=== PATIENT | female | born 1945 | race Caucasian/White ===

== ENCOUNTER 2019-01-26 11:11 | Inpatient (IN) | payer OTHER ==
[2019-01-26] MEDS ORDERED: SODIUM CHLORIDE 1,000 ML IV SCH ×3 (11:30→12:45)
[2019-01-26] MEDS ORDERED: dilTIAZem HCL 50 MG/10 ML - 10 ML VIAL IVPUSH ONE ×2 (11:39)
[2019-01-26] MEDS ORDERED: dilTIAZem HCL 125 MG/25 ML - 25 ML VIAL ONE (11:40)
--- NOTE | 2019-01-26 11:48 | PDOC ---
Attending Attestation - Medical Decision Making Case d/w [facility] ER: At [facility] 01/02 - admitted for CAD/CHF/HTN came in for generalized weakness, vomiting, nausea, L arm discomfort (the latter since PPM) ; Low/normal EF 50% Tachy 177, AFib on EKG, responsive to Cardizem, patient admitted for AFib; special education curriculum specialist Dr. Boyd Marcano 01/26/19 12:[address] Boyd Marcano: ; <Rea Harkins - Last Filed: 01/26/19 12:16> - ED Attending Attestation I have performed the following: I have examined & evaluated the patient, The case was reviewed & discussed with the resident, I agree w/resident's findings & plan, Exceptions are as noted - HPI HPI: 01/26/19 11:37 History limited as pt give a limited history and NO records at this facility 73 yo F h/o COPD, CHF, HTN, Afib (on metoprolol, Cardizem, digoxin and apixiban) , h/o Colon cancer?, s/p recent admission for pneumonia and colitis Pt presents to the ER with son via EMS Pt reports that she had had palpitations and weakness for the past 2 days No fevers or chills Pt has been short of breath 01/26/19 11:40 - Physicial Exam PE: 01/26/19 11:40 GENERAL: The patient is in no acute distress. ENT: Ears normal, nares patent, oropharynx clear without exudates. Dry mucous membranes. NECK: Normal range of motion, supple, no nuchal rigidity (+) LAD LUNGS: Breath sounds equal, clear to auscultation bilaterally. No wheezes, and no crackles. HEART:Regular rate and rhythm, normal S1 and S2 without murmur, rub or gallop. ABDOMEN: Soft, nontender, normoactive bowel sounds. EXTREMITIES: Normal range of motion, no edema. NEUROLOGICAL: Cranial nerves II through XII grossly intact. Normal speech. No focal neurological deficits. SKIN: Warm, Dry, normal turgor, no rashes or lesions noted. - Critical Care Time Total Critical Care Time: 60 Critical Care Statement: The care of this patient involved high complexity decision making to prevent further life threatening deterioration of the patient 's condition and/or to evaluate & treat vital organ system(s) failure or risk of failure. - Medical Decision Making 01/26/19 11:48 Call placed to [facility] Meds are as follows: Nitro 0.4 sublingual Trulance 3mg daily Albuterol MDI Diltiazem CD 120- daily MVI Toprol xl 25mg daily Ferrous sulfact 325mg daily Midodrine 2.5mg TID Meclizine 25mg daily PRN Spironolactone 25mg daily Lasix 40mg daily Zantac 300mg daily Elliquis daily - (December) [id number] daily Lisinopril 2.5 mg daily Singulair Digoxin .125mg in December Vitamin D 50k units weekly (in October) 01/26/19 11:53 Cardizem 10mg IV given HR improved to 90s-100s repeat EKG - ST rate of 102 bpm, right axis, no st elevation or depression RBBB , lateral st segment depression, t wves inversions Pt states she feels ok, no dizziness HR: 102, BP: 106/68 01/26/19 11:59 01/26/19 12:04 CXR - cardiomegaly, left basilar opacity - effusion vs. consolidation, chf 01/26/19 12:14 Laboratory Tests 01/26/19 01/26/19 11:36 11:36 WBC 8.9 Hgb 9.9 L Hct 31.8 L Plt Count 101 L INR 1.22 H 01/26/19 12:40 Laboratory Tests 01/26/19 01/26/19 11:36 11:36 Sodium 142 Potassium 4.2 Chloride 108 H Carbon Dioxide 30 BUN 9.1 Creatinine 0.5 L Creatine Kinase 68 Troponin I 0.04 B-Natriuretic Peptide 588.7 H Digoxin 0.69 L BEDSIDE ECHO Large left pleural effusion Right ventricle enlargement trace pericardial effusion 01/26/19 12:48 HR 90s BP 87/57 Will order pt midodrine 2.5 mg po now HR improved BP improved Cardiology consult appreciated Admit to hospitalist Clinical Impression: Afib with RVR, initial presentation Dehydration, initial presentation Fluid overloading, initial presentation CHF, initial presentation <Amna Geiger - Last Filed: 01/27/19 10:29>
--- NOTE | 2019-01-26 11:54 | PDOC ---
History of Present Illness - General Chief Complaint: Chest Pain Stated Complaint: CHEST PAIN Time Seen by Provider: 01/26/19 11:26 - History of Present Illness Initial Comments: 01/26/19 11:51 [place] Aden is a 73yF with PMHx of CAD, CHF with pacemaker, COPD presenting for 2d generalized weakness. Associated vomiting, nausea, and left arm discomfort. Denied fevers, chest/AB pain, SOB. She was treated 3 weeks ago for pneumonia and abdominal infection. Radiologist Diagnostic Dr. Boyd Marcano Past History - Past Medical History Allergies/Adverse Reactions: Allergies Allergy/AdvReac Type Severity Reaction Status Date / Time No Known Allergies Allergy Verified 01/26/19 11:51 Home Medications: Ambulatory Orders Albuterol Sulfate Inhaler - [Ventolin Hfa Inhaler -] 1 puff IH DAILY 01/26/19 Apixaban [Eliquis] 5 mg PO DAILY 01/26/19 Atorvastatin Ca [Lipitor] 20 mg PO HS 01/26/19 Cholecalciferol (Vitamin D3) [Vitamin D3 -] 400 unit PO DAILY 01/26/19 Digoxin [Lanoxin -] 0.125 mg PO DAILY 01/26/19 Diltiazem HCl [Diltiazem 24Hr ER] 120 mg PO DAILY 01/26/19 Ferrous Sulfate 325 mg PO DAILY 01/26/19 Furosemide [Lasix] 40 mg PO DAILY 01/26/19 Lisinopril [Zestril] 2.5 mg PO DAILY 01/26/19 Meclizine HCl 25 mg PO DAILY 01/26/19 Metoprolol Succinate [Toprol Xl] 25 mg PO DAILY 01/26/19 Midodrine HCl 2.5 mg PO TID 01/26/19 Montelukast Sodium [Singulair] 10 mg PO DAILY 01/26/19 Multivitamin [Multiple Vitamins] 1 each PO DAILY 01/26/19 Nitroglycerin [Nitrostat] 0.4 mg SL DAILY PRN 01/26/19 Plecanatide [Trulance] 3 mg PO DAILY 01/26/19 Ranitidine HCl [Zantac] 300 mg PO DAILY 01/26/19 Spironolactone 25 mg PO DAILY 01/26/19 Cardiac Disorders: Yes (a fib, pacemaker) COPD: No HTN: Yes Hypercholesterolemia: Yes - Suicide/Smoking/Psychosocial Hx Smoking History: Former smoker Have you smoked in the past 12 months: No Information on smoking cessation initiated: No Hx Alcohol Use: No Drug/Substance Use Hx: No Review of Systems - Review of Systems Is the patient limited Pashto proficient: Yes Constitutional: Yes: Weakness (generalized). No: Chills, Fever HEENTM: No: Eye Pain, Ear Pain, Nose Pain Respiratory: No: Cough, Shortness of Breath Cardiac (ROS): No: Chest Pain, Palpitations, Syncope, Chest Tightness ABD/GI: No: Constipated, Diarrhea, Nausea, Vomiting : No: Burning, Dysuria, Discharge Musculoskeletal: No: Joint Swelling, Muscle Pain Integumentary: No: Lesions, Pruritus, Rash Neurological: Yes: Paresthesia (L arm). No: Numbness Endocrine: No: Excessive Sweating, Flushing *Physical Exam - Vital Signs Last Vital Signs Temp Pulse Resp BP Pulse Ox 98.2 F 169 H 16 113/94 100 01/26/19 11:15 01/26/19 11:15 01/26/19 11:15 01/26/19 11:15 01/26/19 11:15 - Physical Exam General Appearance: Yes: Moderate Distress, Thin HEENT: positive: [place], Normal Voice Respiratory/Chest: positive: Lungs Clear, Normal Breath Sounds. negative: Chest Tender, Respiratory Distress, Crackles, Rales, Rhonchi, Stridor, Wheezing Cardiovascular: positive: Regular Rhythm, S1, S2, Tachycardia. negative: Edema , Murmur Neurologic: positive: Fully Oriented, Alert, Responsive ED Treatment Course - LABORATORY CBC & Chemistry Diagram: 01/26/19 11:36 01/26/19 11:36 Medical Decision Making - Medical Decision Making 01/26/19 11:53 CXR, EKG, cardiac monitoring, CBC, chem, trop, TSH EKG showed 170 a flutter vs SVT broken with diltiazem 10mg which brought HR down to 104 Echo showed large left pleural effusion, mild dysfunction, Right ventricle enlargement, trace pericardial effusion CXR showed large heart, pacemaker, and dense retrocardiac area possibly representing fluid. Hgb 9.9, BNP 580, digoxin 0.69 [place] Aden is a 73yF with PMHx of CAD, CHF with pacemaker, COPD presenting for 2d generalized weakness. Attributed to congestive heart failure found on echo and afib with rvr. Afib w rvr broken with diltiazem 10mg which brought HR down to 104. Placed on 2L O2 NC for SOB Admitted to tele Dr. Mooney for congestive heart failure, afib w rvr *DC/Admit/Observation/Transfer Diagnosis at time of Disposition: Congestive heart failure of unknown etiology A-fib Qualifiers: Atrial fibrillation type: unspecified Qualified Code(s): I48.91 - Unspecified atrial fibrillation - Discharge Dispostion Condition at time of disposition: Stable Decision to Admit order: Yes - Referrals Referrals: Denzel Richey MD [Primary Care Provider] - - Patient Instructions - Post Discharge Activity
[2019-01-26 11:57] LABS: HEMATOCRIT 31.8 % (32.4-45.2); HEMOGLOBIN 9.9 GM/dL (10.7-15.3); MCH 25.9 pg (25.7-33.7); MCHC 31.2 g/dl (32.0-36.0); MEAN PLT VOLUME 8.8 fl (7.5-11.1); PLATELET COUNT 101 K/MM3 (134-434); RBC 3.83 M/mm3 (3.60-5.2); RDW 23.4 % (11.6-15.6); WHITE BLOOD COUNT 8.9 K/mm3 (4.0-10.0)
[2019-01-26 12:12] LABS: INR 1.22 (0.83-1.09); PROTHROMBIN TIME (PATIENT) 14.4 SEC (9.7-13.0)
[2019-01-26 12:34] LABS: ALBUMIN 2.2 g/dl (3.4-5.0); BILIRUBIN,TOTAL 0.8 mg/dL (0.2-1); BLOOD UREA NITROGEN 9.1 mg/dL (7-18); CALCIUM 7.7 mg/dL (8.5-10.1); CREATININE 0.5 mg/dL (0.55-1.3); MAGNESIUM 1.9 mg/dL (1.8-2.4); N-TERMINAL BNP 588.7 pg/ml (5-125); POTASSIUM 4.2 mmol/L (3.5-5.1); TOT PROT 5.7 g/dl (6.4-8.2)
[2019-01-26] MEDS ORDERED: MIDODRINE HCL 2.5 MG TABLET PO ONE (12:48)
[2019-01-26 13:53] LABS: ANISOCYTOSIS 2+; MACROCYTOSIS 1+; OVALOCYTE 1+; PLATELET ESTIMATE DECREASED
[2019-01-26 15:37] LABS: EPI CELLS 4.8 /HPF (0-5/HPF); HYALINE CASTS 5 /lpf (0-8); URINE APPEARANCE CLEAR; URINE BACTERIA 135.5 /hpf (NEGATIVE); URINE BILIRUBIN NEGATIVE (NEGATIVE); URINE COLOR DK YELLOW; URINE GLUCOSE (UA) NEGATIVE (NEGATIVE); URINE KETONE NEGATIVE (NEGATIVE); URINE LEUK ESTERASE 1+ (NEGATIVE); URINE NITRITE NEGATIVE (NEGATIVE); URINE PROTEIN TRACE (NEGATIVE); URINE RBC 3 /hpf (0-4); URINE WBC 6 /hpf (0-5)
--- NOTE | 2019-01-26 16:01 | CON.CARD ---
Cardiology Consult (text) - Consultation Consultation Note: cc: palps, weakness hpi: 73 f hx dchf, pafib, hld, htn, ppm, here with palps, weakness. Past few days pt with n/v, palps, weakness. No sob cp dizzy loc pnd orthopnea. +le edema worse lately. In ER found afib/svt with rvr. In sr after dilt. Denies any cad hx. Sees dr Marcano for cardio at [facility]. pmh: per hpi psh: pacemaker social: no tob ros: per hpi; all others nl fam: no premature cad meds: Home Medications Medication Instructions Recorded Albuterol Sulfate Inhaler - 1 puff IH DAILY 01/26/19 [Ventolin Hfa Inhaler -] Apixaban [Eliquis] 5 mg PO DAILY 01/26/19 Atorvastatin Ca [Lipitor] 20 mg PO HS 01/26/19 Cholecalciferol (Vitamin D3) 400 unit PO DAILY 01/26/19 [Vitamin D3 -] Digoxin [Lanoxin -] 0.125 mg PO DAILY 01/26/19 Diltiazem HCl [Diltiazem 24Hr ER] 120 mg PO DAILY 01/26/19 Ferrous Sulfate 325 mg PO DAILY 01/26/19 Furosemide [Lasix] 40 mg PO DAILY 01/26/19 Lisinopril [Zestril] 2.5 mg PO DAILY 01/26/19 Meclizine HCl 25 mg PO DAILY 01/26/19 Metoprolol Succinate [Toprol Xl] 25 mg PO DAILY 01/26/19 Midodrine HCl 2.5 mg PO TID 01/26/19 Montelukast Sodium [Singulair] 10 mg PO DAILY 01/26/19 Multivitamin [Multiple Vitamins] 1 each PO DAILY 01/26/19 Nitroglycerin [Nitrostat] 0.4 mg SL DAILY PRN 01/26/19 Plecanatide [Trulance] 3 mg PO DAILY 01/26/19 Ranitidine HCl [Zantac] 300 mg PO DAILY 01/26/19 Spironolactone 25 mg PO DAILY 01/26/19 Vital Signs Period Temp Pulse Resp BP Sys/Nava Pulse Ox Last 24 Hr 98.2 F-98.6 F 86-171 16-28 87-113/57-95 95-100 nad no jvd rrr s1s2 no mrg scattered rhonchi, nl eff abd nt nd pos bs no jaundice diaphoresis aao3 2+ le edema bl, no c/c no carotid bruits, pos dp pt Laboratory Last Values WBC 8.9 K/mm3 (4.0-10.0) 01/26/19 11:36 RBC 3.83 M/mm3 (3.60-5.2) 01/26/19 11:36 Hgb 9.9 GM/dL (10.7-15.3) L 01/26/19 11:36 Hct 31.8 % (32.4-45.2) L 01/26/19 11:36 MCV 83.0 fl (80-96) 01/26/19 11:36 MCH 25.9 pg (25.7-33.7) 01/26/19 11:36 MCHC 31.2 g/dl (32.0-36.0) L 01/26/19 11:36 RDW 23.4 % (11.6-15.6) H 01/26/19 11:36 Plt Count 101 K/MM3 (134-434) L 01/26/19 11:36 MPV 8.8 fl (7.5-11.1) 01/26/19 11:36 Neutrophils % No Result Required. 01/26/19 11:36 Neutrophils % (Manual) 72.5 % (42.8-82.8) 01/26/19 11:36 Band Neutrophils % 15.3 % 01/26/19 11:36 Lymphocytes % No Result Required. 01/26/19 11:36 Lymphocytes % (Manual) 2.0 % (8-40) L 01/26/19 11:36 Monocytes % (Manual) 7 % (3.8-10.2) 01/26/19 11:36 Eosinophils % (Manual) 0.0 % (0-4.5) 01/26/19 11:36 Basophils % (Manual) 0.0 % (0-2.0) 01/26/19 11:36 Myelocytes % (Man) 0 % (0-2) 01/26/19 11:36 Promyelocytes % (Man) 0 % (0-2) 01/26/19 11:36 Blast Cells % (Manual) 0 % (0-0) 01/26/19 11:36 Nucleated RBC % 0 % (0-0) 01/26/19 11:36 Metamyelocytes 2 % (0-2) 01/26/19 11:36 Hypochromia 0 01/26/19 11:36 Platelet Estimate Decreased 01/26/19 11:36 Platelet Comment Present 01/26/19 11:36 Polychromasia 1+ 01/26/19 11:36 Poikilocytosis 1+ 01/26/19 11:36 Anisocytosis 2+ 01/26/19 11:36 Microcytosis 1+ 01/26/19 11:36 Macrocytosis 1+ 01/26/19 11:36 Ovalocytes 1+ 01/26/19 11:36 Stomatocytes 1+ 01/26/19 11:36 Loving Cells 1+ 01/26/19 11:36 Acanthocytes (Spur) 1+ 01/26/19 11:36 PT with INR 14.40 SEC (9.7-13.0) H 01/26/19 11:36 INR 1.22 (0.83-1.09) H 01/26/19 11:36 Sodium 142 mmol/L (136-145) 01/26/19 11:36 Potassium 4.2 mmol/L (3.5-5.1) 01/26/19 11:36 Chloride 108 mmol/L (98-107) H 01/26/19 11:36 Carbon Dioxide 30 mmol/L (21-32) 01/26/19 11:36 Anion Gap 4 MMOL/L (8-16) L 01/26/19 11:36 BUN 9.1 mg/dL (7-18) 01/26/19 11:36 Creatinine 0.5 mg/dL (0.55-1.3) L 01/26/19 11:36 Est GFR (CKD-EPI)AfAm 112.07 01/26/19 11:36 Est GFR (CKD-EPI)NonAf 96.69 01/26/19 11:36 Random Glucose 112 mg/dL (74-106) H 01/26/19 11:36 Calcium 7.7 mg/dL (8.5-10.1) L 01/26/19 11:36 Magnesium 1.9 mg/dL (1.8-2.4) 01/26/19 11:36 Total Bilirubin 0.8 mg/dL (0.2-1) 01/26/19 11:36 AST 76 U/L (15-37) H 01/26/19 11:36 ALT 35 U/L (13-61) 01/26/19 11:36 Alkaline Phosphatase 89 U/L (45-117) 01/26/19 11:36 Creatine Kinase 68 U/L (26-192) 01/26/19 11:36 Troponin I 0.04 ng/ml (0.00-0.05) 01/26/19 11:36 B-Natriuretic Peptide 588.7 pg/ml (5-125) H 01/26/19 11:36 Total Protein 5.7 g/dl (6.4-8.2) L 01/26/19 11:36 Albumin 2.2 g/dl (3.4-5.0) L 01/26/19 11:36 TSH 3.30 uIU/ml (0.358-3.74) 01/26/19 11:36 Urine Color Dk yellow 01/26/19 15:22 Urine Appearance Clear 01/26/19 15:22 Urine pH 5.0 (5.0-8.0) 01/26/19 15:22 Ur Specific [place] 1.021 (1.010-1.035) 01/26/19 15:22 Urine Protein Trace (NEGATIVE) 01/26/19 15:22 Urine Glucose (UA) Negative (NEGATIVE) 01/26/19 15:22 Urine Ketones Negative (NEGATIVE) 01/26/19 15:22 Urine Blood Negative (NEGATIVE) 01/26/19 15:22 Urine Nitrite Negative (NEGATIVE) 01/26/19 15:22 Urine Bilirubin Negative (NEGATIVE) 01/26/19 15:22 Urine Urobilinogen 1.0 mg/dL (0.2-1.0) 01/26/19 15:22 Ur Leukocyte Esterase 1+ (NEGATIVE) H 01/26/19 15:22 Urine WBC (Auto) 6 /hpf (0-5) 01/26/19 15:22 Urine RBC (Auto) 3 /hpf (0-4) 01/26/19 15:22 Urine Casts (Auto) 5 /lpf (0-8) 01/26/19 15:22 U Epithel Cells (Auto) 4.8 /HPF (0-5/HPF) 01/26/19 15:22 Urine Bacteria (Auto) 135.5 /hpf (NEGATIVE) 01/26/19 15:22 Digoxin 0.69 ng/ml (0.8-2.0) L 01/26/19 11:36 Blood Type O POSITIVE 01/26/19 11:36 Antibody Screen Negative 01/26/19 11:36 ecg: svt 170, rbbb, lat st depressions cxr: chf tele: sr 80s a/p: 73 f hx dchf, pafib, hld, htn, ppm, here with palps, weakness. pafib: -here with rvr, now in sr after iv dilt -increase home toprol to 25 bid. cont home dig (level ok here) -cont home eliquis -monitor on tele diastolic chf: -here with vol overload, possibly due to rvr -rate control -lasix 40 iv qd, daily wt and chem7 -check echo hld: -cont home statin htn: -bp on low side here -cont bb -hold home steffany and aldactone for now ppm: -routine outpt f/u
--- NOTE | 2019-01-26 16:13 | PN ---
Teaching Attending Note Name of Resident: Susan Grove ATTENDING PHYSICIAN STATEMENT I saw and evaluated the patient. I reviewed the resident's note and discussed the case with the resident. I agree with the resident's findings and plan as documented. SUBJECTIVE: Patient is a 73 year old female with past medical history of CHF, paroxysmal A. fib, s/p pacemaker, COPD, HTN, and HLD, presented to the ED due to worsening bilateral lower extremity edema in the last few days and palpitations that started in the morning. Patient denies any chest pain , no palpitations, positive for shortness of breath on home oxygen. OBJECTIVE: Vital Signs Temperature 98.5 F 01/26/19 16:05 Pulse Rate 99 H 01/26/19 16:05 Respiratory Rate 19 01/26/19 16:05 Blood Pressure 104/62 01/26/19 16:05 O2 Sat by Pulse Oximetry (%) 97 01/26/19 16:05 GENERAL: The patient is awake, alert, and fully oriented, in no acute distress. HEAD: Normal with no signs of trauma. EYES: PERRL, extraocular movements intact, sclera anicteric, conjunctiva clear. ENT: Ears normal, oropharynx clear without exudates, moist mucous membranes. NECK: Trachea midline, full range of motion, supple. LUNGS: Breath sounds equal, clear to auscultation bilaterally, no wheezes, no crackles, no accessory muscle use. HEART: Regular rate and rhythm, S1, S2 without murmur, rub or gallop. ABDOMEN: Soft, NT,ND, normoactive bowel sounds, no guarding, no rebound, no hepatosplenomegaly, no masses. EXTREMITIES: 2+ pulses, warm, well-perfused, no edema. NEUROLOGICAL: Cranial nerves II through XII grossly intact. Normal speech, gait not observed. PSYCH: Normal mood, normal affect. SKIN: Warm, dry, normal turgor, no rashes or lesions noted CBCD WBC 8.9 K/mm3 (4.0-10.0) 01/26/19 11:36 RBC 3.83 M/mm3 (3.60-5.2) 01/26/19 11:36 Hgb 9.9 GM/dL (10.7-15.3) L 01/26/19 11:36 Hct 31.8 % (32.4-45.2) L 01/26/19 11:36 MCV 83.0 fl (80-96) 01/26/19 11:36 MCHC 31.2 g/dl (32.0-36.0) L 01/26/19 11:36 RDW 23.4 % (11.6-15.6) H 01/26/19 11:36 Plt Count 101 K/MM3 (134-434) L 01/26/19 11:36 MPV 8.8 fl (7.5-11.1) 01/26/19 11:36 CMP Sodium 142 mmol/L (136-145) 01/26/19 11:36 Potassium 4.2 mmol/L (3.5-5.1) 01/26/19 11:36 Chloride 108 mmol/L (98-107) H 01/26/19 11:36 Carbon Dioxide 30 mmol/L (21-32) 01/26/19 11:36 Anion Gap 4 MMOL/L (8-16) L 01/26/19 11:36 BUN 9.1 mg/dL (7-18) 01/26/19 11:36 Creatinine 0.5 mg/dL (0.55-1.3) L 01/26/19 11:36 Random Glucose 112 mg/dL (74-106) H 01/26/19 11:36 Calcium 7.7 mg/dL (8.5-10.1) L 01/26/19 11:36 Total Bilirubin 0.8 mg/dL (0.2-1) 01/26/19 11:36 AST 76 U/L (15-37) H 01/26/19 11:36 ALT 35 U/L (13-61) 01/26/19 11:36 Alkaline Phosphatase 89 U/L (45-117) 01/26/19 11:36 Total Protein 5.7 g/dl (6.4-8.2) L 01/26/19 11:36 Albumin 2.2 g/dl (3.4-5.0) L 01/26/19 11:36 CARDIAC ENZYMES Creatine Kinase 68 U/L (26-192) 01/26/19 11:36 Troponin I 0.04 ng/ml (0.00-0.05) 01/26/19 11:36 Current Medications Generic Name Dose Route Start Last Admin Trade Name Freq PRN Reason Stop Dose Admin Apixaban 5 mg 01/26/19 22:00 Eliquis - PO BID [facility] Digoxin 0.125 mg 01/27/19 10:00 Lanoxin - PO DAILY [facility] Furosemide 40 mg 01/26/19 18:00 Lasix Injection - IVPUSH 01/26/19 18:01 ONCE ONE Furosemide 40 mg 01/27/19 10:00 Lasix Injection - IVPUSH DAILY [facility] Metoprolol Succinate 25 mg 01/26/19 22:00 Toprol Xl - PO BID [facility] Home Medications Medication Instructions Recorded Albuterol Sulfate Inhaler - 1 puff IH DAILY 01/26/19 [Ventolin Hfa Inhaler -] Apixaban [Eliquis] 5 mg PO DAILY 01/26/19 Atorvastatin Ca [Lipitor] 20 mg PO HS 01/26/19 Cholecalciferol (Vitamin D3) 400 unit PO DAILY 01/26/19 [Vitamin D3 -] Digoxin [Lanoxin -] 0.125 mg PO DAILY 01/26/19 Diltiazem HCl [Diltiazem 24Hr ER] 120 mg PO DAILY 01/26/19 Ferrous Sulfate 325 mg PO DAILY 01/26/19 Furosemide [Lasix] 40 mg PO DAILY 01/26/19 Lisinopril [Zestril] 2.5 mg PO DAILY 01/26/19 Meclizine HCl 25 mg PO DAILY 01/26/19 Metoprolol Succinate [Toprol Xl] 25 mg PO DAILY 01/26/19 Midodrine HCl 2.5 mg PO TID 01/26/19 Montelukast Sodium [Singulair] 10 mg PO DAILY 01/26/19 Multivitamin [Multiple Vitamins] 1 each PO DAILY 01/26/19 Nitroglycerin [Nitrostat] 0.4 mg SL DAILY PRN 01/26/19 Plecanatide [Trulance] 3 mg PO DAILY 01/26/19 Ranitidine HCl [Zantac] 300 mg PO DAILY 01/26/19 Spironolactone 25 mg PO DAILY 01/26/19 ASSESSMENT AND PLAN: Patient is a 73 year old female with past medical history of CHF, paroxysmal A. fib, s/p pacemaker, COPD, HTN, and HLD, presented to the ED due to worsening bilateral lower extremity edema in the last few days and palpitations that started in the morning. #Paroxysmal Atrial fibrillation On Eliquis, cardizem , toprol xl added 25mg daily added by cardio. on digoxin from home. Cardio consult appreciated. #Acute diastolic CHF exacerbation: Iv Lasix 40mg daily, continue Metoprolol, daily weights, strict I&O, Echo ordered #HTN: BP on a low side ,home dose Midodrine 2.5mg given once at the ED, will continue .will hold home Spironolactone and Lisinopril, monitor BP closely #HLD: Continue Lipitor 20mg HS #COPD :continue home Albuterol PRN, on home oxygen continue DVT Prophylaxis: Eliquis 5mg BID
--- NOTE | 2019-01-26 17:05 | HP ---
CHIEF COMPLAINT: bilateral leg swelling and palpitations PCP:Dr. Richey HISTORY OF PRESENT ILLNESS: Patient is a 73 year old female with past medical history of CHF, paroxysmal A. fib, s/p pacemaker, COPD, HTN, and HLD, presented to the ED due to worsening bilateral lower extremity edema in the last few days and palpitations that started in the morning. Patient also reported left arm swelling but has been unchanged since she was discharged from [facility] last month. Upon arrival at the ED, patient was noted to have a heart rate at 170s, EKG showed SVT. Home dose of Cardizem 120mg and IV Cardizem 10mg was given which brought down the HR to 80s. Patient denies any fever, chills, headache, dizziness, chest pain, SOB, abdominal pain, urinary symptoms. ER course was notable for: (1)RVR s/p Iv Cardizem 10mg and 120mg PO (2) (3) Recent Travel:denies PAST MEDICAL HISTORY: CHF CAD paroxysmal A. fib COPD HTN HLD PAST SURGICAL HISTORY: pacemaker placement (>10 years ago) Social History: Smoking:denies Alcohol:denies Drugs: denies Family History: noncontributory Allergies No Known Allergies Allergy (Verified 01/26/19 11:51) HOME MEDICATIONS: Home Medications Medication Instructions Recorded Albuterol Sulfate Inhaler - 1 puff IH DAILY 01/26/19 [Ventolin Hfa Inhaler -] Apixaban [Eliquis] 5 mg PO DAILY 01/26/19 Atorvastatin Ca [Lipitor] 20 mg PO HS 01/26/19 Cholecalciferol (Vitamin D3) 400 unit PO DAILY 01/26/19 [Vitamin D3 -] Digoxin [Lanoxin -] 0.125 mg PO DAILY 01/26/19 Diltiazem HCl [Diltiazem 24Hr ER] 120 mg PO DAILY 01/26/19 Ferrous Sulfate 325 mg PO DAILY 01/26/19 Furosemide [Lasix] 40 mg PO DAILY 01/26/19 Lisinopril [Zestril] 2.5 mg PO DAILY 01/26/19 Meclizine HCl 25 mg PO DAILY 01/26/19 Metoprolol Succinate [Toprol Xl] 25 mg PO DAILY 01/26/19 Midodrine HCl 2.5 mg PO TID 01/26/19 Montelukast Sodium [Singulair] 10 mg PO DAILY 01/26/19 Multivitamin [Multiple Vitamins] 1 each PO DAILY 01/26/19 Nitroglycerin [Nitrostat] 0.4 mg SL DAILY PRN 01/26/19 Plecanatide [Trulance] 3 mg PO DAILY 01/26/19 Ranitidine HCl [Zantac] 300 mg PO DAILY 01/26/19 Spironolactone 25 mg PO DAILY 01/26/19 REVIEW OF SYSTEMS CONSTITUTIONAL: Absent: fever, chills, diaphoresis, generalized weakness, malaise, loss of appetite, weight change HEENT: Absent: rhinorrhea, nasal congestion, throat pain, throat swelling, difficulty swallowing, mouth swelling, ear pain, eye pain, visual changes CARDIOVASCULAR: palpitations, BLE edema, L arm swelling Absent: chest pain, syncope,irregular heart rate, lightheadedness RESPIRATORY: Absent: cough, shortness of breath, dyspnea with exertion, orthopnea, wheezing, stridor, hemoptysis GASTROINTESTINAL: Absent: abdominal pain, abdominal distension, nausea, vomiting, diarrhea, constipation, melena, hematochezia GENITOURINARY: Absent: dysuria, frequency, urgency, hesitancy, hematuria, flank pain, genital pain MUSCULOSKELETAL: Absent: myalgia, arthralgia, joint swelling, back pain, neck pain SKIN: Absent: rash, itching, pallor HEMATOLOGIC/IMMUNOLOGIC: Absent: easy bleeding, easy bruising, lymphadenopathy, frequent infections ENDOCRINE: Absent: unexplained weight gain, unexplained weight loss, heat intolerance, cold intolerance NEUROLOGIC: Absent: headache, focal weakness or paresthesias, dizziness, unsteady gait, seizure, mental status changes, bladder or bowel incontinence PSYCHIATRIC: Absent: anxiety, depression, suicidal or homicidal ideation, hallucinations. PHYSICAL EXAMINATION Vital Signs - 24 hr 01/26/19 01/26/19 01/26/19 11:15 11:26 11:45 Temperature 98.2 F Pulse Rate 169 H Pulse Rate [ 171 H Apical] Respiratory 16 28 H Rate Blood Pressure 113/94 Blood Pressure 113/95 [Left Arm] Blood Pressure [Right Arm] O2 Sat by Pulse 100 96 95 Oximetry (%) 01/26/19 01/26/19 01/26/19 11:50 13:14 13:53 Temperature 98.5 F 98.6 F Pulse Rate Pulse Rate [ 104 H 99 H 86 Apical] Respiratory 26 H 23 H 19 Rate Blood Pressure Blood Pressure 106/68 [Left Arm] Blood Pressure 87/57 L 106/67 [Right Arm] O2 Sat by Pulse 95 97 97 Oximetry (%) 01/26/19 16:05 Temperature 98.5 F Pulse Rate Pulse Rate [ 99 H Apical] Respiratory 19 Rate Blood Pressure Blood Pressure [Left Arm] Blood Pressure 104/62 [Right Arm] O2 Sat by Pulse 97 Oximetry (%) GENERAL: Awake, alert, and fully oriented, on 2L NC HEAD: Normal with no signs of trauma. EYES: PERRLA, EOMI, sclera anicteric, conjunctiva clear. EARS, NOSE, THROAT: Moist mucous membranes. NECK: Normal range of motion, supple. LUNGS: +bibasilar crackles HEART: Regular rate and rhythm, normal S1 and S2 without murmur, rub or gallop. ABDOMEN: Soft, nontender, not distended, normoactive bowel sounds. MUSCULOSKELETAL: Normal range of motion at all joints. No bony deformities or tenderness. UPPER EXTREMITIES: 2+ pulses, warm, well-perfused. No peripheral edema. LOWER EXTREMITIES: 2+ pulses, warm, well-perfused. +2 peripheral edema BLE NEUROLOGICAL: Cranial nerves II-XII intact. Normal speech. Normal gait. PSYCHIATRIC: Cooperative. Good eye contact. Appropriate mood and affect. SKIN: Warm, dry, normal turgor. Laboratory Results - last 24 hr 01/26/19 01/26/19 01/26/19 11:36 11:36 11:36 WBC 8.9 RBC 3.83 Hgb 9.9 L Hct 31.8 L MCV 83.0 MCH 25.9 MCHC 31.2 L RDW 23.4 H Plt Count 101 L MPV 8.8 Neutrophils % No Result Required. Neutrophils % (Manual) 72.5 Band Neutrophils % 15.3 Lymphocytes % No Result Required. Lymphocytes % (Manual) 2.0 L Monocytes % (Manual) 7 Eosinophils % (Manual) 0.0 Basophils % (Manual) 0.0 Myelocytes % (Man) 0 Promyelocytes % (Man) 0 Blast Cells % (Manual) 0 Nucleated RBC % 0 Metamyelocytes 2 Hypochromia 0 Platelet Estimate Decreased Platelet Comment Present Polychromasia 1+ Poikilocytosis 1+ Anisocytosis 2+ Microcytosis 1+ Macrocytosis 1+ Ovalocytes 1+ Stomatocytes 1+ Asher Cells 1+ Acanthocytes (Spur) 1+ PT with INR 14.40 H INR 1.22 H Sodium 142 Potassium 4.2 Chloride 108 H Carbon Dioxide 30 Anion Gap 4 L BUN 9.1 Creatinine 0.5 L Est GFR (CKD-EPI)AfAm 112.07 Est GFR (CKD-EPI)NonAf 96.69 Random Glucose 112 H Calcium 7.7 L Magnesium 1.9 Total Bilirubin 0.8 AST 76 H ALT 35 Alkaline Phosphatase 89 Creatine Kinase 68 Troponin I 0.04 B-Natriuretic Peptide 588.7 H Total Protein 5.7 L Albumin 2.2 L TSH 3.30 Urine Color Urine Appearance Urine pH Ur Specific [place] Urine Protein Urine Glucose (UA) Urine Ketones Urine Blood Urine Nitrite Urine Bilirubin Urine Urobilinogen Ur Leukocyte Esterase Urine WBC (Auto) Urine RBC (Auto) Urine Casts (Auto) U Epithel Cells (Auto) Urine Bacteria (Auto) Digoxin Blood Type Antibody Screen 01/26/19 01/26/19 01/26/19 11:36 11:36 15:22 WBC RBC Hgb Hct MCV MCH MCHC RDW Plt Count MPV Neutrophils % Neutrophils % (Manual) Band Neutrophils % Lymphocytes % Lymphocytes % (Manual) Monocytes % (Manual) Eosinophils % (Manual) Basophils % (Manual) Myelocytes % (Man) Promyelocytes % (Man) Blast Cells % (Manual) Nucleated RBC % Metamyelocytes Hypochromia Platelet Estimate Platelet Comment Polychromasia Poikilocytosis Anisocytosis Microcytosis Macrocytosis Ovalocytes Stomatocytes Asher Cells Acanthocytes (Spur) PT with INR INR Sodium Potassium Chloride Carbon Dioxide Anion Gap BUN Creatinine Est GFR (CKD-EPI)AfAm Est GFR (CKD-EPI)NonAf Random Glucose Calcium Magnesium Total Bilirubin AST ALT Alkaline Phosphatase Creatine Kinase Troponin I B-Natriuretic Peptide Total Protein Albumin TSH Urine Color Dk yellow Urine Appearance Clear Urine pH 5.0 Ur Specific [place] 1.021 Urine Protein Trace Urine Glucose (UA) Negative Urine Ketones Negative Urine Blood Negative Urine Nitrite Negative Urine Bilirubin Negative Urine Urobilinogen 1.0 Ur Leukocyte Esterase 1+ H Urine WBC (Auto) 6 Urine RBC (Auto) 3 Urine Casts (Auto) 5 U Epithel Cells (Auto) 4.8 Urine Bacteria (Auto) 135.5 Digoxin 0.69 L Blood Type O POSITIVE Antibody Screen Negative ASSESSMENT/PLAN: Patient is a 73 year old female with past medical history of CHF, paroxysmal A. fib, s/p pacemaker, COPD, HTN, and HLD, presented to the ED due to worsening bilateral lower extremity edema in the last few days and palpitations that started in the morning. #Paroxysmal Atrial fibrillation -s/p Cardizem 120mg PO and Iv cardizem 10mg given at the ED, currently rate controlled -Cardiology (Dr. Pelaez) consulted. Recommendations appreciated. -Metoprolol XL 25mg increased to BID -Continue digoxin 0.125mg daily -Continue Eliquis 5mg BID -Tele monitoring -Repeat EKG in the morning. #Acute CHF exacerbation -likely 2/2 atrial fibrillation -Iv Lasix 40mg daily -continue Metoprolol -daily weights -strict I&O -Echo ordered #HTN -blood pressure noted to be at the low side -home dose Midodrine 2.5mg given once at the ED -will hold home Spironolactone and Lisinopril -monitor BP closely #HLD -Continue Lipitor 20mg HS #COPD -continue home Albuterol PRN #FEN -Not on any standing fluids -Electrolytes wnl, routine bmp monitoring -Low fat, sodium restricted diet #Prophylaxis -On Eliquis 5mg BID #Disposition -full code -admit to tele Visit type - Emergency Visit Emergency Visit: Yes ED Registration Date: 01/26/19 Care time: The patient presented to the Emergency Department on the above date and was hospitalized for further evaluation of their emergent condition. - New Patient This patient is new to me today: Yes Date on this admission: 01/26/19 - Critical Care Critical Care patient: No
[2019-01-26] MEDS ORDERED: FUROSEMIDE 40 MG/4 ML INJECTABLE VIAL IVPUSH ONE (18:00)
[2019-01-26] MEDS: metoPROLOL SUCCINATE 25 MG TAB.SR.24H (FP) PO SCH (22:49)
[2019-01-26] MEDS: APIXABAN 5 MG TABLET PO SCH (22:49)
[2019-01-26] MEDS: ATORVASTATIN CA 20 MG TABLET (FP) PO SCH (22:49)
[2019-01-27 07:34] LABS: BASO % 0.2 % (0-2.0); EOS % 1.4 % (0-4.5); HEMOGLOBIN 8.6 GM/dL (10.7-15.3); MCH 25.9 pg (25.7-33.7); MCHC 30.9 g/dl (32.0-36.0); MEAN CELL VOLUME 84.1 fl (80-96); MEAN PLT VOLUME 8.5 fl (7.5-11.1); MONO % 5.9 % (3.8-10.2); NEUT % 85.5 % (42.8-82.8); RBC 3.33 M/mm3 (3.60-5.2); RDW 23.1 % (11.6-15.6); WHITE BLOOD COUNT 7.1 K/mm3 (4.0-10.0)
[2019-01-27 08:01] LABS: CHOLESTEROL 87 mg/dL (50-200); HDL CHOLESTEROL 28 mg/dL (40-60); TRIGLYCERIDES 59 mg/dL (0-150)
[2019-01-27 08:09] LABS: ALBUMIN 1.8 g/dl (3.4-5.0); BILIRUBIN,TOTAL 0.8 mg/dL (0.2-1); BLOOD UREA NITROGEN 11.4 mg/dL (7-18); CALCIUM 7.8 mg/dL (8.5-10.1); CREATININE 0.5 mg/dL (0.55-1.3); MAGNESIUM 1.9 mg/dL (1.8-2.4); PHOSPHOROUS 3.4 mg/dL (2.5-4.9); POTASSIUM 3.8 mmol/L (3.5-5.1); TOT PROT 4.8 g/dl (6.4-8.2)
[2019-01-27 08:25] LABS: PLATELET COUNT 85 K/MM3 (134-434)
[2019-01-27] MEDS: RANITIDINE HCL 150 MG TABLET (FP) PO SCH (09:31)
[2019-01-27] MEDS: DIGOXIN 0.125 MG TABLET (FP) PO SCH (09:31)
[2019-01-27] MEDS: APIXABAN 5 MG TABLET PO SCH ×2 (09:31→21:06)
[2019-01-27] MEDS: metoPROLOL SUCCINATE 25 MG TAB.SR.24H (FP) PO SCH ×2 (09:33→21:06)
[2019-01-27] MEDS: MECLIZINE HCL 25 MG TABLET (FP) PO SCH (09:33)
[2019-01-27] MEDS: MULTIVITAMINS (DAILY MVI) TABLET (FP) PO SCH (09:34)
[2019-01-27] MEDS: CHOLECALCIFEROL (VIT D3) 400 UNIT (10 MCG) TABLET PO SCH (09:34)
[2019-01-27] MEDS ORDERED: ALBUTEROL SO4 8 GM HFA INHALER IH PRN (10:00)
[2019-01-27] MEDS ORDERED: FERROUS SO4 325 MG TABLET (FP) PO SCH (10:00)
[2019-01-27] MEDS: FUROSEMIDE 40 MG/4 ML INJECTABLE VIAL IVPUSH SCH (10:26)
--- NOTE | 2019-01-27 11:16 | PN ---
Progress Note (short form) - Note Progress Note: s: no chest pain, palps, dizziness, dyspnea. Current Medications Albuterol Sulfate (Ventolin Hfa Inhaler -) 2 puff IH Q4H PRN PRN Reason: SHORTNESS OF BREATH Apixaban (Eliquis -) 5 mg PO BID [facility] Last Admin: 01/27/19 09:31 Dose: 5 mg Atorvastatin Calcium (Lipitor -) 20 mg PO [facility] Last Admin: 01/26/19 22:49 Dose: 20 mg Cholecalciferol (Vitamin D3 -) 400 unit PO DAILY [facility] Last Admin: 01/27/19 09:34 Dose: 400 unit Digoxin (Lanoxin -) 0.125 mg PO DAILY [facility] Last Admin: 01/27/19 09:31 Dose: 0.125 mg Ferrous Sulfate (Feosol -) 325 mg PO DAILY [facility] Last Admin: 01/27/19 09:31 Dose: 325 mg Furosemide (Lasix Injection -) 40 mg IVPUSH DAILY [facility] Last Admin: 01/27/19 10:26 Dose: 40 mg Meclizine HCl (Antivert -) 25 mg PO DAILY [facility] Last Admin: 01/27/19 09:33 Dose: 25 mg Metoprolol Succinate (Toprol Xl -) 25 mg PO BID [facility] Last Admin: 01/27/19 09:33 Dose: 25 mg Montelukast Sodium (Singulair -) 10 mg PO [facility] Multivitamins/Minerals/Vitamin C (Tab-A-Vit -) 1 tab PO DAILY [facility] Last Admin: 01/27/19 09:34 Dose: 1 tab Ranitidine HCl (Zantac -) 300 mg PO DAILY [facility] Last Admin: 01/27/19 09:31 Dose: 300 mg Vital Signs Period Temp Pulse Resp BP Sys/Nava Pulse Ox Last 24 Hr 98.1 F-98.8 F 66-171 16-28 87-119/53-95 95-100 nad no jvd rrr s1s2 no mrg scattered rhonchi, nl eff abd nt nd pos bs no jaundice diaphoresis aao3 1+ le edema bl, no c/c no carotid bruits, pos dp pt ecg: svt 170, rbbb, lat st depressions 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 pafib: -here with rvr, now in sr after iv dilt -increased home toprol to 25 bid, rate stable. cont home dig (level ok here) -cont home eliquis -monitor on tele diastolic chf: -here with vol overload, possibly due to rvr -rate control - edema improving, cr stable, -lasix 40 iv qd, daily wt and chem7 -check echo hld: -cont home statin htn: -bp on low side here -cont bb -hold home steffany and aldactone for now ppm: -routine outpt f/u
--- NOTE | 2019-01-27 14:45 | EKG ---
Test Reason : Blood Pressure : / mmHG Vent. Rate : 170 BPM Atrial Rate : 150 BPM P-R Int : 000 ms QRS Dur : 108 ms QT Int : 278 ms P-R-T Axes : 000 090 -88 degrees QTc Int : 467 ms SUPRAVENTRICULAR TACHYCARDIA INCOMPLETE RIGHT BUNDLE BRANCH BLOCK POSSIBLE RIGHT VENTRICULAR HYPERTROPHY ANTERIOR INFARCT , AGE UNDETERMINED MARKED ST ABNORMALITY, POSSIBLE INFERIOR SUBENDOCARDIAL INJURY ABNORMAL ECG Confirmed by MD ALTAGRACIA, LIZZY ([id number] on 01/27/2019 2:45:14 PM Referred By: Confirmed By:LIZZY FRIAS MD
--- NOTE | 2019-01-27 16:18 | PN ---
Progress Note (short form) - Note Progress Note: Patient is comfortable with no acute distress. Vital Signs Temperature 98.6 F 01/27/19 14:00 Pulse Rate 97 H 01/27/19 14:00 Respiratory Rate 18 01/27/19 14:00 Blood Pressure 108/70 01/27/19 14:00 O2 Sat by Pulse Oximetry (%) 95 01/27/19 09:00 GENERAL: The patient is awake, alert, and fully oriented, in no acute distress. HEAD: Normal with no signs of trauma. EYES: PERRL, extraocular movements intact, sclera anicteric, conjunctiva clear. ENT: Ears normal, oropharynx clear without exudates, moist mucous membranes. NECK: Trachea midline, full range of motion, supple. LUNGS: Breath sounds equal, clear to auscultation bilaterally, no wheezes, no crackles, no accessory muscle use. HEART: NSR rate is controlled ,S1, S2 positive , WILLIE 2/6 ,no rub or gallop. ABDOMEN: Soft, NT, ND, normoactive bowel sounds, no guarding, no rebound, no hepatosplenomegaly, no masses. EXTREMITIES: 2+ pulses, warm, well-perfused, no edema. NEUROLOGICAL: Cranial nerves II through XII grossly intact. Normal speech, gait not observed. PSYCH: Normal mood, normal affect. SKIN: Warm, dry, normal turgor, no rashes or lesions noted CBCD WBC 7.1 K/mm3 (4.0-10.0) 01/27/19 06:13 RBC 3.33 M/mm3 (3.60-5.2) L 01/27/19 06:13 Hgb 8.6 GM/dL (10.7-15.3) L 01/27/19 06:13 Hct 28.0 % (32.4-45.2) L 01/27/19 06:13 MCV 84.1 fl (80-96) 01/27/19 06:13 MCHC 30.9 g/dl (32.0-36.0) L 01/27/19 06:13 RDW 23.1 % (11.6-15.6) H 01/27/19 06:13 Plt Count 85 K/MM3 (134-434) L 01/27/19 06:13 MPV 8.5 fl (7.5-11.1) 01/27/19 06:13 CMP Sodium 145 mmol/L (136-145) 01/27/19 06:13 Potassium 3.8 mmol/L (3.5-5.1) 01/27/19 06:13 Chloride 106 mmol/L (98-107) 01/27/19 06:13 Carbon Dioxide 35 mmol/L (21-32) H 01/27/19 06:13 Anion Gap 3 MMOL/L (8-16) L 01/27/19 06:13 BUN 11.4 mg/dL (7-18) 01/27/19 06:13 Creatinine 0.5 mg/dL (0.55-1.3) L 01/27/19 06:13 Random Glucose 107 mg/dL (74-106) H 01/27/19 06:13 Calcium 7.8 mg/dL (8.5-10.1) L 01/27/19 06:13 Total Bilirubin 0.8 mg/dL (0.2-1) 01/27/19 06:13 AST 36 U/L (15-37) 01/27/19 06:13 ALT 28 U/L (13-61) 01/27/19 06:13 Alkaline Phosphatase 77 U/L (45-117) 01/27/19 06:13 Total Protein 4.8 g/dl (6.4-8.2) L 01/27/19 06:13 Albumin 1.8 g/dl (3.4-5.0) L 01/27/19 06:13 CARDIAC ENZYMES Creatine Kinase 43 U/L (26-192) 01/27/19 06:13 Troponin I 0.03 ng/ml (0.00-0.05) 01/27/19 06:13 Current Medications Generic Name Dose Route Start Last Admin Trade Name Freq PRN Reason Stop Dose Admin Albuterol Sulfate 2 puff 01/27/19 10:00 Ventolin Hfa Inhaler - IH Q4H PRN SHORTNESS OF BREATH Apixaban 5 mg 01/26/19 22:00 01/27/19 09:31 Eliquis - PO 5 mg BID JACIEL Administration Atorvastatin Calcium 20 mg 01/26/19 22:00 01/26/19 22:49 Lipitor - PO 20 mg HS JACIEL Administration Cholecalciferol 400 unit 01/27/19 10:00 01/27/19 09:34 Vitamin D3 - PO 400 unit DAILY [facility] Administration Digoxin 0.125 mg 01/27/19 10:00 01/27/19 09:31 Lanoxin - PO 0.125 mg DAILY JACIEL Administration Ferrous Sulfate 325 mg 01/27/19 10:00 01/27/19 09:31 Feosol - PO 325 mg DAILY [facility] Administration Furosemide 40 mg 01/27/19 10:00 01/27/19 10:26 Lasix Injection - IVPUSH 40 mg DAILY [facility] Administration Meclizine HCl 25 mg 01/27/19 10:00 01/27/19 09:33 Antivert - PO 25 mg DAILY [facility] Administration Metoprolol Succinate 25 mg 01/26/19 22:00 01/27/19 09:33 Toprol Xl - PO 25 mg BID [facility] Administration Montelukast Sodium 10 mg 01/27/19 22:00 Singulair - PO [facility] Multivitamins/Minerals/Vitamin C 1 tab 01/27/19 10:00 01/27/19 09:34 Tab-A-Vit - PO 1 tab DAILY [facility] Administration Ranitidine HCl 300 mg 01/27/19 10:00 01/27/19 09:31 Zantac - PO 300 mg DAILY [facility] Administration Home Medications Medication Instructions Recorded Albuterol Sulfate Inhaler - 1 puff IH DAILY 01/26/19 [Ventolin Hfa Inhaler -] Apixaban [Eliquis] 5 mg PO DAILY 01/26/19 Atorvastatin Ca [Lipitor] 20 mg PO 01/26/19 Cholecalciferol (Vitamin D3) 400 unit PO DAILY 01/26/19 [Vitamin D3 -] Digoxin [Lanoxin -] 0.125 mg PO DAILY 01/26/19 Diltiazem HCl [Diltiazem 24Hr ER] 120 mg PO DAILY 01/26/19 Ferrous Sulfate 325 mg PO DAILY 01/26/19 Furosemide [Lasix] 40 mg PO DAILY 01/26/19 Lisinopril [Zestril] 2.5 mg PO DAILY 01/26/19 Meclizine HCl 25 mg PO DAILY 01/26/19 Metoprolol Succinate [Toprol Xl] 25 mg PO DAILY 01/26/19 Midodrine HCl 2.5 mg PO TID 01/26/19 Montelukast Sodium [Singulair] 10 mg PO DAILY 01/26/19 Multivitamin [Multiple Vitamins] 1 each PO DAILY 01/26/19 Nitroglycerin [Nitrostat] 0.4 mg SL DAILY PRN 01/26/19 Plecanatide [Trulance] 3 mg PO DAILY 01/26/19 Ranitidine HCl [Zantac] 300 mg PO DAILY 01/26/19 Spironolactone 25 mg PO DAILY 01/26/19 Assessment and plan: Patient is a 73 year old female with past medical history of CHF, paroxysmal A. fib, s/p pacemaker, COPD, HTN, and HLD, presented to the ED due to worsening bilateral lower extremity edema in the last few days and palpitations that started in the morning. #Paroxysmal Atrial fibrillation On Eliquis, toprol continue #Acute diastolic CHF exacerbation: Iv Lasix 40mg daily, continue Metoprolol, daily weights, strict I&O, Echo ordered #HTN: continue home dose Midodrine 2.5mg , hold spironolactone, continue lisnopril #HLD: Continue Lipitor 20mg HS #COPD :continue home Albuterol PRN DVT Prophylaxis: Eliquis 5mg BID Visit type - Emergency Visit Emergency Visit: Yes ED Registration Date: 01/26/19 Care time: The patient presented to the Emergency Department on the above date and was hospitalized for further evaluation of their emergent condition. - New Patient This patient is new to me today: No - Critical Care Critical Care patient: No - Discharge Referral Referred to [facility] Med [facility].C.: No
[2019-01-27] MEDS ORDERED: GLYCERIN 1 RECTAL SUPPOSITORY, ADULT RC ONE (19:22)
[2019-01-27] MEDS: ATORVASTATIN CA 20 MG TABLET (FP) PO SCH (21:06)
[2019-01-27] MEDS ORDERED: MONTELUKAST NA 10 MG TABLET PO SCH (22:00)
[2019-01-28] MEDS: FUROSEMIDE 40 MG/4 ML INJECTABLE VIAL IVPUSH SCH (10:00)
[2019-01-28] MEDS: metoPROLOL SUCCINATE 25 MG TAB.SR.24H (FP) PO SCH (10:00)
[2019-01-28] MEDS: APIXABAN 5 MG TABLET PO SCH (11:04)
[2019-01-28] MEDS: DIGOXIN 0.125 MG TABLET (FP) PO SCH (11:04)
[2019-01-28] MEDS: MECLIZINE HCL 25 MG TABLET (FP) PO SCH (11:04)
[2019-01-28] MEDS: CHOLECALCIFEROL (VIT D3) 400 UNIT (10 MCG) TABLET PO SCH (11:05)
[2019-01-28] MEDS: RANITIDINE HCL 150 MG TABLET (FP) PO SCH (11:05)
[2019-01-28] MEDS: MULTIVITAMINS (DAILY MVI) TABLET (FP) PO SCH (11:05)
[2019-01-28 11:08] VITALS: PULSE 102
--- NOTE | 2019-01-28 11:17 | PN ---
Progress Note (short form) - Note Progress Note: s: no chest pain, palps, dizziness, dyspnea. Current Medications Albuterol Sulfate (Ventolin Hfa Inhaler -) 2 puff IH Q4H PRN PRN Reason: SHORTNESS OF BREATH Apixaban (Eliquis -) 5 mg PO BID [facility] Last Admin: 01/28/19 11:04 Dose: 5 mg Atorvastatin Calcium (Lipitor -) 20 mg PO HS [facility] Last Admin: 01/27/19 21:06 Dose: 20 mg Cholecalciferol (Vitamin D3 -) 400 unit PO DAILY [facility] Last Admin: 01/28/19 11:05 Dose: 400 unit Digoxin (Lanoxin -) 0.125 mg PO DAILY [facility] Last Admin: 01/28/19 11:04 Dose: 0.125 mg Furosemide (Lasix Injection -) 40 mg IVPUSH DAILY [facility] Last Admin: 01/27/19 10:26 Dose: 40 mg Meclizine HCl (Antivert -) 25 mg PO DAILY [facility] Last Admin: 01/28/19 11:04 Dose: 25 mg Metoprolol Succinate (Toprol Xl -) 25 mg PO BID [facility] Last Admin: 01/27/19 21:06 Dose: 25 mg Montelukast Sodium (Singulair -) 10 mg PO HS [facility] Last Admin: 01/27/19 21:06 Dose: 10 mg Multivitamins/Minerals/Vitamin C (Tab-A-Vit -) 1 tab PO DAILY [facility] Last Admin: 01/28/19 11:05 Dose: 1 tab Ranitidine HCl (Zantac -) 300 mg PO DAILY [facility] Last Admin: 01/28/19 11:05 Dose: 300 mg Vital Signs Period Temp Pulse Resp BP Sys/Nava Pulse Ox Last 24 Hr 97.9 F-99.0 F 97-108 18-20 96-119/56-70 95 nad no jvd rrr s1s2 no mrg scattered rhonchi, nl eff abd nt nd pos bs no jaundice diaphoresis aao3 1+ le edema bl, no c/c no carotid bruits, pos dp pt ecg: svt 170, rbbb, lat st depressions 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 pafib: -here with rvr, now in sr after iv dilt -increased home toprol to 25 bid, rate stable. 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
--- NOTE | 2019-01-28 13:40 | EKG ---
Test Reason : Blood Pressure : / mmHG Vent. Rate : 102 BPM Atrial Rate : 102 BPM P-R Int : 200 ms QRS Dur : 114 ms QT Int : 328 ms P-R-T Axes : -27 078 -73 degrees QTc Int : 427 ms SINUS TACHYCARDIA RIGHT BUNDLE BRANCH BLOCK SEPTAL INFARCT T WAVE ABNORMALITY, CONSIDER INFEROLATERAL ISCHEMIA ABNORMAL ECG Confirmed by MD ALTAGRACIA, LIZZY ([id number]) on 01/28/2019 1:40:15 PM Referred By: Confirmed By:LIZZY FRIAS MD
[2019-01-28 14:19] VITALS: BP 92/61; TEMP 97.8
--- NOTE | 2019-01-28 16:45 | PN ---
Teaching Attending Note Name of Resident: Samuel Oconnell ATTENDING PHYSICIAN STATEMENT I saw and evaluated the patient. I reviewed the resident's note and discussed the case with the resident. I agree with the resident's findings and plan as documented. SUBJECTIVE: Patient is comfortable with no acute distress. feels better. No fever or chills , no shortness of breath. OBJECTIVE: Vital Signs Temperature 97.8 F 01/28/19 10:00 Pulse Rate 102 H 01/28/19 11:04 Respiratory Rate 22 H 01/28/19 10:00 Blood Pressure 106/61 repeat 01/28/19 10:00 O2 Sat by Pulse Oximetry (%) 97 01/28/19 09:00 GENERAL: The patient is awake, alert, and fully oriented, in no acute distress. HEAD: Normal with no signs of trauma. EYES: PERRL, extraocular movements intact, sclera anicteric, conjunctiva clear. ENT: Ears normal, oropharynx clear without exudates, moist mucous membranes. NECK: Trachea midline, full range of motion, supple. LUNGS: Breath sounds equal, clear to auscultation bilaterally, no wheezes, no crackles, no accessory muscle use. HEART: NSR rate is controlled ,S1, S2 positive , WILLIE 2/6 ,no rub or gallop. ABDOMEN: Soft, NT, ND, normoactive bowel sounds, no guarding, no rebound, no hepatosplenomegaly, no masses. EXTREMITIES: 2+ pulses, warm, well-perfused, no edema. NEUROLOGICAL: Cranial nerves II through XII grossly intact. Normal speech, gait not observed. PSYCH: Normal mood, normal affect. SKIN: Warm, dry, normal turgor, no rashes or lesions noted CBCD WBC 7.1 K/mm3 (4.0-10.0) 01/27/19 06:13 RBC 3.33 M/mm3 (3.60-5.2) L 01/27/19 06:13 Hgb 8.6 GM/dL (10.7-15.3) L 01/27/19 06:13 Hct 28.0 % (32.4-45.2) L 01/27/19 06:13 MCV 84.1 fl (80-96) 01/27/19 06:13 MCHC 30.9 g/dl (32.0-36.0) L 01/27/19 06:13 RDW 23.1 % (11.6-15.6) H 01/27/19 06:13 Plt Count 85 K/MM3 (134-434) L 01/27/19 06:13 MPV 8.5 fl (7.5-11.1) 01/27/19 06:13 CMP Sodium 145 mmol/L (136-145) 01/27/19 06:13 Potassium 3.8 mmol/L (3.5-5.1) 01/27/19 06:13 Chloride 106 mmol/L (98-107) 01/27/19 06:13 Carbon Dioxide 35 mmol/L (21-32) H 01/27/19 06:13 Anion Gap 3 MMOL/L (8-16) L 01/27/19 06:13 BUN 11.4 mg/dL (7-18) 01/27/19 06:13 Creatinine 0.5 mg/dL (0.55-1.3) L 01/27/19 06:13 Random Glucose 107 mg/dL (74-106) H 01/27/19 06:13 Calcium 7.8 mg/dL (8.5-10.1) L 01/27/19 06:13 Total Bilirubin 0.8 mg/dL (0.2-1) 01/27/19 06:13 AST 36 U/L (15-37) 01/27/19 06:13 ALT 28 U/L (13-61) 01/27/19 06:13 Alkaline Phosphatase 77 U/L (45-117) 01/27/19 06:13 Total Protein 4.8 g/dl (6.4-8.2) L 01/27/19 06:13 Albumin 1.8 g/dl (3.4-5.0) L 01/27/19 06:13 CARDIAC ENZYMES Creatine Kinase 43 U/L (26-192) 01/27/19 06:13 Troponin I 0.03 ng/ml (0.00-0.05) 01/27/19 06:13 Home Medications Medication Instructions Recorded Albuterol Sulfate Inhaler - 1 puff IH DAILY 01/26/19 [Ventolin HFA Inhaler -] Apixaban [Eliquis] 5 mg PO DAILY 01/26/19 Atorvastatin Ca [Lipitor] 20 mg PO HS 01/26/19 Cholecalciferol (Vitamin D3) 400 unit PO DAILY 01/26/19 [Vitamin D -] Digoxin [Lanoxin -] 0.125 mg PO DAILY 01/26/19 Furosemide [Lasix] 40 mg PO DAILY 01/26/19 Lisinopril [Zestril] 2.5 mg PO DAILY 01/26/19 Metoprolol Succinate [Toprol Xl] 25 mg PO DAILY 01/26/19 Midodrine HCl 2.5 mg PO TID 01/26/19 Montelukast Sodium [Singulair] 10 mg PO DAILY 01/26/19 Multivitamin [Multiple Vitamins] 1 each PO DAILY 01/26/19 Nitroglycerin [Nitrostat] 0.4 mg SL DAILY PRN 01/26/19 Plecanatide [Trulance] 3 mg PO DAILY 01/26/19 Ranitidine HCl [Zantac] 300 mg PO DAILY 01/26/19 Meclizine HCl [Antivert -] 25 mg PO DAILY tablet 01/28/19 ASSESSMENT AND PLAN: Patient is a 73 year old female with past medical history of CHF, paroxysmal A. fib, s/p pacemaker, COPD, HTN, and HLD, presented to the ED due to worsening bilateral lower extremity edema in the last few days and palpitations that started in the morning. # Overnight patient was constipated: given IL and enema, had 2 BMs and feeling better. #Paroxysmal Atrial fibrillation On Eliquis, toprol continue, dc cardizem as per cardio. as per cardio patient can go home. discussed with. #Acute diastolic CHF exacerbation: swtched to po Lasix 40mg daily, continue Metoprolol. #HTN: continue home dose Midodrine 2.5mg , hold spironolactone, continue lisnopril #HLD: Continue Lipitor 20mg HS #COPD :continue home Albuterol PRN DVT Prophylaxis: Eliquis 5mg BID discharge patient home with follow up with cardio.
--- NOTE | 2019-01-28 17:05 | DS ---
Physical Exam: SUBJECTIVE: Patient seen and examined at the bedside shown to have no current complaints. No overnight events. OBJECTIVE: Vital Signs Period Temp Pulse Resp BP Sys/Nava Pulse Ox Last 24 Hr 97.8 F-98.7 F 102-108 20-22 92-119/56-64 95-97 PHYSICAL EXAM GENERAL: The patient is awake, alert, and fully oriented, in no acute distress. HEAD: Normal with no signs of trauma. EYES: grossly extraocular movements intact, sclera anicteric, conjunctiva clear. NECK: Trachea midline, full range of motion, supple. LUNGS: Breath sounds equal, CTA b/l, no congestion, wheezes, crackles, or accessory muscle use. HEART: Regular rate and rhythm, S1, S2 without murmur, rub or gallop. ABDOMEN: Soft, nontender, nondistended, normoactive bowel sounds, no guarding, no rebound, no hepatosplenomegaly, no masses. EXTREMITIES: 2+ pulses, warm, well-perfused, no edema. NEUROLOGICAL: Cranial nerves II through XII grossly intact. Normal speech, gait not observed. PSYCH: Normal mood, normal affect. SKIN: Warm, dry, no rashes or lesions noted. LABS CBC, BMP 01/27/19 06:13 01/27/19 06:13 HOSPITAL COURSE: Date of Admission:01/26/19 Patient is a 73 year old female with past medical history of CHF, paroxysmal A. fib, s/p pacemaker, COPD, HTN, and HLD and was admitted for b/l lower extremity edema and palpitations and found to be in SVT on EKG. Pt was given home dose of cardiazem 10mg PO and IV 10mg cardiazem which brought the heart rate down to the 80's. Patient has been monitored by telemetry since admission and notable to be in sinus rythym. While she was here, Dr. Trivedi (roundsman) recommended we increase the metoprolol to 25mg BID, IV lasix 40mg was given for the acute CHF exacerbation, and for the patient to have a f/u echo as outpatient with her roundsman. She also recommended to continue lisinopril, digoxin as prescribed, but to hold the spironolactone until she sees her roundsman within the week. Patient should continue all her home meds as prescribed. CXR: large heart, sclerotic, doubly pacemaker troponins: .04>.04>.03 Date of Discharge: 01/28/19 Minutes to complete discharge: 45 Discharge Summary Reason For Visit: CHF AFIB Condition: Improved - Instructions Diet, Activity, Other Instructions: - You were admitted for irregular heart beat and swollen legs. - While you were here, we gave you medications to help slow your heart down and make your heart beat more regular. - STOP taking spironolactone. Continue using your oxygen at home. - You should see your roundsman within 1 week. -Continue rest of the medications at home as prescribed. Referrals: Va Trivedi MD [Staff Physician] - Disposition: HOME - Home Medications Comprehensive Discharge Medication List: Ambulatory Orders Albuterol Sulfate Inhaler - [Ventolin HFA Inhaler -] 1 puff IH DAILY 01/26/19 Apixaban [Eliquis] 5 mg PO DAILY 01/26/19 Atorvastatin Ca [Lipitor] 20 mg PO HS 01/26/19 Cholecalciferol (Vitamin D3) [Vitamin D -] 400 unit PO DAILY 01/26/19 Digoxin [Lanoxin -] 0.125 mg PO DAILY 01/26/19 Furosemide [Lasix] 40 mg PO DAILY 01/26/19 Lisinopril [Zestril] 2.5 mg PO DAILY 01/26/19 Metoprolol Succinate [Toprol Xl] 25 mg PO DAILY 01/26/19 Midodrine HCl 2.5 mg PO TID 01/26/19 Montelukast Sodium [Singulair] 10 mg PO DAILY 01/26/19 Multivitamin [Multiple Vitamins] 1 each PO DAILY 01/26/19 Nitroglycerin [Nitrostat] 0.4 mg SL DAILY PRN 01/26/19 Plecanatide [Trulance] 3 mg PO DAILY 01/26/19 Ranitidine HCl [Zantac] 300 mg PO DAILY 01/26/19 Meclizine HCl [Antivert -] 25 mg PO DAILY tablet 01/28/19 This patient is new to me today: Yes Date on this admission: 01/28/19 Emergency Visit: No Critical Care patient: No - Discharge Referral Referred to [facility] Med P.C.: No
== END 2019-01-28 14:13 | disposition home or self-care (01) | DRG 194 ==
LOC: JER 11:11 → JERBED 15:58 → J4W 17:27
PROVIDERS: ADMIT Internal Medicine; ATTEND Internal Medicine
DX: I11.0 Hypertensive heart disease with heart failure (principal); I50.31 Acute diastolic (congestive) heart failure; I48.0 Paroxysmal atrial fibrillation; J44.9 Chronic obstructive pulmonary disease, unspecified; E78.5 Hyperlipidemia, unspecified; E78.00 Pure hypercholesterolemia, unspecified; I45.10 Unspecified right bundle-branch block; R00.2 Palpitations; E86.0 Dehydration; I47.1 Supraventricular tachycardia; K59.00 Constipation, unspecified; I25.10 Atherosclerotic heart disease of native coronary artery without angina pectoris; Z87.891 Personal history of nicotine dependence; Z95.0 Presence of cardiac pacemaker
CPT/HCPCS: 36415; 71045-TC-FY; 80048; 80053; 80061; 80162; 81003; 82550; 83721; 83735; 83880; 84100; 84443; 84484; 85025; 85610; 86850; 86900; 86901; 87086; 93005; 93010; 97116-GP; 97161-GP; 99285-25; J7030

== ENCOUNTER 2019-02-22 13:53 | Inpatient (IN) | payer OTHER ==
--- NOTE | 2019-02-22 14:08 | PDOC ---
History of Present Illness - General Chief Complaint: Pain Stated Complaint: DVT Time Seen by Provider: 02/22/19 14:07 Past History - Past Medical History Allergies/Adverse Reactions: Allergies Allergy/AdvReac Type Severity Reaction Status Date / Time No Known Allergies Allergy Verified 02/22/19 14:03 Home Medications: Ambulatory Orders Albuterol Sulfate Inhaler - [Ventolin HFA Inhaler -] 1 puff IH DAILY 01/26/19 Apixaban [Eliquis] 5 mg PO DAILY 01/26/19 Atorvastatin Ca [Lipitor] 20 mg PO HS 01/26/19 Cholecalciferol (Vitamin D3) [Vitamin D -] 400 unit PO DAILY 01/26/19 Digoxin [Lanoxin -] 0.125 mg PO DAILY 01/26/19 Furosemide [Lasix] 40 mg PO DAILY 01/26/19 Metoprolol Succinate [Toprol Xl] 25 mg PO DAILY 01/26/19 Midodrine HCl 2.5 mg PO TID PRN 01/26/19 Montelukast Sodium [Singulair] 10 mg PO DAILY 01/26/19 Multivitamin [Multiple Vitamins] 1 each PO DAILY 01/26/19 Nitroglycerin [Nitrostat] 0.4 mg SL DAILY PRN 01/26/19 Ranitidine HCl [Zantac] 300 mg PO DAILY 01/26/19 Meclizine HCl [Antivert -] 25 mg PO DAILY tablet 01/28/19 Cardiac Disorders: Yes (a fib, pacemaker) COPD: Yes CHF: Yes HTN: Yes Hypercholesterolemia: Yes - Suicide/Smoking/Psychosocial Hx Smoking History: Never smoked Have you smoked in the past 12 months: No Information on smoking cessation initiated: No Hx Alcohol Use: No Drug/Substance Use Hx: No Substance Use Type: None *Physical Exam - Vital Signs Last Vital Signs Temp Pulse Resp BP Pulse Ox 98.5 F 139 H 20 115/77 96 02/22/19 14:00 02/22/19 14:00 02/22/19 14:00 02/22/19 14:00 02/22/19 14:00 ED Treatment Course - LABORATORY CBC & Chemistry Diagram: 02/22/19 14:17 02/22/19 14:17 Medical Decision Making - Medical Decision Making 02/22/19 14:28 HPI 73 year old woman with a history CHF, paroxysmal A. fib, s/p pacemaker, COPD, HTN, and HLD, sent to the ED from PCP who was concerned for L > R lower extremity edema. The patient was in her PCP's office for a pre-colonoscopy visit and her PCP was concerned about her L leg swelling. The patient denies any symptoms of chest pain or shortness of breath. She reports that she did not take any of her morning home meds as she was at her doctors office. The patient was recently admitted for afib w/ rvr and CHF on 01/26/19 ROS GENERAL/CONSTITUTIONAL: No fever or chills. No weakness. HEAD, EYES, EARS, NOSE AND THROAT: No change in vision. No ear pain or discharge. No sore throat. CARDIOVASCULAR: No chest pain or shortness of breath RESPIRATORY: No cough, wheezing, or hemoptysis. GASTROINTESTINAL: No nausea, vomiting, diarrhea or constipation. GENITOURINARY: No dysuria, frequency, or change in urination. MUSCULOSKELETAL: See HPI.No neck or back pain. PE GENERAL: Awake, alert, and fully oriented, in no acute distress HEAD: No signs of trauma, normocephalic, atraumatic EYES: EOMI, sclera anicteric, conjunctiva clear ENT: oropharynx clear without exudates. Moist mucosa NECK: Normal ROM, supple LUNGS: No distress, speaks full sentences, clear to auscultation bilaterally HEART: Regular rate and rhythm, normal S1 and S2, no murmurs, rubs or gallops, peripheral pulses normal and equal bilaterally. ABDOMEN: Soft, nontender, normoactive bowel sounds. No guarding, no rebound. No masses EXTREMITIES : Normal inspection, Normal range of motion, + 2+ pitting edema from L knee to dorsum of the ankle. No clubbing or cyanosis. NEUROLOGICAL: Cranial nerves II through XII grossly intact. Normal speech, no focal sensorimotor deficits SKIN: Warm, Dry, normal turgor, no rashes or lesions noted MDM 73 year old woman with a history CHF, paroxysmal A. fib, s/p pacemaker, COPD, HTN, and HLD, sent to the ED from PCP who was concerned for L > R lower extremity edema. DDX including but not limited to: DVT vs cellulitis r/o PE vs acs vs CHF exacerbation W/U: - cbc, cmp, trop, coags, bnp, ekg, cxr, duplex TX: - dose home meds ED Course: EKG: possible svt rhythm rate of 138bpm , no interval abnormalities, narrow QRS , ST depression in v3-v5 unchanged from prior CXR: with central congestive changes, cardiomegaly, pacemaker L base atelectasis vs infiltrate Patient persistently tachycardic to 140s, patient with history of afib US: no evidence of DVT After home meds patient hr in the 110s rpt EKG considering patient with congestion on CXR and worsening leg edema likely will need admission for chf and afib w/ rvr case discussed with resident Dr. Chavez. Patient admitted Alondra Lo, PGY2 Emergency Medicine *DC/Admit/Observation/Transfer Diagnosis at time of Disposition: Congestive heart failure of unknown etiology, A-fib - Discharge Dispostion Condition at time of disposition: Fair Decision to Admit order: Yes - Referrals - Patient Instructions - Post Discharge Activity
[2019-02-22] MEDS ORDERED: FUROSEMIDE 40 MG TABLET (FP) PO ONE (14:42)
[2019-02-22] MEDS ORDERED: RANITIDINE HCL 150 MG TABLET (FP) PO ONE (14:42)
[2019-02-22] MEDS ORDERED: DIGOXIN 0.125 MG TABLET (FP) PO ONE (14:42)
[2019-02-22] MEDS ORDERED: metoPROLOL SUCCINATE 25 MG TAB.SR.24H (FP) PO ONE (14:42)
[2019-02-22] MEDS ORDERED: ATORVASTATIN CA 20 MG TABLET (FP) PO ONE (14:42)
[2019-02-22] MEDS ORDERED: LISINOPRIL 5 MG TABLET (FP) PO ONE (14:42)
[2019-02-22 14:44] LABS: BASO % 0.7 % (0-2.0); HEMATOCRIT 32.8 % (32.4-45.2); HEMOGLOBIN 10.6 GM/dL (10.7-15.3); LYMPH % 15.2 % (8-40); MCH 27.8 pg (25.7-33.7); MCHC 32.3 g/dl (32.0-36.0); MEAN CELL VOLUME 86.1 fl (80-96); MEAN PLT VOLUME 8.4 fl (7.5-11.1); MONO % 6.3 % (3.8-10.2); NEUT % 76.8 % (42.8-82.8); PLATELET COUNT 109 K/MM3 (134-434); RBC 3.82 M/mm3 (3.60-5.2); RDW 22.7 % (11.6-15.6)
[2019-02-22] MEDS ORDERED: RANITIDINE HCL 150 MG TABLET (FP) ONE (14:52)
[2019-02-22] MEDS ORDERED: FUROSEMIDE 40 MG TABLET (FP) ONE (14:52)
[2019-02-22] MEDS ORDERED: ATORVASTATIN CA 20 MG TABLET (FP) ONE (14:52)
[2019-02-22] MEDS ORDERED: DIGOXIN 0.125 MG TABLET (FP) ONE (14:53)
[2019-02-22] MEDS ORDERED: LISINOPRIL 5 MG TABLET (FP) ONE (14:53)
[2019-02-22 15:00] LABS: INR 1.17 (0.83-1.09); PROTHROMBIN TIME (PATIENT) 13.8 SEC (9.7-13.0)
[2019-02-22 15:45] LABS: ALBUMIN 2.7 g/dl (3.4-5.0); BILIRUBIN,TOTAL 0.4 mg/dL (0.2-1); BLOOD UREA NITROGEN 15.1 mg/dL (7-18); CALCIUM 8.2 mg/dL (8.5-10.1); CREATININE 0.7 mg/dL (0.55-1.3); POTASSIUM 3.6 mmol/L (3.5-5.1); TOT PROT 6.9 g/dl (6.4-8.2)
--- NOTE | 2019-02-22 16:56 | PDOC ---
Documentation entered by Mei Douglas SCRIBE, acting as scribe for Erasmo Ba MD. Erasmo Ba MD: This documentation has been prepared by the milindibbud, Mei Douglas SCRIBE, under my direction and personally reviewed by me in its entirety. I confirm that the documentation accurately reflects all work, treatment, procedures, and medical decision making performed by me. Attending Attestation - Resident Resident Name: Alondra Lo - ED Attending Attestation I have performed the following: I have examined & evaluated the patient, The case was reviewed & discussed with the resident, I agree w/resident's findings & plan, Exceptions are as noted - HPI HPI: 02/22/19 15:22 The patient is a 73-year-old female, with a past medical history of afib s/p pacemaker, HTN, HLD, and COPD, who was sent to the ED from her PCPs office for concern of LLE swelling. The patient initially visited her PCPs office for medical clearance for a colonoscopy next week. However, her PCP was concerned for DVT and sent pt to ED for eval. In ED, pt noted to be tachycardic to 130s. Pt denies CP/SOB/palpitations. The patient denies any fevers, chills, nausea, vomiting, diarrhea, or abdominal pain. Denies any chest pain, palpitations or shortness of breath. Denies any weakness, dizziness, or changes in strength or sensation. Allergies: NKA PCP: Dr. Denzel Richey - Physicial Exam PE: 02/22/19 15:38 GENERAL: Awake, alert, and fully oriented, in no acute distress. HEAD: No signs of trauma EYES: PERRLA, EOMI, sclera anicteric, conjunctiva clear ENT: Auricles normal inspection, hearing grossly normal, nares patent, oropharynx clear without exudates. Moist mucosa NECK: Nontender, no stepoffs, Normal ROM, supple, no lymphadenopathy, JVD, or masses LUNGS: Breath sounds equal, clear to auscultation bilaterally. No wheezes, and no crackles HEART: Regular rate and rhythm, normal S1 and S2, no murmurs, rubs or gallops ABDOMEN: Soft, nontender, normoactive bowel sounds. No guarding, no rebound. No masses EXTREMITIES: + BLE PE, L>R, No clubbing or cyanosis. No cords, erythema, or tenderness NEUROLOGICAL: Cranial nerves II through XII intact. 5/5 strength and sensation in all extremities, Normal speech, normal gait, normal cerebellar function SKIN: Warm, Dry, normal turgor, no rashes or lesions noted. - Medical Decision Making 02/22/19 16:57 73 F with LLE swelling, sent in to r/o DVT. Pt with bilateral pedal edema, but worse on L. Possible CHF. Pt also found to be tachycardic in ED, HR 130s. EKG shows narrow complex tachycardia without P waves. Most likely flutter with buried P-waves given h/o afib. - Labs - Rate control - dopplers - Diuresis
--- NOTE | 2019-02-22 17:17 | EKG ---
Test Reason : Blood Pressure : / mmHG Vent. Rate : 138 BPM Atrial Rate : 136 BPM P-R Int : 000 ms QRS Dur : 114 ms QT Int : 324 ms P-R-T Axes : 000 064 -77 degrees QTc Int : 490 ms SUPRAVENTRICULAR TACHYCARDIA INCOMPLETE RIGHT BUNDLE BRANCH BLOCK MARKED ST ABNORMALITY, POSSIBLE INFERIOR SUBENDOCARDIAL INJURY ABNORMAL ECG WHEN COMPARED WITH ECG OF 26-JAN-2019 11:41, NO SIGNIFICANT CHANGE WAS FOUND Confirmed by JUANA DYER, ANDI ([id number]) on 02/22/2019 5:16:40 PM Referred By: Confirmed By:ANDI ARIAS MD
[2019-02-22] MEDS ORDERED: METHOCARBAMOL 500 MG TABLET ONE (17:32)
[2019-02-22 17:38] LABS: ANISOCYTOSIS 2+; MACROCYTOSIS 1+
[2019-02-22] MEDS: MIDODRINE HCL 2.5 MG TABLET PO SCH (18:30)
--- NOTE | 2019-02-22 18:55 | PN ---
Teaching Attending Note Name of Resident: Susan Grove ATTENDING PHYSICIAN STATEMENT I saw and evaluated the patient. I reviewed the resident's note and discussed the case with the resident. I agree with the resident's findings and plan as documented. SUBJECTIVE: LE swelling. No CP/palpitations/lightheadedness. No fever/chills. OBJECTIVE: Afebrile, HR 138 Last Vital Signs Temp Pulse Resp BP Pulse Ox 98.5 F 114 H 18 112/90 97 02/22/19 14:00 02/22/19 17:06 02/22/19 17:06 02/22/19 17:06 02/22/19 17:08 HEENT - Atramatic, Normocephalic. Heart - S1, s2, Tachy, irregular Lungs - clear to auscultation Abdomen - soft, non-tender. Bowel Sounds normal. Extremities - LE edema, L>R. non-tender. Laboratory Results - last 24 hr 02/22/19 02/22/19 02/22/19 14:17 14:17 14:17 WBC 4.0 RBC 3.82 Hgb 10.6 L Hct 32.8 D MCV 86.1 MCH 27.8 MCHC 32.3 RDW 22.7 H Plt Count 109 L D MPV 8.4 Absolute Neuts (auto) 3.1 Neutrophils % 76.8 Lymphocytes % 15.2 D Monocytes % 6.3 Eosinophils % 1.0 Basophils % 0.7 D Nucleated RBC % 0 Anisocytosis 2+ Microcytosis 2+ Macrocytosis 1+ PT with INR INR PTT (Actin FS) 29.7 Sodium 145 Potassium 3.6 Chloride 104 Carbon Dioxide 34 H Anion Gap 7 L BUN 15.1 Creatinine 0.7 Est GFR (CKD-EPI)AfAm 100.32 Est GFR (CKD-EPI)NonAf 86.56 Random Glucose 110 H Calcium 8.2 L Total Bilirubin 0.4 AST 26 ALT 21 Alkaline Phosphatase 105 Troponin I 0.03 B-Natriuretic Peptide 561.0 H Total Protein 6.9 Albumin 2.7 L 02/22/19 14:17 WBC RBC Hgb Hct MCV MCH MCHC RDW Plt Count MPV Absolute Neuts (auto) Neutrophils % Lymphocytes % Monocytes % Eosinophils % Basophils % Nucleated RBC % Anisocytosis Microcytosis Macrocytosis PT with INR 13.80 H INR 1.17 H PTT (Actin FS) Sodium Potassium Chloride Carbon Dioxide Anion Gap BUN Creatinine Est GFR (CKD-EPI)AfAm Est GFR (CKD-EPI)NonAf Random Glucose Calcium Total Bilirubin AST ALT Alkaline Phosphatase Troponin I B-Natriuretic Peptide Total Protein Albumin Current Medications Generic Name Dose Route Start Last Admin Trade Name Freq PRN Reason Stop Dose Admin Albuterol Sulfate 1 puff 02/23/19 10:00 Ventolin Hfa Inhaler - IH Q4H PRN SHORTNESS OF BREATH Apixaban 5 mg 02/22/19 22:00 Eliquis - PO BID [facility] Atorvastatin Calcium 20 mg 02/22/19 22:00 Lipitor - PO HS [facility] Cholecalciferol 400 unit 02/23/19 10:00 Vitamin D3 - PO DAILY [facility] Digoxin 0.125 mg 02/23/19 10:00 Lanoxin - PO DAILY [facility] Furosemide 40 mg 02/23/19 10:00 Lasix Injection - IVPUSH DAILY [facility] Insulin Aspart 1 vial 02/22/19 22:00 Novolog Vial Sliding Scale - SQ ACHS [facility] Protocol Meclizine HCl 25 mg 02/23/19 10:00 Antivert - PO DAILY [facility] Metoprolol Succinate 25 mg 02/22/19 22:00 Toprol Xl - PO BID [facility] Midodrine 2.5 mg 02/22/19 18:00 02/22/19 18:30 Proamatine - PO 2.5 mg BID-MID [facility] Administration Montelukast Sodium 10 mg 02/22/19 22:00 Singulair - PO HS [facility] Multivitamins/Minerals/Vitamin C 1 tab 02/23/19 10:00 Tab-A-Vit - PO DAILY [facility] Ranitidine HCl 300 mg 02/23/19 10:00 Zantac - PO DAILY [facility] Home Medications Medication Instructions Recorded Albuterol Sulfate Inhaler - 1 puff IH DAILY 01/26/19 [Ventolin HFA Inhaler -] Atorvastatin Ca [Lipitor] 20 mg PO HS 01/26/19 Cholecalciferol (Vitamin D3) 400 unit PO DAILY 01/26/19 [Vitamin D -] Digoxin [Lanoxin -] 0.125 mg PO DAILY 01/26/19 Furosemide [Lasix] 40 mg PO DAILY 01/26/19 Midodrine HCl 2.5 mg PO TID PRN 01/26/19 Montelukast Sodium [Singulair] 10 mg PO DAILY 01/26/19 Multivitamin [Multiple Vitamins] 1 each PO DAILY 01/26/19 Nitroglycerin [Nitrostat] 0.4 mg SL DAILY PRN 01/26/19 Ranitidine HCl [Zantac] 300 mg PO DAILY 01/26/19 Meclizine HCl [Antivert -] 25 mg PO DAILY tablet 01/28/19 Apixaban [Eliquis -] 5 mg PO BID 02/22/19 Metoprolol Succinate [Toprol Xl] 25 mg PO BID 02/22/19 ASSESSMENT AND PLAN: 73 year old female with history of Arrhythmias, sVT, s/p pacemaker, Atrial fibrillation on Eliquis, HLD, Gastric Ca s/p resection 2006, Chronic Respiratory Failure secondary to COPD on 2L O2, Chronic Systolic CHF (EF 40%), referred to ED with LE edema, found to have tachycardia, RVR versus sVT. 1. Acute on Chronic Systolic CHF decompensation with Tachyarrhythmia, RVR versus sVT LE duplex neg for DVTs Telemonitoring Echo TropI neg, will trend. Rate much improved on resuming home BB IV Lasix diuresis History of Hypotension - on Midodrine. 2. Atrial fibrillation with RVR Rate improved on resuming BB, Digoxin Continue Eliquis. 3. HLD - continue Statin 4. CRF sec to COPD - on 2L O2. Stable. No evidence of acute exacerbation. DVT Px - on Eliquis.
--- NOTE | 2019-02-22 19:30 | HP ---
CHIEF COMPLAINT: LLE edema PCP: Dr. Denzel Richey HISTORY OF PRESENT ILLNESS: 73 y.o. F PMH A-fib s/p pacemaker on Eliquis, HTN, HLD, COPD on 2L home O2 PRN, CHF EF 40% presenting from her PCP for LLE edema. Pt was being seen at PCP for pre-colonoscopy visit; Dr. Richey noticed LLE edema and sent pt to ED. Pt did not notice the edema before her dr made her aware; denies LLE pain. Able to ambulate. LE duplex negative for DVTs. Upon arrival to the ED, pt tachycardic to 139. EKG shows a-fib with RVR. Home meds were given including metoprolol 25mg , HR came down to 114. Patient denies chest pain, SOB, fever, chills, headache, dizziness, abdominal pain, dysuria/ polyuria, appetite changes, myalgias, parasthesias. ER course was notable for: (1)B/l LE US negative (2)Trop x 1 neg (3) Recent Travel: denies PAST MEDICAL HISTORY: As above. Pt had prior admission 01/26/19 for b/l LE edema and palpitation, found to have SVT on EKG and acute CHF exac at that time; d/c' d on 01/28/19. PAST SURGICAL HISTORY: Pacemaker placement >10 yrs ago. Gastric CA s/p "tumor excision" in 2006 Social History: Smoking: denies Alcohol:denies Drugs: denies Family History: denies Allergies: NKDA/ NKFA No Known Allergies Allergy (Verified 02/22/19 14:03) HOME MEDICATIONS: Home Medications Medication Instructions Recorded Albuterol Sulfate Inhaler - 1 puff IH DAILY 01/26/19 [Ventolin HFA Inhaler -] Atorvastatin Ca [Lipitor] 20 mg PO HS 01/26/19 Cholecalciferol (Vitamin D3) 400 unit PO DAILY 01/26/19 [Vitamin D -] Digoxin [Lanoxin -] 0.125 mg PO DAILY 01/26/19 Furosemide [Lasix] 40 mg PO DAILY 01/26/19 Midodrine HCl 2.5 mg PO TID PRN 01/26/19 Montelukast Sodium [Singulair] 10 mg PO DAILY 01/26/19 Multivitamin [Multiple Vitamins] 1 each PO DAILY 01/26/19 Nitroglycerin [Nitrostat] 0.4 mg SL DAILY PRN 01/26/19 Ranitidine HCl [Zantac] 300 mg PO DAILY 01/26/19 Meclizine HCl [Antivert -] 25 mg PO DAILY tablet 01/28/19 Apixaban [Eliquis -] 5 mg PO BID 02/22/19 Metoprolol Succinate [Toprol Xl] 25 mg PO BID 02/22/19 REVIEW OF SYSTEMS CONSTITUTIONAL: Absent: fever, chills, diaphoresis, generalized weakness, malaise, loss of appetite, weight change HEENT: Absent: rhinorrhea, nasal congestion, throat pain, throat swelling, difficulty swallowing, mouth swelling, ear pain, eye pain, visual changes CARDIOVASCULAR: Absent: chest pain, syncope, palpitations, irregular heart rate, lightheadedness , peripheral edema RESPIRATORY: Absent: cough, shortness of breath, dyspnea with exertion, orthopnea, wheezing, stridor, hemoptysis GASTROINTESTINAL: Absent: abdominal pain, abdominal distension, nausea, vomiting, diarrhea, constipation, melena, hematochezia GENITOURINARY: Absent: dysuria, frequency, urgency, hesitancy, hematuria, flank pain, genital pain MUSCULOSKELETAL: Absent: myalgia, arthralgia, joint swelling, back pain, neck pain SKIN: Absent: rash, itching, pallor HEMATOLOGIC/IMMUNOLOGIC: Absent: easy bleeding, easy bruising, lymphadenopathy, frequent infections ENDOCRINE: Absent: unexplained weight gain, unexplained weight loss, heat intolerance, cold intolerance NEUROLOGIC: Absent: headache, focal weakness or paresthesias, dizziness, unsteady gait, seizure, mental status changes, bladder or bowel incontinence PSYCHIATRIC: Absent: anxiety, depression, suicidal or homicidal ideation, hallucinations. PHYSICAL EXAMINATION Vital Signs - 24 hr 02/22/19 02/22/19 02/22/19 14:00 17:06 17:08 Temperature 98.5 F Pulse Rate 139 H Pulse Rate [ 114 H Apical] Respiratory 20 18 Rate Blood Pressure 115/77 Blood Pressure 112/90 [Right Arm] O2 Sat by Pulse 96 97 97 Oximetry (%) GENERAL: Awake, alert, and fully oriented, in no acute distress. HEENT: NCAT. EOMI. PERRLA LUNGS: Breath sounds equal, clear to auscultation bilaterally. No wheezes, and no crackles. No accessory muscle use. HEART: Systolic murmur present, S1 and S2 ABDOMEN: Firm to palpation midepigastric region. Nontender, not distended, normoactive bowel sounds, no guarding, no rebound, no masses. No hepatomegaly or splenomegaly. UPPER EXTREMITIES: 2+ pulses, warm, well-perfused. No cyanosis. No clubbing. No peripheral edema. LOWER EXTREMITIES: 2+ pulses, warm, well-perfused. No calf tenderness. 1+ edema LLE; no edema RLE. SKIN: Warm, dry, normal turgor, no rashes or lesions noted, normal capillary refill. Laboratory Results - last 24 hr 02/22/19 02/22/19 02/22/19 14:17 14:17 14:17 WBC 4.0 RBC 3.82 Hgb 10.6 L Hct 32.8 D MCV 86.1 MCH 27.8 MCHC 32.3 RDW 22.7 H Plt Count 109 L D MPV 8.4 Absolute Neuts (auto) 3.1 Neutrophils % 76.8 Lymphocytes % 15.2 D Monocytes % 6.3 Eosinophils % 1.0 Basophils % 0.7 D Nucleated RBC % 0 Anisocytosis 2+ Microcytosis 2+ Macrocytosis 1+ PT with INR INR PTT (Actin FS) 29.7 Sodium 145 Potassium 3.6 Chloride 104 Carbon Dioxide 34 H Anion Gap 7 L BUN 15.1 Creatinine 0.7 Est GFR (CKD-EPI)AfAm 100.32 Est GFR (CKD-EPI)NonAf 86.56 Random Glucose 110 H Calcium 8.2 L Total Bilirubin 0.4 AST 26 ALT 21 Alkaline Phosphatase 105 Troponin I 0.03 B-Natriuretic Peptide 561.0 H Total Protein 6.9 Albumin 2.7 L 02/22/19 14:17 WBC RBC Hgb Hct MCV MCH MCHC RDW Plt Count MPV Absolute Neuts (auto) Neutrophils % Lymphocytes % Monocytes % Eosinophils % Basophils % Nucleated RBC % Anisocytosis Microcytosis Macrocytosis PT with INR 13.80 H INR 1.17 H PTT (Actin FS) Sodium Potassium Chloride Carbon Dioxide Anion Gap BUN Creatinine Est GFR (CKD-EPI)AfAm Est GFR (CKD-EPI)NonAf Random Glucose Calcium Total Bilirubin AST ALT Alkaline Phosphatase Troponin I B-Natriuretic Peptide Total Protein Albumin ASSESSMENT/PLAN: 73 y.o. F w/ PMH A-fib s/p pacemaker on Eliquis, HTN, HLD, COPD on 2L home O2 PRN, CHF EF 40% presented for LLE edema. #LLE Edema -Lasix 40mg IV daily -LE duplex neg for DVTs #Acute on chronic systolic CHF in setting of RVR -IV Lasix 40 -Tele monitoring -Trend troponins -F/u echo -Resume home medications -Further management as per cardiology #FEN -No standing fluids -F/u CMP -Diabetic sodium controlled diet #DVT PPX -Eliquis 5 PO BID #Dispo Admit to tele #Code status FULL CODE ATTENDING PHYSICIAN STATEMENT I saw and evaluated the patient. I reviewed the resident's note and discussed the case with the resident. I agree with the resident's findings and plan as documented. SUBJECTIVE: OBJECTIVE: ASSESSMENT AND PLAN:
[2019-02-22 20:34] VITALS: BMI 21.4
[2019-02-22] MEDS ORDERED: INSULIN (NOVOLOG) ASPART 100 UNITS/ML 10ML VIAL ONE (21:32)
[2019-02-22] MEDS ORDERED: APIXABAN 5 MG TABLET PO SCH (22:00)
[2019-02-22] MEDS ORDERED: ATORVASTATIN CA 20 MG TABLET (FP) PO SCH (22:00)
[2019-02-22] MEDS ORDERED: MONTELUKAST NA 10 MG TABLET PO SCH (22:00)
[2019-02-22] MEDS: APIXABAN 5 MG TABLET PO SCH (22:24)
[2019-02-22] MEDS: metoPROLOL SUCCINATE 25 MG TAB.SR.24H (FP) PO SCH (22:24)
[2019-02-22] MEDS: INSULIN SLIDING SCALE (NOVOLOG) 1 VIAL SQ SCH (22:27)
[2019-02-23] MEDS: INSULIN SLIDING SCALE (NOVOLOG) 1 VIAL SQ SCH ×2 (06:55→12:26)
[2019-02-23] MEDS ORDERED: ACETAMINOPHEN 325 MG TABLET (FP) PO PRN (07:29)
--- NOTE | 2019-02-23 08:57 | CON.CARD ---
Consult Consult Specialty:: Cardiology Referred by:: Mario Reason for Consultation:: SVT - History of Present Illness Chief Complaint: Sent by PCP for Edema History of Present Illness: 73 year old woman with a history diastolic CHF, paroxysmal A. fib, s/p pacemaker , COPD, HTN, and HLD, sent to the ED from PCP who was concerned for L > R lower extremity edema. The patient was in her PCP's office for a pre-colonoscopy visit and her PCP was concerned about her L leg swelling. The patient denies any symptoms of chest pain or shortness of breath. She reports that she did not take any of her morning home meds as she was at her doctors office. The patient was recently admitted for afib w/ rvr and CHF on 01/26/19 LE venous duplex was negative. Initial ECG: SVT 140bpm, RBBB (incomplete), NSST changes. ECG #2: AF 111bpm, RBBB, NSST changes. She was found to have a mildly elevated BNP.CXR shows cardiomegaly. - History Source History Provided By: Patient, Medical Record - Past Medical History Cardio/Vascular: Yes: AFIB, CHF (chronic diastolic CHF, PMM), HTN Pulmonary: No: Asthma, Bronchitis, Cancer, COPD, O2 Dependent, Pneumonia, Previously Intubated, Pulmonary Embolus, Pulmonary Fibrosis, Sleep Apnea, Other Hepatobiliary: No: Cirrhosis, Cholelithiasis, Cholecystitis, Choledocholithiasis , Hepatitis A, Hepatitis B, Hepatitis C, Other Renal/: No: Renal Failure, Renal Inusuff, BPH, Cancer, Hematuria, Hemodialysis , Neurogenic Bladder, Renal Calculi, UTI, Other Reproductive: No: Ectopic , Endometriosis, Fibroids, PID, Polycystic Ovary Syndrome, Postmenopausal, Other Infectious Disease: No: AIDS, C-Diff, Herpes Zoster, HIV, MRSA, STD's, Tuberculosis, VREF, Other Psych: No: Addictions, Anxiety, Bipolar, Depression, Panic, Psychosis, Schizophrenia, Other Musculoskeletal: No: Bursitis, Chronic low back pain, Hemiparesis, Hemiplegia, Osteoarthritis, Paraplegia, Other Rheumatology: No: Fibromyalgia, Gout, Lupus, Rheumatoid Arthritis, Sarcoidosis, Vasculitis, Other ENT: No: Allergic Rhinitis, Sinusitis, Other Endocrine: No: George's Disease, Vivian's Disease, Diabetes Insipidus, Diabetes Mellitus, Hyperparathyroidism, Hyperthyroidism, Hypothyroidism, Osteopenia, SIADH, Other Dermatology: No: Basal Cell, Cellulitis, Eczema, Melanoma, Psoriasis, Squamous Cell, Other - Alcohol/Substance Use Hx Alcohol Use: No - Smoking History Smoking history: Never smoked Have you smoked in the past 12 months: No - Social History History of Recent Travel: No Home Medications - Allergies Allergies/Adverse Reactions: Allergies Allergy/AdvReac Type Severity Reaction Status Date / Time No Known Allergies Allergy Verified 02/22/19 14:03 - Home Medications Home Medications: Ambulatory Orders Albuterol Sulfate Inhaler - [Ventolin HFA Inhaler -] 1 puff IH DAILY 01/26/19 Atorvastatin Ca [Lipitor] 20 mg PO HS 01/26/19 Cholecalciferol (Vitamin D3) [Vitamin D -] 400 unit PO DAILY 01/26/19 Digoxin [Lanoxin -] 0.125 mg PO DAILY 01/26/19 Furosemide [Lasix] 40 mg PO DAILY 01/26/19 Midodrine HCl 2.5 mg PO TID PRN 01/26/19 Montelukast Sodium [Singulair] 10 mg PO DAILY 01/26/19 Multivitamin [Multiple Vitamins] 1 each PO DAILY 01/26/19 Nitroglycerin [Nitrostat] 0.4 mg SL DAILY PRN 01/26/19 Ranitidine HCl [Zantac] 300 mg PO DAILY 01/26/19 Meclizine HCl [Antivert -] 25 mg PO DAILY tablet 01/28/19 Apixaban [Eliquis -] 5 mg PO BID 02/22/19 Metoprolol Succinate [Toprol Xl] 25 mg PO BID 02/22/19 Family Disease History - Family Disease History Family History: Unremarkable Review of Systems - Review of Systems Constitutional: reports: No Symptoms Eyes: reports: No Symptoms HENT: reports: No Symptoms Neck: reports: No Symptoms Cardiovascular: reports: Palpitations Respiratory: reports: No Symptoms Gastrointestinal: reports: No Symptoms Genitourinary: reports: No Symptoms Breasts: reports: No Symptoms Reported Musculoskeletal: reports: No Symptoms Integumentary: reports: No Symptoms Neurological: reports: No Symptoms Endocrine: reports: No Symptoms Hematology/Lymphatic: reports: No Symptoms Psychiatric: reports: No Symptoms - Risk Factors Known Risk Factors: Yes: Hypertension Vital Signs: Vital Signs Temperature 97.5 F L 02/23/19 05:19 Pulse Rate 75 08/02/19 05:19 Respiratory Rate 18 02/23/19 05:19 Blood Pressure 93/62 02/23/19 05:19 O2 Sat by Pulse Oximetry (%) 93 L 02/22/19 20:46 Constitutional: Yes: No Distress Eyes: Yes: Conjunctiva Clear Respiratory: Yes: Other (no rales or wheezing) Gastrointestinal: Yes: Soft Cardiovascular: Yes: Regular Rate and Rhythm JVD: No Carotid Bruit: No PMI: Non-Displaced Heart Sounds: Yes: S1, S2 Edema: No Neurological: Yes: Alert, Oriented ...Motor Strength: WNL - Other Data Labs, Other Data: INR, PTT INR 1.17 (0.83-1.09) H 02/22/19 14:17 Troponin, BNP 02/22/19 02/22/19 14:17 21:30 Troponin I 0.03 0.03 B-Natriuretic Peptide 561.0 H Troponin, BNP 02/22/19 02/22/19 14:17 21:30 Troponin I 0.03 0.03 B-Natriuretic Peptide 561.0 H Laboratory Tests 02/22/19 02/22/19 02/22/19 14:17 14:17 21:30 WBC 4.0 Hgb 10.6 L Plt Count 109 L D Sodium 145 Potassium 3.6 Creatinine 0.7 Troponin I 0.03 0.03 B-Natriuretic Peptide 561.0 H 02/23/19 07:05 WBC Hgb Plt Count Sodium Pending Potassium Pending Creatinine Pending Troponin I B-Natriuretic Peptide see HPI Echo: Pending Imaging - Results Chest X-ray: Image Reviewed (Cardiomegaly) EKG: Image Reviewed Assessment/Plan IMP: 1. PSVT 2. PAF s/p PPM 3. Chronic CHF- diastolic per prior notes 4. Cardiomegaly REC: 1. Continue Toprol and titrate as needed; telemetry. 2. Echo- cardiomegaly on CXR. Assess EF, r/o pericardial effusion. 3. Continue Eliquis 4. BP is lowish this AM. Clinically, does not appear sig volume overloaded. Will d/c IV Lasix 5. Consider ischemic evaluation w/ nuclear stress test prior to discharge if not recently done (CHG, NSST changes on ECG) Will follow.
[2019-02-23 08:58] LABS: HEMATOCRIT 30.2 % (32.4-45.2); HEMOGLOBIN 9.9 GM/dL (10.7-15.3); MCH 28.3 pg (25.7-33.7); MCHC 32.8 g/dl (32.0-36.0); MEAN CELL VOLUME 86.5 fl (80-96); MEAN PLT VOLUME 8.8 fl (7.5-11.1); RBC 3.49 M/mm3 (3.60-5.2); RDW 21.6 % (11.6-15.6); WHITE BLOOD COUNT 3.1 K/mm3 (4.0-10.0)
[2019-02-23 09:00] LABS: BLOOD UREA NITROGEN 14.5 mg/dL (7-18); CREATININE 0.7 mg/dL (0.55-1.3); PHOSPHOROUS 3.9 mg/dL (2.5-4.9); POTASSIUM 3.5 mmol/L (3.5-5.1)
[2019-02-23] MEDS ORDERED: PT OWN MED DRAWER 7, Y5N ONE (09:06)
[2019-02-23] MEDS: metoPROLOL SUCCINATE 25 MG TAB.SR.24H (FP) PO SCH (09:13)
[2019-02-23] MEDS: APIXABAN 5 MG TABLET PO SCH (09:13)
[2019-02-23] MEDS: MIDODRINE HCL 2.5 MG TABLET PO SCH (09:14)
[2019-02-23 09:17] VITALS: PULSE 76
[2019-02-23 09:33] LABS: PLATELET COUNT 99 K/MM3 (134-434)
[2019-02-23 09:49] VITALS: BP 100/64; TEMP 98
[2019-02-23] MEDS ORDERED: MECLIZINE HCL 25 MG TABLET (FP) PO SCH (10:00)
[2019-02-23] MEDS ORDERED: FUROSEMIDE 40 MG TABLET (FP) PO SCH (10:00)
[2019-02-23] MEDS ORDERED: CHOLECALCIFEROL (VIT D3) 400 UNIT (10 MCG) TABLET PO SCH (10:00)
[2019-02-23] MEDS ORDERED: DIGOXIN 0.125 MG TABLET (FP) PO SCH (10:00)
[2019-02-23] MEDS ORDERED: FUROSEMIDE 40 MG/4 ML INJECTABLE VIAL IVPUSH SCH (10:00)
[2019-02-23] MEDS ORDERED: RANITIDINE HCL 150 MG TABLET (FP) PO SCH (10:00)
[2019-02-23] MEDS ORDERED: ALBUTEROL SO4 8 GM HFA INHALER IH PRN (10:00)
[2019-02-23] MEDS ORDERED: MULTIVITAMINS (DAILY MVI) TABLET (FP) PO SCH (10:00)
--- NOTE | 2019-02-23 10:30 | ECHO ---
Name: SYEDA LOONEY Exam:Adult Echocardiogram Study Date: 02/23/2019 08:42 AM Age: 73 yrs Reason For Study: baseline, chf Height: 62 in Weight: 118 lb BSA: 1.5 m2 MMode/2D Measurements & Calculations IVSd: 0.95 cm Ao root diam: 2.6 cm LVIDd: 4.0 cm LA dimension: 3.5 cm LVIDs: 3.0 cm LVPWd: 0.90 cm LVPWs: 1.7 cm EDV(Teich): 70.6 ml ESV(Teich): 33.6 ml LVOT diam: 1.6 cm LAV (MOD-bp): 50.0 ml Doppler Measurements & Calculations Ao V2 max: 144.2 cm/sec LV V1 max P.4 mmHg Ao max P.3 mmHg LV V1 mean P.7 mmHg Ao V2 mean: 94.5 cm/sec LV V1 max: 92.3 cm/sec Ao mean P.2 mmHg LV V1 mean: 60.6 cm/sec Ao V2 VTI: 26.9 cm LV V1 VTI: 14.9 cm ROME(I,D): 1.1 cm2 ROME(V,D): 1.2 cm2 SV(LVOT): 28.4 ml TR max mateo: 285.6 cm/sec TR max P.7 mmHg PA V2 max: 154.7 cm/sec Med Peak E' Mateo: 6.4 cm/sec PA max P.6 mmHg Lat Peak E' Mateo: 9.7 cm/sec Left Ventricle Left ventricular systolic function is normal. Ejection Fraction = 50-55%. Septal motion is consistent with conduction abnormality. Right Ventricle There is a pacemaker lead in the right ventricle. The right ventricle is moderately dilated. The righ t ventricular systolic function is moderate to severely reduced. Atria The left atrial size is normal. The right atrium is moderate to severely dilated. Mitral Valve The mitral valve is normal in structure and function. There is no mitral valve stenosis. There is mil d mitral regurgitation. Tricuspid Valve The tricuspid valve is not well visualized, but is grossly normal. There is no tricuspid stenosis. Th ere is moderate to severe tricuspid regurgitation. Right ventricular systolic pressure is elevated at 40-50m mHg. There is moderate pulmonary hypertension. Aortic Valve The aortic valve is trileaflet. No hemodynamically significant valvular aortic stenosis. No aortic regurgitation is present. Pulmonic Valve The pulmonic valve is not well seen, but is grossly normal. There is no pulmonic valvular stenosis. T race to mild pulmonic valvular regurgitation. Great Vessels The aortic root is normal size. Pericardium/Pleura Trivial pericardial effusion not hemodynamically significant. Interpretation Summary Trivial pericardial effusion not hemodynamically significant Septal motion is consistent with conduction abnormality. Left ventricular systolic function is normal. Ejection Fraction = 50-55%. There is a pacemaker lead in the right ventricle. The right ventricle is moderately dilated. The right ventricular systolic function is moderate to severely reduced. The right atrium is moderate to severely dilated. There is mild mitral regurgitation. There is moderate to severe tricuspid regurgitation. Right ventricular systolic pressure is elevated at 40-50mmHg. There is moderate pulmonary hypertension. MD Ortega *Marco Antonio 02/23/2019 10:29 AM
--- NOTE | 2019-02-23 14:18 | EKG ---
Test Reason : Blood Pressure : / mmHG Vent. Rate : 111 BPM Atrial Rate : 129 BPM P-R Int : 000 ms QRS Dur : 122 ms QT Int : 354 ms P-R-T Axes : 000 059 -74 degrees QTc Int : 481 ms ATRIAL FIBRILLATION RIGHT BUNDLE BRANCH BLOCK NONSPECIFIC ST ABNORMALITY Confirmed by YURIDIA KOWALSKI MD ([id number]) on 02/23/2019 2:17:54 PM Referred By: Confirmed By:YURIDIA KOWALSKI MD
--- NOTE | 2019-02-23 14:58 | PN ---
Teaching Attending Note Name of Resident: Alondra Mehta ATTENDING PHYSICIAN STATEMENT I saw and evaluated the patient. I reviewed the resident's note and discussed the case with the resident. I agree with the resident's findings and plan as documented. SUBJECTIVE: LE swelling R>L. No CP/palpitations/lightheadedness. No fever/ chills. OBJECTIVE: Afebrile, HR 76, BP 100/64 Last Vital Signs Temp Pulse Resp BP Pulse Ox 98 F 76 18 100/64 93 L 02/23/19 09:00 02/23/19 09:13 02/23/19 09:00 02/23/19 09:00 02/23/19 09:00 Heart - S1, S2, irregular Lungs - clear to auscultation Abdomen - soft, non-tender. Bowel Sounds normal. Extremities - LE edema, L>R. non-tender. Laboratory Results - last 24 hr 02/22/19 02/22/19 02/22/19 14:17 14:17 14:17 WBC 4.0 RBC 3.82 Hgb 10.6 L Hct 32.8 D MCV 86.1 MCH 27.8 MCHC 32.3 RDW 22.7 H Plt Count 109 L D MPV 8.4 Absolute Neuts (auto) 3.1 Neutrophils % 76.8 Lymphocytes % 15.2 D Monocytes % 6.3 Eosinophils % 1.0 Basophils % 0.7 D Nucleated RBC % 0 Anisocytosis 2+ Microcytosis 2+ Macrocytosis 1+ PT with INR INR PTT (Actin FS) 29.7 Sodium 145 Potassium 3.6 Chloride 104 Carbon Dioxide 34 H Anion Gap 7 L BUN 15.1 Creatinine 0.7 Est GFR (CKD-EPI)AfAm 100.32 Est GFR (CKD-EPI)NonAf 86.56 POC Glucometer Random Glucose 110 H Calcium 8.2 L Phosphorus Magnesium Total Bilirubin 0.4 AST 26 ALT 21 Alkaline Phosphatase 105 Troponin I 0.03 B-Natriuretic Peptide 561.0 H Total Protein 6.9 Albumin 2.7 L 02/22/19 02/22/19 02/22/19 14:17 21:30 22:26 WBC RBC Hgb Hct MCV MCH MCHC RDW Plt Count MPV Absolute Neuts (auto) Neutrophils % Lymphocytes % Monocytes % Eosinophils % Basophils % Nucleated RBC % Anisocytosis Microcytosis Macrocytosis PT with INR 13.80 H INR 1.17 H PTT (Actin FS) Sodium Potassium Chloride Carbon Dioxide Anion Gap BUN Creatinine Est GFR (CKD-EPI)AfAm Est GFR (CKD-EPI)NonAf POC Glucometer 117 Random Glucose Calcium Phosphorus Magnesium Total Bilirubin AST ALT Alkaline Phosphatase Troponin I 0.03 B-Natriuretic Peptide Total Protein Albumin 02/23/19 02/23/19 02/23/19 06:54 07:05 07:05 WBC 3.1 L RBC 3.49 L Hgb 9.9 L Hct 30.2 L MCV 86.5 MCH 28.3 MCHC 32.8 RDW 21.6 H Plt Count 99 L MPV 8.8 Absolute Neuts (auto) Neutrophils % Lymphocytes % Monocytes % Eosinophils % Basophils % Nucleated RBC % Anisocytosis Microcytosis Macrocytosis PT with INR INR PTT (Actin FS) Sodium 143 Potassium 3.5 Chloride 103 Carbon Dioxide 38 H Anion Gap 3 L BUN 14.5 Creatinine 0.7 Est GFR (CKD-EPI)AfAm 100.32 Est GFR (CKD-EPI)NonAf 86.56 POC Glucometer 110 Random Glucose 112 H Calcium 8.0 L Phosphorus 3.9 Magnesium 2.0 Total Bilirubin AST ALT Alkaline Phosphatase Troponin I B-Natriuretic Peptide Total Protein Albumin 02/23/19 12:24 WBC RBC Hgb Hct MCV MCH MCHC RDW Plt Count MPV Absolute Neuts (auto) Neutrophils % Lymphocytes % Monocytes % Eosinophils % Basophils % Nucleated RBC % Anisocytosis Microcytosis Macrocytosis PT with INR INR PTT (Actin FS) Sodium Potassium Chloride Carbon Dioxide Anion Gap BUN Creatinine Est GFR (CKD-EPI)AfAm Est GFR (CKD-EPI)NonAf POC Glucometer 116 Random Glucose Calcium Phosphorus Magnesium Total Bilirubin AST ALT Alkaline Phosphatase Troponin I B-Natriuretic Peptide Total Protein Albumin Current Medications Generic Name Dose Route Start Last Admin Trade Name Freq PRN Reason Stop Dose Admin Acetaminophen 650 mg 02/23/19 07:29 02/23/19 08:01 Tylenol - PO 650 mg Q6H PRN Administration Fever Or Pain Albuterol Sulfate 1 puff 02/23/19 10:00 Ventolin Hfa Inhaler - IH Q4H PRN SHORTNESS OF BREATH Apixaban 5 mg 02/22/19 22:00 02/23/19 09:13 Eliquis - PO 5 mg BID JACIEL Administration Atorvastatin Calcium 20 mg 02/22/19 22:00 02/22/19 22:24 Lipitor - PO 20 mg HS [facility] Administration Cholecalciferol 400 unit 02/23/19 10:00 02/23/19 09:14 Vitamin D3 - PO 400 unit DAILY [facility] Administration Digoxin 0.125 mg 02/23/19 10:00 02/23/19 09:13 Lanoxin - PO 0.125 mg DAILY JACIEL Administration Insulin Aspart 1 vial 02/22/19 22:00 02/23/19 12:26 Novolog Vial Sliding Scale - SQ Not Given [facility] Protocol Meclizine HCl 25 mg 02/23/19 10:00 02/23/19 09:13 Antivert - PO 25 mg DAILY JACIEL Administration Metoprolol Succinate 25 mg 02/22/19 22:00 02/23/19 09:13 Toprol Xl - PO 25 mg BID [facility] Administration Midodrine 2.5 mg 02/22/19 18:00 02/23/19 09:14 Proamatine - PO 2.5 mg BID-MID [facility] Administration Montelukast Sodium 10 mg 02/22/19 22:00 02/22/19 22:24 Singulair - PO 10 mg HS [facility] Administration Multivitamins/Minerals/Vitamin C 1 tab 02/23/19 10:00 02/23/19 09:13 Tab-A-Vit - PO 1 tab DAILY [facility] Administration Ranitidine HCl 300 mg 02/23/19 10:00 02/23/19 09:13 Zantac - PO 300 mg DAILY [facility] Administration Home Medications Medication Instructions Recorded Albuterol Sulfate Inhaler - 1 puff IH DAILY 01/26/19 [Ventolin HFA Inhaler -] Atorvastatin Ca [Lipitor] 20 mg PO HS 01/26/19 Cholecalciferol (Vitamin D3) 400 unit PO DAILY 01/26/19 [Vitamin D -] Digoxin [Lanoxin -] 0.125 mg PO DAILY 01/26/19 Furosemide [Lasix] 40 mg PO DAILY 01/26/19 Midodrine HCl 2.5 mg PO TID PRN 01/26/19 Montelukast Sodium [Singulair] 10 mg PO DAILY 01/26/19 Multivitamin [Multiple Vitamins] 1 each PO DAILY 01/26/19 Nitroglycerin [Nitrostat] 0.4 mg SL DAILY PRN 01/26/19 Ranitidine HCl [Zantac] 300 mg PO DAILY 01/26/19 Meclizine HCl [Antivert -] 25 mg PO DAILY tablet 01/28/19 Apixaban [Eliquis -] 5 mg PO BID 02/22/19 Metoprolol Succinate [Toprol Xl] 25 mg PO BID 02/22/19 ASSESSMENT AND PLAN: 73 year old female with history of Arrhythmias, sVT, s/p pacemaker, Atrial fibrillation on Eliquis, HLD, Gastric Ca s/p resection 2006, Chronic Respiratory Failure secondary to COPD on 2L O2, Chronic Systolic CHF (EF 40%), referred to ED with LE edema, found to have tachycardia, RVR versus sVT. 1. Acute on Chronic Systolic CHF decompensation with Tachyarrhythmia, RVR +/- sVT LE duplex neg for DVTs Echo - RV systolic function severely reduced, PA moderately to severely dilated , mod to severe TR, RV systolic pressure 40-50mmHg. ECG - some lateral ST depression during tachycardic episode, no CP, serial TropI neg For [place] Stress test as out-patient. Patient declines to stay over the weekend for Stress test next week. Rate much improved on resuming home BB Resume home dose lasix. History of Hypotension - on Midodrine. 2. Parox Atrial fibrillation with RVR/Parox sVT Rate improved on resuming BB, Digoxin Continue Eliquis. 3. HLD - continue Statin 4. CRF sec to COPD - on 2L O2. Stable. No evidence of acute exacerbation. 5. Moderate Pulmonary HTN - for out-patient referral to Pulmonary. DVT Px - on Eliquis.
--- NOTE | 2019-02-23 15:51 | DS ---
Physical Exam: SUBJECTIVE: Patient seen and examined. No acute events overnight. Denies chest pain/ SOB/ extr pain/ parasthesias/ myalgias/ N/V/ D/ headaches/ fevers. OBJECTIVE: Vital Signs Period Temp Pulse Resp BP Sys/Nava Pulse Ox Last 24 Hr 97.5 F-98 F 67-114 18-20 91-121/59-90 91-97 PHYSICAL EXAM GENERAL: Awake, alert, and fully oriented, in no acute distress. HEENT: NCAT. EOMI. PERRLA LUNGS: Breath sounds equal, clear to auscultation bilaterally. No wheezes, and no crackles. No accessory muscle use. HEART: Systolic murmur present, S1 and S2 heard. RRR. ABDOMEN: Firm ant abd wall (s/p abd surgery in 2006). Nontender, not distended, normoactive bowel sounds, no guarding, no rebound, no masses. No hepatomegaly or splenomegaly. UPPER EXTREMITIES: 2+ pulses, warm, well-perfused. No cyanosis. No clubbing. No peripheral edema. LOWER EXTREMITIES: 2+ pulses, warm, well-perfused. No calf tenderness. 1+ edema LLE; no edema RLE. SKIN: Warm, dry, normal turgor, no rashes or lesions noted. Laboratory Results - last 24 hr Laboratory Last Values WBC 3.1 K/mm3 (4.0-10.0) L 02/23/19 07:05 RBC 3.49 M/mm3 (3.60-5.2) L 02/23/19 07:05 Hgb 9.9 GM/dL (10.7-15.3) L 02/23/19 07:05 Hct 30.2 % (32.4-45.2) L 02/23/19 07:05 MCV 86.5 fl (80-96) 02/23/19 07:05 MCH 28.3 pg (25.7-33.7) 02/23/19 07:05 MCHC 32.8 g/dl (32.0-36.0) 02/23/19 07:05 RDW 21.6 % (11.6-15.6) H 02/23/19 07:05 Plt Count 99 K/MM3 (134-434) L 02/23/19 07:05 MPV 8.8 fl (7.5-11.1) 02/23/19 07:05 Absolute Neuts (auto) 3.1 K/mm3 (1.5-8.0) 02/22/19 14:17 Neutrophils % 76.8 % (42.8-82.8) 02/22/19 14:17 Lymphocytes % 15.2 % (8-40) D 02/22/19 14:17 Monocytes % 6.3 % (3.8-10.2) 02/22/19 14:17 Eosinophils % 1.0 % (0-4.5) 02/22/19 14:17 Basophils % 0.7 % (0-2.0) D 02/22/19 14:17 Nucleated RBC % 0 % (0-0) 02/22/19 14:17 Anisocytosis 2+ 02/22/19 14:17 Microcytosis 2+ 02/22/19 14:17 Macrocytosis 1+ 02/22/19 14:17 PT with INR 13.80 SEC (9.7-13.0) H 02/22/19 14:17 INR 1.17 (0.83-1.09) H 02/22/19 14:17 PTT (Actin FS) 29.7 SECONDS (25.2-36.5) 02/22/19 14:17 Sodium 143 mmol/L (136-145) 02/23/19 07:05 Potassium 3.5 mmol/L (3.5-5.1) 02/23/19 07:05 Chloride 103 mmol/L (98-107) 02/23/19 07:05 Carbon Dioxide 38 mmol/L (21-32) H 02/23/19 07:05 Anion Gap 3 MMOL/L (8-16) L 02/23/19 07:05 BUN 14.5 mg/dL (7-18) 02/23/19 07:05 Creatinine 0.7 mg/dL (0.55-1.3) 02/23/19 07:05 Est GFR (CKD-EPI)AfAm 100.32 02/23/19 07:05 Est GFR (CKD-EPI)NonAf 86.56 02/23/19 07:05 POC Glucometer 116 UNITS (80-120) 02/23/19 12:24 Random Glucose 112 mg/dL (74-106) H 02/23/19 07:05 Calcium 8.0 mg/dL (8.5-10.1) L 02/23/19 07:05 Phosphorus 3.9 mg/dL (2.5-4.9) 02/23/19 07:05 Magnesium 2.0 mg/dL (1.8-2.4) 02/23/19 07:05 Total Bilirubin 0.4 mg/dL (0.2-1) 02/22/19 14:17 AST 26 U/L (15-37) 02/22/19 14:17 ALT 21 U/L (13-61) 02/22/19 14:17 Alkaline Phosphatase 105 U/L (45-117) 02/22/19 14:17 Troponin I 0.03 ng/ml (0.00-0.05) 02/22/19 21:30 B-Natriuretic Peptide 561.0 pg/ml (5-125) H 02/22/19 14:17 Total Protein 6.9 g/dl (6.4-8.2) 02/22/19 14:17 Albumin 2.7 g/dl (3.4-5.0) L 02/22/19 14:17 HOSPITAL COURSE: 73 y.o. F w/ PMH A-fib on Eliquis, pacemaker placement, HTN, HLD, COPD on 2L home O2 PRN, CHF EF 50-55%% presented for LLE edema. LE U/S negative for DVTs. Started on Lasix IV w/ improvement of edema. Pt ambulating well, denies pain/ parasthesias to LLE. Echo done showing RV elevated systolic pressure and moderate pulm HTN. EKG significant for Afib, RBBB, nonspec. ST changes. Denies chest pain, trops negative x2. Cardiology recs stress test; pt to have test outpatient on Tuesday at 8AM in cardio suite. Pt is clinically stable. Will f/u w / cardiology, pulm, and PCP. Date of Admission:02/22/19 CXR 02/22/19: Cardiomegaly, central congestive changes, some atelectasis or infiltrate @ left base Echo: EF 50-55%. Pacemaker lead in R ventricle. RV moderately dilated. RV systolic fxn mod-severly reduced. RA mod to sever dilation. Mild MR, mod to sever TR, RV sys P elevated at 40-50mmHg. Moderate pulm HTN. Date of Discharge: 02/23/19 Minutes to complete discharge: 36 Discharge Summary Reason For Visit: CHF AFIB Current Active Problems A-fib (Chronic) Congestive heart failure of unknown etiology (Chronic) Condition: Stable - Instructions Diet, Activity, Other Instructions: Your visit You were admitted to the hospital because your left leg was noted to be swollen. Ultrasound of the leg was negative of any blood clot. an ultrasound of your heart was also done which showed you have a high blood pressure in the arteries that go from your heart to your lungs. Please follow up with the lung doctor upon discharge for further workup and management. You are scheduled for a colonoscopy on feb 28. It is important that you follow up with cardiology for further work-up prior to the procedure. Medications Continue all your home medications as prescribed. Follow up 1. Please follow up with your primary care doctor within 1 week. 2. Please follow up with your it infrastructure specialist (Dr. Trivedi) within 1 week. 3. Please follow up with the mathematics department chair (Dr. Joseph) within 1 week. You will be having a stress test on Tuesday02/26/19 at 8:00AM in the cardiology suite at [facility] on floor S1. Please do not eat anything starting 12AM the night before the procedure. Please wear comfortable clothing. Do not consume caffeine within 24 hours before your procedure. Do not use lotions, creams or powders the day of your procedure. Please do not take any medications the morning of your procedure; you may bring your medications with you to take once the procedure is completed. Additional info Please call 911 or go to the ED with any worsening fever, chills, headache, dizziness, chest pain, shortness of breath, abdominal pain, diarrhea, or any new concerns noted. Referrals: Anshul Joseph MD [Staff Physician] - Va Trivedi MD [Staff Physician] - Disposition: VNS/HOME HEALTH CARE - Home Medications Comprehensive Discharge Medication List: Ambulatory Orders Albuterol Sulfate Inhaler - [Ventolin HFA Inhaler -] 1 puff IH DAILY 01/26/19 Atorvastatin Ca [Lipitor] 20 mg PO HS 01/26/19 Cholecalciferol (Vitamin D3) [Vitamin D -] 400 unit PO DAILY 01/26/19 Digoxin [Lanoxin -] 0.125 mg PO DAILY 01/26/19 Furosemide [Lasix] 40 mg PO DAILY 01/26/19 Midodrine HCl 2.5 mg PO TID PRN 01/26/19 Montelukast Sodium [Singulair] 10 mg PO DAILY 01/26/19 Multivitamin [Multiple Vitamins] 1 each PO DAILY 01/26/19 Nitroglycerin [Nitrostat] 0.4 mg SL DAILY PRN 01/26/19 Ranitidine HCl [Zantac] 300 mg PO DAILY 01/26/19 Meclizine HCl [Antivert -] 25 mg PO DAILY tablet 01/28/19 Apixaban [Eliquis -] 5 mg PO BID 02/22/19 Metoprolol Succinate [Toprol Xl] 25 mg PO BID 02/22/19 This patient is new to me today: No Emergency Visit: No Critical Care patient: No - Discharge Referral Referred to [facility] No ATTENDING PHYSICIAN STATEMENT I saw and evaluated the patient. I reviewed the resident's note and discussed the case with the resident. I agree with the resident's findings and plan as documented. SUBJECTIVE: OBJECTIVE: ASSESSMENT AND PLAN:
== END 2019-02-23 15:31 | disposition home health service (06) | DRG 194 ==
LOC: JER 13:53 → JERBED 17:33 → INTOOBSV 17:33 → OBSVTOIN 18:46 → J4W 20:03
DX: I13.0 Hypertensive heart and chronic kidney disease with heart failure and stage 1 through stage 4 chronic kidney disease, or unspecified chronic kidney disease (principal); I50.23 Acute on chronic systolic (congestive) heart failure; N18.9 Chronic kidney disease, unspecified; E78.5 Hyperlipidemia, unspecified; J44.9 Chronic obstructive pulmonary disease, unspecified; J96.10 Chronic respiratory failure, unspecified whether with hypoxia or hypercapnia; I48.0 Paroxysmal atrial fibrillation; I27.20 Pulmonary hypertension, unspecified; I45.19 Other right bundle-branch block; Z99.81 Dependence on supplemental oxygen; Z85.09 Personal history of malignant neoplasm of other digestive organs; Z95.0 Presence of cardiac pacemaker
CPT/HCPCS: 36415; 71045-TC-FY; 80048; 80053; 82962; 83735; 83880; 84100; 84484; 85025; 85027; 85610; 85730; 93005; 93010; 93306-TC; 93970-TC; 99285-25; G0378

== ENCOUNTER 2019-06-28 01:27 | Inpatient (IN) | payer OTHER ==
--- NOTE | 2019-06-28 01:29 | PDOC ---
Attending Attestation - Resident Resident Name: Lazaro Barillas - ED Attending Attestation I have performed the following: I have examined & evaluated the patient, The case was reviewed & discussed with the resident, I agree w/resident's findings & plan - HPI HPI: 06/28/19 01:49 see resident hpi - Physicial Exam PE: 06/28/19 01:50 agree with resident exam - Critical Care Time Total Critical Care Time: 40 Critical Care Statement: The care of this patient involved high complexity decision making to prevent further life threatening deterioration of the patient 's condition and/or to evaluate & treat vital organ system(s) failure or risk of failure. - Medical Decision Making 06/28/19 01:50 74-year-old female with history of COPD and CHF with acute respiratory distress , oxygen saturation in the 70s prior to arrival corrected to 94% on CPAP Patient will receive diuretics, Nitropaste, Solu-Medrol and nebulizer treatments as needed for COPD versus CHF exacerbation Chest x-ray EKG shows a ventricular paced rhythm We will admit to medical service pending results
--- NOTE | 2019-06-28 01:39 | PDOC ---
History of Present Illness - General Chief Complaint: Shortness of Breath Stated Complaint: CHEST PAIN Time Seen by Provider: 06/28/19 01:29 - History of Present Illness Initial Comments: 06/28/19 01:50 The patient is a 74 year old female with a history of HTN, HLD, CHF, COPD, Afib s/p pacemaker who presents for evaluation of respiratory distress. The patient is accompanied by family who assist in providing the history. They report a several day history of poorly described chest pain. Today, the patient began developing worsening difficulty breathing and shortness of breath prompting the family to call EMS. On EMS arrival the patient was saturating 70s and palced on CPAP with improvement in her saturation to 94%. She received 2 SL nitro and aspirin en route to the ED. They otherwise deny fevers, chills, cough, nausea, vomiting, abdominal pain, or changes with urination or bowel movements. Past History - Past Medical History Allergies/Adverse Reactions: Allergies Allergy/AdvReac Type Severity Reaction Status Date / Time No Known Allergies Allergy Verified 06/28/19 01:31 Home Medications: Ambulatory Orders Albuterol Sulfate Inhaler - [Ventolin HFA Inhaler -] 1 puff IH DAILY 01/26/19 Atorvastatin Ca [Lipitor] 20 mg PO HS 01/26/19 Cholecalciferol (Vitamin D3) [Vitamin D -] 400 unit PO DAILY 01/26/19 Digoxin [Lanoxin -] 0.125 mg PO DAILY 01/26/19 Furosemide [Lasix] 40 mg PO DAILY 01/26/19 Midodrine HCl 2.5 mg PO TID PRN 01/26/19 Montelukast Sodium [Singulair] 10 mg PO DAILY 01/26/19 Multivitamin [Multiple Vitamins] 1 each PO DAILY 01/26/19 Nitroglycerin [Nitrostat] 0.4 mg SL DAILY PRN 01/26/19 Ranitidine HCl [Zantac] 300 mg PO DAILY 01/26/19 Meclizine HCl [Antivert -] 25 mg PO DAILY tablet 01/28/19 Apixaban [Eliquis -] 5 mg PO BID 02/22/19 Metoprolol Succinate [Toprol Xl] 25 mg PO BID 02/22/19 Cardiac Disorders: Yes (a fib, pacemaker) COPD: Yes CHF: Yes HTN: Yes Hypercholesterolemia: Yes - Psycho Social/Smoking Cessation Hx Smoking History: Never smoked Have you smoked in the past 12 months: No Hx Alcohol Use: No Drug/Substance Use Hx: No Substance Use Type: None Hx Substance Use Treatment: No Review of Systems - Review of Systems Comments:: 06/28/19 01:54 Constitutional: No fevers, chills, fatigue, malaise HEENT: No Rhinorrhea, nasal congestion, visual changes Cardiovascular: Chest pain. No syncope, palpitations, lightheadedness Respiratory: SOB. No Cough, Hemoptysis, Gastrointestinal: No Abdominal pain, Nausea, Vomiting, Constipation, Diarrhea, Melena Genitourinary: No Dysuria, Frequency, Urgency, Hesitancy, Hematuria, Flank pain Musculoskeletal: No Myalgia, arthralgia Skin: No rashes, itching, bruising, pallor Neurologic: No Headache, Dizziness, Numbness, Weakness, or Tingling Psychiatric: No Hallucinations. No SI or HI *Physical Exam - Vital Signs Last Vital Signs Temp Pulse Resp BP Pulse Ox 60 34 H 140/79 89 L 06/28/19 01:31 06/28/19 01:31 06/28/19 01:31 06/28/19 01:31 - Physical Exam 06/28/19 01:54 General Appearance: Nourished. In Apparent Distress HEENT: EOMI, [place]. No Pharyngeal Erythema, Tonsillar Exudate, Tonsillar Erythema Neck: No Cervical Lymphadenopathy Respiratory/Chest: Bilateral rhonchi with basilar rales on exam. No Wheezing Cardiovascular: Regular Rhythm, Regular Rate. No Murmur, Gallops, Rubs Gastrointestinal/Abdominal: Normal Bowel Sounds, Soft. No Guarding, Rebound, Tenderness Musculoskeletal: No CVA Tenderness Extremity: 1+ pitting edema to the lower extremities bilaterally. Normal Capillary Refill Integumentary: Normal Color, Dry, Warm Neurologic: Fully Oriented, Alert, Normal Mood/Affect, Normal Response, Heart Score/ECG Review #1 ECG reviewed & interpreted by me at: 01:55 06/28/19 01:55 HR 60 QRS 152 QTc 472 Ventricular paced rhythm ED Treatment Course - LABORATORY CBC & Chemistry Diagram: 06/28/19 01:45 06/28/19 01:45 - RADIOLOGY Radiology Studies Ordered: Category Date Time Status CHEST X-RAY PORTABLE* [RAD] Stat Radiology 06/28/19 01:37 Ordered Medical Decision Making - Medical Decision Making 06/28/19 01:56 The patient is a 74 year old female with a history of HTN, HLD, CHF, COPD, Afib s/p pacemaker who presents for evaluation of respiratory distress. Given the patient's history and physical exam, we will obtain a cbc, cmp, troponin, bnp, coags, chest plain film, ekg, abg to evaluate further. We will treat with lasix , solu-medrol, nitropaste. The patient was placed on bipap here in the ED with improvement in her symptoms. We will continue to monitor and reassess while here in the ED. 06/28/19 05:18 CBC, cmp, troponin are unremarkable. BNP is elevated to 1200s. Chest plain film demonstrates a large heart with congestive lung findings as preliminarily read by ED physician. The patient will require admission for further monitoring and management. Discharge - Discharge Information Problems reviewed: Yes Clinical Impression/Diagnosis: CHF (congestive heart failure) Qualifiers: Heart failure type: unspecified Heart failure chronicity: acute on chronic Qualified Code(s): I50.9 - Heart failure, unspecified COPD (chronic obstructive pulmonary disease) Qualifiers: COPD type: unspecified COPD Qualified Code(s): J44.9 - Chronic obstructive pulmonary disease, unspecified Condition: Stable - Admission Yes - Follow up/Referral - Patient Discharge Instructions - Post Discharge Activity
[2019-06-28] MEDS ORDERED: methylPREDNISolone NA SUCC 125 MG/2 ML VIAL IVPUSH ONE (01:53)
[2019-06-28] MEDS ORDERED: NITROGLYCERIN 2% OINTMENT - 1GM PACKET TD ONE ×2 (01:53→02:04)
[2019-06-28] MEDS ORDERED: FUROSEMIDE 40 MG/4 ML INJECTABLE VIAL IVPUSH ONE ×3 (01:53→17:00)
[2019-06-28 02:04] LABS: ARTERIAL BLD GAS O2 SATURATION 98.6 % (95-98); ARTERIAL BLOOD GAS BASE EXCESS -1.1 meq/l (-2-2); ARTERIAL BLOOD GAS PCO2 40.7 mmHg (35-45); ARTERIAL BLOOD GAS PO2 116 mmHg (80-100); ARTERIAL BLOOD GAS pH 7.38 (7.35-7.45); CARBOXYHEMOGLOBIN 1.6 % (0-2)
[2019-06-28 02:05] LABS: ALLENS TEST POSITIVE
[2019-06-28] MEDS ORDERED: methylPREDNISolone NA SUCC 125 MG/2 ML VIAL ONE (02:05)
[2019-06-28] MEDS ORDERED: FUROSEMIDE 40 MG/4 ML INJECTABLE VIAL ONE ×2 (02:05→04:58)
[2019-06-28 02:16] LABS: BASO % 0.5 % (0-2.0); HEMOGLOBIN 8.5 GM/dL (10.7-15.3); LYMPH % 14.8 % (8-40); MCH 27.7 pg (25.7-33.7); MCHC 31.6 g/dl (32.0-36.0); MEAN CELL VOLUME 87.7 fl (80-96); MEAN PLT VOLUME 9.2 fl (7.5-11.1); MONO % 10.7 % (3.8-10.2); PLATELET COUNT 83 K/MM3 (134-434); RBC 3.08 M/mm3 (3.60-5.2); RDW 15.2 % (11.6-15.6); WHITE BLOOD COUNT 3.5 K/mm3 (4.0-10.0)
[2019-06-28 02:38] LABS: INR 1.4 (0.83-1.09); PROTHROMBIN TIME (PATIENT) 16.6 SEC (9.7-13.0)
[2019-06-28] MEDS ORDERED: LEVALBUTEROL HCL 0.63 MG/3 ML VIAL.NEB. IH ONE ×2 (02:40→02:41)
[2019-06-28 02:50] LABS: ALBUMIN 3.3 g/dl (3.4-5.0); BILIRUBIN,TOTAL 0.4 mg/dL (0.2-1); BLOOD UREA NITROGEN 19.3 mg/dL (7-18); CALCIUM 8.5 mg/dL (8.5-10.1); CREATININE 0.8 mg/dL (0.55-1.3); POTASSIUM 4.7 mmol/L (3.5-5.1); TOT PROT 7.4 g/dl (6.4-8.2)
--- NOTE | 2019-06-28 03:35 | HP ---
CHIEF COMPLAINT: CP and SOB PCP: Dr. Richey HISTORY OF PRESENT ILLNESS: 74 y/o female PMH HTN, HLD, COPD on 2L home o2, Afib with pacemaker, GERD, gastric CA, and CHF c/o CP and SOB. The pt states that she had a non-productive cough over the last 2 days. She experienced gradually worsening SOB and chills but no NVFD and consitpation. She had a new spaghetti sauce and parmesean cheese for dinner last night (27 May 2019); each store bough/high in sodium. She did not take her lasix this AM (27 Jun 2019) because it makes her urinate too often. By the afternoon she was experiencing CP: midsternal, sharp, radiating diffusely across chest, on-off time course, made better by home dose nitroglycerin, and 8/10. Pt was scheduled for stress test but did not f/u. She has consistently used 2 pillows at night, no PND, and no orthopnea. She denies HALL, vision changes, numbness/tingling and joint pain. Pt BIBEMS, desat to 70s, was put on CPAP, and given 40 mg lasix. She produced 195 cc urine output. Recent Travel: Denies PAST MEDICAL HISTORY: HTN, HLD, COPD on 2L home o2, Afib with pacemaker, GERD, gastric CA, and CHF PAST SURGICAL HISTORY: Pacemaker placed in early , stomach CA (2006), hernia repair (2007) Social History: Smoking: Denies Alcohol: Denies Drugs: Denies Allergies: No Known Allergies Allergy (Verified 06/28/19 01:31) HOME MEDICATIONS: Medication Instructions Recorded Albuterol Sulfate Inhaler - 1 puff IH DAILY 01/26/19 [Ventolin HFA Inhaler -] Atorvastatin Ca [Lipitor] 20 mg PO HS 01/26/19 Cholecalciferol (Vitamin D3) 400 unit PO DAILY 01/26/19 [Vitamin D -] Digoxin [Lanoxin -] 0.125 mg PO DAILY 01/26/19 Furosemide [Lasix] 40 mg PO DAILY 01/26/19 Midodrine HCl 2.5 mg PO TID PRN 01/26/19 Montelukast Sodium [Singulair] 10 mg PO DAILY 01/26/19 Multivitamin [Multiple Vitamins] 1 each PO DAILY 01/26/19 Nitroglycerin [Nitrostat] 0.4 mg SL DAILY PRN 01/26/19 Ranitidine HCl [Zantac] 300 mg PO DAILY 01/26/19 Meclizine HCl [Antivert -] 25 mg PO DAILY tablet 01/28/19 Apixaban [Eliquis -] 5 mg PO BID 02/22/19 Metoprolol Succinate [Toprol Xl] 25 mg PO BID 02/22/19 REVIEW OF SYSTEMS CONSTITUTIONAL: Absent: fever, chills, diaphoresis, generalized weakness, malaise, loss of appetite, weight change HEENT: Absent: rhinorrhea, nasal congestion, throat pain, throat swelling, difficulty swallowing, mouth swelling, ear pain, eye pain, visual changes CARDIOVASCULAR: Absent: chest pain, syncope, palpitations, irregular heart rate, lightheadedness , peripheral edema RESPIRATORY: Absent: cough, shortness of breath, dyspnea with exertion, orthopnea, wheezing, stridor, hemoptysis GASTROINTESTINAL: Absent: abdominal pain, abdominal distension, nausea, vomiting, diarrhea, constipation, melena, hematochezia GENITOURINARY: Absent: dysuria, frequency, urgency, hesitancy, hematuria, flank pain, genital pain MUSCULOSKELETAL: Absent: myalgia, arthralgia, joint swelling, back pain, neck pain SKIN: Absent: rash, itching, pallor HEMATOLOGIC/IMMUNOLOGIC: Absent: easy bleeding, easy bruising, lymphadenopathy, frequent infections ENDOCRINE: Absent: unexplained weight gain, unexplained weight loss, heat intolerance, cold intolerance NEUROLOGIC: Absent: headache, focal weakness or paresthesias, dizziness, unsteady gait, seizure, mental status changes, bladder or bowel incontinence PSYCHIATRIC: Absent: anxiety, depression, suicidal or homicidal ideation, hallucinations. PHYSICAL EXAMINATION Vital Signs - 24 hr 06/28/19 06/28/19 01:31 02:00 Pulse Rate 60 Respiratory 34 H Rate Blood Pressure 140/79 O2 Sat by Pulse 89 L 96 Oximetry (%) GENERAL: AOx3, in no acute distress, [place] speaking HEAD: NCAT, wearing cpap mask EYES: RIGHT eye cataract. DELVIN, EOMI, conjunctiva clear. ENT: Ears normal, nares patent, oropharynx clear without exudates. Moist mucous membranes. NECK: Normal range of motion, supple without lymphadenopathy, JVD, or masses. LUNGS: CTAB. No wheezes, and no crackles. No accessory muscle use. HEART: Pacemaker audible on auscultation. RRR s1 s2 ABDOMEN: Mid epigastrium tender to palpation. Soft, BS present in all 4 quadrants, non-distended, no JVD, MUSCULOSKELETAL: No bony deformities or tenderness. No CVA tenderness. UPPER EXTREMITIES: LUE tedner on passive ROM. 2+ pulses, warm, well-perfused. No cyanosis. No clubbing. No peripheral edema. LOWER EXTREMITIES: 2+ pulses, warm, well-perfused. No calf tenderness. No peripheral edema. NEUROLOGICAL: No focal deficits. Cranial nerves II-XII intact. Normal speech. Gait not appreciated. PSYCHIATRIC: Cooperative. Good eye contact. Appropriate mood and affect. SKIN: Warm, dry, normal turgor, no rashes or lesions noted, normal capillary refill. Laboratory Results - last 24 hr 06/28/19 06/28/19 06/28/19 01:45 01:45 01:45 WBC 3.5 L RBC 3.08 L Hgb 8.5 L Hct 27.0 L MCV 87.7 MCH 27.7 MCHC 31.6 L RDW 15.2 D Plt Count 83 L MPV 9.2 Absolute Neuts (auto) 2.5 Neutrophils % 71.0 Lymphocytes % 14.8 Monocytes % 10.7 H Eosinophils % 3.0 D Basophils % 0.5 Nucleated RBC % 0 PT with INR INR PTT (Actin FS) 32.5 Puncture Site ABG pH ABG pCO2 at Pt Temp ABG pO2 at Pt Temp ABG HCO3 ABG O2 Sat (Measured) ABG O2 Content ABG Base Excess Malcolm Test Carboxyhemoglobin Methemoglobin O2 Delivery Device Oxygen Flow Rate Vent Mode Vent Rate Mechanical Rate Pressure Support Vent Sodium Potassium Chloride Carbon Dioxide Anion Gap BUN Creatinine Est GFR (CKD-EPI)AfAm Est GFR (CKD-EPI)NonAf Random Glucose Calcium Total Bilirubin AST ALT Alkaline Phosphatase Creatine Kinase 103 Troponin I 0.02 B-Natriuretic Peptide Total Protein Albumin 06/28/19 06/28/19 06/28/19 01:45 01:45 01:54 WBC RBC Hgb Hct MCV MCH MCHC RDW Plt Count MPV Absolute Neuts (auto) Neutrophils % Lymphocytes % Monocytes % Eosinophils % Basophils % Nucleated RBC % PT with INR 16.60 H INR 1.40 H PTT (Actin FS) Puncture Site Left radial ABG pH 7.38 ABG pCO2 at Pt Temp 40.7 ABG pO2 at Pt Temp 116 H ABG HCO3 23.4 ABG O2 Sat (Measured) 98.6 H ABG O2 Content 11.2 ABG Base Excess -1.1 Malcolm Test Positive Carboxyhemoglobin 1.6 Methemoglobin < 1.0 O2 Delivery Device Bipap Oxygen Flow Rate 50% Vent Mode S/t Vent Rate 14 Mechanical Rate Bipap Pressure Support Vent 10/5 Sodium 143 Potassium 4.7 Chloride 112 H Carbon Dioxide 24 Anion Gap 7 L BUN 19.3 H Creatinine 0.8 Est GFR (CKD-EPI)AfAm 84.77 Est GFR (CKD-EPI)NonAf 73.14 Random Glucose 136 H Calcium 8.5 Total Bilirubin 0.4 AST 25 ALT 18 Alkaline Phosphatase 87 Creatine Kinase Troponin I B-Natriuretic Peptide 1272.0 H Total Protein 7.4 Albumin 3.3 L ASSESSMENT/PLAN: 74 y/o female PMH HTN, HLD, COPD on 2L home o2, Afib with pacemaker, GERD, gastric CA, and CHF c/o CP and SOB. T # Acute CHF exacerbation - Daily weights - Strict I/O - One more dose 40 mg IV lasix and if adequately producing urine, remove Dee - CP relieved by nitroglycerin: repeat EKG, consult cardio, f/u 2nd troponin # Anemia - Anemia workup: Fe, TIBC, retic, stool occult - Suspicious given h/o gastric CA - Consider consulting heme/onc # COPD - Cont. home regimen # HTN - Cont. home regimen # HLD - Cont. home regimen #F/E/N - NS - Cont. to monitor - Regular diet # DVT prophylaxis - Heparin SQ # Disposition - Admit to observation Kiko Palacio MD ATTENDING PHYSICIAN STATEMENT I saw and evaluated the patient. I reviewed the resident's note and discussed the case with the resident. I agree with the resident's findings and plan as documented. SUBJECTIVE: OBJECTIVE: ASSESSMENT AND PLAN:
--- NOTE | 2019-06-28 03:54 | PN ---
Teaching Attending Note Name of Resident: Kiko Palacio ATTENDING PHYSICIAN STATEMENT I saw and evaluated the patient. I reviewed the resident's note and discussed the case with the resident. I agree with the resident's findings and plan as documented. SUBJECTIVE: Patient is a 74 year old woman with a PMH of HTN, HLD, ?Diastolic CHF, COPD (on 2L home O2), Gastric cancer (s/p partial gastrectomy) and Afib (s/p pacemaker) who presents for evaluation of respiratory distress. The patient is accompanied by family who assist in providing the history. They report a several day history of poorly described chest pain. Today, the patient began developing worsening difficulty breathing and shortness of breath prompting the family to call EMS. On EMS arrival the patient was saturating 70s and placed on CPAP with improvement in her saturation to 94%. She received 2 SL nitro and aspirin en route to the ER. Patient denies fevers, chills, cough, nausea, vomiting, abdominal pain, or changes with urination or bowel movements. Denies tobacco, alcohol or illicit drug use. No recent travel or sick contacts. Has FH of DM. OBJECTIVE: Alert Vital Signs Period Temp Pulse Resp BP Sys/Nava Pulse Ox Last 24 Hr 60 34 140/79 89-96 HEENT: No Jaundice, eye redness or discharge, PERRLA, EOMI. Normocephalic, atraumatic. External ears are normal and hearing is grossly intact. No nasal discharge. Neck: Supple, nontender. No palpable adenopathy or thyromegaly. No JVD Chest: Good effort. Bibasilar rales. Clear to percussion. Heart: Regular. No S3, rub or murmur Abdomen: Not distended, soft, nontender and no HSM. No rebound or guarding. Normal bowel sounds. Ext: Peripheral pulses intact. Leg edema. Skin: Warm and dry. No petechiae, rash or ecchymosis. Neuro: Alert. Oriented x3. CN 2-12 grossly intact. Sensation grossly intact in all four extremities and DTR are symmetric. Psych: Appropriate mood and affect. Good insight. Current Medications Generic Name Dose Route Start Last Admin Trade Name Freq PRN Reason Stop Dose Admin Heparin Sodium (Porcine) 5,000 unit 06/28/19 06:00 Heparin - SQ TID [facility] Home Medications Medication Instructions Recorded Albuterol Sulfate Inhaler - 1 puff IH DAILY 01/26/19 [Ventolin HFA Inhaler -] Atorvastatin Ca [Lipitor] 20 mg PO HS 01/26/19 Cholecalciferol (Vitamin D3) 400 unit PO DAILY 01/26/19 [Vitamin D -] Digoxin [Lanoxin -] 0.125 mg PO DAILY 01/26/19 Furosemide [Lasix] 40 mg PO DAILY 01/26/19 Midodrine HCl 2.5 mg PO TID PRN 01/26/19 Montelukast Sodium [Singulair] 10 mg PO DAILY 01/26/19 Multivitamin [Multiple Vitamins] 1 each PO DAILY 01/26/19 Nitroglycerin [Nitrostat] 0.4 mg SL DAILY PRN 01/26/19 Ranitidine HCl [Zantac] 300 mg PO DAILY 01/26/19 Meclizine HCl [Antivert -] 25 mg PO DAILY tablet 01/28/19 Apixaban [Eliquis -] 5 mg PO BID 02/22/19 Metoprolol Succinate [Toprol Xl] 25 mg PO BID 02/22/19 Abnormal Lab Results 06/28/19 06/28/19 06/28/19 01:45 01:45 01:45 WBC 3.5 L RBC 3.08 L Hgb 8.5 L Hct 27.0 L MCHC 31.6 L Plt Count 83 L Monocytes % 10.7 H PT with INR 16.60 H INR 1.40 H ABG pO2 at Pt Temp ABG O2 Sat (Measured) Chloride 112 H Anion Gap 7 L BUN 19.3 H Random Glucose 136 H B-Natriuretic Peptide 1272.0 H Albumin 3.3 L 06/28/19 01:54 WBC RBC Hgb Hct MCHC Plt Count Monocytes % PT with INR INR ABG pO2 at Pt Temp 116 H ABG O2 Sat (Measured) 98.6 H Chloride Anion Gap BUN Random Glucose B-Natriuretic Peptide Albumin ASSESSMENT AND PLAN: 1. Chest pain/CHF exacerbation - [place] better and became painfree in the ER. Patient was treated with Nitropaste, Levalbuterol, Solumedrol and IV lasix. EKG showed ventricular-paced rhythm with no significant ST-T wave changes and initial troponin is negative. Will admit to telemetry to rule out ACS. CXR shows cardiomegaly with congestive changes. Will continue IV lasix, daily standing weight, low salt diet and consult cardiology. ECHO from 02/23/19 showed normal LV systolic function with EF of 50-55%; RV is moderately dilated and RV systolic function is moderately to severely reduced. Urinalysis is pending. Pancytopenia is unexplained - will monitor daily and consult Hematology. Will continue comprehensive care for all of patients comorbid conditions including Eliquis for Afib. 2. Hypoalbuminemia - Possibly due to combined effects of malnutrition and inflammation associated with comorbid chronic conditions. Will ensure adequate dietary protein intake and also consult data collection interviewer. Get urinalysis. 3. Anemia - Cause unclear. Will do basic anemia work up including serial stool guaiacs, reticulocyte count and iron studies. 4. Hypertension - Restart suitable outpatient antihypertensive drugs when clinically appropriate. Revise regimen to ensure [id number] excellent BP control and primary substance abuse counselor patient on the injurious effects of uncontrolled hypertension. Nonpharmacologic measures to control hypertension like weight loss , salt restriction and exercise discussed. Importance of adherence to treatment regimen and attainment of normotension emphasized. 5. DVT prophylaxis - On Eliquis 6. Advance directives - Full code
[2019-06-28] MEDS ORDERED: HEPARIN NA (PORCINE) 5,000 UNITS/ML 1ML VIAL ONE (04:58)
[2019-06-28] MEDS ORDERED: HEPARIN NA (PORCINE) 5,000 UNITS/ML 1ML VIAL SQ SCH (06:00)
[2019-06-28 07:08] LABS: HEMATOCRIT 26.3 % (32.4-45.2); HEMOGLOBIN 8.5 GM/dL (10.7-15.3); MCH 28.1 pg (25.7-33.7); MCHC 32.4 g/dl (32.0-36.0); MEAN CELL VOLUME 86.8 fl (80-96); MEAN PLT VOLUME 9.3 fl (7.5-11.1); PLATELET COUNT 79 K/MM3 (134-434); RBC 3.03 M/mm3 (3.60-5.2); RDW 14.9 % (11.6-15.6); WHITE BLOOD COUNT 3.3 K/mm3 (4.0-10.0)
[2019-06-28 07:32] LABS: ALBUMIN 3.4 g/dl (3.4-5.0); BILIRUBIN,TOTAL 0.4 mg/dL (0.2-1); BLOOD UREA NITROGEN 20.4 mg/dL (7-18); CALCIUM 8.5 mg/dL (8.5-10.1); CREATININE 0.8 mg/dL (0.55-1.3); PHOSPHOROUS 3.3 mg/dL (2.5-4.9); POTASSIUM 4.2 mmol/L (3.5-5.1); TOT PROT 7.5 g/dl (6.4-8.2)
[2019-06-28 08:13] VITALS: BMI 23.3
[2019-06-28 08:37] LABS: RETICULOCYTES 2.47 % (0.5-1.5)
[2019-06-28] MEDS ORDERED: PNEUMOC 13-VAL CONJ-DIP CRM/PF 0.5 ML DISP.SYRIN IM ONE (09:00)
[2019-06-28] MEDS: DIGOXIN 0.125 MG TABLET (FP) PO SCH (09:17)
[2019-06-28] MEDS: APIXABAN 5 MG TABLET PO SCH ×2 (09:17→22:11)
[2019-06-28] MEDS: MECLIZINE HCL 25 MG TABLET (FP) PO SCH (09:17)
[2019-06-28] MEDS: FUROSEMIDE 40 MG/4 ML INJECTABLE VIAL IVPUSH SCH (09:17)
[2019-06-28] MEDS: CHOLECALCIFEROL (VIT D3) 400 UNIT (10 MCG) TABLET PO SCH (09:17)
[2019-06-28] MEDS: metoPROLOL SUCCINATE 25 MG TAB.SR.24H (FP) PO SCH ×2 (09:17→22:11)
[2019-06-28] MEDS ORDERED: ALBUTEROL SO4 8 GM HFA INHALER IH PRN (10:00)
[2019-06-28] MEDS ORDERED: FAMOTIDINE 40 MG TABLET PO SCH (10:00)
[2019-06-28] MEDS ORDERED: MIDODRINE HCL 2.5 MG TABLET PO PRN (10:00)
[2019-06-28] MEDS ORDERED: FUROSEMIDE 40 MG TABLET (FP) PO SCH (10:00)
[2019-06-28] MEDS ORDERED: PATIENT'S OWN MEDICATION (NON-FORMULARY) (Ranitidine Hcl [Zantac] 300 MG) PO SCH (10:00)
[2019-06-28] MEDS ORDERED: MONTELUKAST NA 10 MG TABLET PO SCH ×2 (10:00→22:00)
[2019-06-28] MEDS ORDERED: PT OWN MED DRAWER 7, Y5N ONE (10:31)
--- NOTE | 2019-06-28 10:43 | EKG ---
Test Reason : Blood Pressure : / mmHG Vent. Rate : 060 BPM Atrial Rate : 040 BPM P-R Int : 000 ms QRS Dur : 152 ms QT Int : 472 ms P-R-T Axes : 000 257 076 degrees QTc Int : 472 ms Ventricular-paced rhythm ABNORMAL ECG WHEN COMPARED WITH ECG OF 22-FEB-2019 16:55, ELECTRONIC VENTRICULAR PACEMAKER HAS REPLACED WIDE QRS RHYTHM VENT. RATE HAS DECREASED BY 51 BPM Confirmed by JUANA DYER, ANDI ([id number]) on 06/28/2019 10:43:26 AM Referred By: Confirmed By:ANDI ARIAS MD
[2019-06-28] MEDS ORDERED: FAMOTIDINE 20 MG TABLET PO SCH (10:53)
[2019-06-28] MEDS: FAMOTIDINE 20 MG TABLET PO SCH (11:41)
--- NOTE | 2019-06-28 12:16 | CON.CARD ---
Consult Consult Specialty:: Cardiology Referred by:: Hospitalist Medicine Reason for Consultation:: Acute on chronic diastolic heart failure - History of Present Illness Chief Complaint: Chest pain, dyspnea History of Present Illness: Patient is a 74 year old woman with a PMH of HTN, HLD, Diastolic CHF, COPD (on 2L home O2), Gastric cancer (s/p partial gastrectomy) and paroxysmal Afib (s/p pacemaker) who presents for evaluation of dyspnea, poorly described chest pain. Today, the patient began developing worsening difficulty breathing and shortness of breath prompting the family to call EMS. On EMS arrival the patient was saturating 70s and placed on CPAP with improvement in her saturation to 94%. She received 2 SL nitro and aspirin en route to the ER. Patient denies near or true syncope, palpitations, orthopnea, PND, LE edema, medication or diet noncompliance. Sees dr Marcano for cardio at [facility] most recently 2 months ago 05/08/2019. She was found to have a mildly elevated BNP.CXR shows cardiomegaly and mild congestion. pmh: per hpi psh: pacemaker social: no tob ros: per hpi; all others nl fam: no premature cad meds: reviewed list - History Source History Provided By: Medical Record Limitations to Obtaining History: Poor Historian - Past Medical History Cardio/Vascular: Yes: AFIB, CHF (chronic diastolic CHF, PMM), HTN - Alcohol/Substance Use Hx Alcohol Use: No - Smoking History Smoking history: Never smoked Have you smoked in the past 12 months: No - Social History History of Recent Travel: No Home Medications - Allergies Allergies/Adverse Reactions: Allergies Allergy/AdvReac Type Severity Reaction Status Date / Time No Known Allergies Allergy Verified 06/28/19 01:31 - Home Medications Home Medications: Ambulatory Orders Albuterol Sulfate Inhaler - [Ventolin HFA Inhaler -] 1 puff IH DAILY 01/26/19 Atorvastatin Ca [Lipitor] 20 mg PO HS 01/26/19 Cholecalciferol (Vitamin D3) [Vitamin D -] 400 unit PO DAILY 01/26/19 Digoxin [Lanoxin -] 0.125 mg PO DAILY 01/26/19 Furosemide [Lasix] 40 mg PO DAILY 01/26/19 Midodrine HCl 2.5 mg PO TID PRN 01/26/19 Montelukast Sodium [Singulair] 10 mg PO DAILY 01/26/19 Multivitamin [Multiple Vitamins] 1 each PO DAILY 01/26/19 Nitroglycerin [Nitrostat] 0.4 mg SL DAILY PRN 01/26/19 Ranitidine HCl [Zantac] 300 mg PO DAILY 01/26/19 Meclizine HCl [Antivert -] 25 mg PO DAILY tablet 01/28/19 Apixaban [Eliquis -] 5 mg PO BID 02/22/19 Metoprolol Succinate [Toprol Xl] 25 mg PO BID 02/22/19 Review of Systems - Review of Systems Cardiovascular: reports: Chest Pain Respiratory: reports: Exercise Intolerance, SOB, SOB on Exertion Vital Signs: Vital Signs Temperature 98 F 06/28/19 09:00 Pulse Rate 112 H 06/28/19 09:17 Respiratory Rate 20 06/28/19 09:00 Blood Pressure 117/68 06/28/19 09:00 O2 Sat by Pulse Oximetry (%) 95 06/28/19 08:11 Constitutional: Yes: No Distress, Calm Neck: Yes: Supple Respiratory: Yes: Regular, Diminished, On Nasal O2 Gastrointestinal: Yes: Normal Bowel Sounds, Soft Cardiovascular: Yes: Regular Rate and Rhythm JVD: No Carotid Bruit: No Heart Sounds: Yes: S1, S2 Murmur: Yes: Systolic Murmur, Grade 2 Edema: No - Other Data Labs, Other Data: CBC, BMP 06/28/19 05:55 06/28/19 05:55 INR, PTT INR 1.40 (0.83-1.09) H 06/28/19 01:45 Troponin, BNP 06/28/19 06/28/19 06/28/19 01:45 01:45 05:55 Troponin I 0.02 0.02 B-Natriuretic Peptide 1272.0 H Troponin, BNP 06/28/19 06/28/19 06/28/19 01:45 01:45 05:55 Troponin I 0.02 0.02 B-Natriuretic Peptide 1272.0 H Afib, v-paced @ 60 Ejection Fraction %: LVEF > or = 40 % Imaging - Results Chest X-ray: Report Reviewed (Mild congestion) Problem List - Problems (1) Chronic anticoagulation Code(s): Z79.01 - CARE HOME (CURRENT) USE OF ANTICOAGULANTS (2) Pacemaker Code(s): Z95.0 - PRESENCE OF CARDIAC PACEMAKER (3) CHF (congestive heart failure) Code(s): I50.9 - HEART FAILURE, UNSPECIFIED Qualifiers: Heart failure type: diastolic Heart failure chronicity: acute on chronic Qualified Code(s): I50.33 - Acute on chronic diastolic (congestive) heart failure (4) COPD (chronic obstructive pulmonary disease) Code(s): J44.9 - CHRONIC OBSTRUCTIVE PULMONARY DISEASE, UNSPECIFIED Qualifiers: COPD type: unspecified COPD Qualified Code(s): J44.9 - Chronic obstructive pulmonary disease, unspecified (5) A-fib Code(s): I48.91 - UNSPECIFIED ATRIAL FIBRILLATION Qualifiers: Atrial fibrillation type: unspecified persistent Qualified Code(s): I48.19 - Other persistent atrial fibrillation; I48.1 - Persistent atrial fibrillation (6) Cor pulmonale, chronic Code(s): I27.81 - COR PULMONALE (CHRONIC) Assessment/Plan 02/23/2019 Echo normal LVEF 50-55%, dilated RV, RV dysfx and PHTN. mod-severe TR RVSP 40-50 mmHg, mod pulm HTN, possibly due to PPM may have caused RV enlargement chronically IMP: 1. Acute hypoxic respiratory failure 2. Acute on chronic diastolic heart failure, pulm HTN 3. Persistent afib with RVR s/p PPM on eliquis 4. COPD on home O2 with cor pulmonale 5. Anemia, thrombocytopenia REC: 1. IV diuresis with monitor diuretic response, renal fxn and electrolytes 2. Continue Toprol 25 bid, Lipitor 20 qhs, Dig 0.125 qd with check dig level, monitor telemetry. 3. Continue Eliquis 5 bid 4. BD, O2 to maintain SaO2 5. Patient to continue f/u Dr. Marcano at [facility] 6. Thank you for consultative opportunity
--- NOTE | 2019-06-28 16:37 | PN ---
Physical Exam: SUBJECTIVE: Patient seen and examined. She denies chest pain, shortness of breath, abdominal pain, n/v. OBJECTIVE: Vital Signs Period Temp Pulse Resp BP Sys/Nava Pulse Ox Last 24 Hr 97.7 F-98.1 F 60-112 18-34 117-143/68-97 89-99 GENERAL: The patient is awake, alert, and fully oriented, in no acute distress. HEAD: Normal with no signs of trauma. EYES: PERRL, extraocular movements intact, conjunctiva clear ENT: Ears normal, nares patent, moist mucous membranes. NECK: Trachea midline, full range of motion LUNGS: Clear to auscultation bilaterally, no wheezes HEART: Regular rate and rhythm, no murmur ABDOMEN: Soft, nontender, nondistended, normoactive bowel sounds EXTREMITIES: Warm, well-perfused, no edema. NEUROLOGICAL: Cranial nerves II through XII grossly intact. Normal speech. PSYCH: Normal mood, normal affect. SKIN: Warm, dry, normal turgor Laboratory Results - last 24 hr 06/28/19 06/28/19 06/28/19 01:45 01:45 01:45 WBC 3.5 L RBC 3.08 L Hgb 8.5 L Hct 27.0 L MCV 87.7 MCH 27.7 MCHC 31.6 L RDW 15.2 D Plt Count 83 L MPV 9.2 Absolute Neuts (auto) 2.5 Neutrophils % 71.0 Lymphocytes % 14.8 Monocytes % 10.7 H Eosinophils % 3.0 D Basophils % 0.5 Nucleated RBC % 0 Retic Count PT with INR INR PTT (Actin FS) 32.5 Puncture Site ABG pH ABG pCO2 at Pt Temp ABG pO2 at Pt Temp ABG HCO3 ABG O2 Sat (Measured) ABG O2 Content ABG Base Excess Malcolm Test Carboxyhemoglobin Methemoglobin O2 Delivery Device Oxygen Flow Rate Vent Mode Vent Rate Mechanical Rate Pressure Support Vent Sodium Potassium Chloride Carbon Dioxide Anion Gap BUN Creatinine Est GFR (CKD-EPI)AfAm Est GFR (CKD-EPI)NonAf Random Glucose Calcium Phosphorus Magnesium Iron TIBC Iron Saturation Unsaturated IBC Total Bilirubin AST ALT Alkaline Phosphatase Creatine Kinase 103 Troponin I 0.02 B-Natriuretic Peptide Total Protein Albumin 06/28/19 06/28/19 06/28/19 01:45 01:45 01:54 WBC RBC Hgb Hct MCV MCH MCHC RDW Plt Count MPV Absolute Neuts (auto) Neutrophils % Lymphocytes % Monocytes % Eosinophils % Basophils % Nucleated RBC % Retic Count PT with INR 16.60 H INR 1.40 H PTT (Actin FS) Puncture Site Left radial ABG pH 7.38 ABG pCO2 at Pt Temp 40.7 ABG pO2 at Pt Temp 116 H ABG HCO3 23.4 ABG O2 Sat (Measured) 98.6 H ABG O2 Content 11.2 ABG Base Excess -1.1 Malcolm Test Positive Carboxyhemoglobin 1.6 Methemoglobin < 1.0 O2 Delivery Device Bipap Oxygen Flow Rate 50% Vent Mode S/t Vent Rate 14 Mechanical Rate Bipap Pressure Support Vent 10/5 Sodium 143 Potassium 4.7 Chloride 112 H Carbon Dioxide 24 Anion Gap 7 L BUN 19.3 H Creatinine 0.8 Est GFR (CKD-EPI)AfAm 84.77 Est GFR (CKD-EPI)NonAf 73.14 Random Glucose 136 H Calcium 8.5 Phosphorus Magnesium Iron TIBC Iron Saturation Unsaturated IBC Total Bilirubin 0.4 AST 25 ALT 18 Alkaline Phosphatase 87 Creatine Kinase Troponin I B-Natriuretic Peptide 1272.0 H Total Protein 7.4 Albumin 3.3 L 06/28/19 06/28/19 05:55 05:55 WBC 3.3 L RBC 3.03 L Hgb 8.5 L Hct 26.3 L MCV 86.8 MCH 28.1 MCHC 32.4 RDW 14.9 Plt Count 79 L MPV 9.3 Absolute Neuts (auto) Neutrophils % Lymphocytes % Monocytes % Eosinophils % Basophils % Nucleated RBC % Retic Count 2.47 H PT with INR INR PTT (Actin FS) Puncture Site ABG pH ABG pCO2 at Pt Temp ABG pO2 at Pt Temp ABG HCO3 ABG O2 Sat (Measured) ABG O2 Content ABG Base Excess Malcolm Test Carboxyhemoglobin Methemoglobin O2 Delivery Device Oxygen Flow Rate Vent Mode Vent Rate Mechanical Rate Pressure Support Vent Sodium 141 Potassium 4.2 Chloride 110 H Carbon Dioxide 25 Anion Gap 7 L BUN 20.4 H Creatinine 0.8 Est GFR (CKD-EPI)AfAm 84.77 Est GFR (CKD-EPI)NonAf 73.14 Random Glucose 176 H Calcium 8.5 Phosphorus 3.3 Magnesium 2.0 Iron 37 L TIBC 475 H Iron Saturation 7 L Unsaturated IBC 438 H Total Bilirubin 0.4 AST 13 L ALT 19 Alkaline Phosphatase 85 Creatine Kinase Troponin I 0.02 B-Natriuretic Peptide Total Protein 7.5 Albumin 3.4 Active Medications Generic Name Dose Route Start Last Admin Trade Name Rickie PRN Reason Stop Dose Admin Albuterol Sulfate 2 puff 06/28/19 10:00 Ventolin Hfa Inhaler - IH Q6H PRN SHORTNESS OF BREATH Apixaban 5 mg 06/28/19 10:00 06/28/19 09:17 Eliquis - PO 5 mg BID [facility] Administration Atorvastatin Calcium 20 mg 06/28/19 22:00 Lipitor - PO HS [facility] Cholecalciferol 400 unit 06/28/19 10:00 06/28/19 09:17 Vitamin D3 - PO 400 unit DAILY JACIEL Administration Digoxin 0.125 mg 06/28/19 10:00 06/28/19 09:17 Lanoxin - PO 0.125 mg DAILY [facility] Administration Famotidine 40 mg 06/28/19 11:00 06/28/19 11:41 Pepcid - PO 40 mg DAILY JACIEL Administration Furosemide 40 mg 06/28/19 10:00 06/28/19 09:17 Lasix Injection - IVPUSH 40 mg DAILY JACIEL Administration Furosemide 40 mg 06/28/19 17:00 Lasix Injection - IVPUSH 06/28/19 17:01 ONCE ONE Meclizine HCl 25 mg 06/28/19 10:00 06/28/19 09:17 Antivert - PO 25 mg DAILY [facility] Administration Metoprolol Succinate 25 mg 06/28/19 10:00 06/28/19 09:17 Toprol Xl - PO 25 mg BID [facility] Administration Midodrine 2.5 mg 06/28/19 10:00 Proamatine - PO TID-MID PRN DIZZINESS Montelukast Sodium 10 mg 06/28/19 22:00 Singulair - PO HS [facility] ASSESSMENT/PLAN: 74 y/o female with diastolic CHF, HTN, HLD, COPD on 2L and BiPAP, a-fib s/p PPM , GERD, and gastric cancer presents with chest pain and shortness of breath. She has been non-compliant on Lasix and has been eating salty foods. #acute on chronic diastolic CHF -trops negative x2, no EKG changes -Lasix 40mg IV daily -mehta -monitor I/Os -cards following #COPD -BiPAP -albuterol PRN -Singulair -Prevnar 13 administered #a-fib s/p PPM -Eliquis 5mg BID -digoxin 0.125mg daily -Toprol 25mg BID #iron-deficiency anemia -hx of gastric cancer -stool occult ordered -consider supplementation -monitor labs #pancytopenia -recheck labs tomorrow #GERD -famotidine 40mg HTN -Toprol #HLD -atorvastatin 20mg daily DVT Ppx on home Eliquis FEN PO intake monitor labs sodium, fat, cholesterol restricted diet dispo tele Visit type - Emergency Visit Emergency Visit: Yes ED Registration Date: 06/28/19 Care time: The patient presented to the Emergency Department on the above date and was hospitalized for further evaluation of their emergent condition. - New Patient This patient is new to me today: Yes Date on this admission: 06/28/19 - Critical Care Critical Care patient: No - Discharge Referral Referred to [facility] No ATTENDING PHYSICIAN STATEMENT I saw and evaluated the patient. I reviewed the resident's note and discussed the case with the resident. I agree with the resident's findings and plan as documented. SUBJECTIVE: OBJECTIVE: ASSESSMENT AND PLAN:
--- NOTE | 2019-06-28 18:22 | PN ---
Teaching Attending Note Name of Resident: Fernanda Ramirez ATTENDING PHYSICIAN STATEMENT I saw and evaluated the patient. I reviewed the resident's note and discussed the case with the resident. I agree with the resident's findings and plan as documented. SUBJECTIVE: Vital Signs Temperature 98.9 F 06/28/19 14:00 Pulse Rate 62 06/28/19 14:00 Respiratory Rate 20 06/28/19 14:00 Blood Pressure 93/53 L 06/28/19 14:00 O2 Sat by Pulse Oximetry (%) 95 06/28/19 12:10 GENERAL: The patient is awake, alert, and fully oriented, in no acute distress. HEAD: Normal with no signs of trauma. EYES: PERRL, extraocular movements intact, sclera anicteric, conjunctiva clear. ENT: Ears normal, oropharynx clear without exudates, moist mucous membranes. NECK: Trachea midline, full range of motion, supple. LUNGS: Breath sounds equal, clear to auscultation bilaterally, no wheezes, no crackles, no accessory muscle use. HEART: Regular rate and rhythm, S1, S2 without murmur, rub or gallop. ABDOMEN: Soft, nontender, nondistended, normoactive bowel sounds, no guarding, no rebound, no hepatosplenomegaly, no masses. EXTREMITIES: 2+ pulses, warm, well-perfused, no edema. NEUROLOGICAL: Cranial nerves II through XII grossly intact. Normal speech, gait not observed. PSYCH: Normal mood, normal affect. SKIN: Warm, dry, normal turgor, no rashes or lesions noted CBCD WBC 3.3 K/mm3 (4.0-10.0) L 06/28/19 05:55 RBC 3.03 M/mm3 (3.60-5.2) L 06/28/19 05:55 Hgb 8.5 GM/dL (10.7-15.3) L 06/28/19 05:55 Hct 26.3 % (32.4-45.2) L 06/28/19 05:55 MCV 86.8 fl (80-96) 06/28/19 05:55 MCHC 32.4 g/dl (32.0-36.0) 06/28/19 05:55 RDW 14.9 % (11.6-15.6) 06/28/19 05:55 Plt Count 79 K/MM3 (134-434) L 06/28/19 05:55 MPV 9.3 fl (7.5-11.1) 06/28/19 05:55 CMP Sodium 141 mmol/L (136-145) 06/28/19 05:55 Potassium 4.2 mmol/L (3.5-5.1) 06/28/19 05:55 Chloride 110 mmol/L (98-107) H 06/28/19 05:55 Carbon Dioxide 25 mmol/L (21-32) 06/28/19 05:55 Anion Gap 7 MMOL/L (8-16) L 06/28/19 05:55 BUN 20.4 mg/dL (7-18) H 06/28/19 05:55 Creatinine 0.8 mg/dL (0.55-1.3) 06/28/19 05:55 Random Glucose 176 mg/dL (74-106) H 06/28/19 05:55 Calcium 8.5 mg/dL (8.5-10.1) 06/28/19 05:55 Total Bilirubin 0.4 mg/dL (0.2-1) 06/28/19 05:55 AST 13 U/L (15-37) L 06/28/19 05:55 ALT 19 U/L (13-61) 06/28/19 05:55 Alkaline Phosphatase 85 U/L (45-117) 06/28/19 05:55 Total Protein 7.5 g/dl (6.4-8.2) 06/28/19 05:55 Albumin 3.4 g/dl (3.4-5.0) 06/28/19 05:55 CARDIAC ENZYMES Creatine Kinase 103 U/L (26-192) 06/28/19 01:45 Troponin I 0.02 ng/ml (0.00-0.05) 06/28/19 05:55 Current Medications Generic Name Dose Route Start Last Admin Trade Name Freq PRN Reason Stop Dose Admin Albuterol Sulfate 2 puff 06/28/19 10:00 Ventolin Hfa Inhaler - IH Q6H PRN SHORTNESS OF BREATH Apixaban 5 mg 06/28/19 10:00 06/28/19 09:17 Eliquis - PO 5 mg BID JACIEL Administration Atorvastatin Calcium 20 mg 06/28/19 22:00 Lipitor - PO HS JACIEL Cholecalciferol 400 unit 06/28/19 10:00 06/28/19 09:17 Vitamin D3 - PO 400 unit DAILY [facility] Administration Digoxin 0.125 mg 06/28/19 10:00 06/28/19 09:17 Lanoxin - PO 0.125 mg DAILY [facility] Administration Famotidine 40 mg 06/28/19 11:00 06/28/19 11:41 Pepcid - PO 40 mg DAILY [facility] Administration Furosemide 40 mg 06/28/19 10:00 06/28/19 09:17 Lasix Injection - IVPUSH 40 mg DAILY [facility] Administration Meclizine HCl 25 mg 06/28/19 10:00 06/28/19 09:17 Antivert - PO 25 mg DAILY [facility] Administration Metoprolol Succinate 25 mg 06/28/19 10:00 06/28/19 09:17 Toprol Xl - PO 25 mg BID [facility] Administration Midodrine 2.5 mg 06/28/19 10:00 Proamatine - PO TID-MID PRN DIZZINESS Montelukast Sodium 10 mg 06/28/19 22:00 Singulair - PO [facility] Home Medications Medication Instructions Recorded Albuterol Sulfate Inhaler - 1 puff IH DAILY 01/26/19 [Ventolin HFA Inhaler -] Atorvastatin Ca [Lipitor] 20 mg PO DAILY 01/26/19 Cholecalciferol (Vitamin D3) 400 unit PO DAILY 01/26/19 [Vitamin D -] Digoxin [Lanoxin -] 0.125 mg PO DAILY 01/26/19 Furosemide [Lasix] 40 mg PO DAILY 01/26/19 Midodrine HCl 2.5 mg PO TID PRN 01/26/19 Montelukast Sodium [Singulair] 10 mg PO DAILY 01/26/19 Multivitamin [Multiple Vitamins] 1 each PO DAILY 01/26/19 Nitroglycerin [Nitrostat] 0.4 mg SL DAILY PRN 01/26/19 Ranitidine HCl [Zantac] 300 mg PO DAILY 01/26/19 Meclizine HCl [Antivert -] 25 mg PO DAILY tablet 01/28/19 Apixaban [Eliquis -] 5 mg PO BID 02/22/19 Metoprolol Succinate [Toprol Xl] 25 mg PO BID 02/22/19 02/23/2019 Echo normal LVEF 50-55%, dilated RV, RV dysfx and PHTN. mod-severe TR RVSP 40-50 mmHg, mod pulm HTN, possibly due to PPM may have caused RV enlargement chronically Assessment and plan: # Acute hypoxic respiratory failure: IV diuresis with monitor diuretic response , renal fxn and electrolytes # Acute on chronic diastolic heart failure, pulm HTN, Continue Toprol 25 bid, Lipitor 20 qhs, Dig 0.125 qd with check dig level, monitor telemetry. # Persistent afib with RVR s/p PPM on eliquis # COPD on home O2 with cor pulmonale # Anemia, thrombocytopenia DVT px; Eliquis 5 bid
[2019-06-28] MEDS ORDERED: ATORVASTATIN CA 20 MG TABLET (FP) PO SCH (22:00)
[2019-06-29 06:55] LABS: HEMATOCRIT 26.9 % (32.4-45.2); HEMOGLOBIN 8.7 GM/dL (10.7-15.3); MCH 27.8 pg (25.7-33.7); MCHC 32.3 g/dl (32.0-36.0); MEAN CELL VOLUME 86.1 fl (80-96); PLATELET COUNT 111 K/MM3 (134-434); RBC 3.12 M/mm3 (3.60-5.2); RDW 14.7 % (11.6-15.6); WHITE BLOOD COUNT 6.5 K/mm3 (4.0-10.0)
[2019-06-29 07:18] LABS: BLOOD UREA NITROGEN 35.6 mg/dL (7-18); CALCIUM 8.5 mg/dL (8.5-10.1); CREATININE 1.1 mg/dL (0.55-1.3); MAGNESIUM 2.3 mg/dL (1.8-2.4); POTASSIUM 3.6 mmol/L (3.5-5.1)
[2019-06-29] MEDS ORDERED: FAMOTIDINE 20 MG/50 ML IVPB 20 MG/50 ML MG IVPB ONE (07:22)
[2019-06-29] MEDS ORDERED: FAMOTIDINE 20 MG TABLET PO SCH (10:00)
--- NOTE | 2019-06-29 10:16 | PN ---
Progress Note, Physician History of Present Illness: Dyspnea improved, denies chest pain, still in rapid afib. - Current Medication List Current Medications: Active Medications Albuterol Sulfate (Ventolin Hfa Inhaler -) 2 puff IH Q6H PRN PRN Reason: SHORTNESS OF BREATH Apixaban (Eliquis -) 5 mg PO BID [facility] Last Admin: 06/28/19 22:11 Dose: 5 mg Atorvastatin Calcium (Lipitor -) 20 mg PO [facility] Last Admin: 06/28/19 22:11 Dose: 20 mg Cholecalciferol (Vitamin D3 -) 400 unit PO DAILY [facility] Last Admin: 06/28/19 09:17 Dose: 400 unit Digoxin (Lanoxin -) 0.125 mg PO DAILY [facility] Last Admin: 06/28/19 09:17 Dose: 0.125 mg Famotidine (Pepcid -) 40 mg PO DAILY [facility] Last Admin: 06/28/19 11:41 Dose: 40 mg Furosemide (Lasix Injection -) 40 mg IVPUSH DAILY [facility] Last Admin: 06/28/19 09:17 Dose: 40 mg Meclizine HCl (Antivert -) 25 mg PO DAILY [facility] Last Admin: 06/28/19 09:17 Dose: 25 mg Metoprolol Succinate (Toprol Xl -) 25 mg PO BID [facility] Last Admin: 06/28/19 22:11 Dose: 25 mg Midodrine (Proamatine -) 2.5 mg PO TID-MID PRN PRN Reason: DIZZINESS Montelukast Sodium (Singulair -) 10 mg PO [facility] Last Admin: 06/28/19 22:12 Dose: 10 mg - Objective Vital Signs: Vital Signs Temperature 98.1 F 06/29/19 06:00 Pulse Rate 61 06/29/19 06:00 Respiratory Rate 20 06/29/19 06:00 Blood Pressure 92/45 L 06/29/19 06:00 O2 Sat by Pulse Oximetry (%) 94 L 06/29/19 08:18 Constitutional: Yes: No Distress, Calm, Thin Neck: Yes: Supple Cardiovascular: Yes: Tachycardia, Pulse Irregular Respiratory: Yes: Regular, Diminished, On Nasal O2 Gastrointestinal: Yes: Normal Bowel Sounds, Soft Edema: No Labs: CBC, BMP 06/29/19 06:15 06/29/19 06:15 INR, PTT INR 1.40 (0.83-1.09) H 06/28/19 01:45 - ....Imaging EKG: Report Reviewed (Tele: Rapid afib) Problem List - Problems (1) Chronic anticoagulation Code(s): Z79.01 - THERMITE BOMB LOADER (CURRENT) USE OF ANTICOAGULANTS (2) Pacemaker Code(s): Z95.0 - PRESENCE OF CARDIAC PACEMAKER (3) CHF (congestive heart failure) Code(s): I50.9 - HEART FAILURE, UNSPECIFIED Qualifiers: Heart failure type: diastolic Heart failure chronicity: acute on chronic Qualified Code(s): I50.33 - Acute on chronic diastolic (congestive) heart failure (4) COPD (chronic obstructive pulmonary disease) Code(s): J44.9 - CHRONIC OBSTRUCTIVE PULMONARY DISEASE, UNSPECIFIED Qualifiers: COPD type: unspecified COPD Qualified Code(s): J44.9 - Chronic obstructive pulmonary disease, unspecified (5) A-fib Code(s): I48.91 - UNSPECIFIED ATRIAL FIBRILLATION Qualifiers: Atrial fibrillation type: unspecified persistent Qualified Code(s): I48.19 - Other persistent atrial fibrillation; I48.1 - Persistent atrial fibrillation (6) Cor pulmonale, chronic Code(s): I27.81 - COR PULMONALE (CHRONIC) Assessment/Plan 02/23/2019 Echo normal LVEF 50-55%, dilated RV, RV dysfx and PHTN. mod-severe TR RVSP 40-50 mmHg, mod pulm HTN, possibly due to PPM may have caused RV enlargement chronically IMP: 1. Acute hypoxic respiratory failure 2. Acute on chronic diastolic heart failure, pulm HTN in context of medication and diet noncompliance 3. Persistent afib with RVR s/p PPM on Eliquis 4. COPD on home O2 with cor pulmonale 5. Anemia, thrombocytopenia REC: 1. IV diuresis with monitor diuretic response, renal fxn and electrolytes 2. Increase Toprol 50 bid, Lipitor 20 qhs, Dig 0.125 qd with check dig level, monitor telemetry 3. Continue Eliquis 5 bid with GI protection 4. BD, O2 to maintain SaO2, Bipap as needed 5. Patient to continue f/u Dr. Marcano at [facility]
--- NOTE | 2019-06-29 10:17 | DS ---
Physical Exam: SUBJECTIVE: Patient seen and examined. She reports breathing is better than yesterday. OBJECTIVE: Vital Signs Period Temp Pulse Resp BP Sys/Nava Pulse Ox Last 24 Hr 97.4 F-98.9 F 61-117 20-20 92-129/45-78 94-95 PHYSICAL EXAM GENERAL: The patient is awake, alert, and fully oriented, in no acute distress. HEAD: Normal with no signs of trauma. EYES: PERRL, extraocular movements intact, sclera anicteric, conjunctiva clear. ENT: Ears normal, nares patent, oropharynx clear without exudates, moist mucous membranes. NECK: Trachea midline, full range of motion, supple. LUNGS: Breath sounds equal, clear to auscultation bilaterally, no wheezes, no crackles, no accessory muscle use. HEART: Regular rate and rhythm, S1, S2 without murmur, rub or gallop. ABDOMEN: Soft, nontender, nondistended, normoactive bowel sounds, no guarding, no rebound, no hepatosplenomegaly, no masses. EXTREMITIES: 2+ pulses, warm, well-perfused, no edema. NEUROLOGICAL: Cranial nerves II through XII grossly intact. Normal speech, gait not observed. PSYCH: Normal mood, normal affect. SKIN: Warm, dry, normal turgor, no rashes or lesions noted. LABS Laboratory Results - last 24 hr 06/29/19 06/29/19 06/29/19 06:15 06:15 06:15 WBC 6.5 RBC 3.12 L Hgb 8.7 L Hct 26.9 L MCV 86.1 MCH 27.8 MCHC 32.3 RDW 14.7 Plt Count 111 L D MPV 9.0 Sodium 141 Potassium 3.6 Chloride 103 Carbon Dioxide 33 H Anion Gap 5 L BUN 35.6 H Creatinine 1.1 Est GFR (CKD-EPI)AfAm 57.68 Est GFR (CKD-EPI)NonAf 49.77 Random Glucose 121 H Calcium 8.5 Magnesium 2.3 Digoxin 0.98 HOSPITAL COURSE: 74 y/o female with diastolic CHF, HTN, HLD, COPD on 2L and BiPAP, a-fib s/p PPM , GERD, and gastric cancer presents with chest pain and shortness of breath. She has been non-compliant on Lasix and has been eating salty foods. Trops were negative and there were no new EKG changes. IV Lasix was administered and mehta inserted for monitoring which resulted in improvement in symptoms. Pt was also placed on BiPAP and given albuterol PRN. Pt had episodes of a-fib on tele but was asymptomatic. Pt on digoxin within therapeutic range as well as Toprol BID which was increased prior to discharge for tachycardia. Date of Admission:06/28/19 Date of Discharge: 06/29/19 Minutes to complete discharge: 35 Discharge Summary Problems reviewed: Yes Reason For Visit: CONGESTIVE HEART FAILURE, CHRONIC OBSTRUCTIVE Current Active Problems CHF (congestive heart failure) (Acute) COPD (chronic obstructive pulmonary disease) (Acute) Chronic anticoagulation (Acute) Cor pulmonale, chronic (Acute) Pacemaker (Acute) Condition: Stable - Instructions Diet, Activity, Other Instructions: You came to the hospital with complaints of chest pain and trouble breathing. We measured your cardiac enzymes which were normal and you were seen by a etcher printed circuit boards. We gave you medications to relieve some of the fluid from you legs and chest; your symptoms improved and you were stable to be discharged home please resume all of your home medications in addition: we increased your toprol XL to 37.5mg to be taken twice a day we started you Protonix 40mg to be taken daily for you acid reflux instead of Ranitidine Please follow up with Dr. Richey within one week Please follow up with your etcher printed circuit boards, Dr. Marcano within one week Please restrict your fluid and salt intake *if you begin to experience any chest pains, palpitations, worsening shortness of breath, nausea/vomiting please return to the emergency room immediately Referrals: Boyd Marcano [Non Staff, Medical] - 1 Week Denzel Richey MD [Primary Care Provider] - 1 Week Galdino Marquez MD [Staff Physician] - 1 Week Disposition: VNS/HOME HEALTH CARE - Home Medications Comprehensive Discharge Medication List: Ambulatory Orders Albuterol Sulfate Inhaler - [Ventolin HFA Inhaler -] 1 puff IH DAILY 01/26/19 Atorvastatin Ca [Lipitor] 20 mg PO DAILY 01/26/19 Cholecalciferol (Vitamin D3) [Vitamin D -] 400 unit PO DAILY 01/26/19 Digoxin [Lanoxin -] 0.125 mg PO DAILY 01/26/19 Furosemide [Lasix] 40 mg PO DAILY 01/26/19 Midodrine HCl 2.5 mg PO TID PRN 01/26/19 Montelukast Sodium [Singulair] 10 mg PO DAILY 01/26/19 Multivitamin [Multiple Vitamins] 1 each PO DAILY 01/26/19 Nitroglycerin [Nitrostat] 0.4 mg SL DAILY PRN 01/26/19 Meclizine HCl [Antivert -] 25 mg PO DAILY tablet 01/28/19 Apixaban [Eliquis -] 5 mg PO BID 02/22/19 Metoprolol Succinate [Toprol Xl] 25 mg PO BID 02/22/19 Pantoprazole Sodium [Protonix] 40 mg PO DAILY 06/29/19 This patient is new to me today: No Emergency Visit: Yes ED Registration Date: 06/28/19 Care time: The patient presented to the Emergency Department on the above date and was hospitalized for further evaluation of their emergent condition. Critical Care patient: No - Discharge Referral Referred to [facility] Med P.C.: No ATTENDING PHYSICIAN STATEMENT I saw and evaluated the patient. I reviewed the resident's note and discussed the case with the resident. I agree with the resident's findings and plan as documented. SUBJECTIVE: OBJECTIVE: ASSESSMENT AND PLAN:
[2019-06-29] MEDS: APIXABAN 5 MG TABLET PO SCH (10:21)
[2019-06-29] MEDS: FUROSEMIDE 40 MG/4 ML INJECTABLE VIAL IVPUSH SCH (10:21)
[2019-06-29] MEDS: DIGOXIN 0.125 MG TABLET (FP) PO SCH (10:21)
[2019-06-29] MEDS: MECLIZINE HCL 25 MG TABLET (FP) PO SCH (10:21)
[2019-06-29] MEDS: FAMOTIDINE 20 MG TABLET PO SCH (10:21)
[2019-06-29] MEDS: CHOLECALCIFEROL (VIT D3) 400 UNIT (10 MCG) TABLET PO SCH (10:22)
[2019-06-29 16:33] VITALS: BP 122/72; PULSE 62; TEMP 99.5
--- NOTE | 2019-06-29 19:16 | PN ---
Teaching Attending Note Name of Resident: Fernanda Ramirez ATTENDING PHYSICIAN STATEMENT I saw and evaluated the patient. I reviewed the resident's note and discussed the case with the resident. I agree with the resident's findings and plan as documented. SUBJECTIVE: Vital Signs Temperature 99.5 F 06/29/19 16:33 Pulse Rate 62 06/29/19 16:33 Respiratory Rate 18 06/29/19 16:33 Blood Pressure 122/72 06/29/19 16:33 O2 Sat by Pulse Oximetry (%) 93 L 06/29/19 09:00 GENERAL: The patient is awake, alert, and fully oriented, in no acute distress. HEAD: Normal with no signs of trauma. EYES: PERRL, extraocular movements intact, sclera anicteric, conjunctiva clear. ENT: Ears normal, oropharynx clear without exudates, moist mucous membranes. NECK: Trachea midline, full range of motion, supple. LUNGS: Breath sounds equal, clear to auscultation bilaterally, no wheezes, no crackles, no accessory muscle use. HEART: Regular rate and rhythm, S1, S2 without murmur, rub or gallop. ABDOMEN: Soft, nontender, nondistended, normoactive bowel sounds, no guarding, no rebound, no hepatosplenomegaly, no masses. EXTREMITIES: 2+ pulses, warm, well-perfused, no edema. NEUROLOGICAL: Cranial nerves II through XII grossly intact. Normal speech, gait not observed. PSYCH: Normal mood, normal affect. SKIN: Warm, dry, normal turgor, no rashes or lesions noted CBCD WBC 6.5 K/mm3 (4.0-10.0) 06/29/19 06:15 RBC 3.12 M/mm3 (3.60-5.2) L 06/29/19 06:15 Hgb 8.7 GM/dL (10.7-15.3) L 06/29/19 06:15 Hct 26.9 % (32.4-45.2) L 06/29/19 06:15 MCV 86.1 fl (80-96) 06/29/19 06:15 MCHC 32.3 g/dl (32.0-36.0) 06/29/19 06:15 RDW 14.7 % (11.6-15.6) 06/29/19 06:15 Plt Count 111 K/MM3 (134-434) L D 06/29/19 06:15 MPV 9.0 fl (7.5-11.1) 06/29/19 06:15 CMP Sodium 141 mmol/L (136-145) 06/29/19 06:15 Potassium 3.6 mmol/L (3.5-5.1) 06/29/19 06:15 Chloride 103 mmol/L (98-107) 06/29/19 06:15 Carbon Dioxide 33 mmol/L (21-32) H 06/29/19 06:15 Anion Gap 5 MMOL/L (8-16) L 06/29/19 06:15 BUN 35.6 mg/dL (7-18) H 06/29/19 06:15 Creatinine 1.1 mg/dL (0.55-1.3) 06/29/19 06:15 Random Glucose 121 mg/dL (74-106) H 06/29/19 06:15 Calcium 8.5 mg/dL (8.5-10.1) 06/29/19 06:15 Total Bilirubin 0.4 mg/dL (0.2-1) 06/28/19 05:55 AST 13 U/L (15-37) L 06/28/19 05:55 ALT 19 U/L (13-61) 06/28/19 05:55 Alkaline Phosphatase 85 U/L (45-117) 06/28/19 05:55 Total Protein 7.5 g/dl (6.4-8.2) 06/28/19 05:55 Albumin 3.4 g/dl (3.4-5.0) 06/28/19 05:55 CARDIAC ENZYMES Creatine Kinase 103 U/L (26-192) 06/28/19 01:45 Troponin I 0.02 ng/ml (0.00-0.05) 06/28/19 05:55 Home Medications Medication Instructions Recorded Albuterol Sulfate Inhaler - 1 puff IH DAILY 01/26/19 [Ventolin HFA Inhaler -] Atorvastatin Ca [Lipitor] 20 mg PO DAILY 01/26/19 Cholecalciferol (Vitamin D3) 400 unit PO DAILY 01/26/19 [Vitamin D -] Digoxin [Lanoxin -] 0.125 mg PO DAILY 01/26/19 Furosemide [Lasix] 40 mg PO DAILY 01/26/19 Midodrine HCl 2.5 mg PO TID PRN 01/26/19 Montelukast Sodium [Singulair] 10 mg PO DAILY 01/26/19 Multivitamin [Multiple Vitamins] 1 each PO DAILY 01/26/19 Nitroglycerin [Nitrostat] 0.4 mg SL DAILY PRN 01/26/19 Meclizine HCl [Antivert -] 25 mg PO DAILY tablet 01/28/19 Apixaban [Eliquis -] 5 mg PO BID 02/22/19 Metoprolol Succinate [Toprol Xl] 37.5 mg PO BID #60 tab.er.24h 06/29/19 Pantoprazole Sodium [Protonix] 40 mg PO DAILY #30 tablet. 06/29/19 02/23/2019 Echo normal LVEF 50-55%, dilated RV, RV dysfx and PHTN. mod-severe TR RVSP 40-50 mmHg, mod pulm HTN, possibly due to PPM may have caused RV enlargement chronically Assessment and plan: # Acute hypoxic respiratory failure: IV diuresis with monitor diuretic response , renal fxn and electrolytes # Acute on chronic diastolic heart failure, pulm HTN, Continue Toprol 25 bid, Lipitor 20 qhs, Dig 0.125 qd with check dig level, monitor telemetry. # Persistent afib with RVR s/p PPM on eliquis # COPD on home O2 with cor pulmonale # Anemia, thrombocytopenia DVT px; Eliquis 5 bid
[2019-06-30] MEDS ORDERED: metoPROLOL SUCCINATE 25 MG TAB.SR.24H (FP) PO ONE (11:08)
== END 2019-06-29 16:51 | disposition home health service (06) | DRG 133 ==
LOC: JER 01:27 → JERBED 03:08 → J4W 07:16
PROVIDERS: ADMIT Internal Medicine; ATTEND Internal Medicine
DX: J96.01 Acute respiratory failure with hypoxia (principal); D50.9 Iron deficiency anemia, unspecified; Z95.0 Presence of cardiac pacemaker; J44.9 Chronic obstructive pulmonary disease, unspecified; I50.33 Acute on chronic diastolic (congestive) heart failure; E46 Unspecified protein-calorie malnutrition; I48.19 Other persistent atrial fibrillation; D69.6 Thrombocytopenia, unspecified; I27.81 Cor pulmonale (chronic); E78.5 Hyperlipidemia, unspecified; K21.9 Gastro-esophageal reflux disease without esophagitis; I11.0 Hypertensive heart disease with heart failure; R07.9 Chest pain, unspecified; D61.818 Other pancytopenia
CPT/HCPCS: 36415; 36600; 71045-TC-FY; 80048; 80053; 80162; 82375; 82550; 82803; 83050; 83540; 83550; 83735; 83880; 84100; 84484; 85025; 85027; 85044; 85610; 85730; 90670; 93005; 93010; 94660; 99283-25; J1644

== ENCOUNTER 2020-03-05 13:09 | Inpatient (IN) | payer OTHER ==
[2020-03-05] MEDS ORDERED: SODIUM CHLORIDE 1,864 ML IV ONE (13:22)
[2020-03-05 14:08] LABS: BASO % 0.4 % (0-2.0); EOS % 0.6 % (0-4.5); MCH 22.9 pg (25.7-33.7); MCHC 28.6 g/dl (32.0-36.0); MEAN CELL VOLUME 80.1 fl (80-96); MONO % 5.6 % (3.8-10.2); NEUT % 82.4 % (42.8-82.8); PLATELET COUNT 135 K/MM3 (134-434); RBC 2.25 M/mm3 (3.60-5.2); RDW 21.5 % (11.6-15.6)
--- NOTE | 2020-03-05 14:13 | PDOC ---
Documentation entered by Erika Gutierrez SCRIBE, acting as scribe for Erasmo Ba MD. Erasmo Ba MD: This documentation has been prepared by the Brenda somers [place], SCRIBE, under my direction and personally reviewed by me in its entirety. I confirm that the documentation accurately reflects all work, treatment, procedures, and medical decision making performed by me. Attending Attestation - Resident Resident Name: Ralph Gupta - ED Attending Attestation I have performed the following: I have examined & evaluated the patient, The case was reviewed & discussed with the resident, I agree w/resident's findings & plan, Exceptions are as noted - HPI HPI: 03/05/20 13:34 Patient is a 74 year old female with a significant past medical history of HTN, HLD, CHF, COPD, Afib, GERD, gastric cancer who presents to the ED with low blood pressure. As per patients son, the patient's home school teacher measured her blood pressure to be 60/50 this morning, prompting her to come to the ED. Patients son also endorses she has had progressively worsening SOB as well as swelling in her hands and feet. She is currently on lasix 40mg BID. Denies fever, chills, chest pain, nausea, vomiting, diarrhea, constipation, or urinary changes. Allergies: NKDA PCP: Dr. Richey - Physicial Exam PE: 03/05/20 14:14 See resident exam - Medical Decision Making 03/05/20 14:14 74 F with hypotension as well as anasarca. Possible decompensated heart failure. Will evaluate for sepsis as well. Consider medication side effect, as pt is on several antihypertensives. - Labs - CXR - Gentle fluid bolus 03/05/20 14:25 Hb 5 today Pt is on eliquis, will evaluate for GIB Discharge - Discharge Information Problems reviewed: Yes Clinical Impression/Diagnosis: PATRICK (acute kidney injury) Anemia Qualifiers: Anemia type: unspecified type Qualified Code(s): D64.9 - Anemia, unspecified CHF exacerbation Qualifiers: Heart failure type: unspecified Qualified Code(s): I50.9 - Heart failure, unspecified Condition: Guarded - Follow up/Referral - Patient Discharge Instructions - Post Discharge Activity
[2020-03-05 14:24] LABS: HEMOGLOBIN 5.2 GM/dL (10.7-15.3)
--- NOTE | 2020-03-05 14:33 | PDOC ---
History of Present Illness - General Chief Complaint: Blood Pressure Problem Stated Complaint: LOW BP/PAIN Time Seen by Provider: 03/05/20 13:25 History Source: Patient, Family, Old Records Exam Limitations: Language Barrier (Lao) - History of Present Illness Initial Comments: 03/05/20 14:32 [place] Aden is a 74F with PMH CHF, AFIB s/p pacemaker, HTN, HLD, gastric bypass/intestinal resection, here for hypotension and worsening SOB. Patient Lao-speaking, difficult to obtain PMH from, [facility], PMH discussed with son at bedside. POA is other son Mr. Pillai listed as first contact. Patient has PMH CHF on home O2 @3L, normally alert and ambulatory at home. CONFERENCE MANAGER found patient to be hypotensive with SBP 60s, called EMS and brought to [facility]. Patient denies fever/chills, N/V/D, urinary symptoms. Per son, no reports of any SOB, weakness, or acting unusually. no reports of rectal bleeding. Here for evaluation of hypotension. PSH bowel resection and tumor removal with gastric bypass NKDA Past History - Medical History Allergies/Adverse Reactions: Allergies Allergy/AdvReac Type Severity Reaction Status Date / Time No Known Allergies Allergy Verified 06/28/19 01:31 Home Medications: Ambulatory Orders Digoxin [Lanoxin -] 0.125 mg PO DAILY 01/26/19 Furosemide [Lasix] 40 mg PO DAILY 01/26/19 Nitroglycerin [Nitrostat] 0.4 mg SL DAILY PRN 01/26/19 Apixaban [Eliquis -] 5 mg PO BID 02/22/19 Metoprolol Succinate [Toprol Xl] 25 mg PO BID 03/05/20 Cardiac Disorders: Yes (a fib, pacemaker) COPD: Yes CHF: Yes HTN: Yes Hypercholesterolemia: Yes - Reproductive History Is Patient Now?: No - Psycho-Social/Smoking History Smoking History: Never smoked Have you smoked in the past 12 months: No Information on smoking cessation initiated: No - Substance Abuse Hx (Audit-C & DAST Scrn) How often the patient has a drink containing alcohol: Never Score: In Men: 4 or > Positive; In Women: 3 or > Positive: 0 Screen Result (Pos requires Nsg. Audit-10AR): Negative In the last yr the pt used illegal drug/Rx for NonMed reason: No Score: Yes response is considered Positive: 0 Screen Result (Positive result requires Nsg. DAST-10): Negative Review of Systems - Review of Systems Able to Perform ROS?: Yes Constitutional: No: Symptoms Reported HEENTM: No: Symptoms Reported Respiratory: No: Symptoms reported Cardiac (ROS): No: Symptoms Reported ABD/GI: No: Symptoms Reported : No: Symptoms Reported Musculoskeletal: No: Symptoms Reported Integumentary: No: Symptoms Reported Neurological: No: Symptoms reported Endocrine: No: Symptoms Reported Hematologic/Lymphatic: No: Symptoms Reported All Other Systems: Reviewed and Negative *Physical Exam - Vital Signs Last Vital Signs Temp Pulse Resp BP Pulse Ox 97.8 F 88 20 97/44 L 96 03/05/20 13:20 03/05/20 13:27 03/05/20 13:27 03/05/20 13:27 03/05/20 13:27 - Physical Exam General Appearance: Yes: Nourished, Appropriately Dressed, Obese. No: Apparent Distress HEENT: positive: EOMI, BYRON, Normal Voice, Symmetrical, Pharynx Normal, Hearing Decreased. negative: Scleral Icterus (R), Scleral Icterus (L), Pharyngeal Erythema, Tonsillar Exudate, Tonsillar Erythema, Lesions, [place], Thrush Neck: positive: Trachea midline, Normal Thyroid, Supple. negative: Tender, Rigid, Decreased range of motion, Lymphadenopathy (R), Lymphadenopathy (L), Tender lateral, Tender midline Respiratory/Chest: positive: Crackles (bilateral), Other (toughness to left lower breast). negative: Chest Tender, Lungs Clear, Normal Breath Sounds, Respiratory Distress, Accessory Muscle Use, Rales, Rhonchi, Stridor, Wheezing Cardiovascular: positive: Regular Rhythm, Tachycardia. negative: Murmur Gastrointestinal/Abdominal: positive: Normal Bowel Sounds, Flat, Soft, Protuberent, Other (large scarring to abdomen, well-healed). negative: Tender, Organomegaly, Pulsatile Mass, Guarding, Rebound, Hernia Rectal Exam: positive: normal exam, normal rectal tone, heme positive stool, hemorrhoids (external). negative: decreased tone Musculoskeletal: positive: Normal Inspection. negative: CVA Tenderness, Decr eased Range of Motion, Vertebral Tenderness Extremity: positive: Normal Capillary Refill, Normal Inspection, Pelvis Stable, Pedal Edema (2+). negative: Normal Range of Motion, Tender, Coldness, Cyanosis, Swelling, Calf Tenderness Integumentary: positive: Normal Color, Dry, Warm. negative: Cold, Clammy, Diaphoresis Neurologic: positive: Fully Oriented, Alert, Normal Mood/Affect, Normal Response, Motor Strength 5/5. negative: Numbness ED Treatment Course - LABORATORY CBC & Chemistry Diagram: 03/05/20 13:40 03/05/20 13:40 - ADDITIONAL ORDERS Additional order review: Laboratory Results 03/05/20 13:40 Crossmatch See Detail 03/05/20 13:40 RBC 2.25 L MCV 80.1 MCHC 28.6 L RDW 21.5 H MPV 9.0 Neutrophils % 82.4 Lymphocytes % 11.0 D Monocytes % 5.6 Eosinophils % 0.6 Basophils % 0.4 Medical Decision Making - Medical Decision Making 03/05/20 17:03 Patient has history of AFIB, CHF, gastric bypass/tumor resection, presents with hypotension. Initial BP in ED 80/40, sepsis/CHF labs ordered. Started on ~250mL slow IVF for hypotension. Has crackles and fluid overload on exam, on 4L NC and satting 100%. A/Ox3. Concern for CHF vs. COPD vs. PNA. vs. UTI vs. ACS or pericarditis vs. covid-19. Anticipate admission for hypotension, consider central line. CXR shows worsening pleural effusions and bilateral edema. ECG shows atrial paced rhythm with low voltage, incomplete RBBB, HR 60, QTc 340, no ARRON/D but new TWI to V2-V6 and II/III/aVF. Labs notable for: - Hgb 5.2, ordering 2 units pRBCs - MCV 80.1 - VBG pH 7.309, CO2 60.5 - Cr 2.3, up from 0.8 - BNP 2969.8 - Alb 1.7 - FOBT+ Given anemia, ordered blood. Consent obtained with patient and sons. Bedside US shows R pleural effusion with small pericardial effusion and pulmonary HTN, as well as free fluid in abdomen and plump IVC. CT CAP ordered for eval lungs/free abd fluid, unable to tolerate IV contrast given elevated Cr. BP low but stable, will bring to CT scan once BP improved and re-stabilized with infusion. 03/05/20 19:04 BP improved with slow infusion of pRBCs, patient brought to CT. Pending read. Signing out to night team Dr. Dewitt, plan for CT read and f/u of free fluid. Needs repeat CBC once 2U pRBCs complete, but will likely be admitted by then. Admit to [facility] to [facility] for anemia and transfusion. Discharge - Discharge Information Problems reviewed: Yes Clinical Impression/Diagnosis: PATRICK (acute kidney injury) Anemia Qualifiers: Anemia type: unspecified type Qualified Code(s): D64.9 - Anemia, unspecified CHF exacerbation Qualifiers: Heart failure type: unspecified Qualified Code(s): I50.9 - Heart failure, unspecified Condition: Guarded - Admission Yes - Follow up/Referral - Patient Discharge Instructions - Post Discharge Activity
[2020-03-05 14:41] LABS: ALBUMIN 1.7 g/dl (3.4-5.0); BILIRUBIN,TOTAL 0.3 mg/dL (0.2-1); BLOOD UREA NITROGEN 51.3 mg/dL (7-18); CALCIUM 7.7 mg/dL (8.5-10.1); CREATININE 2.3 mg/dL (0.55-1.3); POTASSIUM 4.1 mmol/L (3.5-5.1); TOT PROT 5.2 g/dl (6.4-8.2)
[2020-03-05 15:00] LABS: VENOUS BASE EXCESS 3.2 mmol/L (-2-2); VENOUS O2 SATURATION 52.1 % (70-80); VENOUS PCO2 60.5 mmHg (38-52); VENOUS PH 7.309 (7.310-7.410)
[2020-03-05 15:12] LABS: ANISOCYTOSIS 1+; PLATELET ESTIMATE DECREASED; TARGET CELLS 1+
[2020-03-05 15:15] LABS: INR 1.63 (0.83-1.09); PROTHROMBIN TIME (PATIENT) 19.3 SEC (9.7-13.0)
[2020-03-05 15:40] LABS: N-TERMINAL BNP 2969.8 pg/ml (5-125)
--- NOTE | 2020-03-05 17:49 | EKG ---
Test Reason : Blood Pressure : / mmHG Vent. Rate : 060 BPM Atrial Rate : 068 BPM P-R Int : 352 ms QRS Dur : 106 ms QT Int : 340 ms P-R-T Axes : 189 067 239 degrees QTc Int : 340 ms Atrial-paced rhythm with prolonged AV conduction LOW VOLTAGE QRS INCOMPLETE RIGHT BUNDLE BRANCH BLOCK SEPTAL INFARCT , AGE UNDETERMINED ABNORMAL ECG Confirmed by MD Attila, Josh ([id number]) on 03/05/2020 5:49:29 PM Referred By: Confirmed By:Josh Aiken MD
--- NOTE | 2020-03-05 19:28 | PDOC ---
*Physical Exam - Vital Signs Last Vital Signs Temp Pulse Resp BP Pulse Ox 97.8 F 60 18 84/46 L 100 03/05/20 13:20 03/05/20 17:30 03/05/20 17:30 03/05/20 17:30 03/05/20 17:30 - Physical Exam 03/05/20 19:27 Accepted patient from ED day team at sign out. Pending CT C/A/P read, CBC 8 hours after transfusion, admission. 03/05/20 22:30 Signed out to admitting resident who accepted the patient. ED Treatment Course - LABORATORY CBC & Chemistry Diagram: 03/05/20 13:40 03/05/20 13:40 - ADDITIONAL ORDERS Additional order review: Laboratory Results 03/05/20 03/05/20 03/05/20 15:05 14:18 14:18 PT with INR INR PTT (Actin FS) VBG pH POC VBG pCO2 POC VBG pO2 VBG HCO3 VBG O2 Sat ([place]inn) VBG Base Excess Sodium Potassium Chloride Carbon Dioxide Anion Gap BUN Creatinine Est GFR (CKD-EPI)AfAm Est GFR (CKD-EPI)NonAf Random Glucose Lactic Acid 2.0 Calcium Total Bilirubin AST ALT Alkaline Phosphatase Creatine Kinase Troponin I B-Natriuretic Peptide Total Protein Albumin Stool Occult Blood Positive Blood Type Cancelled Antibody Screen Cancelled Crossmatch 03/05/20 03/05/20 03/05/20 14:18 14:10 13:40 PT with INR 19.30 H INR 1.63 H PTT (Actin FS) 30.0 VBG pH 7.309 L POC VBG pCO2 60.5 H POC VBG pO2 31.0 VBG HCO3 29.7 H VBG O2 Sat ([place]) 52.1 L VBG Base Excess 3.2 H Sodium Potassium Chloride Carbon Dioxide Anion Gap BUN Creatinine Est GFR (CKD-EPI)AfAm Est GFR (CKD-EPI)NonAf Random Glucose Lactic Acid Calcium Total Bilirubin AST ALT Alkaline Phosphatase Creatine Kinase Troponin I B-Natriuretic Peptide Total Protein Albumin Stool Occult Blood Blood Type O POSITIVE Antibody Screen Negative Crossmatch See Detail 03/05/20 13:40 PT with INR INR PTT (Actin FS) VBG pH POC VBG pCO2 POC VBG pO2 VBG HCO3 VBG O2 Sat ([place]) VBG Base Excess Sodium 145 Potassium 4.1 Chloride 110 H Carbon Dioxide 31 Anion Gap 5 L BUN 51.3 H Creatinine 2.3 H Est GFR (CKD-EPI)AfAm 23.64 Est GFR (CKD-EPI)NonAf 20.40 Random Glucose 113 H Lactic Acid Calcium 7.7 L Total Bilirubin 0.3 AST 16 ALT 17 Alkaline Phosphatase 64 Creatine Kinase 130 Troponin I 0.03 B-Natriuretic Peptide 2969.8 H Total Protein 5.2 L Albumin 1.7 L Stool Occult Blood Blood Type Antibody Screen Crossmatch 03/05/20 13:40 RBC 2.25 L MCV 80.1 MCHC 28.6 L RDW 21.5 H MPV 9.0 Neutrophils % 82.4 Lymphocytes % 11.0 D Monocytes % 5.6 Eosinophils % 0.6 Basophils % 0.4 - Medications Given in the ED: ED Medications Discontinued Medications Generic Name Dose Route Start Last Admin Trade Name Freq PRN Reason Stop Dose Admin Sodium Chloride 1,864 mls @ 932 mls/hr 03/05/20 13:22 03/05/20 14:11 Normal Saline - 30 ml/kg infuse over 2 hr (1864 ml) 03/05/20 15:21 932 mls/hr IV Administration ONCE ONE Discharge - Discharge Information Problems reviewed: Yes Clinical Impression/Diagnosis: PATRICK (acute kidney injury) Anemia Qualifiers: Anemia type: unspecified type Qualified Code(s): D64.9 - Anemia, unspecified CHF exacerbation Qualifiers: Heart failure type: unspecified Qualified Code(s): I50.9 - Heart failure, unspecified Condition: Guarded - Follow up/Referral - Patient Discharge Instructions - Post Discharge Activity
[2020-03-05 20:20] LABS: URINE APPEARANCE CLEAR; URINE BILIRUBIN NEGATIVE (NEGATIVE); URINE COLOR YELLOW; URINE GLUCOSE (UA) NEGATIVE (NEGATIVE); URINE KETONE NEGATIVE (NEGATIVE); URINE LEUK ESTERASE NEGATIVE (NEGATIVE); URINE NITRITE NEGATIVE (NEGATIVE); URINE PROTEIN NEGATIVE (NEGATIVE); URINE UROBILINOGEN 0.2 mg/dL (0.2-1.0)
--- NOTE | 2020-03-05 20:59 | PN ---
Teaching Attending Note Name of Resident: Rosy Maldonado ATTENDING PHYSICIAN STATEMENT I saw and evaluated the patient. I reviewed the resident's note and discussed the case with the resident. I agree with the resident's findings and plan as documented. SUBJECTIVE: Patient is a 74 year old woman with a PMH CHF, Afib, Pacemaker, HTN, HLD, COPD, ?Pancytopenia, Gastric cancer and Gastric bypass/intestinal resection who presents with hypotension and worsening SOB. Information provided by her son. She is on home Oxygen at 3L, normally alert and ambulatory at home. Home health aide found patient to be hypotensive with SBP in the 60s, called EMS and brought to [facility]. Has had hematochezia and diarrhe. Patient denies chest pain, abdominal pain, headache, palpitations, dizziness, fever, chills, nausea, vomiting, diarrhea, constipation, dysuria, frequency, urgency or hematuria. Denies alcohol, tobacco or illicit drug use. Had long exposure to second hand smoke. No sick contacts or recent travels. Family history is unremarkable. OBJECTIVE: Alert and not orthostatic Vital Signs Period Temp Pulse Resp BP Sys/Nava Pulse Ox Last 24 Hr 97.8 F 55-92 17-27 51-97/35-63 95-100 HEENT: No Jaundice, eye redness or discharge, PERRLA, EOMI. Normocephalic, atraumatic. External ears are normal and hearing is grossly intact. No nasal discharge. Neck: Supple, nontender. No palpable adenopathy or thyromegaly. No JVD Chest: Good effort. Bibasilar crackles. Clear to percussion. Heart: Regular. No S3, rub or murmur Abdomen: Not distended, tense, nontender and no HSM. No rebound or guarding. Normal bowel sounds. Ext: Anasarca. Peripheral pulses intact. Leg edema. Skin: Warm and dry. No petechiae, rash or ecchymosis. Neuro: Alert. Oriented x3. CN 2-12 grossly intact. Sensation grossly intact in all four extremities and DTR are symmetric. Psych: Appropriate mood and affect. Good insight. Home Medications Medication Instructions Recorded Digoxin [Lanoxin -] 0.125 mg PO DAILY 01/26/19 Furosemide [Lasix] 40 mg PO DAILY 01/26/19 Nitroglycerin [Nitrostat] 0.4 mg SL DAILY PRN 01/26/19 Apixaban [Eliquis -] 5 mg PO BID 02/22/19 Metoprolol Succinate [Toprol Xl] 25 mg PO BID 03/05/20 Abnormal Lab Results 03/05/20 03/05/20 03/05/20 13:40 13:40 13:40 RBC 2.25 L Hgb 5.2 L* Hct 18.0 L D MCH 22.9 L MCHC 28.6 L RDW 21.5 H PT with INR INR VBG pH POC VBG pCO2 VBG HCO3 VBG O2 Sat ([place]) VBG Base Excess Chloride 110 H Anion Gap 5 L BUN 51.3 H Creatinine 2.3 H Random Glucose 113 H Calcium 7.7 L B-Natriuretic Peptide 2969.8 H Total Protein 5.2 L Albumin 1.7 L Crossmatch See Detail 03/05/20 03/05/20 14:10 14:18 RBC Hgb Hct MCH MCHC RDW PT with INR 19.30 H INR 1.63 H VBG pH 7.309 L POC VBG pCO2 60.5 H VBG HCO3 29.7 H VBG O2 Sat ([place]) 52.1 L VBG Base Excess 3.2 H Chloride Anion Gap BUN Creatinine Random Glucose Calcium B-Natriuretic Peptide Total Protein Albumin Crossmatch Current Medications Generic Name Dose Route Start Last Admin Trade Name Freq PRN Reason Stop Dose Admin Furosemide 40 mg 03/06/20 10:00 Lasix Injection - IVPUSH DAILY [facility] Azithromycin 250 mg/ Dextrose 250 mls @ 250 mls/hr 03/06/20 10:00 IVPB DAILY [facility] Ceftriaxone Sodium 1 gm/ 50 mls @ 100 mls/hr 03/05/20 23:05 Dextrose IVPB DAILY [facility] Pantoprazole Sodium 40 mg 03/05/20 23:15 Protonix Iv IVPUSH BID [facility] ASSESSMENT AND PLAN: 1. Symptomatic anemia/Hypotension/CHF exacerbation - Etiology of hypotension is unclear, though blood loss is a likely contributor. Will do sepsis workup and also rule out recurrence of cancer. Will do basic anemia work up including retic ulocyte count and iron studies. Initial stool guaiac is positive. Being transfused PRBC. Hold Eliquis for Afib, get CA19-9, CEA, Vascular study to rue out DVT, give IV Protonix and consult GI and Heam/Onc. CXR shows cardiomegaly, left side pacemaker, bilateral pleural effusion, pulmonary vascular congestion, and possible retrocardiac infiltrate. CT scan of chest/abdomen/pelvis without contrast shows bibasilar consolidation and pleural effusion (R>L), ascites, diverticulosis coli without diverticulitis and subcutaneous edema. Will treat patient with IV Ceftriaxone and Azithromycin for possible pneumonia and consult ID/Pulmonary. Will admit to telemetry, treat with IV Lasix to achieve adequate diuresis (once BP permits), get ECHO, restrict dietary salt intake, monitor renal function, monitor and replete electrolytes, get daily weight and consult Cardiology. If hypotension reoccurs and persist, will employ vasopressor and transfer to the ICU. Viral testing for COVID-19 ordered and patient placed on airborne, droplet and contact isolation. EKG shows atrial paced rhythm with prolonged AV conduction at 60/minute, IRBBB and QTc [address]-T wave changes that are new. Initial troponin is negative. Will repeat EKG and troponin to rule out ACS. Will continue comprehensive care for all of patients comorbid conditions. 2. ?CKD with superimposed PATRICK Cause unclear. Will get kidney sonogram, urine protein/creatinine ratio, SPEP, UPEP, monitor urine output and consult Nephrology. Avoid nephrotoxic agents such as NSAIDS, aminoglycosides, contrast dyes and certain Alternative medicine products. 3. Severe hypoalbuminemia - Possibly due to combined effects of malnutrition and inflammation associated with comorbid conditions. 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 Urinalysis pending. 4. Hypertension Will hold all outpatient antihypertensive drugs. 5. DVT prophylaxis - SCD. Hold Eliquis. 6. Advance directives - Full code
[2020-03-05] MEDS ORDERED: FUROSEMIDE 40 MG/4 ML INJECTABLE VIAL IVPUSH ONE (21:52)
[2020-03-05] MEDS ORDERED: FUROSEMIDE 40 MG/4 ML INJECTABLE VIAL ONE (21:52)
[2020-03-05] MEDS ORDERED: AZITHROMYCIN IVPB 500 MG/250 ML BAG IVPB ONE (23:06)
--- NOTE | 2020-03-06 03:06 | PN ---
Physical Exam: SUBJECTIVE: Patient seen and examined OBJECTIVE: Vital Signs Period Temp Pulse Resp BP Sys/Nvaa Pulse Ox Last 24 Hr 97.8 F-98.2 F 55-92 17-27 51-106/35-63 93-100 GENERAL: The patient is awake, alert, and fully oriented, in no acute distress. HEAD: Normal with no signs of trauma. EYES: PERRL, extraocular movements intact, sclera anicteric, conjunctiva clear. No ptosis. ENT: Ears normal, nares patent, oropharynx clear without exudates, moist mucous membranes. NECK: Trachea midline, full range of motion, supple. LUNGS: Breath sounds equal, clear to auscultation bilaterally, no wheezes, no crackles, no accessory muscle use. HEART: Regular rate and rhythm, S1, S2 without murmur, rub or gallop. ABDOMEN: Soft, nontender, nondistended, normoactive bowel sounds, no guarding, no rebound, no hepatosplenomegaly, no masses. EXTREMITIES: 2+ pulses, warm, well-perfused, no edema. NEUROLOGICAL: Cranial nerves II through XII grossly intact. Normal speech, gait not observed. PSYCH: Normal mood, normal affect. SKIN: Warm, dry, normal turgor, no rashes or lesions noted Laboratory Results - last 24 hr 03/05/20 03/05/20 03/05/20 13:40 13:40 13:40 WBC 5.0 RBC 2.25 L Hgb 5.2 L* Hct 18.0 L D MCV 80.1 MCH 22.9 L MCHC 28.6 L RDW 21.5 H Plt Count 135 D MPV 9.0 Absolute Neuts (auto) 4.1 Neutrophils % 82.4 Lymphocytes % 11.0 D Monocytes % 5.6 Eosinophils % 0.6 Basophils % 0.4 Nucleated RBC % 0 Hypochromia 2+ Platelet Estimate Decreased Platelet Comment No clumping noted Polychromasia 1+ Poikilocytosis 2+ Anisocytosis 1+ Microcytosis 1+ Target Cells 1+ Stomatocytes 1+ PT with INR INR PTT (Actin FS) VBG pH POC VBG pCO2 POC VBG pO2 VBG HCO3 VBG O2 Sat ([place]) VBG Base Excess Sodium 145 Potassium 4.1 Chloride 110 H Carbon Dioxide 31 Anion Gap 5 L BUN 51.3 H Creatinine 2.3 H Est GFR (CKD-EPI)AfAm 23.64 Est GFR (CKD-EPI)NonAf 20.40 Random Glucose 113 H Lactic Acid Calcium 7.7 L Total Bilirubin 0.3 AST 16 ALT 17 Alkaline Phosphatase 64 Creatine Kinase 130 Troponin I 0.03 B-Natriuretic Peptide 2969.8 H Total Protein 5.2 L Albumin 1.7 L Urine Color Urine Appearance Urine pH Ur Specific [place] Urine Protein Urine Glucose (UA) Urine Ketones Urine Blood Urine Nitrite Urine Bilirubin Urine Urobilinogen Ur Leukocyte Esterase Stool Occult Blood Blood Type O POSITIVE Antibody Screen Negative Crossmatch See Detail 03/05/20 03/05/20 03/05/20 14:10 14:18 14:18 WBC RBC Hgb Hct MCV MCH MCHC RDW Plt Count MPV Absolute Neuts (auto) Neutrophils % Lymphocytes % Monocytes % Eosinophils % Basophils % Nucleated RBC % Hypochromia Platelet Estimate Platelet Comment Polychromasia Poikilocytosis Anisocytosis Microcytosis Target Cells Stomatocytes PT with INR 19.30 H INR 1.63 H PTT (Actin FS) 30.0 VBG pH 7.309 L POC VBG pCO2 60.5 H POC VBG pO2 31.0 VBG HCO3 29.7 H VBG O2 Sat ([place]) 52.1 L VBG Base Excess 3.2 H Sodium Potassium Chloride Carbon Dioxide Anion Gap BUN Creatinine Est GFR (CKD-EPI)AfAm Est GFR (CKD-EPI)NonAf Random Glucose Lactic Acid 2.0 Calcium Total Bilirubin AST ALT Alkaline Phosphatase Creatine Kinase Troponin I B-Natriuretic Peptide Total Protein Albumin Urine Color Urine Appearance Urine pH Ur Specific [place] Urine Protein Urine Glucose (UA) Urine Ketones Urine Blood Urine Nitrite Urine Bilirubin Urine Urobilinogen Ur Leukocyte Esterase Stool Occult Blood Blood Type Antibody Screen Crossmatch 03/05/20 03/05/20 03/05/20 14:18 15:05 19:50 WBC RBC Hgb Hct MCV MCH MCHC RDW Plt Count MPV Absolute Neuts (auto) Neutrophils % Lymphocytes % Monocytes % Eosinophils % Basophils % Nucleated RBC % Hypochromia Platelet Estimate Platelet Comment Polychromasia Poikilocytosis Anisocytosis Microcytosis Target Cells Stomatocytes PT with INR INR PTT (Actin FS) VBG pH POC VBG pCO2 POC VBG pO2 VBG HCO3 VBG O2 Sat ([place]) VBG Base Excess Sodium Potassium Chloride Carbon Dioxide Anion Gap BUN Creatinine Est GFR (CKD-EPI)AfAm Est GFR (CKD-EPI)NonAf Random Glucose Lactic Acid Calcium Total Bilirubin AST ALT Alkaline Phosphatase Creatine Kinase Troponin I B-Natriuretic Peptide Total Protein Albumin Urine Color Yellow Urine Appearance Clear Urine pH 5.0 Ur Specific [place] 1.011 Urine Protein Negative Urine Glucose (UA) Negative Urine Ketones Negative Urine Blood Negative Urine Nitrite Negative Urine Bilirubin Negative Urine Urobilinogen 0.2 Ur Leukocyte Esterase Negative Stool Occult Blood Positive Blood Type Cancelled Antibody Screen Cancelled Crossmatch Active Medications Generic Name Dose Route Start Last Admin Trade Name Rickie PRN Reason Stop Dose Admin Furosemide 40 mg 03/06/20 10:00 Lasix Injection - IVPUSH DAILY [facility] Azithromycin 250 mg/ Dextrose 250 mls @ 250 mls/hr 03/06/20 10:00 IVPB DAILY [facility] Ceftriaxone Sodium 1 gm/ 50 mls @ 100 mls/hr 03/05/20 23:05 Dextrose IVPB DAILY [facility] Pantoprazole Sodium 40 mg 03/05/20 23:15 Protonix Iv IVPUSH BID [facility] ASSESSMENT/PLAN: Pt is a 74 yo M with PMH of HFpEF (EF 50-55% 1 year ago), Afib (s/p pacemaker; on eliquis), COPD (on 3L supplemental O2 at home), pulmnary hypertension, and 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 Pt is being admitted for symptomatic anema/hypotension and CHF exacerbation. #Symptomatic anemia/Hypotension etiology unclear; recent blood loss most likely cause need to r/o sepsis 2/2 to pneumonia as etiology (CXR with pulmonary vascular congestion, possible retrocardial infiltrate, bilateral pleural effusion; CT chest with bibasilar consolidation and pleural effusion) - evidence of possible pneumonia need to r/o return of prior malignancy as possible etiology H/H 5.2/18; MCV 80; RDW 21.5; FOBT + BP responded to fluids in the ED - pt receiving 2u pRBC, will follow CBC after transfusion - iron studies (iron, tibc, ferritin), serial stool guaiacs - IV protonix bid - hold eliquis - GI consulted to evaluate GI bleed - started on IV ceftriaxone 1 g, IV azithromycin 500 mg - ID and Pulm consulted - CEA and CA19-9 ordered - Heme/Onc consulted #CHF exacerbation likely multifactorial (symptomatic anemia, possible pneumonia, poor diet, medication non-adherence in the past BNP 2964.8 last ECHO 1 year ago (EF 50-55%) - careful diuresis with IV lasix 40 (hold lasix if SBP < 110); as BP permits and per day team discretion - get ECHO - can resume home digoxin 0.125 mg; check dig levels - low sodium diet when diet resumed - monitor BUN/Cr, GFR - Cardiology consulted - strict Is/Os, daily weights #r/o ACS (d/t new non specific ST-T wave changes) first trop neg - follow trops - repeat EKG in AM #PATRICK (superimposed on possible CKD?, although Cr in normal range during last visit on 06/2019) etiology unclear BUN/Cr 51.3/2.3; GFR 20 - renal sono - urine protein/Cr ratio - UPEP, SPEP - monitor urine output; monitor BUN/Cr, GFR; monitor lytes - Nephrology consulted - Avoid nephrotoxic agents #Severe hypoalbuminemia (possibly d/t diet; or other unknown etiology) Total ptn 5.2; Albumin 1.7 #Hx of HTN - holding home metoprolol #Hx of COPD - can consider O2 w/NC as needed #DVT PPx - Holding home eliquis; SCDs for now #FEN -F - no IVF as of now -E - monitor; replete lytes prn -N - NPO for now #Dispo Admit to telemetry Pt is full code ATTENDING PHYSICIAN STATEMENT I saw and evaluated the patient. I reviewed the resident's note and discussed the case with the resident. I agree with the resident's findings and plan as documented. SUBJECTIVE: OBJECTIVE: ASSESSMENT AND PLAN:
[2020-03-06] MEDS: CEFTRIAXONE 1 GM in DEXTROSE 5%-WATER - 50 ML IVPB SCH ×2 (03:20→10:52)
[2020-03-06] MEDS ORDERED: PANTOPRAZOLE SODIUM 40 MG VIAL ONE ×2 (03:20→10:47)
[2020-03-06] MEDS: PANTOPRAZOLE SODIUM 40 MG VIAL IVPUSH SCH ×2 (03:20→10:52)
[2020-03-06] MEDS ORDERED: CEFTRIAXONE 1 GM/50 ML BAG ONE ×2 (03:20→10:47)
[2020-03-06] MEDS ORDERED: AZITHROMYCIN IVPB 500 MG/250 ML BAG IVPB ONE (03:21)
--- NOTE | 2020-03-06 04:07 | HP ---
CHIEF COMPLAINT: hypotensive at home PCP: Dr. 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 EMS was called and pt was brought to the [facility] ED. Pt is normally alert and ambulatory at home. Pt has had progressively worsening SOB in the last 2-3 days; also with orthopnea, no PND. Pt also reports increased swelling upper extremities over the last 1-2 months and increased swelling in lower extremities in the last month. Pt and her children also report blood in her stool for the past 2 weeks; the numbers of episodes is unknown but at least 2 episodes have been noted by her children. Pt also reports mild, self-resolving diarrhea for the last 2 days. Her most recent episode of hematochezia was described as loose, watery stool with light red/pink-jc blood. Pt denies chest pain, fever, chills, nausea/vomiting, urinary symptoms, dizziness, syncope, abdominal pain, weakness, and fatigue. ER course was notable for: (1) Started on 2u of pRBC as Hb was 5.2 (2) Give IVF and IV lasix (3) CXR with pulmonary vascular congestion, possible retrocardial infiltrate, bilateral pleural effusion; CT chest with bibasilar consolidation and pleural effusion Recent Travel: none Sick Contacts: none PAST MEDICAL HISTORY: as per HPI PAST SURGICAL HISTORY: as per HPI + several hernia surgeries in last 2-3 years. Family Hx - none Social History: Lives at home with 2 sons and daughter. recently. 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 PHYSICAL EXAMINATION Vital Signs - 24 hr 03/05/20 03/05/20 03/05/20 13:19 13:20 13:27 Temperature 97.8 F Pulse Rate 58 L Pulse Rate [ 88 Apical] Respiratory 26 H 20 Rate Blood Pressure 51/35 L Blood Pressure [Left Arm] Blood Pressure 97/44 L [Right Arm] O2 Sat by Pulse 97 96 96 Oximetry (%) 03/05/20 03/05/20 03/05/20 13:55 14:15 14:30 Temperature Pulse Rate Pulse Rate [ 60 91 H 91 H Apical] Respiratory 22 H 27 H 27 H Rate Blood Pressure Blood Pressure 97/39 L 77/48 L 95/55 L [Left Arm] Blood Pressure 97/39 L [Right Arm] O2 Sat by Pulse 95 100 100 Oximetry (%) 03/05/20 03/05/20 03/05/20 14:45 15:30 15:45 Temperature Pulse Rate Pulse Rate [ 91 H 88 89 Apical] Respiratory 17 23 H 24 H Rate Blood Pressure Blood Pressure 95/55 L 86/63 L 82/44 L [Left Arm] Blood Pressure [Right Arm] O2 Sat by Pulse 100 100 100 Oximetry (%) 03/05/20 03/05/20 03/05/20 16:00 16:15 16:30 Temperature Pulse Rate Pulse Rate [ 79 79 55 L Apical] Respiratory 24 H 26 H 20 Rate Blood Pressure Blood Pressure 87/57 L 85/60 L 89/41 L [Left Arm] Blood Pressure [Right Arm] O2 Sat by Pulse 100 99 100 Oximetry (%) 03/05/20 03/05/20 03/05/20 16:45 17:00 17:01 Temperature Pulse Rate Pulse Rate [ 87 92 H 84 Apical] Respiratory 27 H 27 H 23 H Rate Blood Pressure Blood Pressure 97/47 L 93/58 L 95/50 L [Left Arm] Blood Pressure [Right Arm] O2 Sat by Pulse 100 100 100 Oximetry (%) 03/05/20 03/05/20 03/05/20 17:30 19:15 20:00 Temperature 98.2 F Pulse Rate Pulse Rate [ 60 86 81 Apical] Respiratory 18 20 20 Rate Blood Pressure Blood Pressure 84/46 L 87/61 L 89/41 L [Left Arm] Blood Pressure [Right Arm] O2 Sat by Pulse 100 93 L 100 Oximetry (%) 03/05/20 03/05/20 03/05/20 21:45 22:00 22:45 Temperature 98.2 F 98 F Pulse Rate Pulse Rate [ 86 86 88 Apical] Respiratory 18 18 20 Rate Blood Pressure Blood Pressure 101/57 L 106/54 L 106/56 L [Left Arm] Blood Pressure [Right Arm] O2 Sat by Pulse 100 100 100 Oximetry (%) 03/05/20 03/06/20 03/06/20 22:59 01:00 02:00 Temperature 98.0 F Pulse Rate Pulse Rate [ 84 85 Apical] Respiratory 20 15 16 Rate Blood Pressure Blood Pressure 98/60 108/78 [Left Arm] Blood Pressure [Right Arm] O2 Sat by Pulse 100 98 97 Oximetry (%) GENERAL: Awake, alert, and fully oriented, in no acute distress. In mild discomfort. HEAD: Normal with no signs of trauma. EYES: Pupils equal, round and reactive to light, extraocular movements intact, sclera anicteric, conjunctiva clear. EARS, NOSE, THROAT: Oropharynx clear without exudates. Moist mucous membranes. NECK: Normal range of motion, supple without lymphadenopathy. LUNGS: Crackles appreciated bilaterally. No wheezing. No accessory muscle use. HEART: Regular rate and rhythm, normal S1 and S2 without murmur, rub or gallop. ABDOMEN: tense but not rigid; no tenderness to palpation; BS 4+; protuberant; possible ascites and fluid build up in the abdomen. RECTAL: possible external hemorrhoids; good rectal tone; no masses or bulges appreciated; no anupam blood appreciated; small amount of stool appreciated in rectal vault MUSCULOSKELETAL: moving extremities spontaneously UPPER EXTREMITIES: 2+ pulses, warm, well-perfused. Ansarca noted - pitting subcutaneous edema. LUE with increased erythema and some echymoses noted. LUE is no increased warmth. LOWER EXTREMITIES: 2+ pulses, warm, well-perfused. No calf tenderness. 1+ pitting edema in bilateral LE NEUROLOGICAL: Sensation to light touch grossly intact. Normal speech. Normal gait. PSYCHIATRIC: Cooperative. Good eye contact. Appropriate mood and affect. SKIN: Warm, dry, normal turgor, no rashes or lesions noted. Laboratory Results - last 24 hr 03/05/20 03/05/20 03/05/20 02:39 13:40 13:40 WBC 5.0 RBC 2.25 L Hgb 5.2 L* Hct 18.0 L D MCV 80.1 MCH 22.9 L MCHC 28.6 L RDW 21.5 H Plt Count 135 D MPV 9.0 Absolute Neuts (auto) 4.1 Neutrophils % 82.4 Lymphocytes % 11.0 D Monocytes % 5.6 Eosinophils % 0.6 Basophils % 0.4 Nucleated RBC % 0 Hypochromia 2+ Platelet Estimate Decreased Platelet Comment No clumping noted Polychromasia 1+ Poikilocytosis 2+ Anisocytosis 1+ Microcytosis 1+ Target Cells 1+ Stomatocytes 1+ PT with INR INR PTT (Actin FS) VBG pH POC VBG pCO2 POC VBG pO2 VBG HCO3 VBG O2 Sat ([place]) VBG Base Excess Sodium 145 Potassium 4.1 Chloride 110 H Carbon Dioxide 31 Anion Gap 5 L BUN 51.3 H Creatinine 2.3 H Est GFR (CKD-EPI)AfAm 23.64 Est GFR (CKD-EPI)NonAf 20.40 Random Glucose 113 H Lactic Acid Calcium 7.7 L Total Bilirubin 0.3 AST 16 ALT 17 Alkaline Phosphatase 64 Creatine Kinase 130 Troponin I 0.03 B-Natriuretic Peptide 2969.8 H Total Protein 5.2 L Albumin 1.7 L Urine Color Urine Appearance Urine pH Ur Specific [place] Urine Protein Urine Glucose (UA) Urine Ketones Urine Blood Urine Nitrite Urine Bilirubin Urine Urobilinogen Ur Leukocyte Esterase Ur Random Creatinine 73.0 U Random Total Protein 26.0 H Protein/Creatinin Ratio 0.4 Stool Occult Blood Blood Type Antibody Screen Crossmatch 03/05/20 03/05/20 03/05/20 13:40 14:10 14:18 WBC RBC Hgb Hct MCV MCH MCHC RDW Plt Count MPV Absolute Neuts (auto) Neutrophils % Lymphocytes % Monocytes % Eosinophils % Basophils % Nucleated RBC % Hypochromia Platelet Estimate Platelet Comment Polychromasia Poikilocytosis Anisocytosis Microcytosis Target Cells Stomatocytes PT with INR 19.30 H INR 1.63 H PTT (Actin FS) 30.0 VBG pH 7.309 L POC VBG pCO2 60.5 H POC VBG pO2 31.0 VBG HCO3 29.7 H VBG O2 Sat ([place]) 52.1 L VBG Base Excess 3.2 H Sodium Potassium Chloride Carbon Dioxide Anion Gap BUN Creatinine Est GFR (CKD-EPI)AfAm Est GFR (CKD-EPI)NonAf Random Glucose Lactic Acid Calcium Total Bilirubin AST ALT Alkaline Phosphatase Creatine Kinase Troponin I B-Natriuretic Peptide Total Protein Albumin Urine Color Urine Appearance Urine pH Ur Specific [place] Urine Protein Urine Glucose (UA) Urine Ketones Urine Blood Urine Nitrite Urine Bilirubin Urine Urobilinogen Ur Leukocyte Esterase Ur Random Creatinine U Random Total Protein Protein/Creatinin Ratio Stool Occult Blood Blood Type O POSITIVE Antibody Screen Negative Crossmatch See Detail 03/05/20 03/05/20 03/05/20 14:18 14:18 15:05 WBC RBC Hgb Hct MCV MCH MCHC RDW Plt Count MPV Absolute Neuts (auto) Neutrophils % Lymphocytes % Monocytes % Eosinophils % Basophils % Nucleated RBC % Hypochromia Platelet Estimate Platelet Comment Polychromasia Poikilocytosis Anisocytosis Microcytosis Target Cells Stomatocytes PT with INR INR PTT (Actin FS) VBG pH POC VBG pCO2 POC VBG pO2 VBG HCO3 VBG O2 Sat ([place]) VBG Base Excess Sodium Potassium Chloride Carbon Dioxide Anion Gap BUN Creatinine Est GFR (CKD-EPI)AfAm Est GFR (CKD-EPI)NonAf Random Glucose Lactic Acid 2.0 Calcium Total Bilirubin AST ALT Alkaline Phosphatase Creatine Kinase Troponin I B-Natriuretic Peptide Total Protein Albumin Urine Color Urine Appearance Urine pH Ur Specific [place] Urine Protein Urine Glucose (UA) Urine Ketones Urine Blood Urine Nitrite Urine Bilirubin Urine Urobilinogen Ur Leukocyte Esterase Ur Random Creatinine U Random Total Protein Protein/Creatinin Ratio Stool Occult Blood Positive Blood Type Cancelled Antibody Screen Cancelled Crossmatch 03/05/20 19:50 WBC RBC Hgb Hct MCV MCH MCHC RDW Plt Count MPV Absolute Neuts (auto) Neutrophils % Lymphocytes % Monocytes % Eosinophils % Basophils % Nucleated RBC % Hypochromia Platelet Estimate Platelet Comment Polychromasia Poikilocytosis Anisocytosis Microcytosis Target Cells Stomatocytes PT with INR INR PTT (Actin FS) VBG pH POC VBG pCO2 POC VBG pO2 VBG HCO3 VBG O2 Sat ([place]) VBG Base Excess Sodium Potassium Chloride Carbon Dioxide Anion Gap BUN Creatinine Est GFR (CKD-EPI)AfAm Est GFR (CKD-EPI)NonAf Random Glucose Lactic Acid Calcium Total Bilirubin AST ALT Alkaline Phosphatase Creatine Kinase Troponin I B-Natriuretic Peptide Total Protein Albumin Urine Color Yellow Urine Appearance Clear Urine pH 5.0 Ur Specific [place] 1.011 Urine Protein Negative Urine Glucose (UA) Negative Urine Ketones Negative Urine Blood Negative Urine Nitrite Negative Urine Bilirubin Negative Urine Urobilinogen 0.2 Ur Leukocyte Esterase Negative Ur Random Creatinine U Random Total Protein Protein/Creatinin Ratio Stool Occult Blood Blood Type Antibody Screen Crossmatch ASSESSMENT/PLAN: Pt is a 74 yo M with PMH of HFpEF (EF 50-55% 1 year ago), Afib (s/p pacemaker; on eliquis), COPD (on 3L supplemental O2 at home), pulmonary hypertension, and 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 Pt is being admitted for symptomatic anema/hypotension and CHF exacerbation. #Symptomatic anemia/Hypotension etiology unclear; recent blood loss most likely cause need to r/o sepsis 2/2 to pneumonia as etiology (CXR with pulmonary vascular congestion, possible retrocardial infiltrate, bilateral pleural effusion; CT chest with bibasilar consolidation and pleural effusion) - evidence of possible pneumonia need to r/o return of prior malignancy as possible etiology H/H 5.2/18; MCV 80; RDW 21.5; FOBT + BP responded to fluids in the ED - pt receiving 2u pRBC, will follow CBC after transfusion - iron studies (iron, tibc, ferritin), serial stool guaiacs - IV protonix bid - hold eliquis - GI consulted to evaluate GI bleed - started on IV ceftriaxone 1 g, IV azithromycin 500 mg - ID and Pulm consulted - CEA and [id number] ordered - Heme/Onc consulted #CHF exacerbation likely multifactorial (symptomatic anemia, possible pneumonia, poor diet, medication non-adherence in the past BNP 2964.8 last ECHO 1 year ago (EF 50-55%) - consider careful diuresis with IV lasix 40 (hold lasix if SBP < 110); as BP permits and per day team discretion - get ECHO - can resume home digoxin 0.125 mg; check dig levels - low sodium diet when diet resumed - monitor BUN/Cr, GFR - Cardiology consulted - strict Is/Os, daily weights #r/o ACS (d/t new non specific ST-T wave changes) first trop neg - follow trops - repeat EKG in AM #PATRICK (superimposed on possible CKD?, although Cr in normal range during last visit on 06/2019) etiology unclear BUN/Cr 51.3/2.3; GFR 20 - renal sono - urine protein/Cr ratio - UPEP, SPEP - monitor urine output; monitor BUN/Cr, GFR; monitor lytes - Nephrology consulted - Avoid nephrotoxic agents #Severe hypoalbuminemia (possibly d/t diet; or other unknown etiology) Total ptn 5.2; Albumin 1.7 - dietary consult #Hx of HTN - holding home metoprolol #Hx of COPD - can consider O2 w/NC as needed #DVT PPx - Holding home eliquis; SCDs for now #FEN -F - no IVF as of now -E - monitor; replete lytes prn -N - NPO for now #Dispo Admit to telemetry Pt is full code Visit type - Medication Review Med list reviewed for High Risk Meds patients 65 and older: Yes - Emergency Visit Emergency Visit: Yes ED Registration Date: 03/05/20 Care time: The patient presented to the Emergency Department on the above date and was hospitalized for further evaluation of their emergent condition. - New Patient This patient is new to me today: Yes Date on this admission: 03/06/20 - Critical Care Critical Care patient: No ATTENDING PHYSICIAN STATEMENT I saw and evaluated the patient. I reviewed the resident's note and discussed the case with the resident. I agree with the resident's findings and plan as documented. SUBJECTIVE: OBJECTIVE: ASSESSMENT AND PLAN:
[2020-03-06 05:20] LABS: BASO % 0.5 % (0-2.0); EOS % 1.5 % (0-4.5); HEMATOCRIT 23.4 % (32.4-45.2); HEMOGLOBIN 7.1 GM/dL (10.7-15.3); LYMPH % 12.8 % (8-40); MCH 23.3 pg (25.7-33.7); MCHC 30.3 g/dl (32.0-36.0); MEAN CELL VOLUME 76.9 fl (80-96); MEAN PLT VOLUME 8.4 fl (7.5-11.1); MONO % 7.1 % (3.8-10.2); NEUT % 78.1 % (42.8-82.8); PLATELET COUNT 105 K/MM3 (134-434); RBC 3.04 M/mm3 (3.60-5.2); RDW 19.4 % (11.6-15.6); WHITE BLOOD COUNT 4.8 K/mm3 (4.0-10.0)
[2020-03-06 05:52] LABS: ALBUMIN 1.6 g/dl (3.4-5.0); BILIRUBIN,TOTAL 0.4 mg/dL (0.2-1); BLOOD UREA NITROGEN 47.3 mg/dL (7-18); CALCIUM 7.2 mg/dL (8.5-10.1); CREATININE 1.9 mg/dL (0.55-1.3); MAGNESIUM 2.3 mg/dL (1.8-2.4); PHOSPHOROUS 3.7 mg/dL (2.5-4.9); POTASSIUM 3.8 mmol/L (3.5-5.1); TOT PROT 4.9 g/dl (6.4-8.2)
--- NOTE | 2020-03-06 07:04 | CONSULT ---
Consult Consult Specialty:: Nephrology Reason for Consultation:: subha - History of Present Illness Chief Complaint: sent in for hypotension History of Present Illness: Pt is a 74 year old female with pmhx of chf, a-fib, copd, pulm htn, and gastric ca who present to the ER for hypotension. She was found to be hypotensive by her son at home. She was nieves found to be severely anemic. I was called to evaluate her for elevated raisin washer. SHe complains of worsening shortness of breath. She also complains of worsening edema. She is not a great historian. She denies dysuria or hematuria. SHe denies nsaid use. Reviewed chart. - History Source History Provided By: Patient, Medical Record - Past Medical History Cardio/Vascular: Yes: AFIB, CHF (chronic diastolic CHF, PMM), HTN ...: No - Alcohol/Substance Use Hx Alcohol Use: No - Smoking History Smoking history: Never smoked Have you smoked in the past 12 months: No - Social History History of Recent Travel: No Home Medications - Allergies Allergies/Adverse Reactions: Allergies Allergy/AdvReac Type Severity Reaction Status Date / Time No Known Allergies Allergy Verified 06/28/19 01:31 - Home Medications Home Medications: Ambulatory Orders Digoxin [Lanoxin -] 0.125 mg PO DAILY 01/26/19 Furosemide [Lasix] 40 mg PO BID 01/26/19 Nitroglycerin [Nitrostat] 0.4 mg SL DAILY PRN 01/26/19 Apixaban [Eliquis -] 5 mg PO BID 02/22/19 Metoprolol Succinate [Toprol Xl] 25 mg PO BID 03/05/20 Metoprolol Tartrate [Lopressor -] BID 03/06/20 Family Medical History Family History: Denies Review of Systems - Review of Systems Constitutional: reports: Loss of Appetite, Malaise, Weakness Eyes: reports: No Symptoms HENT: reports: No Symptoms Neck: reports: No Symptoms Cardiovascular: reports: No Symptoms Respiratory: reports: No Symptoms Gastrointestinal: reports: Rectal Bleeding Genitourinary: reports: No Symptoms Musculoskeletal: reports: No Symptoms Integumentary: reports: No Symptoms Neurological: reports: No Symptoms Endocrine: reports: No Symptoms Hematology/Lymphatic: reports: No Symptoms Psychiatric: reports: No Symptoms Physical Exam Vital Signs: Vital Signs Temperature 98.4 F 03/06/20 06:57 Pulse Rate 83 03/06/20 06:57 Respiratory Rate 20 03/06/20 06:57 Blood Pressure 103/58 L 03/06/20 06:57 O2 Sat by Pulse Oximetry (%) 100 03/06/20 06:57 Constitutional: Yes: Calm Eyes: Yes: Conjunctiva Clear HENT: Yes: Atraumatic Cardiovascular: Yes: S1, S2 Respiratory: Yes: On Nasal O2, Rhonchi Renal/: Yes: Incontinence Musculoskeletal: Yes: Muscle Weakness Edema: Yes Edema: LUE: 2+, RUE: 2+, LLE: 2+, RLE: 2+ Integumentary: Yes: WNL Neurological: Yes: Confusion Labs: CBC, BMP 03/06/20 04:55 03/06/20 05:30 Laboratory Tests 06/28/19 06/28/19 06/29/19 01:45 05:55 06:15 Hgb VBG pH POC VBG pCO2 VBG HCO3 Sodium Potassium Creatinine 0.8 0.8 1.1 Urine Protein Urine Blood Stool Occult Blood 07/26/19 03/05/20 03/05/20 11:47 13:40 13:40 Hgb 5.2 L* VBG pH POC VBG pCO2 VBG HCO3 Sodium Potassium Creatinine 0.8 2.3 H Urine Protein Urine Blood Stool Occult Blood 03/05/20 03/05/20 03/05/20 14:10 15:05 19:50 Hgb VBG pH 7.309 L POC VBG pCO2 60.5 H VBG HCO3 29.7 H Sodium Potassium Creatinine Urine Protein Negative Urine Blood Negative Stool Occult Blood Positive 03/06/20 03/06/20 04:55 05:30 Hgb 7.1 L VBG pH POC VBG pCO2 VBG HCO3 Sodium 145 Potassium 3.8 Creatinine 1.9 H Urine Protein Urine Blood Stool Occult Blood Imaging - Results Chest X-ray: Report Reviewed Cat Scan: Report Reviewed Ultrasound: Report Reviewed Problem List - Problems (1) SUBHA (acute kidney injury) Code(s): N17.9 - ACUTE KIDNEY FAILURE, UNSPECIFIED (2) Anemia Code(s): D64.9 - ANEMIA, UNSPECIFIED Qualifiers: Anemia type: unspecified type Qualified Code(s): D64.9 - Anemia, unspecified (3) CHF exacerbation Code(s): I50.9 - HEART FAILURE, UNSPECIFIED Qualifiers: Heart failure type: unspecified Qualified Code(s): I50.9 - Heart failure, unspecified (4) COPD (chronic obstructive pulmonary disease) Code(s): J44.9 - CHRONIC OBSTRUCTIVE PULMONARY DISEASE, UNSPECIFIED Qualifiers: COPD type: unspecified COPD Qualified Code(s): J44.9 - Chronic obstructive pulmonary disease, unspecified (5) A-fib Code(s): I48.91 - UNSPECIFIED ATRIAL FIBRILLATION Qualifiers: Atrial fibrillation type: unspecified persistent Qualified Code(s): I48.19 - Other persistent atrial fibrillation; I48.1 - Persistent atrial fibrillation Assessment/Plan Current Medications Generic Name Dose Route Start Last Admin Trade Name Freq PRN Reason Stop Dose Admin Digoxin 0.125 mg 03/06/20 10:00 Lanoxin - PO DAILY JACIEL Furosemide 40 mg 03/06/20 10:00 Lasix Injection - IVPUSH DAILY JACIEL Azithromycin 250 mg/ Dextrose 250 mls @ 250 mls/hr 03/06/20 10:00 IVPB DAILY JACIEL Ceftriaxone Sodium 1 gm/ 50 mls @ 100 mls/hr 03/05/20 23:05 03/06/20 03:20 Dextrose IVPB 100 mls/hr DAILY JACIEL Administration Pantoprazole Sodium 40 mg 03/05/20 23:15 03/06/20 03:20 Protonix Iv IVPUSH 40 mg BID JACIEL Administration chart reviewed labs reviewed meds reviewed Impression 1. SUBHA 2. anemia 3. chf 4. copd 5. a-fib 6. gastric cancer 7. gi bleed 8. volume overload 9. pleural effusion Plan - cont lasix - monitor hg, transfuse as needed - ua negative for blood or protein - renal ultrasound reviewed - subha likely in part cardiorenal - monitor renal function - monitor volume status - avoid nsaids - avoid nephrotoxins - GI bleed workup in progress - oncology eval Dr Donis
--- NOTE | 2020-03-06 09:26 | CON.ID ---
Consult - Past Medical History Cardio/Vascular: Yes: AFIB, CHF (chronic diastolic CHF, PMM), HTN ...: No - Alcohol/Substance Use Hx Alcohol Use: No - Smoking History Smoking history: Never smoked Have you smoked in the past 12 months: No - Social History History of Recent Travel: No Home Medications - Allergies Allergies/Adverse Reactions: Allergies Allergy/AdvReac Type Severity Reaction Status Date / Time No Known Allergies Allergy Verified 06/28/19 01:31 - Home Medications Home Medications: Ambulatory Orders Digoxin [Lanoxin -] 0.125 mg PO DAILY 01/26/19 Furosemide [Lasix] 40 mg PO BID 01/26/19 Nitroglycerin [Nitrostat] 0.4 mg SL DAILY PRN 01/26/19 Apixaban [Eliquis -] 5 mg PO BID 02/22/19 Metoprolol Succinate [Toprol Xl] 25 mg PO BID 03/05/20 Metoprolol Tartrate [Lopressor -] BID 03/06/20 Physical Exam Vital Signs: Vital Signs Temperature 98.0 F 03/06/20 08:15 Pulse Rate 76 03/06/20 08:15 Respiratory Rate 16 03/06/20 08:15 Blood Pressure 84/60 L 03/06/20 08:15 O2 Sat by Pulse Oximetry (%) 99 03/06/20 08:15 Labs: CBC, BMP 03/06/20 04:55 03/06/20 05:30
[2020-03-06] MEDS ORDERED: FUROSEMIDE 40 MG/4 ML INJECTABLE VIAL IVPUSH SCH ×2 (10:00)
[2020-03-06] MEDS ORDERED: DIGOXIN 0.25 MG TABLET (FP) ONE (10:47)
[2020-03-06] MEDS: DIGOXIN 0.125 MG TABLET (FP) PO SCH (10:51)
--- NOTE | 2020-03-06 12:16 | CON.PULM ---
Consult Consult Specialty:: PULMONARY Referred by:: Dr Serrano Reason for Consultation:: shortness of breath - History of Present Illness Chief Complaint: shortness of breath History of Present Illness: 74yo female with h/o HTN, hyperlipidemia, LV diastolic dysfunction, pulmonary HTN, atrial fibrillation, COPD, chronic hypoxic respiratory failure on home O2 who was admitted with worsening shortness of breath x 2-3 days. Does report some nonspecific chest pain. No fevers, chills or sweats. +nonproductive cough without wheezing. Also reports increased arm and leg swelling. CT chest with bilateral efffusions. Also noted to be severely anemic. - History Source History Provided By: Patient, Medical Record Limitations to Obtaining History: Language Barrier - Past Medical History Cardio/Vascular: Yes: AFIB, CHF (chronic diastolic CHF, PMM), HTN ...: No - Alcohol/Substance Use Hx Alcohol Use: No - Smoking History Smoking history: Never smoked Have you smoked in the past 12 months: No - Social History History of Recent Travel: No Home Medications - Allergies Allergies/Adverse Reactions: Allergies Allergy/AdvReac Type Severity Reaction Status Date / Time No Known Allergies Allergy Verified 06/28/19 01:31 - Home Medications Home Medications: Ambulatory Orders Digoxin [Lanoxin -] 0.125 mg PO DAILY 01/26/19 Furosemide [Lasix] 40 mg PO BID 01/26/19 Nitroglycerin [Nitrostat] 0.4 mg SL DAILY PRN 01/26/19 Apixaban [Eliquis -] 5 mg PO BID 02/22/19 Metoprolol Succinate [Toprol Xl] 25 mg PO BID 03/05/20 Metoprolol Tartrate [Lopressor -] BID 03/06/20 Review of Systems - Review of Systems Constitutional: denies: Chills, Fever Eyes: denies: Recent Change in Vision HENT: denies: Nasal Congestion, Throat Pain Neck: denies: Stiffness, Tenderness Cardiovascular: reports: Chest Pain, Edema, Shortness of Breath. denies: Palpitations Respiratory: reports: Cough. denies: Hemoptysis, Wheezing Gastrointestinal: denies: Abdominal Pain, Nausea, Vomiting Genitourinary: denies: Dysuria, Hematuria Neurological: denies: Dizziness, Headache Endocrine: denies: Unexplained Weight Loss Physical Exam Vital Sings: Vital Signs Temperature 98.1 F 03/06/20 10:53 Pulse Rate 61 03/06/20 10:53 Respiratory Rate 24 H 03/06/20 10:53 Blood Pressure 112/69 03/06/20 10:53 O2 Sat by Pulse Oximetry (%) 97 03/06/20 10:53 Constitutional: Yes: Calm Eyes: Yes: Conjunctiva Clear, EOM Intact HENT: Yes: Atraumatic, Normocephalic Neck: Yes: Supple, Trachea Midline Cardiovascular: Yes: Pulse Irregular, Murmur Respiratory: Yes: Rales ...Clubbing: No Gastrointestinal: Yes: Normal Bowel Sounds, Soft. No: Tenderness Edema: Yes Neurological: Yes: Alert, Oriented Labs: CBC, BMP 03/06/20 04:55 03/06/20 05:30 Imaging - Results Chest X-ray: Report Reviewed, Image Reviewed Cat Scan: Report Reviewed, Image Reviewed (bilateral effusions, pulmonary vascular congestion) Assessment/Plan Acute on Chronic Diastolic Heart Failure Volume Overload Acute Kidney Injury Pulmonary HTN Chronic Hypoxic Respiratory Failure Atrial Fibrillation Severe Anemia COPD - IV lasix - monitor urine output, creatinine - daily weights - less likely pneumonia, can d/c antibiotics if cultures negative - rate control - holding anticoagulation - monitor H/H - GI eval - DVT prophylaxis Thank you for this consult Boyd Salazar MD
--- NOTE | 2020-03-06 12:21 | CON.GI ---
Consult Consult Specialty:: GI: For Dr. Jacome. Dr. Jose covering for him 03/07 Referred by:: Hospitalist Service Reason for Consultation:: Anemia, history of rectal bleeding - History of Present Illness Chief Complaint: Shortness of breath, extremity swelling, diffuse body pain, rectal bleeding. History of Present Illness: Some history obtained from Ms. Aden's son. Patient poor historian. 74F admitted from home for evaluation of worsening SOB, swelling of UE/LE. Also description of diarrhea and rectal bleeding for a few days,. the last being 2 days ago. Had gastric surgery 8 years ago at [facility] (? performed by dr. Eduardo or Dr. Brandon) secondary to a malignant gastric tumor. Her son believes that she may have also received radiation. She is maintained on eliquis and it is uncertain when she last took this. No overt bleeding since admission. Hgb noted 5.2 on admission and transfused 3 units PRBC. Son states that she has seen Dr. Jacome of late and that Ms. Aden was supposed to have a colonoscopy as an outpa tient. No family history of colon cancer. Currently, Ms. Aden complains of diffuse pain. - History Source History Provided By: Patient, Family Member, Medical Record - Past Medical History Cardio/Vascular: Yes: AFIB, CHF (chronic diastolic CHF, PMM), HTN, Pulmonary Hypertension Gastrointestinal: Yes: Cancer ((? gastric malignancy)) ...: No - Past Surgical History Past Surgical History: Yes: Permanent Pacemaker Additional Surgical History: ? Partial gastrectomy, hernia repairs x 3 - Alcohol/Substance Use Hx Alcohol Use: No - Smoking History Smoking history: Never smoked Have you smoked in the past 12 months: No - Social History Usual Living Arrangement: With Child ADL: Family Assistance History of Recent Travel: No Home Medications - Allergies Allergies/Adverse Reactions: Allergies Allergy/AdvReac Type Severity Reaction Status Date / Time No Known Allergies Allergy Verified 06/28/19 01:31 - Home Medications Home Medications: Ambulatory Orders Digoxin [Lanoxin -] 0.125 mg PO DAILY 01/26/19 Furosemide [Lasix] 40 mg PO BID 01/26/19 Nitroglycerin [Nitrostat] 0.4 mg SL DAILY PRN 01/26/19 Apixaban [Eliquis -] 5 mg PO BID 02/22/19 Metoprolol Succinate [Toprol Xl] 25 mg PO BID 03/05/20 Metoprolol Tartrate [Lopressor -] BID 03/06/20 Family Medical History Other Family History: No family history of colon cancer Review of Systems - Review of Systems Constitutional: reports: Chills Cardiovascular: reports: Edema, Palpitations, Shortness of Breath. denies: Chest Pain Respiratory: reports: SOB, SOB on Exertion. denies: Cough Gastrointestinal: reports: Rectal Bleeding. denies: Abdominal Pain, Melena, Vomiting, Vomiting Blood Physical Exam-GI Vital Signs: Vital Signs Temperature 98.1 F 03/06/20 10:53 Pulse Rate 61 03/06/20 10:53 Respiratory Rate 24 H 03/06/20 10:53 Blood Pressure 112/69 03/06/20 10:53 O2 Sat by Pulse Oximetry (%) 97 03/06/20 10:53 Constitutional: Yes: Calm Eyes: No: Sclera Icterus Cardiovascular: Yes: Other (heart sounds obscured by patient's groans due to body pain) Respiratory: Yes: Diminished (at bases bilaterally) Gastrointestinal Inspection: Yes: Scars (two vertical pelvic scars, 1 midline vertical surgical scar) ...Auscultate: Yes: Normoactive Bowel Sounds ...Palpate: Yes: Soft, Tenderness (TTP throughout abdomen, but also extremities, anterior chest wall, head), Other (Abdominal wall anasarca). No: Hepatomegaly, Splenomegaly ...Rectal Exam: Yes: Other (presacral excoriations, no external lesions, no masses, brown stool in rectal vault) Edema: Yes Edema: LUE: 2+, RUE: 2+, LLE: 2+, RLE: 2+ Neurological: Yes: Alert Labs: CBC, BMP 03/06/20 04:55 03/06/20 05:30 INR, PTT INR 1.63 (0.83-1.09) H 03/05/20 14:18 Imaging - Results Cat Scan: Report Reviewed, Image Reviewed Assessment/Plan 1. Rectal bleeding / Anemia Unclear etiology No overt bleeding on my exam When medically optimized, eliquis effect has worn off and patient properly resucitated, upper endoscopy and colonoscopy can be undertaken to evaluate further. She is maintained on eliquis and has renal insufficiency, extending the half life of the medication. Advised director medical affairs to get more information regarding when Ms. Aden last took this and hold for now. Correct coagulopathy Keep Hgb >8 Protonix 40mg IVPB daily If continued active GI bleeding, transfer to ICU, notify GI, start protonix infusion @ 8mg/hr Obtain information from [facility] regarding prior gastric surgery and malignancy. Check Hepatitis A/B panel, HCV Diagnostic Consider hematology evaluation given concomitant thrombocytopenia Clear liquids for now 2. Ascites: Likely related to overall volume overload When eliquis effect wears off, diagnostic paracentesis can be performed with fluid sent for culture, cell count with differential, albumin, total protein, cytology. A hepatic panel should be sent the day of the paracentesis in order to accurately calculate SAAG.
--- NOTE | 2020-03-06 12:24 | CON.CARD ---
Consult Consult Specialty:: Cardiology Referred by:: Kane Reason for Consultation:: CHF - History of Present Illness Chief Complaint: hypotension and hypoxia History of Present Illness: 74 year old with a pmhx of right sided CHF and pulmonary htn, afib s/p ppm on apixaban, copd on home O2, and gastric CA s/p resection brought from home due to hypotension and sob. SBP 60 at home. +blood in stool at home. SOB worsening last few days at home. +orthopnea and edema. No chest pain. Mental status worsening Found to have drop in Hgb to 5.2 PATRICK with Cr 2.3 EKG: atrial paced, inferior and anterolateral ST abnormalities CT chest: bibasilar opacities, pleural effusions, anasarca Trops neg BNP elevated Echocardiogram 02/2019: nl lvef, mod to sev RV dil/hypokinesis, mod to sev TR, mod pulm htn. - History Source History Provided By: Medical Record - Past Medical History Cardio/Vascular: Yes: AFIB, CHF (chronic diastolic CHF, PMM), HTN ...: No - Alcohol/Substance Use Hx Alcohol Use: No - Smoking History Smoking history: Never smoked Have you smoked in the past 12 months: No - Social History History of Recent Travel: No Home Medications - Allergies Allergies/Adverse Reactions: Allergies Allergy/AdvReac Type Severity Reaction Status Date / Time No Known Allergies Allergy Verified 06/28/19 01:31 - Home Medications Home Medications: Ambulatory Orders Digoxin [Lanoxin -] 0.125 mg PO DAILY 01/26/19 Furosemide [Lasix] 40 mg PO BID 01/26/19 Nitroglycerin [Nitrostat] 0.4 mg SL DAILY PRN 01/26/19 Apixaban [Eliquis -] 5 mg PO BID 02/22/19 Metoprolol Succinate [Toprol Xl] 25 mg PO BID 03/05/20 Metoprolol Tartrate [Lopressor -] BID 03/06/20 Vital Signs: Vital Signs Temperature 98.1 F 03/06/20 10:53 Pulse Rate 61 03/06/20 10:53 Respiratory Rate 24 H 03/06/20 10:53 Blood Pressure 112/69 03/06/20 10:53 O2 Sat by Pulse Oximetry (%) 97 03/06/20 10:53 Constitutional: Yes: No Distress, Mild Distress Neck: Yes: Supple Respiratory: Yes: Rales Gastrointestinal: Yes: Ascites Cardiovascular: Yes: Pulse Irregular JVD: Yes PMI: Non-Displaced Heart Sounds: Yes: S1, S2 Murmur: Yes: Systolic Murmur Edema: LLE: 2+, RLE: 2+ - Other Data Labs, Other Data: CBC, BMP 03/06/20 04:55 03/06/20 05:30 INR, PTT INR 1.63 (0.83-1.09) H 03/05/20 14:18 Troponin, BNP 03/05/20 03/06/20 13:40 05:30 Troponin I 0.03 0.04 B-Natriuretic Peptide 2969.8 H Troponin, BNP 03/05/20 03/06/20 13:40 05:30 Troponin I 0.03 0.04 B-Natriuretic Peptide 2969.8 H Imaging - Results Cat Scan: Report Reviewed EKG: Image Reviewed Assessment/Plan 74 year old with a pmhx of right sided CHF and pulmonary htn, afib s/p ppm on apixaban, copd on home O2, and gastric CA s/p resection brought from home due to hypotension and sob. SBP 60 at home. +blood in stool at home. SOB worsening last few days at home. +orthopnea and edema. No chest pain. Mental status worsening Found to have drop in Hgb to 5.2 PATRICK with Cr 2.3 EKG: atrial paced, inferior and anterolateral ST abnormalities CT chest: bibasilar opacities, pleural effusions, anasarca Trops neg BNP elevated Echocardiogram 02/2019: nl lvef, mod to sev RV dil/hypokinesis, mod to sev TR, mod pulm htn. 1) Hypotension Likely due to acute anemia/blood loss Apixaban on hold in setting of possible GI bleed. Transfuse as needed as per primary team GI consult 2) CHF Patient with pulmonary htn and known right sided heart failure with anasarca Treat acute anemia with blood but will need diuretics. Furosemide 40mg IV bid. May need additional doses after diuertics based on physical exam. On digoxin for afib rate control. Metoprolol on hold for now. Will follow patient with you
[2020-03-06] MEDS: AZITHROMYCIN IVPB 250 MG in DEXTROSE 5%-WATER - 250 ML IVPB SCH (13:38)
[2020-03-06] MEDS: FUROSEMIDE 40 MG/4 ML INJECTABLE VIAL IVPUSH SCH (13:38)
--- NOTE | 2020-03-06 14:44 | EKG ---
Test Reason : Blood Pressure : / mmHG Vent. Rate : 086 BPM Atrial Rate : 048 BPM P-R Int : 000 ms QRS Dur : 116 ms QT Int : 330 ms P-R-T Axes : 000 072 262 degrees QTc Int : 394 ms Atrial-paced rhythm LOW VOLTAGE QRS INCOMPLETE RIGHT BUNDLE BRANCH BLOCK CANNOT RULE OUT ANTERIOR INFARCT (CITED ON OR BEFORE 05-MAR-2020) Confirmed by ANDI ARIAS MD ([id number]) on 03/06/2020 2:44:45 PM Referred By: Confirmed By:ANDI ARIAS MD
--- NOTE | 2020-03-06 16:03 | PN ---
Teaching Attending Note Name of Resident: Gerald Ibrahim ATTENDING PHYSICIAN STATEMENT I saw and evaluated the patient. I reviewed the resident's note and discussed the case with the resident. I agree with the resident's findings and plan as documented. SUBJECTIVE: Patient seen and examined at bedside, admitted for rectal bleeding and CHFE. Getting pRBC transfusion, will need colonoscopy/EGD. Monitor BP and for bleeding if recurrent will transfer to ICU for PPI drip and BP support. OBJECTIVE: HEENT: No Jaundice, eye redness or discharge, PERRLA, EOMI. Normocephalic, atraumatic. External ears are normal and hearing is grossly intact. No nasal discharge. Neck: Supple, nontender. No palpable adenopathy or thyromegaly. No JVD Chest: Good effort. Bibasilar crackles. Clear to percussion. Heart: Regular. No S3, rub or murmur Abdomen: Not distended, tense, nontender and no HSM. No rebound or guarding. Normal bowel sounds. Ext: Anasarca. Peripheral pulses intact. Leg edema. Skin: Warm and dry. No petechiae, rash or ecchymosis. Neuro: Alert. Oriented x3. CN 2-12 grossly intact. Sensation grossly intact in all four extremities and DTR are symmetric. Psych: Appropriate mood and affect. Good insight. Vital Signs - 24 hr 03/05/20 03/05/20 03/05/20 16:15 16:30 16:45 Temperature Pulse Rate Pulse Rate [ 79 55 L 87 Apical] Respiratory 26 H 20 27 H Rate Blood Pressure Blood Pressure 85/60 L 89/41 L 97/47 L [Left Arm] O2 Sat by Pulse 99 100 100 Oximetry (%) 03/05/20 03/05/20 03/05/20 17:00 17:01 17:30 Temperature Pulse Rate Pulse Rate [ 92 H 84 60 Apical] Respiratory 27 H 23 H 18 Rate Blood Pressure Blood Pressure 93/58 L 95/50 L 84/46 L [Left Arm] O2 Sat by Pulse 100 100 100 Oximetry (%) 03/05/20 03/05/20 03/05/20 19:15 20:00 21:45 Temperature 98.2 F 98.2 F Pulse Rate Pulse Rate [ 86 81 86 Apical] Respiratory 20 20 18 Rate Blood Pressure Blood Pressure 87/61 L 89/41 L 101/57 L [Left Arm] O2 Sat by Pulse 93 L 100 100 Oximetry (%) 03/05/20 03/05/20 03/05/20 22:00 22:45 22:59 Temperature 98 F Pulse Rate Pulse Rate [ 86 88 Apical] Respiratory 18 20 20 Rate Blood Pressure Blood Pressure 106/54 L 106/56 L [Left Arm] O2 Sat by Pulse 100 100 100 Oximetry (%) 03/06/20 03/06/20 03/06/20 01:00 02:00 06:57 Temperature 98.0 F 98.4 F Pulse Rate Pulse Rate [ 84 85 83 Apical] Respiratory 15 16 20 Rate Blood Pressure Blood Pressure 98/60 108/78 103/58 L [Left Arm] O2 Sat by Pulse 98 97 100 Oximetry (%) 03/06/20 03/06/20 03/06/20 07:00 08:00 08:15 Temperature 97.3 F L 98.0 F Pulse Rate Pulse Rate [ 67 68 76 Apical] Respiratory 20 18 16 Rate Blood Pressure Blood Pressure 92/44 L 85/53 L 84/60 L [Left Arm] O2 Sat by Pulse 93 L 97 99 Oximetry (%) 03/06/20 03/06/20 03/06/20 09:00 10:53 14:05 Temperature 98.1 F 98.3 F Pulse Rate 90 Pulse Rate [ 68 61 Apical] Respiratory 18 24 H 20 Rate Blood Pressure 101/52 L Blood Pressure 83/52 L 112/69 [Left Arm] O2 Sat by Pulse 99 97 Oximetry (%) 03/06/20 03/06/20 14:50 15:53 Temperature 97.8 F Pulse Rate 62 Pulse Rate [ Apical] Respiratory 20 Rate Blood Pressure 97/50 L Blood Pressure [Left Arm] O2 Sat by Pulse 93 L 93 L Oximetry (%) Microbiology 03/05/20 13:40 Blood - Peripheral Venous Blood Culture - Preliminary NO GROWTH OBTAINED AFTER 24 HOURS, INCUBATION TO CONTINUE FOR 4 DAYS. 03/05/20 13:40 Blood - Peripheral Venous Blood Culture - Preliminary NO GROWTH OBTAINED AFTER 24 HOURS, INCUBATION TO CONTINUE FOR 4 DAYS. Laboratory Results - last 24 hr 03/05/20 03/05/20 03/05/20 02:39 13:40 13:40 WBC RBC Hgb Hct MCV MCH MCHC RDW Plt Count MPV Absolute Neuts (auto) Neutrophils % Lymphocytes % Monocytes % Eosinophils % Basophils % Nucleated RBC % Retic Count VBG pH POC VBG pCO2 POC VBG pO2 VBG HCO3 VBG O2 Sat ([place]) VBG Base Excess Sodium 145 Potassium 4.1 Chloride 110 H Carbon Dioxide 31 Anion Gap 5 L BUN 51.3 H Creatinine 2.3 H Est GFR (CKD-EPI)AfAm 23.64 Est GFR (CKD-EPI)NonAf 20.40 Random Glucose 113 H Hemoglobin A1c % Calcium 7.7 L Phosphorus Magnesium Iron TIBC Iron Saturation Unsaturated IBC Ferritin Total Bilirubin 0.3 AST 16 ALT 17 Alkaline Phosphatase 64 LD Total Creatine Kinase 130 Troponin I 0.03 B-Natriuretic Peptide 2969.8 H Total Protein 5.2 L Albumin 1.7 L Triglycerides Cholesterol Total LDL Cholesterol HDL Cholesterol TSH Free T4 Urine Color Urine Appearance Urine pH Ur Specific [place] Urine Protein Urine Glucose (UA) Urine Ketones Urine Blood Urine Nitrite Urine Bilirubin Urine Urobilinogen Ur Leukocyte Esterase Ur Random Creatinine 73.0 U Random Total Protein 26.0 H Protein/Creatinin Ratio 0.4 Digoxin COVID-19 (JABARI) Blood Type O POSITIVE Antibody Screen Negative Crossmatch See Detail 03/05/20 03/05/20 03/05/20 13:44 14:10 19:50 WBC RBC Hgb Hct MCV MCH MCHC RDW Plt Count MPV Absolute Neuts (auto) Neutrophils % Lymphocytes % Monocytes % Eosinophils % Basophils % Nucleated RBC % Retic Count VBG pH 7.309 L POC VBG pCO2 60.5 H POC VBG pO2 31.0 VBG HCO3 29.7 H VBG O2 Sat ([place]) 52.1 L VBG Base Excess 3.2 H Sodium Potassium Chloride Carbon Dioxide Anion Gap BUN Creatinine Est GFR (CKD-EPI)AfAm Est GFR (CKD-EPI)NonAf Random Glucose Hemoglobin A1c % Calcium Phosphorus Magnesium Iron TIBC Iron Saturation Unsaturated IBC Ferritin Total Bilirubin AST ALT Alkaline Phosphatase LD Total Creatine Kinase Troponin I B-Natriuretic Peptide Total Protein Albumin Triglycerides Cholesterol Total LDL Cholesterol HDL Cholesterol TSH Free T4 Urine Color Yellow Urine Appearance Clear Urine pH 5.0 Ur Specific [place] 1.011 Urine Protein Negative Urine Glucose (UA) Negative Urine Ketones Negative Urine Blood Negative Urine Nitrite Negative Urine Bilirubin Negative Urine Urobilinogen 0.2 Ur Leukocyte Esterase Negative Ur Random Creatinine U Random Total Protein Protein/Creatinin Ratio Digoxin COVID-19 (JABARI) Not detected Blood Type Antibody Screen Crossmatch 03/06/20 03/06/20 03/06/20 04:55 04:55 04:55 WBC 4.8 RBC 3.04 L Hgb 7.1 L Hct 23.4 L D MCV 76.9 L MCH 23.3 L MCHC 30.3 L RDW 19.4 H Plt Count 105 L D MPV 8.4 Absolute Neuts (auto) 3.7 Neutrophils % 78.1 Lymphocytes % 12.8 Monocytes % 7.1 Eosinophils % 1.5 D Basophils % 0.5 Nucleated RBC % 0 Retic Count 2.75 H D VBG pH POC VBG pCO2 POC VBG pO2 VBG HCO3 VBG O2 Sat ([place]) VBG Base Excess Sodium Potassium Chloride Carbon Dioxide Anion Gap BUN Creatinine Est GFR (CKD-EPI)AfAm Est GFR (CKD-EPI)NonAf Random Glucose Hemoglobin A1c % Calcium Phosphorus Magnesium Iron TIBC Iron Saturation Unsaturated IBC Ferritin Total Bilirubin AST ALT Alkaline Phosphatase LD Total Creatine Kinase Troponin I B-Natriuretic Peptide Total Protein Albumin Triglycerides Cancelled Cholesterol Cancelled Total LDL Cholesterol Cancelled HDL Cholesterol Cancelled TSH Free T4 Urine Color Urine Appearance Urine pH Ur Specific [place] Urine Protein Urine Glucose (UA) Urine Ketones Urine Blood Urine Nitrite Urine Bilirubin Urine Urobilinogen Ur Leukocyte Esterase Ur Random Creatinine U Random Total Protein Protein/Creatinin Ratio Digoxin COVID-19 (JABARI) Blood Type Antibody Screen Crossmatch 03/06/20 03/06/20 03/06/20 04:55 04:55 05:30 WBC RBC Hgb Hct MCV MCH MCHC RDW Plt Count MPV Absolute Neuts (auto) Neutrophils % Lymphocytes % Monocytes % Eosinophils % Basophils % Nucleated RBC % Retic Count VBG pH POC VBG pCO2 POC VBG pO2 VBG HCO3 VBG O2 Sat ([place]) VBG Base Excess Sodium 145 Potassium 3.8 Chloride 110 H Carbon Dioxide 35 H Anion Gap -1 L BUN 47.3 H Creatinine 1.9 H Est GFR (CKD-EPI)AfAm 29.79 Est GFR (CKD-EPI)NonAf 25.70 Random Glucose 129 H Hemoglobin A1c % < 3.5 L Calcium 7.2 L Phosphorus 3.7 Magnesium 2.3 Iron 103 TIBC 242 L Iron Saturation 42 H Unsaturated IBC 139 L Ferritin 8.6 Total Bilirubin 0.4 AST 18 ALT 16 Alkaline Phosphatase 60 LD Total 293 H Creatine Kinase 112 Troponin I 0.04 B-Natriuretic Peptide Total Protein 4.9 L Albumin 1.6 L Triglycerides 60 Cholesterol 54 Total LDL Cholesterol 24 HDL Cholesterol 27 L TSH 4.93 H Free T4 0.88 Urine Color Urine Appearance Urine pH Ur Specific [place] Urine Protein Urine Glucose (UA) Urine Ketones Urine Blood Urine Nitrite Urine Bilirubin Urine Urobilinogen Ur Leukocyte Esterase Ur Random Creatinine U Random Total Protein Protein/Creatinin Ratio Digoxin 1.29 COVID-19 (JABARI) Blood Type Antibody Screen Crossmatch Home Medications Medication Instructions Recorded Digoxin [Lanoxin -] 0.125 mg PO DAILY 01/26/19 Furosemide [Lasix] 40 mg PO BID 01/26/19 Nitroglycerin [Nitrostat] 0.4 mg SL DAILY PRN 01/26/19 Apixaban [Eliquis -] 5 mg PO BID 02/22/19 Metoprolol Succinate [Toprol Xl] 25 mg PO BID 03/05/20 Metoprolol Tartrate [Lopressor -] BID 03/06/20 Current Medications Generic Name Dose Route Start Last Admin Trade Name Freq PRN Reason Stop Dose Admin Digoxin 0.125 mg 03/06/20 10:00 03/06/20 10:51 Lanoxin - PO 0.125 mg DAILY JACIEL Administration Furosemide 40 mg 03/06/20 14:00 03/06/20 13:38 Lasix Injection - IVPUSH 40 mg BID@0600,1400 JACIEL Administration Azithromycin 250 mg/ Dextrose 250 mls @ 250 mls/hr 03/06/20 10:00 03/06/20 13:38 IVPB Not Given DAILY JACIEL Ceftriaxone Sodium 1 gm/ 50 mls @ 100 mls/hr 03/05/20 23:05 03/06/20 10:52 Dextrose IVPB 100 mls/hr DAILY JACIEL Administration Pantoprazole Sodium 40 mg 03/07/20 10:00 Protonix Iv IVPUSH DAILY JACIEL ASSESSMENT AND PLAN: 74 F Rectal bleed w/ LGIB HTN HLD CHFE CAP PNA Afib on Eliquis (stopped) Plan: Hold all AC IV hydration, if unresponsive insert central line and start Levophed pRBC to keep hgb >8.0 (due to CHF history) Hold BP meds Cont. Ceftriaxone/Azithromycin for CAP Follow cx, send Strep/legionella/sputum cx COVID pending DVT ppx: SCD GI following Pulmonary/ICU following Cardiology evaluation ID following
--- NOTE | 2020-03-06 17:21 | PN ---
Physical Exam: SUBJECTIVE: Patient seen and examined. Pt.'s son was at bedside to assist in translation. Pt. 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 Eduardo and Dr. Jacome? at [facility]. Discussed with Dr. Chavez who called Pt.'s other son who was very belligerent and resistant to givein information. Multiple attempts were made to contact Dr. Jacome however he is on vacation at the moment. Pt. states she was due for a visit with Dr. Jacome last month and is due for colonoscopy. Per son her hematochezia was first noted on Tuesday. Pt. has never had a GI bleed before and denies bleeding from any other areas. Per son Pt. spends a significant amount of time in bed but is able to ambulate with walker. Pt. endorses back pain and some shortness of breath. OBJECTIVE: Vital Signs Period Temp Pulse Resp BP Sys/Nava Pulse Ox Last 24 Hr 97.3 F-98.4 F 60-90 15-24 83-112/41-78 93-100 GENERAL: The patient is awake, alert, and fully oriented, in acute distress 2/2 pain. HEAD: Normal with no signs of trauma. EYES: Sclera anicteric, conjunctiva clear. ENT: Ears normal, nares patent, oropharynx clear without exudates, Dry mucous membranes. NECK: Trachea midline, full range of motion, supple. LUNGS: Decreased breath sounds anteriorly, no crackles HEART: Regular rate and rhythm, S1, S2 without murmur ABDOMEN: Soft in lower abdomen, increased firmness around epigastrium, tenderness to palpation in epigastrium, nondistended, normoactive bowel sounds EXTREMITIES: 2+ dorsal pedal pulses, warm, well-perfused, diffuse lower extremity tenderness, 4+ edema. NEUROLOGICAL: Normal speech, gait not observed. PSYCH: Normal mood, normal affect. SKIN: Warm, dry, increased turgor, anasarca throughout body, Stage II sacral ulcers Laboratory Results - last 24 hr 03/05/20 03/05/20 03/05/20 02:39 13:40 13:40 WBC RBC Hgb Hct MCV MCH MCHC RDW Plt Count MPV Absolute Neuts (auto) Neutrophils % Lymphocytes % Monocytes % Eosinophils % Basophils % Nucleated RBC % Retic Count Sodium 145 Potassium 4.1 Chloride 110 H Carbon Dioxide 31 Anion Gap 5 L BUN 51.3 H Creatinine 2.3 H Est GFR (CKD-EPI)AfAm 23.64 Est GFR (CKD-EPI)NonAf 20.40 Random Glucose 113 H Hemoglobin A1c % Calcium 7.7 L Phosphorus Magnesium Iron TIBC Iron Saturation Unsaturated IBC Ferritin Total Bilirubin 0.3 AST 16 ALT 17 Alkaline Phosphatase 64 LD Total Creatine Kinase 130 Troponin I 0.03 B-Natriuretic Peptide 2969.8 H Total Protein 5.2 L Albumin 1.7 L Triglycerides Cholesterol Total LDL Cholesterol HDL Cholesterol TSH Free T4 Urine Color Urine Appearance Urine pH Ur Specific [place] Urine Protein Urine Glucose (UA) Urine Ketones Urine Blood Urine Nitrite Urine Bilirubin Urine Urobilinogen Ur Leukocyte Esterase Ur Random Creatinine 73.0 U Random Total Protein 26.0 H Protein/Creatinin Ratio 0.4 Digoxin COVID-19 (JABARI) Blood Type O POSITIVE Antibody Screen Negative Crossmatch See Detail 03/05/20 03/05/20 03/06/20 13:44 19:50 04:55 WBC RBC Hgb Hct MCV MCH MCHC RDW Plt Count MPV Absolute Neuts (auto) Neutrophils % Lymphocytes % Monocytes % Eosinophils % Basophils % Nucleated RBC % Retic Count 2.75 H D Sodium Potassium Chloride Carbon Dioxide Anion Gap BUN Creatinine Est GFR (CKD-EPI)AfAm Est GFR (CKD-EPI)NonAf Random Glucose Hemoglobin A1c % Calcium Phosphorus Magnesium Iron TIBC Iron Saturation Unsaturated IBC Ferritin Total Bilirubin AST ALT Alkaline Phosphatase LD Total Creatine Kinase Troponin I B-Natriuretic Peptide Total Protein Albumin Triglycerides Cholesterol Total LDL Cholesterol HDL Cholesterol TSH Free T4 Urine Color Yellow Urine Appearance Clear Urine pH 5.0 Ur Specific [place] 1.011 Urine Protein Negative Urine Glucose (UA) Negative Urine Ketones Negative Urine Blood Negative Urine Nitrite Negative Urine Bilirubin Negative Urine Urobilinogen 0.2 Ur Leukocyte Esterase Negative Ur Random Creatinine U Random Total Protein Protein/Creatinin Ratio Digoxin COVID-19 (JABARI) Not detected Blood Type Antibody Screen Crossmatch 03/06/20 03/06/20 03/06/20 04:55 04:55 04:55 WBC 4.8 RBC 3.04 L Hgb 7.1 L Hct 23.4 L D MCV 76.9 L MCH 23.3 L MCHC 30.3 L RDW 19.4 H Plt Count 105 L D MPV 8.4 Absolute Neuts (auto) 3.7 Neutrophils % 78.1 Lymphocytes % 12.8 Monocytes % 7.1 Eosinophils % 1.5 D Basophils % 0.5 Nucleated RBC % 0 Retic Count Sodium Potassium Chloride Carbon Dioxide Anion Gap BUN Creatinine Est GFR (CKD-EPI)AfAm Est GFR (CKD-EPI)NonAf Random Glucose Hemoglobin A1c % < 3.5 L Calcium Phosphorus Magnesium Iron TIBC Iron Saturation Unsaturated IBC Ferritin Total Bilirubin AST ALT Alkaline Phosphatase LD Total Creatine Kinase Troponin I B-Natriuretic Peptide Total Protein Albumin Triglycerides Cancelled Cholesterol Cancelled Total LDL Cholesterol Cancelled HDL Cholesterol Cancelled TSH Free T4 Urine Color Urine Appearance Urine pH Ur Specific [place] Urine Protein Urine Glucose (UA) Urine Ketones Urine Blood Urine Nitrite Urine Bilirubin Urine Urobilinogen Ur Leukocyte Esterase Ur Random Creatinine U Random Total Protein Protein/Creatinin Ratio Digoxin COVID-19 (JABARI) Blood Type Antibody Screen Crossmatch 03/06/20 03/06/20 04:55 05:30 WBC RBC Hgb Hct MCV MCH MCHC RDW Plt Count MPV Absolute Neuts (auto) Neutrophils % Lymphocytes % Monocytes % Eosinophils % Basophils % Nucleated RBC % Retic Count Sodium 145 Potassium 3.8 Chloride 110 H Carbon Dioxide 35 H Anion Gap -1 L BUN 47.3 H Creatinine 1.9 H Est GFR (CKD-EPI)AfAm 29.79 Est GFR (CKD-EPI)NonAf 25.70 Random Glucose 129 H Hemoglobin A1c % Calcium 7.2 L Phosphorus 3.7 Magnesium 2.3 Iron 103 TIBC 242 L Iron Saturation 42 H Unsaturated IBC 139 L Ferritin 8.6 Total Bilirubin 0.4 AST 18 ALT 16 Alkaline Phosphatase 60 LD Total 293 H Creatine Kinase 112 Troponin I 0.04 B-Natriuretic Peptide Total Protein 4.9 L Albumin 1.6 L Triglycerides 60 Cholesterol 54 Total LDL Cholesterol 24 HDL Cholesterol 27 L TSH 4.93 H Free T4 0.88 Urine Color Urine Appearance Urine pH Ur Specific [place] Urine Protein Urine Glucose (UA) Urine Ketones Urine Blood Urine Nitrite Urine Bilirubin Urine Urobilinogen Ur Leukocyte Esterase Ur Random Creatinine U Random Total Protein Protein/Creatinin Ratio Digoxin 1.29 COVID-19 (JABARI) Blood Type Antibody Screen Crossmatch Active Medications Generic Name Dose Route Start Last Admin Trade Name Freq PRN Reason Stop Dose Admin Digoxin 0.125 mg 03/06/20 10:00 03/06/20 10:51 Lanoxin - PO 0.125 mg DAILY JACIEL Administration Furosemide 40 mg 03/06/20 14:00 08/13/20 13:38 Lasix Injection - IVPUSH 40 mg BID@0600,1400 JACIEL Administration Azithromycin 250 mg/ Dextrose 250 mls @ 250 mls/hr 03/06/20 10:00 03/06/20 13:38 IVPB Not Given DAILY JACIEL Ceftriaxone Sodium 1 gm/ 50 mls @ 100 mls/hr 03/05/20 23:05 03/06/20 10:52 Dextrose IVPB 100 mls/hr DAILY JACIEL Administration Pantoprazole Sodium 40 mg 03/07/20 10:00 Protonix Iv IVPUSH DAILY JACIEL ASSESSMENT/PLAN: Pt is a 74 y.o. M w/ PMHx. 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 Pt is being admitted for symptomatic anema/hypotension and CHF exacerbation. #Symptomatic anemia/Hypotension recent blood loss most likely cause need to r/o sepsis 2/2 to pneumonia as etiology (CXR with pulmonary vascular congestion, possible retrocardial infiltrate, bilateral pleural effusion; CT chest with bibasilar consolidation and pleural effusion) - evidence of possible pneumonia need to r/o return of prior malignancy as possible etiology H/H 5.2/18; MCV 80; RDW 21.5; FOBT + BP responded to fluids in the ED - s/p 3u pRBC, CBC Q12H, transfuse for HgB less than 8. - iron studies show normal iron stores TSAT greater than 30% - IV protonix Daily - hold eliquis - GI consulted to evaluate GI bleed - c/w IV ceftriaxone 1 g, IV azithromycin 500 mg - ID and Pulm consults appreciated - CEA and [id number] ordered - Heme/Onc consulted #Acute CHF exacerbation likely multifactorial (symptomatic anemia, possible pneumonia, poor diet, medication non-adherence in the past BNP 2964.8 last ECHO 1 year ago (EF 50-55%) however with severe right sided failure and severe TR. - consider careful diuresis with IV lasix 40 (hold lasix if SBP < 110); as BP permits and per day team discretion - f/u ECHO - c/w digoxin 0.125 mg; dig level 1.29, will repeat prior to discharge to ensure Pt. does not enter toxicity range (1.3+) - Cardiology consulted - strict Is/Os, daily weights - CT C/A/P showed marked anasarca, b/l pleural effusions and consolidations R>L, cardiomegaly w/ minimal pericardial effusion, moderate Ascites - pending response to IV diuretics will consider consult for therapeutic thoracocentesis. Pt. currently on home oxygen settings #Ascites f/u Abd. US to assess for ascites and if there is liver pathology, pending results will consult IR for paracentesis and SAAG calculation for infection vs. malignancy as Pt. has remote history of Gastric CA s/p resection in 2008 f/u Hepatitis panel though I suspect congestive hepatopathy from severe R. sided heart failure #r/o ACS - trop neg x 2 - repeat EKG unchanged, likjely demand ischemia from anemia #PATRICK (superimposed on possible CKD?, although Cr in normal range during last visit on 06/2019) etiology unclear BUN/Cr 51.3/2.3; GFR 20 - renal US unremarkable however CT AP, showed exophytic R. cyst at 2.2 cm - urine protein/Cr ratio - UPEP, SPEP - monitor urine output; monitor BUN/Cr, GFR; monitor lytes - Nephrology consulted - Avoid nephrotoxic agents #Severe hypoalbuminemia (possibly d/t diet; or other unknown etiology) Total ptn 5.2; Albumin 1.7 - dietary consult #Hx of HTN - holding home metoprolol #Hx of COPD - c/w 3L NC as Pt. uses this at baseline #DVT PPx - Holding home eliquis; SCDs for now #FEN -F - no IVF as of now -E - monitor; replete lytes prn -N - NPO #Dispo Telemetry Visit type - Emergency Visit Emergency Visit: Yes ED Registration Date: 03/05/20 Care time: The patient presented to the Emergency Department on the above date and was hospitalized for further evaluation of their emergent condition. - New Patient This patient is new to me today: Yes Date on this admission: 03/06/20 - Critical Care Critical Care patient: No - Discharge Referral Referred to [facility] Med P.C[facility] No - Medication Review Med list reviewed for High Risk Meds patients 65 and older: Yes ATTENDING PHYSICIAN STATEMENT I saw and evaluated the patient. I reviewed the resident's note and discussed the case with the resident. I agree with the resident's findings and plan as documented. SUBJECTIVE: OBJECTIVE: ASSESSMENT AND PLAN:
--- NOTE | 2020-03-06 17:24 | CONSULT ---
Consultation: REQUESTING PROVIDER: Dr. Serrano CONSULT REQUEST: We have been asked to medically evaluate this patient for gastric tumor, anemia. HISTORY OF PRESENT ILLNESS: Patient is a 74 year old female with past medical history of HFpeF, Afib (PPM, eliquis), COPD (on 3L NC), pulmonary HTN, gastric tumor (2010), ?resection of tumor, presented to the emergency after she was found to be hypotensive and short of breath at home. Patient unable to provide any history, but letting us know that she is okay. Her son at bedside to aid in the HPI. He reported patient had 2 episodes of bloody stools at home 3 days ago. This was accompanied by progressive shortness of breath. He also reported patient has been having increased swelling of arms and legs for about a month. Patient denies chest pain, fever, chills, nausea/vomiting, urinary symptoms, dizziness, syncope, abdominal pain, weakness, and fatigue. At the ED, patient was found to be anemic at 5.2 and received 2 units pRBC. Called the other brother, Mr. Pillai, this morning. He provided that patient had a mass in the stomach, that later on was found to be malignant and had it resected about 8 years ago, done by Dr. Eduardo at [facility]. Called [facility], Dr. Eduardo has retired for about 3-4 years now, and no records were found of patient with Dr. Eduardo. The earliest they have of patient's records was in 2012 when she had a hernia repair under Dr. Brandon. Called Dr. Brandon's office, patient was seen again on 2015 when she had a repair of the incisional hernia, no other surgeries done with Dr. Brandon. A mention of a gastric tumor in 2010 noted on patient's records which she followed up with Dr. Jacome, but no other information provided. Dr. Jacome currently is unavailable, unable to obtain any more history. PMHx: HFpeF, Afib (PPM, eliquis), COPD (on 3L NC), pulmonary HTN, gastric tumor (2010) PSHx:hernia repair x2, ?resection of gastric tumor Allergies:NKDA SHx: denies smoking, drinking, illicit drug use REVIEW OF SYSTEMS: CONSTITUTIONAL: Absent: fever, chills, diaphoresis, generalized weakness, malaise, loss of appetite, weight change HEENT: Absent: rhinorrhea, nasal congestion, throat pain, throat swelling, difficulty swallowing, mouth swelling, ear pain, eye pain, visual changes CARDIOVASCULAR: Absent: chest pain, syncope, palpitations, irregular heart rate, lightheadedness, peripheral edema RESPIRATORY: Absent: cough, shortness of breath, dyspnea with exertion, orthopnea, wheezing, stridor, hemoptysis GASTROINTESTINAL: Absent: abdominal pain, abdominal distension, nausea, vomiting, diarrhea, constipation, melena, hematochezia GENITOURINARY: Absent: dysuria, frequency, urgency, hesitancy, hematuria, flank pain, genital pain MUSCULOSKELETAL: Absent: myalgia, arthralgia, joint swelling, back pain, neck pain SKIN: Absent: rash, itching, pallor HEMATOLOGIC/IMMUNOLOGIC: Absent: easy bleeding, easy bruising, lymphadenopathy, frequent infections ENDOCRINE: Absent: unexplained weight gain, unexplained weight loss, heat intolerance, cold intolerance NEUROLOGIC: Absent: headache, focal weakness or paresthesias, dizziness, unsteady gait, seizure, mental status changes, bladder or bowel incontinence PSYCHIATRIC: Absent: anxiety, depression, suicidal or homicidal ideation, hallucinations. PHYSICAL EXAMINATION Vital Signs - 24 hr 03/05/20 03/05/20 03/05/20 17:00 17:01 17:30 Temperature Pulse Rate Pulse Rate [ 92 H 84 60 Apical] Respiratory 27 H 23 H 18 Rate Blood Pressure Blood Pressure 93/58 L 95/50 L 84/46 L [Left Arm] O2 Sat by Pulse 100 100 100 Oximetry (%) 03/05/20 03/05/20 03/05/20 19:15 20:00 21:45 Temperature 98.2 F 98.2 F Pulse Rate Pulse Rate [ 86 81 86 Apical] Respiratory 20 20 18 Rate Blood Pressure Blood Pressure 87/61 L 89/41 L 101/57 L [Left Arm] O2 Sat by Pulse 93 L 100 100 Oximetry (%) 03/05/20 03/05/20 03/05/20 22:00 22:45 22:59 Temperature 98 F Pulse Rate Pulse Rate [ 86 88 Apical] Respiratory 18 20 20 Rate Blood Pressure Blood Pressure 106/54 L 106/56 L [Left Arm] O2 Sat by Pulse 100 100 100 Oximetry (%) 03/06/20 03/06/20 03/06/20 01:00 02:00 06:57 Temperature 98.0 F 98.4 F Pulse Rate Pulse Rate [ 84 85 83 Apical] Respiratory 15 16 20 Rate Blood Pressure Blood Pressure 98/60 108/78 103/58 L [Left Arm] O2 Sat by Pulse 98 97 100 Oximetry (%) 03/06/20 03/06/20 03/06/20 07:00 08:00 08:15 Temperature 97.3 F L 98.0 F Pulse Rate Pulse Rate [ 67 68 76 Apical] Respiratory 20 18 16 Rate Blood Pressure Blood Pressure 92/44 L 85/53 L 84/60 L [Left Arm] O2 Sat by Pulse 93 L 97 99 Oximetry (%) 03/06/20 03/06/20 03/06/20 09:00 10:53 14:05 Temperature 98.1 F 98.3 F Pulse Rate 90 Pulse Rate [ 68 61 Apical] Respiratory 18 24 H 20 Rate Blood Pressure 101/52 L Blood Pressure 83/52 L 112/69 [Left Arm] O2 Sat by Pulse 99 97 Oximetry (%) 03/06/20 03/06/20 14:50 15:53 Temperature 97.8 F Pulse Rate 62 Pulse Rate [ Apical] Respiratory 20 Rate Blood Pressure 97/50 L Blood Pressure [Left Arm] O2 Sat by Pulse 93 L 93 L Oximetry (%) GENERAL: Awake, alert, in no acute distress. EARS, NOSE, THROAT: Dry mucous membranes. NECK: Normal range of motion, supple LUNGS: Decreased breath sounds on bilateral bases HEART: Regular rate and rhythm, normal S1 and S2 ABDOMEN: protruberant, mild diffuse tenderness, NABS UPPER EXTREMITIES: 2+ pulses, warm, well-perfused. b/l +1 pitting edema LOWER EXTREMITIES: 2+ pulses, warm, well-perfused. b/l +1 pitting edema SKIN: Warm, dry, normal turgor Laboratory Results - last 24 hr 03/05/20 03/05/20 03/05/20 02:39 13:40 13:40 WBC RBC Hgb Hct MCV MCH MCHC RDW Plt Count MPV Absolute Neuts (auto) Neutrophils % Lymphocytes % Monocytes % Eosinophils % Basophils % Nucleated RBC % Retic Count Sodium 145 Potassium 4.1 Chloride 110 H Carbon Dioxide 31 Anion Gap 5 L BUN 51.3 H Creatinine 2.3 H Est GFR (CKD-EPI)AfAm 23.64 Est GFR (CKD-EPI)NonAf 20.40 Random Glucose 113 H Hemoglobin A1c % Calcium 7.7 L Phosphorus Magnesium Iron TIBC Iron Saturation Unsaturated IBC Ferritin Total Bilirubin 0.3 AST 16 ALT 17 Alkaline Phosphatase 64 LD Total Creatine Kinase 130 Troponin I 0.03 B-Natriuretic Peptide 2969.8 H Total Protein 5.2 L Albumin 1.7 L Triglycerides Cholesterol Total LDL Cholesterol HDL Cholesterol TSH Free T4 Urine Color Urine Appearance Urine pH Ur Specific [place] Urine Protein Urine Glucose (UA) Urine Ketones Urine Blood Urine Nitrite Urine Bilirubin Urine Urobilinogen Ur Leukocyte Esterase Ur Random Creatinine 73.0 U Random Total Protein 26.0 H Protein/Creatinin Ratio 0.4 Digoxin COVID-19 (JABARI) Blood Type O POSITIVE Antibody Screen Negative Crossmatch See Detail 03/05/20 03/05/20 03/06/20 13:44 19:50 04:55 WBC RBC Hgb Hct MCV MCH MCHC RDW Plt Count MPV Absolute Neuts (auto) Neutrophils % Lymphocytes % Monocytes % Eosinophils % Basophils % Nucleated RBC % Retic Count 2.75 H D Sodium Potassium Chloride Carbon Dioxide Anion Gap BUN Creatinine Est GFR (CKD-EPI)AfAm Est GFR (CKD-EPI)NonAf Random Glucose Hemoglobin A1c % Calcium Phosphorus Magnesium Iron TIBC Iron Saturation Unsaturated IBC Ferritin Total Bilirubin AST ALT Alkaline Phosphatase LD Total Creatine Kinase Troponin I B-Natriuretic Peptide Total Protein Albumin Triglycerides Cholesterol Total LDL Cholesterol HDL Cholesterol TSH Free T4 Urine Color Yellow Urine Appearance Clear Urine pH 5.0 Ur Specific [place] 1.011 Urine Protein Negative Urine Glucose (UA) Negative Urine Ketones Negative Urine Blood Negative Urine Nitrite Negative Urine Bilirubin Negative Urine Urobilinogen 0.2 Ur Leukocyte Esterase Negative Ur Random Creatinine U Random Total Protein Protein/Creatinin Ratio Digoxin COVID-19 (JABARI) Not detected Blood Type Antibody Screen Crossmatch 03/06/20 03/06/20 03/06/20 04:55 04:55 04:55 WBC 4.8 RBC 3.04 L Hgb 7.1 L Hct 23.4 L D MCV 76.9 L MCH 23.3 L MCHC 30.3 L RDW 19.4 H Plt Count 105 L D MPV 8.4 Absolute Neuts (auto) 3.7 Neutrophils % 78.1 Lymphocytes % 12.8 Monocytes % 7.1 Eosinophils % 1.5 D Basophils % 0.5 Nucleated RBC % 0 Retic Count Sodium Potassium Chloride Carbon Dioxide Anion Gap BUN Creatinine Est GFR (CKD-EPI)AfAm Est GFR (CKD-EPI)NonAf Random Glucose Hemoglobin A1c % < 3.5 L Calcium Phosphorus Magnesium Iron TIBC Iron Saturation Unsaturated IBC Ferritin Total Bilirubin AST ALT Alkaline Phosphatase LD Total Creatine Kinase Troponin I B-Natriuretic Peptide Total Protein Albumin Triglycerides Cancelled Cholesterol Cancelled Total LDL Cholesterol Cancelled HDL Cholesterol Cancelled TSH Free T4 Urine Color Urine Appearance Urine pH Ur Specific [place] Urine Protein Urine Glucose (UA) Urine Ketones Urine Blood Urine Nitrite Urine Bilirubin Urine Urobilinogen Ur Leukocyte Esterase Ur Random Creatinine U Random Total Protein Protein/Creatinin Ratio Digoxin COVID-19 (JABARI) Blood Type Antibody Screen Crossmatch 03/06/20 03/06/20 04:55 05:30 WBC RBC Hgb Hct MCV MCH MCHC RDW Plt Count MPV Absolute Neuts (auto) Neutrophils % Lymphocytes % Monocytes % Eosinophils % Basophils % Nucleated RBC % Retic Count Sodium 145 Potassium 3.8 Chloride 110 H Carbon Dioxide 35 H Anion Gap -1 L BUN 47.3 H Creatinine 1.9 H Est GFR (CKD-EPI)AfAm 29.79 Est GFR (CKD-EPI)NonAf 25.70 Random Glucose 129 H Hemoglobin A1c % Calcium 7.2 L Phosphorus 3.7 Magnesium 2.3 Iron 103 TIBC 242 L Iron Saturation 42 H Unsaturated IBC 139 L Ferritin 8.6 Total Bilirubin 0.4 AST 18 ALT 16 Alkaline Phosphatase 60 LD Total 293 H Creatine Kinase 112 Troponin I 0.04 B-Natriuretic Peptide Total Protein 4.9 L Albumin 1.6 L Triglycerides 60 Cholesterol 54 Total LDL Cholesterol 24 HDL Cholesterol 27 L TSH 4.93 H Free T4 0.88 Urine Color Urine Appearance Urine pH Ur Specific [place] Urine Protein Urine Glucose (UA) Urine Ketones Urine Blood Urine Nitrite Urine Bilirubin Urine Urobilinogen Ur Leukocyte Esterase Ur Random Creatinine U Random Total Protein Protein/Creatinin Ratio Digoxin 1.29 COVID-19 (JABARI) Blood Type Antibody Screen Crossmatch Active Medications Generic Name Dose Route Start Last Admin Trade Name Freq PRN Reason Stop Dose Admin Digoxin 0.125 mg 03/06/20 10:00 03/06/20 10:51 Lanoxin - PO 0.125 mg DAILY JACIEL Administration Furosemide 40 mg 03/06/20 14:00 03/06/20 13:38 Lasix Injection - IVPUSH 40 mg BID@0600,1400 JACIEL Administration Azithromycin 250 mg/ Dextrose 250 mls @ 250 mls/hr 03/06/20 10:00 03/06/20 13:38 IVPB Not Given DAILY JACIEL Ceftriaxone Sodium 1 gm/ 50 mls @ 100 mls/hr 03/05/20 23:05 03/06/20 10:52 Dextrose IVPB 100 mls/hr DAILY JACIEL Administration Pantoprazole Sodium 40 mg 03/07/20 10:00 Protonix Iv IVPUSH DAILY JACIEL ASSESSMENT/PLAN: Patient is a 74 year old female with past medical history of HFpeF, Afib (PPM, eliquis), COPD (on 3L NC), pulmonary HTN, gastric tumor (2010), ?resection of tumor, presented to the emergency after she was found to be hypotensive and short of breath at home. #Microcytic Anemia -likely GLORIA 2/2 GI bleeding -Iron studies noted, ferritin expected to be higher as it is an acute phase reactant -retic studies with appropriate response, PBS revealed normochromic, normocytic RBCs -LDH, Fibrinogen, SPEP -Transfuse prn to keep Hgb >8 -GI consulted. Recs appreciated. #Thrombocytopenia -likely 2/2 sepsis 2/2 CAP -Continue IV abx as per ID and primary team #Gastric tumor -unclear history at this time. -Follows up with Dr. Jacome. Dispo: We will continue to follow the patient. Thank you for this consultative opportunity. Visit type - Medication Review Med list reviewed for High Risk Meds patients 65 and older: Yes - Emergency Visit Emergency Visit: Yes ED Registration Date: 03/05/20 Care time: The patient presented to the Emergency Department on the above date and was hospitalized for further evaluation of their emergent condition. - New Patient This patient is new to me today: Yes Date on this admission: 03/06/20 - Critical Care Critical Care patient: No ATTENDING PHYSICIAN STATEMENT I saw and evaluated the patient. I reviewed the resident's note and discussed the case with the resident. I agree with the resident's findings and plan as documented. SUBJECTIVE: OBJECTIVE: ASSESSMENT AND PLAN:
--- NOTE | 2020-03-06 18:04 | PN ---
Teaching Attending Note Name of Resident: Susan Grove ATTENDING PHYSICIAN STATEMENT I saw and evaluated the patient. I reviewed the resident's note and discussed the case with the resident. I agree with the resident's findings and plan as documented. 74 yo F with h/o HFpeF, Afib (PPM, eliquis), COPD, pulmonary HTN, gastric tumor (2010), ?resection of tumor. Presented to ED with hypotension, SOB, and reported 2 episodes of bloody stools. Hgb was 5.2, responded to 3 units pRBCs. No further reported blood in stool. Appears comfortable. Hypotension improving. Awaiting likely EGD/colonoscopy. On abx for possible pneumonia. CBC WBC 4.8 K/mm3 (4.0-10.0) 03/06/20 04:55 RBC 3.04 M/mm3 (3.60-5.2) L 03/06/20 04:55 Hgb 7.1 GM/dL (10.7-15.3) L 03/06/20 04:55 Hct 23.4 % (32.4-45.2) L D 03/06/20 04:55 MCV 76.9 fl (80-96) L 03/06/20 04:55 MCH 23.3 pg (25.7-33.7) L 03/06/20 04:55 MCHC 30.3 g/dl (32.0-36.0) L 03/06/20 04:55 RDW 19.4 % (11.6-15.6) H 03/06/20 04:55 Plt Count 105 K/MM3 (134-434) L D 03/06/20 04:55 MPV 8.4 fl (7.5-11.1) 03/06/20 04:55 Absolute Neuts (auto) 3.7 K/mm3 (1.5-8.0) 03/06/20 04:55 Neutrophils % 78.1 % (42.8-82.8) 03/06/20 04:55 Lymphocytes % 12.8 % (8-40) 03/06/20 04:55 Monocytes % 7.1 % (3.8-10.2) 03/06/20 04:55 Eosinophils % 1.5 % (0-4.5) D 03/06/20 04:55 Basophils % 0.5 % (0-2.0) 03/06/20 04:55 Nucleated RBC % 0 % (0-0) 03/06/20 04:55 Hypochromia 2+ 03/05/20 13:40 Platelet Estimate Decreased 03/05/20 13:40 Platelet Comment No clumping noted 03/05/20 13:40 Polychromasia 1+ 03/05/20 13:40 Poikilocytosis 2+ 03/05/20 13:40 Anisocytosis 1+ 03/05/20 13:40 Microcytosis 1+ 03/05/20 13:40 Target Cells 1+ 03/05/20 13:40 Stomatocytes 1+ 03/05/20 13:40 Retic Count 2.75 % (0.5-1.5) H D 03/06/20 04:55 Imp: Anemia likley GI source, labs c/w iron deficiency. mild thrombocytopenia likley from abx. -GI follow-up for endoscopies. -transfuse for hgb<7.0 -check LDH, spep. -d/w House Staff
[2020-03-06 20:59] LABS: HEMATOCRIT 27.5 % (32.4-45.2); HEMOGLOBIN 8.5 GM/dL (10.7-15.3); MCH 24.4 pg (25.7-33.7); MCHC 30.8 g/dl (32.0-36.0); MEAN PLT VOLUME 8.5 fl (7.5-11.1); PLATELET COUNT 102 K/MM3 (134-434); RBC 3.48 M/mm3 (3.60-5.2); RDW 19.5 % (11.6-15.6); WHITE BLOOD COUNT 4.6 K/mm3 (4.0-10.0)
[2020-03-06] MEDS ORDERED: AZITHROMYCIN IVPB 500 MG in DEXTROSE 5%-WATER - 250 ML IVPB ONE (23:06)
[2020-03-07] MEDS ORDERED: ACETAMINOPHEN 1000 MG/100 ML VIAL (NON FORMULARY) IVPB ONE (04:03)
[2020-03-07] MEDS: FUROSEMIDE 40 MG/4 ML INJECTABLE VIAL IVPUSH SCH ×2 (06:35→13:53)
[2020-03-07 07:55] LABS: BASO % 0.7 % (0-2.0); EOS % 1.6 % (0-4.5); HEMATOCRIT 27.6 % (32.4-45.2); HEMOGLOBIN 8.5 GM/dL (10.7-15.3); LYMPH % 12.2 % (8-40); MCH 24.5 pg (25.7-33.7); MCHC 30.8 g/dl (32.0-36.0); MEAN CELL VOLUME 79.3 fl (80-96); MEAN PLT VOLUME 8.6 fl (7.5-11.1); MONO % 7.2 % (3.8-10.2); NEUT % 78.3 % (42.8-82.8); PLATELET COUNT 97 K/MM3 (134-434); RBC 3.48 M/mm3 (3.60-5.2); RDW 19.4 % (11.6-15.6); WHITE BLOOD COUNT 3.6 K/mm3 (4.0-10.0)
[2020-03-07 08:07] LABS: CARCINOEMBRYONIC ANTIGEN 3.2 ng/mL (0.0-4.7)
[2020-03-07 08:17] LABS: ALBUMIN 1.7 g/dl (3.4-5.0); BILIRUBIN,TOTAL 0.5 mg/dL (0.2-1); BLOOD UREA NITROGEN 41.1 mg/dL (7-18); CALCIUM 7.6 mg/dL (8.5-10.1); CREATININE 1.5 mg/dL (0.55-1.3); MAGNESIUM 2.6 mg/dL (1.8-2.4); PHOSPHOROUS 3.4 mg/dL (2.5-4.9); TOT PROT 4.9 g/dl (6.4-8.2)
[2020-03-07] MEDS ORDERED: DEXTROSE 5%-WATER - 50 ML IVPB ONE (09:46)
[2020-03-07] MEDS ORDERED: cefTRIAXone SODIUM 1 GM VIAL ONE (09:46)
[2020-03-07] MEDS: DIGOXIN 0.125 MG TABLET (FP) PO SCH (10:11)
[2020-03-07] MEDS: PANTOPRAZOLE SODIUM 40 MG VIAL IVPUSH SCH (10:12)
[2020-03-07] MEDS: CEFTRIAXONE 1 GM in DEXTROSE 5%-WATER - 50 ML IVPB SCH (10:12)
--- NOTE | 2020-03-07 10:13 | PN ---
Physical Exam: SUBJECTIVE: Patient seen and examined. Per RN no acute events over night. HgB remained stable. Pt. denies pain. Pt. states she wants to eat. At time of assessment Pt. feeding herself sandro. OBJECTIVE: Vital Signs Period Temp Pulse Resp BP Sys/Nava Pulse Ox Last 24 Hr 97.5 F-98.3 F 60-90 18-24 88-112/50-69 92-100 GENERAL: The patient is awake, alert, and fully oriented, in no acute distress. HEAD: Normal with no signs of trauma. EYES: Sclera anicteric, conjunctiva clear. ENT: Moist mucous membranes. NECK: Trachea midline, full range of motion, supple. LUNGS: Decreased breath sounds anteriorly, no crackles HEART: Regular rate and rhythm, S1, S2 with systolic murmur ABDOMEN: Soft in lower abdomen, increased firmness around epigastrium, tenderness to palpation in epigastrium, nondistended, normoactive bowel sounds EXTREMITIES: 2+ dorsal pedal pulses, warm, well-perfused, diffuse lower extremity tenderness, 4+ edema. NEUROLOGICAL: Normal speech, gait not observed. PSYCH: Normal mood, normal affect. SKIN: Warm, dry, increased turgor, anasarca throughout body, Stage II sacral ulcers Laboratory Results - last 24 hr 03/06/20 03/06/20 03/06/20 04:55 05:30 20:45 WBC 4.6 RBC 3.48 L Hgb 8.5 L Hct 27.5 L D MCV 79.0 L MCH 24.4 L MCHC 30.8 L RDW 19.5 H Plt Count 102 L MPV 8.5 Absolute Neuts (auto) Neutrophils % Lymphocytes % Monocytes % Eosinophils % Basophils % Nucleated RBC % Sodium 145 Potassium 3.8 Chloride 110 H Carbon Dioxide 35 H Anion Gap -1 L BUN 47.3 H Creatinine 1.9 H Est GFR (CKD-EPI)AfAm 29.79 Est GFR (CKD-EPI)NonAf 25.70 Random Glucose 129 H Calcium 7.2 L Phosphorus 3.7 Magnesium 2.3 Iron 103 TIBC 242 L Iron Saturation 42 H Unsaturated IBC 139 L Ferritin 8.6 Total Bilirubin 0.4 AST 18 ALT 16 Alkaline Phosphatase 60 LD Total 293 H Creatine Kinase 112 Troponin I 0.04 Total Protein 4.9 L Albumin 1.6 L Triglycerides 60 Cholesterol 54 Total LDL Cholesterol 24 HDL Cholesterol 27 L Carcinoembryonic Ag 3.2 TSH 4.93 H Free T4 0.88 03/07/20 03/07/20 06:10 08:26 WBC 3.6 L RBC 3.48 L Hgb 8.5 L Hct 27.6 L MCV 79.3 L MCH 24.5 L MCHC 30.8 L RDW 19.4 H Plt Count 97 L MPV 8.6 Absolute Neuts (auto) 2.9 Neutrophils % 78.3 Lymphocytes % 12.2 Monocytes % 7.2 Eosinophils % 1.6 Basophils % 0.7 Nucleated RBC % 0 Sodium 148 H Potassium 4.0 Chloride 112 H Carbon Dioxide 34 H Anion Gap 2 L BUN 41.1 H Creatinine 1.5 H Est GFR (CKD-EPI)AfAm 39.64 Est GFR (CKD-EPI)NonAf 34.21 Random Glucose 93 Calcium 7.6 L Phosphorus 3.4 Magnesium 2.6 H Iron TIBC Iron Saturation Unsaturated IBC Ferritin Total Bilirubin 0.5 AST 14 L ALT 15 Alkaline Phosphatase 57 LD Total Creatine Kinase Troponin I Total Protein 4.9 L Albumin 1.7 L Triglycerides Cholesterol Total LDL Cholesterol HDL Cholesterol Carcinoembryonic Ag TSH Free T4 Active Medications Generic Name Dose Route Start Last Admin Trade Name Freq PRN Reason Stop Dose Admin Digoxin 0.125 mg 03/06/20 10:00 03/06/20 10:51 Lanoxin - PO 0.125 mg DAILY JACIEL Administration Furosemide 40 mg 03/06/20 14:00 03/07/20 06:35 Lasix Injection - IVPUSH 40 mg BID@0600,1400 JACIEL Administration Azithromycin 250 mg/ Dextrose 250 mls @ 250 mls/hr 03/06/20 10:00 03/06/20 13:38 IVPB Not Given DAILY JACIEL Ceftriaxone Sodium 1 gm/ 50 mls @ 100 mls/hr 03/05/20 23:05 03/06/20 10:52 Dextrose IVPB 100 mls/hr DAILY JACIEL Administration Pantoprazole Sodium 40 mg 03/07/20 10:00 Protonix Iv IVPUSH DAILY JACIEL ASSESSMENT/PLAN: Pt is a 74 y.o. M w/ PMHx. 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 Pt is being admitted for symptomatic anema/hypotension and CHF exacerbation. #Symptomatic anemia/Hypotension recent blood loss most likely cause need to r/o sepsis 2/2 to pneumonia as etiology (CXR with pulmonary vascular congestion, possible retrocardial infiltrate, bilateral pleural effusion; CT chest with bibasilar consolidation and pleural effusion) - evidence of possible pneumonia need to r/o return of prior malignancy as possible etiology H/H 5.2/18; MCV 80; RDW 21.5; FOBT + BP responded to fluids in the ED - s/p 3u pRBC, CBC Q12H, transfuse for HgB less than 8. - iron studies show normal iron stores TSAT greater than 30% - IV protonix Daily - hold eliquis - GI consulted to evaluate GI bleed - c/w ceftriaxone and azithromycin - ID and Pulm consults appreciated - CEA and [id number] ordered - Heme/Onc consulted #Acute CHF exacerbation likely multifactorial (symptomatic anemia, possible pneumonia, poor diet, medication non-adherence in the past BNP 2964.8 last ECHO 1 year ago (EF 50-55%) however with severe right sided failure and severe TR. - consider careful diuresis with IV lasix 40 (hold lasix if SBP < 110); as BP permits and per day team discretion - f/u ECHO - c/w digoxin 0.125 mg; dig level 1.29, will repeat prior to discharge to ensure Pt. does not enter toxicity range (1.3+) - Cardiology consulted - strict Is/Os, daily weights--> Dee placed - CT C/A/P showed marked anasarca, b/l pleural effusions and consolidations R>L, cardiomegaly w/ minimal pericardial effusion, moderate Ascites - will consider IR consult for therapeutic thoracocentesis #Ascites and hypoalbuminemia likely 2/2 cirrhosis Abd. US definitive for cirrhosis, will consult IR for paracentesis and SAAG calculation for infection vs. malignancy as Pt. has remote history of Gastric CA s/p resection in 2008 f/u Hepatic w/u for cirrhosis: ZARIA, AMA, AFP, Smooth muscle Ab, #r/o ACS - trop neg x 2 - repeat EKG unchanged, likjely demand ischemia from anemia #PATRICK (superimposed on possible CKD?, although Cr in normal range during last visit on 06/2019) etiology unclear BUN/Cr 51.3/2.3; GFR 20 - renal US unremarkable however CT AP, showed exophytic R. cyst at 2.2 cm - urine protein/Cr ratio - UPEP, SPEP - monitor urine output; monitor BUN/Cr, GFR; monitor lytes - Nephrology consulted - Avoid nephrotoxic agents #Hx of HTN - holding home metoprolol #Hx of COPD - currently at 4L NC #DVT PPx - Holding home eliquis; SCDs for now #FEN -F - no IVF as of now -E - monitor; replete lytes prn -N - NPO #Dispo Telemetry Visit type - Emergency Visit Emergency Visit: Yes ED Registration Date: 03/05/20 Care time: The patient presented to the Emergency Department on the above date and was hospitalized for further evaluation of their emergent condition. - New Patient This patient is new to me today: No - Critical Care Critical Care patient: No - Discharge Referral Referred to [facility] Med P.C.: No - Medication Review Med list reviewed for High Risk Meds patients 65 and older: Yes ATTENDING PHYSICIAN STATEMENT I saw and evaluated the patient. I reviewed the resident's note and discussed the case with the resident. I agree with the resident's findings and plan as documented. SUBJECTIVE: OBJECTIVE: ASSESSMENT AND PLAN:
--- NOTE | 2020-03-07 10:59 | PN ---
Progress Note, Physician Chief Complaint: Comfortable sitting in bed V paced with episodes of afib History of Present Illness: 74 year old with a pmhx of right sided CHF and pulmonary htn, afib s/p ppm on apixaban, copd on home O2, and gastric CA s/p resection brought from home due to hypotension and sob. SBP 60 at home. +blood in stool at home. SOB worsening last few days at home. +orthopnea and edema. No chest pain. Mental status worsening Found to have drop in Hgb to 5.2 PATRICK with Cr 2.3 EKG: atrial paced, inferior and anterolateral ST abnormalities CT chest: bibasilar opacities, pleural effusions, anasarca Trops neg BNP elevated Echocardiogram 02/2019: nl lvef, mod to sev RV dil/hypokinesis, mod to sev TR, mod pulm htn. - Current Medication List Current Medications: Active Medications Digoxin (Lanoxin -) 0.125 mg PO DAILY [facility] Last Admin: 03/07/20 10:11 Dose: 0.125 mg Documented by: Furosemide (Lasix Injection -) 40 mg IVPUSH BID@0600,1400 [facility] Last Admin: 03/07/20 06:35 Dose: 40 mg Documented by: Azithromycin 250 mg/ Dextrose 250 mls @ 250 mls/hr IVPB DAILY [facility] Last Admin: 03/06/20 13:38 Dose: Not Given Documented by: Ceftriaxone Sodium 1 gm/ (Dextrose) 50 mls @ 100 mls/hr IVPB DAILY [facility] Last Admin: 03/07/20 10:12 Dose: 100 mls/hr Documented by: Pantoprazole Sodium (Protonix Iv) 40 mg IVPUSH DAILY [facility] Last Admin: 03/07/20 10:12 Dose: 40 mg Documented by: - Objective Vital Signs: Vital Signs Temperature 97.8 F 03/07/20 10:07 Pulse Rate 78 03/07/20 10:11 Respiratory Rate 20 03/07/20 10:07 Blood Pressure 88/52 L 03/07/20 10:07 O2 Sat by Pulse Oximetry (%) 100 03/07/20 10:07 Constitutional: Yes: No Distress Neck: Yes: Supple Cardiovascular: Yes: Pulse Irregular, JVD, Murmur (+3/6 HSM LLSB), S1, S2. No: Regular Rate and Rhythm Respiratory: Yes: Diminished Gastrointestinal: Yes: Soft Edema: Yes Edema: LLE: 3+, RLE: 3+ Labs: CBC, BMP 03/07/20 08:26 03/07/20 06:10 INR, PTT INR 1.63 (0.83-1.09) H 03/05/20 14:18 Problem List - Problems (1) PATRICK (acute kidney injury) Code(s): N17.9 - ACUTE KIDNEY FAILURE, UNSPECIFIED (2) CHF exacerbation Code(s): I50.9 - HEART FAILURE, UNSPECIFIED Qualifiers: Heart failure type: unspecified Qualified Code(s): I50.9 - Heart failure, unspecified Assessment/Plan 74 year old with a pmhx of right sided CHF and pulmonary htn, afib s/p ppm on apixaban, copd on home O2, and gastric CA s/p resection brought from home due to hypotension and sob. SBP 60 at home. +blood in stool at home. SOB worsening last few days at home. +orthopnea and edema. No chest pain. Mental status worsening Found to have drop in Hgb to 5.2 PATRICK with Cr 2.3 EKG: atrial paced, inferior and anterolateral ST abnormalities CT chest: bibasilar opacities, pleural effusions, anasarca Trops neg BNP elevated Echocardiogram 02/2019: nl lvef, mod to sev RV dil/hypokinesis, mod to sev TR, mod pulm htn. 1) Hypotension Likely due to acute anemia/blood loss Apixaban on hold in setting of possible GI bleed. Transfuse as needed as per primary team to keep Hgb over 9 GI consult 2) CHF Patient with pulmonary htn and known right sided heart failure with anasarca Edema and anasarca likely due to R sided chf. Continue Furosemide 40mg IV bid. Nurse will place mehta as need to assess urine output. Cr improving. If not diuresing sufficiently than will need increase in furosemide dose and possible lasix drip. If still not diuresing enough than may need ionotropes to assist. Need to see I/O's to help assist in management On digoxin for afib rate control. Metoprolol on hold for now.
--- NOTE | 2020-03-07 11:01 | PN ---
Progress Note, Physician History of Present Illness: PULMONARY ALERT,COMFORTABLE,LESS DYSPNEIC ON NASAL O2 - Current Medication List Current Medications: Active Medications Digoxin (Lanoxin -) 0.125 mg PO DAILY [facility] Last Admin: 03/07/20 10:11 Dose: 0.125 mg Documented by: Furosemide (Lasix Injection -) 40 mg IVPUSH BID@0600,1400 [facility] Last Admin: 03/07/20 06:35 Dose: 40 mg Documented by: Azithromycin 250 mg/ Dextrose 250 mls @ 250 mls/hr IVPB DAILY [facility] Last Admin: 03/06/20 13:38 Dose: Not Given Documented by: Ceftriaxone Sodium 1 gm/ (Dextrose) 50 mls @ 100 mls/hr IVPB DAILY [facility] Last Admin: 03/07/20 10:12 Dose: 100 mls/hr Documented by: Pantoprazole Sodium (Protonix Iv) 40 mg IVPUSH DAILY [facility] Last Admin: 03/07/20 10:12 Dose: 40 mg Documented by: - Objective Vital Signs: Vital Signs Temperature 97.8 F 03/07/20 10:07 Pulse Rate 78 03/07/20 10:11 Respiratory Rate 03/07/20 10:07 Blood Pressure 88/52 L 03/07/20 10:07 O2 Sat by Pulse Oximetry (%) 100 03/07/20 10:07 Constitutional: Yes: Well Nourished, Calm Eyes: Yes: WNL HENT: Yes: WNL Neck: Yes: WNL Cardiovascular: Yes: Pulse Irregular, S1, S2 Respiratory: Yes: Rales (BIBASILAR CRACKLES) Gastrointestinal: Yes: Normal Bowel Sounds, Soft Extremities: Yes: WNL Edema: Yes Labs: CBC, BMP 03/07/20 08:26 03/07/20 06:10 INR, PTT INR 1.63 (0.83-1.09) H 03/05/20 14:18 Problem List - Problems (1) Chronic respiratory failure Code(s): J96.10 - CHRONIC RESPIRATORY FAILURE, UNSP W HYPOXIA OR HYPERCAPNIA (2) PATRICK (acute kidney injury) Code(s): N17.9 - ACUTE KIDNEY FAILURE, UNSPECIFIED (3) Anemia Code(s): D64.9 - ANEMIA, UNSPECIFIED Qualifiers: Anemia type: unspecified type Qualified Code(s): D64.9 - Anemia, unspecified (4) CHF exacerbation Code(s): I50.9 - HEART FAILURE, UNSPECIFIED Qualifiers: Heart failure type: unspecified Qualified Code(s): I50.9 - Heart failure, unspecified (5) COPD (chronic obstructive pulmonary disease) Code(s): J44.9 - CHRONIC OBSTRUCTIVE PULMONARY DISEASE, UNSPECIFIED Qualifiers: COPD type: unspecified COPD Qualified Code(s): J44.9 - Chronic obstructive pulmonary disease, unspecified (6) Chronic anticoagulation Code(s): Z79.01 - PSYCHIATRIC NP (CURRENT) USE OF ANTICOAGULANTS (7) Cor pulmonale, chronic Code(s): I27.81 - COR PULMONALE (CHRONIC) (8) A-fib Code(s): I48.91 - UNSPECIFIED ATRIAL FIBRILLATION Qualifiers: Atrial fibrillation type: unspecified persistent Qualified Code(s): I48.19 - Other persistent atrial fibrillation; I48.1 - Persistent atrial fibrillation Assessment/Plan Assessment/Plan Acute on Chronic Diastolic Heart Failure Volume Overload Acute Kidney Injury improving Pulmonary HTN Chronic Hypoxic Respiratory Failure Atrial Fibrillation Severe Anemia COPD - IV lasix - monitor urine output, creatinine - daily weights - less likely pneumonia, can d/c antibiotics if cultures negative - rate control - holding anticoagulation - monitor H/H - DVT prophylaxis DR CONTRERAS
[2020-03-07] MEDS: AZITHROMYCIN IVPB 250 MG in DEXTROSE 5%-WATER - 250 ML IVPB SCH (11:10)
--- NOTE | 2020-03-07 11:21 | PN ---
Teaching Attending Note Name of Resident: Gerald Ibrahim ATTENDING PHYSICIAN STATEMENT I saw and evaluated the patient. I reviewed the resident's note and discussed the case with the resident. I agree with the resident's findings and plan as documented. SUBJECTIVE:doing well. nad OBJECTIVE: appears comfortable. Last Vital Signs Temp Pulse Resp BP Pulse Ox 98 F 80 20 102/61 100 03/07/20 13:51 03/07/20 13:51 03/07/20 13:51 03/07/20 13:51 03/07/20 13:51 GENERAL: Awake, alert, and fully oriented, in no acute distress. HEAD: Normal with no signs of trauma. EYES: Pupils equal, round and reactive to light, sclera anicteric, conjunctiva clear. LUNGS: Breath sounds equal, clear to auscultation bilaterally. No wheezes, and no crackles. No accessory muscle use. HEART: Regular rate and rhythm, normal S1 and S2 ABDOMEN: Soft, nontender, not distended MUSCULOSKELETAL: Normal range of motion at all joints. No bony deformities or tenderness. No CVA tenderness. UPPER EXTREMITIES: 2+ pulses, warm, well-perfused. No cyanosis. No clubbing. No peripheral edema. LOWER EXTREMITIES: 2+ pulses, warm, well-perfused. No calf tenderness. No peripheral edema. NEUROLOGICAL: Cranial nerves II-XII intact. Normal speech. CBC, BMP 03/07/20 08:26 03/07/20 06:10 ASSESSMENT AND PLAN: 74 F Rectal bleed w/ LGIB HTN HLD CHFE CAP PNA Afib on Eliquis (stopped) cirrhosis, / ascites, Plan: Hold all AC IV hydration, hemodynamically stable. anemia stable. stool ob pos but no active bleeding, h/o cirrhisis started on diuretics , and is tolerating well. GI FU, usg shows cirrhosis and ascitic fluid, Cont. Ceftriaxone/Azithromycin for CAP DVT ppx: SCD GI following Pulmonary/ICU following Cardiology evaluation ID following
--- NOTE | 2020-03-07 12:52 | PN ---
Progress Note, Physician - Current Medication List Current Medications: Active Medications Digoxin (Lanoxin -) 0.125 mg PO DAILY [facility] Last Admin: 03/07/20 10:11 Dose: 0.125 mg Documented by: Furosemide (Lasix Injection -) 40 mg IVPUSH BID@0600,1400 [facility] Last Admin: 03/07/20 06:35 Dose: 40 mg Documented by: Azithromycin 250 mg/ Dextrose 250 mls @ 250 mls/hr IVPB DAILY [facility] Last Admin: 03/07/20 11:10 Dose: 250 mls/hr Documented by: Ceftriaxone Sodium 1 gm/ (Dextrose) 50 mls @ 100 mls/hr IVPB DAILY [facility] Last Admin: 03/07/20 10:12 Dose: 100 mls/hr Documented by: Pantoprazole Sodium (Protonix Iv) 40 mg IVPUSH DAILY [facility] Last Admin: 03/07/20 10:12 Dose: 40 mg Documented by: - Objective Vital Signs: Vital Signs Temperature 97.8 F 03/07/20 10:07 Pulse Rate 78 03/07/20 10:11 Respiratory Rate 20 03/07/20 10:07 Blood Pressure 88/52 L 03/07/20 10:07 O2 Sat by Pulse Oximetry (%) 100 03/07/20 10:07 Labs: CBC, BMP 03/07/20 08:26 03/07/20 06:10 INR, PTT INR 1.63 (0.83-1.09) H 03/05/20 14:18
--- NOTE | 2020-03-07 14:02 | PN.GI ---
GI Progress Note Subjective: GI NOte (covering Dr Jacome): Diarrhea persists but is hungry. Sonogram reveals ascites and suggest cirrhosis. This is supported by the thrombocytopenia and hypoalbuminemia. She may have an edematous bowel wall causing diarrhea. - Objective Vital Signs: Vital Signs Temperature 98 F 03/07/20 13:51 Pulse Rate 80 03/07/20 13:51 Respiratory Rate 20 03/07/20 13:51 Blood Pressure 102/61 03/07/20 13:51 O2 Sat by Pulse Oximetry (%) 100 03/07/20 13:51 Laboratory Tests 03/06/20 03/06/20 03/07/20 04:55 05:30 06:10 Iron Saturation 42 H Ferritin 8.6 Total Bilirubin 0.5 AST 14 L ALT 15 Alkaline Phosphatase 57 Albumin 1.7 L Carcinoembryonic Ag 3.2 Constitutional: Anxious ...Auscultate: Yes: Hypoactive Bowel Sounds ...Palpate: Yes: Soft, Other (nontender) Edema: Yes Edema: LUE: 3+, RUE: 3+, LLE: 1+, RLE: 1+ Labs: CBC, BMP 03/07/20 08:26 03/07/20 06:10 INR, PTT INR 1.63 (0.83-1.09) H 03/05/20 14:18 Assessment/Plan Impression: - I suspect that the diarrhea may reflect malabsorption due to bowel wall edema due to right heart failure and cirrhosis but need to exclude an infectious etiology including C diff. - Need to confirm cirrhosis, determine etiology and exclude hepatoma Plan: -- Stool for WBCs, stool cultures -- Will advance diet -- Diuresis -- Liver evaluation including AFP Dr Banks will be covering this weekend. Dr Jacome will return 03/10 Problem List - Problems (1) Diarrhea Code(s): R19.7 - DIARRHEA, UNSPECIFIED (2) Cirrhosis of liver with ascites Code(s): K74.60 - UNSPECIFIED CIRRHOSIS OF LIVER; R18.8 - OTHER ASCITES (3) Microcytic anemia Code(s): D50.9 - IRON DEFICIENCY ANEMIA, UNSPECIFIED (4) Thrombocytopenia Code(s): D69.6 - THROMBOCYTOPENIA, UNSPECIFIED (5) CHF (congestive heart failure) Code(s): I50.9 - HEART FAILURE, UNSPECIFIED Qualifiers: Heart failure type: diastolic Heart failure chronicity: acute on chronic Qualified Code(s): I50.33 - Acute on chronic diastolic (congestive) heart failure (6) COPD (chronic obstructive pulmonary disease) Code(s): J44.9 - CHRONIC OBSTRUCTIVE PULMONARY DISEASE, UNSPECIFIED Qualifiers: COPD type: unspecified COPD Qualified Code(s): J44.9 - Chronic obstructive pulmonary disease, unspecified (7) Chronic anticoagulation Code(s): Z79.01 - MOTORBOAT MECHANIC INBOARD (CURRENT) USE OF ANTICOAGULANTS (8) Cor pulmonale, chronic Code(s): I27.81 - COR PULMONALE (CHRONIC) (9) Pacemaker Code(s): Z95.0 - PRESENCE OF CARDIAC PACEMAKER (10) A-fib Code(s): I48.91 - UNSPECIFIED ATRIAL FIBRILLATION Qualifiers: Atrial fibrillation type: unspecified persistent
--- NOTE | 2020-03-07 15:07 | PN ---
Progress Note, Physician History of Present Illness: Pt seen and examined at bedside. She is awake and appears comfortable. She feels edema is improving. - Current Medication List Current Medications: Active Medications Digoxin (Lanoxin -) 0.125 mg PO DAILY [facility] Last Admin: 03/07/20 10:11 Dose: 0.125 mg Documented by: Furosemide (Lasix Injection -) 40 mg IVPUSH BID@0600,1400 [facility] Last Admin: 03/07/20 13:53 Dose: 40 mg Documented by: Azithromycin 250 mg/ Dextrose 250 mls @ 250 mls/hr IVPB DAILY [facility] Last Admin: 03/07/20 11:10 Dose: 250 mls/hr Documented by: Ceftriaxone Sodium 1 gm/ (Dextrose) 50 mls @ 100 mls/hr IVPB DAILY [facility] Last Admin: 03/07/20 10:12 Dose: 100 mls/hr Documented by: Pantoprazole Sodium (Protonix Iv) 40 mg IVPUSH DAILY [facility] Last Admin: 03/07/20 10:12 Dose: 40 mg Documented by: Spironolactone (Aldactone -) 25 mg PO BID [facility] - Objective Vital Signs: Vital Signs Temperature 98 F 03/07/20 13:51 Pulse Rate 80 03/07/20 13:51 Respiratory Rate 20 03/07/20 13:51 Blood Pressure 102/61 03/07/20 13:51 O2 Sat by Pulse Oximetry (%) 100 03/07/20 13:51 Constitutional: Yes: Calm Eyes: Yes: Conjunctiva Clear HENT: Yes: Atraumatic Neck: Yes: Supple Cardiovascular: Yes: S1, S2 Respiratory: Yes: On Nasal O2 Gastrointestinal: Yes: Soft Genitourinary: Yes: Incontinence Musculoskeletal: Yes: Muscle Weakness Edema: Yes Edema: LUE: 1+, RUE: 1+, LLE: 2+, RLE: 2+ Neurological: Yes: Confusion Labs: CBC, BMP 03/07/20 08:26 03/07/20 06:10 INR, PTT INR 1.63 (0.83-1.09) H 03/05/20 14:18 Problem List - Problems (1) PATRICK (acute kidney injury) Code(s): N17.9 - ACUTE KIDNEY FAILURE, UNSPECIFIED (2) Anemia Code(s): D64.9 - ANEMIA, UNSPECIFIED Qualifiers: Anemia type: unspecified type Qualified Code(s): D64.9 - Anemia, unspecified (3) CHF exacerbation Code(s): I50.9 - HEART FAILURE, UNSPECIFIED Qualifiers: Heart failure type: unspecified Qualified Code(s): I50.9 - Heart failure, unspecified (4) COPD (chronic obstructive pulmonary disease) Code(s): J44.9 - CHRONIC OBSTRUCTIVE PULMONARY DISEASE, UNSPECIFIED Qualifiers: COPD type: unspecified COPD Qualified Code(s): J44.9 - Chronic obstructive pulmonary disease, unspecified (5) A-fib Code(s): I48.91 - UNSPECIFIED ATRIAL FIBRILLATION Qualifiers: Atrial fibrillation type: unspecified persistent Assessment/Plan Current Medications Generic Name Dose Route Start Last Admin Trade Name Freq PRN Reason Stop Dose Admin Digoxin 0.125 mg 03/06/20 10:00 03/07/20 10:11 Lanoxin - PO 0.125 mg DAILY JACIEL Administration Furosemide 40 mg 03/06/20 14:00 03/07/20 13:53 Lasix Injection - IVPUSH 40 mg BID@0600,1400 JACIEL Administration Azithromycin 250 mg/ Dextrose 250 mls @ 250 mls/hr 03/06/20 10:00 03/07/20 11:10 IVPB 250 mls/hr DAILY J[facility] Administration Ceftriaxone Sodium 1 gm/ 50 mls @ 100 mls/hr 03/05/20 23:05 03/07/20 10:12 Dextrose IVPB 100 mls/hr DAILY JACIEL Administration Pantoprazole Sodium 40 mg 03/07/20 10:00 03/07/20 10:12 Protonix Iv IVPUSH 40 mg DAILY JAC[facility]EL Administration Spironolactone 25 mg 03/07/20 22:00 Aldactone - PO BID JACIEL Impression 1. PATRICK 2. anemia 3. chf 4. copd 5. a-fib 6. gastric cancer 7. gi bleed 8. volume overload 9. pleural effusion Plan - cont diuretics - renal function improving - patrick likely in part cardiorenal - sodium is rising, encourage free water intake - discussed case with her son - avoid nsaids - avoid nephrotoxins - GI bleed workup in progress - oncology eval Dr Donis
[2020-03-07] MEDS ORDERED: MORPHINE SULFATE 2 MG/ML VIAL IVPUSH ONE (15:51)
[2020-03-07] MEDS: SPIRONOLACTONE 25 MG TABLET PO SCH (22:14)
[2020-03-08] MEDS: FUROSEMIDE 40 MG/4 ML INJECTABLE VIAL IVPUSH SCH ×2 (06:24→14:18)
[2020-03-08] MEDS ORDERED: cefTRIAXone SODIUM 1 GM VIAL ONE (09:00)
[2020-03-08] MEDS ORDERED: DEXTROSE 5%-WATER - 50 ML IVPB ONE (09:00)
[2020-03-08] MEDS: DIGOXIN 0.125 MG TABLET (FP) PO SCH (10:11)
[2020-03-08] MEDS: AZITHROMYCIN IVPB 250 MG in DEXTROSE 5%-WATER - 250 ML IVPB SCH (10:11)
[2020-03-08] MEDS: SPIRONOLACTONE 25 MG TABLET PO SCH ×2 (10:11→21:36)
[2020-03-08] MEDS: CEFTRIAXONE 1 GM in DEXTROSE 5%-WATER - 50 ML IVPB SCH (10:11)
[2020-03-08] MEDS: ACETAMINOPHEN 325 MG TABLET (FP) PO PRN ×2 (10:12→21:33)
[2020-03-08] MEDS: PANTOPRAZOLE SODIUM 40 MG VIAL IVPUSH SCH (10:12)
[2020-03-08 12:23] LABS: BASO % 0.4 % (0-2.0); HEMATOCRIT 26.1 % (32.4-45.2); LYMPH % 9.9 % (8-40); MCH 24.5 pg (25.7-33.7); MCHC 30.7 g/dl (32.0-36.0); MEAN CELL VOLUME 79.9 fl (80-96); MEAN PLT VOLUME 8.5 fl (7.5-11.1); MONO % 7.3 % (3.8-10.2); NEUT % 81.4 % (42.8-82.8); PLATELET COUNT 98 K/MM3 (134-434); RBC 3.27 M/mm3 (3.60-5.2); RDW 19.7 % (11.6-15.6); WHITE BLOOD COUNT 4.2 K/mm3 (4.0-10.0)
[2020-03-08 12:57] LABS: ALBUMIN 1.5 g/dl (3.4-5.0); BILIRUBIN,TOTAL 0.3 mg/dL (0.2-1); BLOOD UREA NITROGEN 31.6 mg/dL (7-18); CALCIUM 7.6 mg/dL (8.5-10.1); CREATININE 1.3 mg/dL (0.55-1.3); POTASSIUM 3.5 mmol/L (3.5-5.1); TOT PROT 4.6 g/dl (6.4-8.2)
--- NOTE | 2020-03-08 13:43 | PN ---
Progress Note (short form) - Note Progress Note: Mildly tachypneic on 4 L NC O2. No acute events overnight. Intake & Output 03/05/20 03/06/20 03/07/20 03/08/20 23:59 23:59 23:59 23:59 Intake Total 500 730 250 120 Output Total 600 700 Balance 500 730 -350 -580 Weight 137 lb 151 lb Last Vital Signs Temp Pulse Resp BP Pulse Ox 98.1 F 79 20 150/63 92 L 03/08/20 09:00 03/08/20 10:11 03/08/20 09:00 03/08/20 09:00 03/08/20 09:00 Active Medications Acetaminophen (Tylenol -) 650 mg PO Q6H PRN PRN Reason: PAIN LEVEL 6-10 Last Admin: 03/08/20 10:12 Dose: 650 mg Documented by: Digoxin (Lanoxin -) 0.125 mg PO DAILY [facility] Last Admin: 03/08/20 10:11 Dose: 0.125 mg Documented by: Furosemide (Lasix Injection -) 40 mg IVPUSH BID@0600,1400 [facility] Last Admin: 03/08/20 06:24 Dose: 40 mg Documented by: Azithromycin 250 mg/ Dextrose 250 mls @ 250 mls/hr IVPB DAILY [facility] Last Admin: 03/08/20 10:11 Dose: 250 mls/hr Documented by: Ceftriaxone Sodium 1 gm/ (Dextrose) 50 mls @ 100 mls/hr IVPB DAILY [facility] Last Admin: 03/08/20 10:11 Dose: 100 mls/hr Documented by: Pantoprazole Sodium (Protonix Iv) 40 mg IVPUSH DAILY [facility] Last Admin: 03/08/20 10:12 Dose: 40 mg Documented by: Spironolactone (Aldactone -) 25 mg PO BID [facility] Last Admin: 03/08/20 10:11 Dose: 25 mg Documented by: Constitutional: Yes: mildly tachypneic at rest Eyes: Yes: WNL HENT: Yes: WNL Neck: Yes: WNL Cardiovascular: Yes: Pulse Irregular, S1, S2 Respiratory: Yes: Rales (BIBASILAR CRACKLES) Gastrointestinal: Yes: Normal Bowel Sounds, Soft Extremities: Yes: WNL Edema: Yes Labs: Laboratory Results - last 24 hr 03/06/20 03/07/20 03/08/20 04:55 18:00 11:50 WBC Cancelled Corrected WBC (auto) Cancelled RBC Cancelled Hgb Cancelled Hct Cancelled MCV Cancelled MCH Cancelled MCHC Cancelled RDW Cancelled Plt Count Cancelled MPV Cancelled Absolute Neuts (auto) Cancelled Neutrophils % Cancelled Lymphocytes % Cancelled Monocytes % Cancelled Eosinophils % Cancelled Basophils % Cancelled Nucleated RBC % Cancelled Platelet Estimate Cancelled Platelet Comment Cancelled Fibrinogen 252.0 Sodium Potassium Chloride Carbon Dioxide Anion Gap BUN Creatinine Est GFR (CKD-EPI)AfAm Est GFR (CKD-EPI)NonAf Random Glucose Calcium Total Bilirubin AST ALT Alkaline Phosphatase Ammonia Total Protein Albumin CA 19-9 Antigen 25 03/08/20 03/08/20 03/08/20 11:50 11:50 11:50 WBC 4.2 Corrected WBC (auto) RBC 3.27 L Hgb 8.0 L Hct 26.1 L MCV 79.9 L MCH 24.5 L MCHC 30.7 L RDW 19.7 H Plt Count 98 L MPV 8.5 Absolute Neuts (auto) 3.4 Neutrophils % 81.4 Lymphocytes % 9.9 Monocytes % 7.3 Eosinophils % 1.0 Basophils % 0.4 Nucleated RBC % 0 Platelet Estimate Platelet Comment Fibrinogen Sodium 147 H Potassium 3.5 Chloride 108 H Carbon Dioxide 35 H Anion Gap 4 L BUN 31.6 H Creatinine 1.3 Est GFR (CKD-EPI)AfAm 47.13 Est GFR (CKD-EPI)NonAf 40.67 Random Glucose 151 H Calcium 7.6 L Total Bilirubin 0.3 AST 11 L ALT 11 L Alkaline Phosphatase 55 Ammonia 28.70 Total Protein 4.6 L Albumin 1.5 L CA 19-9 Antigen Problem List - Problems (1) Chronic respiratory failure Code(s): J96.10 - CHRONIC RESPIRATORY FAILURE, UNSP W HYPOXIA OR HYPERCAPNIA (2) PATRICK (acute kidney injury) Code(s): N17.9 - ACUTE KIDNEY FAILURE, UNSPECIFIED (3) Anemia Code(s): D64.9 - ANEMIA, UNSPECIFIED Qualifiers: Anemia type: unspecified type Qualified Code(s): D64.9 - Anemia, unspecified (4) CHF exacerbation Code(s): I50.9 - HEART FAILURE, UNSPECIFIED Qualifiers: Heart failure type: unspecified Qualified Code(s): I50.9 - Heart failure, unspecified (5) COPD (chronic obstructive pulmonary disease) Code(s): J44.9 - CHRONIC OBSTRUCTIVE PULMONARY DISEASE, UNSPECIFIED Qualifiers: COPD type: unspecified COPD Qualified Code(s): J44.9 - Chronic obstructive pulmonary disease, unspecified (6) Chronic anticoagulation Code(s): Z79.01 - DETENTION (CURRENT) USE OF ANTICOAGULANTS (7) Cor pulmonale, chronic Code(s): I27.81 - COR PULMONALE (CHRONIC) (8) A-fib Code(s): I48.91 - UNSPECIFIED ATRIAL FIBRILLATION Qualifiers: Atrial fibrillation type: unspecified persistent Qualified Code(s): I48.19 - Other persistent atrial fibrillation; I48.1 - Persistent atrial fibrillation Assessment/Plan Acute on Chronic Diastolic Heart Failure Volume Overload Acute Kidney Injury improving Pulmonary HTN Chronic Hypoxic Respiratory Failure Atrial Fibrillation Severe Anemia COPD - Lasix - monitor urine output, creatinine - daily weights - ABX Per ID - rate control - monitor H/H - DVT prophylaxis Dr Acosta
--- NOTE | 2020-03-08 17:00 | PN ---
Progress Note, Physician History of Present Illness: Pt is alert, responsive. Son at bedside. Pt states she is feeling less SOB. 92% O2 sat on 4L NC without resp distress. Denies abd pain. Remains afebrile. - Current Medication List Current Medications: Active Medications Acetaminophen (Tylenol -) 650 mg PO Q6H PRN PRN Reason: PAIN LEVEL 6-10 Last Admin: 03/08/20 10:12 Dose: 650 mg Documented by: Digoxin (Lanoxin -) 0.125 mg PO DAILY [facility] Last Admin: 03/08/20 10:11 Dose: 0.125 mg Documented by: Furosemide (Lasix Injection -) 40 mg IVPUSH BID@0600,1400 [facility] Last Admin: 03/08/20 14:18 Dose: 40 mg Documented by: Azithromycin 250 mg/ Dextrose 250 mls @ 250 mls/hr IVPB DAILY [facility] Last Admin: 03/08/20 10:11 Dose: 250 mls/hr Documented by: Ceftriaxone Sodium 1 gm/ (Dextrose) 50 mls @ 100 mls/hr IVPB DAILY [facility] Last Admin: 03/08/20 10:11 Dose: 100 mls/hr Documented by: Pantoprazole Sodium (Protonix Iv) 40 mg IVPUSH DAILY [facility] Last Admin: 03/08/20 10:12 Dose: 40 mg Documented by: Spironolactone (Aldactone -) 25 mg PO BID [facility] Last Admin: 03/08/20 10:11 Dose: 25 mg Documented by: - Objective Vital Signs: Vital Signs Temperature 97.5 F L 03/08/20 14:10 Pulse Rate 79 03/08/20 14:10 Respiratory Rate 22 H 03/08/20 14:10 Blood Pressure 115/65 03/08/20 14:10 O2 Sat by Pulse Oximetry (%) 92 L 03/08/20 09:00 Constitutional: Yes: No Distress, Calm Eyes: Yes: Conjunctiva Clear Cardiovascular: Yes: Regular Rate and Rhythm Respiratory: Yes: Diminished (bases), On Nasal O2 Gastrointestinal: Yes: Normal Bowel Sounds, Soft Genitourinary: Yes: WNL Neurological: Yes: Alert Labs: CBC, BMP 03/08/20 11:50 03/08/20 11:50 INR, PTT INR 1.63 (0.83-1.09) H 03/05/20 14:18 Fibrinogen 252.0 mg/dL (238-498) 03/08/20 11:50 Microbiology 03/05/20 13:40 Blood - Peripheral Venous Blood Culture - Preliminary NO GROWTH OBTAINED AFTER 72 HOURS, INCUBATION TO CONTINUE FOR 2 DAYS. 03/07/20 21:00 Stool Gram Stain - Final 03/05/20 13:40 Blood - Peripheral Venous Blood Culture - Preliminary Pending Organism 03/07/20 21:00 Stool Clostridioides difficile Antigen - Final 03/07/20 21:00 Stool Clostridioides difficile Toxin Assay - Final 03/05/20 19:50 Urine - Urine Clean Catch Urine Culture - Final NO GROWTH OBTAINED - ....Imaging Ultrasound: Report Reviewed Problem List - Problems (1) PATRICK (acute kidney injury) Code(s): N17.9 - ACUTE KIDNEY FAILURE, UNSPECIFIED (2) Anemia Code(s): D64.9 - ANEMIA, UNSPECIFIED Qualifiers: Anemia type: unspecified type Qualified Code(s): D64.9 - Anemia, unspecified (3) CHF exacerbation Code(s): I50.9 - HEART FAILURE, UNSPECIFIED Qualifiers: Heart failure type: unspecified Qualified Code(s): I50.9 - Heart failure, unspecified (4) Chronic respiratory failure Code(s): J96.10 - CHRONIC RESPIRATORY FAILURE, UNSP W HYPOXIA OR HYPERCAPNIA (5) Diarrhea Code(s): R19.7 - DIARRHEA, UNSPECIFIED (6) COPD (chronic obstructive pulmonary disease) Code(s): J44.9 - CHRONIC OBSTRUCTIVE PULMONARY DISEASE, UNSPECIFIED Qualifiers: COPD type: unspecified COPD Qualified Code(s): J44.9 - Chronic obstructive pulmonary disease, unspecified (7) Pacemaker Code(s): Z95.0 - PRESENCE OF CARDIAC PACEMAKER (8) A-fib Code(s): I48.91 - UNSPECIFIED ATRIAL FIBRILLATION Qualifiers: Atrial fibrillation type: unspecified persistent Assessment/Plan Acute on chronic resp failure Acute CHF exacerbation PATRICK COPD AFIB Diarrhea/?GI bleed Anemia -- currently 92% O2 sat on 4L NC, afebrile -- d/c antibiotics , monitor closely -- Blood culture GPC after 72 hrs - possibly contaminated, will repeat -- awaiting stool culture results, hepatitis panel -- Pulmonary / GI following
--- NOTE | 2020-03-08 17:10 | PN ---
Progress Note, Physician History of Present Illness: Pt seen and examined at bedside. She feels that her breathing is improving. - Current Medication List Current Medications: Active Medications Acetaminophen (Tylenol -) 650 mg PO Q6H PRN PRN Reason: PAIN LEVEL 6-10 Last Admin: 03/08/20 10:12 Dose: 650 mg Documented by: Digoxin (Lanoxin -) 0.125 mg PO DAILY [facility] Last Admin: 03/08/20 10:11 Dose: 0.125 mg Documented by: Furosemide (Lasix Injection -) 40 mg IVPUSH BID@0600,1400 [facility] Last Admin: 03/08/20 14:18 Dose: 40 mg Documented by: Pantoprazole Sodium (Protonix Iv) 40 mg IVPUSH DAILY [facility] Last Admin: 03/08/20 10:12 Dose: 40 mg Documented by: Spironolactone (Aldactone -) 25 mg PO BID [facility] Last Admin: 03/08/20 10:11 Dose: 25 mg Documented by: - Objective Vital Signs: Vital Signs Temperature 97.5 F L 03/08/20 14:10 Pulse Rate 79 03/08/20 14:10 Respiratory Rate 22 H 03/08/20 14:10 Blood Pressure 115/65 03/08/20 14:10 O2 Sat by Pulse Oximetry (%) 92 L 03/08/20 09:00 Constitutional: Yes: Calm Eyes: Yes: Conjunctiva Clear HENT: Yes: Atraumatic Neck: Yes: Supple Cardiovascular: Yes: S1, S2 Respiratory: Yes: CTA Bilaterally, On Nasal O2 Gastrointestinal: Yes: Normal Bowel Sounds, Soft Genitourinary: Yes: Dee Present Musculoskeletal: Yes: Muscle Weakness Edema: Yes Edema: LUE: 1+, RUE: 1+, LLE: 2+, RLE: 2+ Neurological: Yes: Oriented Psychiatric: Yes: Oriented Labs: CBC, BMP 03/08/20 11:50 03/08/20 11:50 INR, PTT INR 1.63 (0.83-1.09) H 03/05/20 14:18 Fibrinogen 252.0 mg/dL (238-498) 03/08/20 11:50 Problem List - Problems (1) PATRICK (acute kidney injury) Code(s): N17.9 - ACUTE KIDNEY FAILURE, UNSPECIFIED (2) Anemia Code(s): D64.9 - ANEMIA, UNSPECIFIED Qualifiers: Anemia type: unspecified type Qualified Code(s): D64.9 - Anemia, unspecified (3) CHF exacerbation Code(s): I50.9 - HEART FAILURE, UNSPECIFIED Qualifiers: Heart failure type: unspecified Qualified Code(s): I50.9 - Heart failure, unspecified (4) COPD (chronic obstructive pulmonary disease) Code(s): J44.9 - CHRONIC OBSTRUCTIVE PULMONARY DISEASE, UNSPECIFIED Qualifiers: COPD type: unspecified COPD Qualified Code(s): J44.9 - Chronic obstructive pulmonary disease, unspecified (5) A-fib Code(s): I48.91 - UNSPECIFIED ATRIAL FIBRILLATION Qualifiers: Atrial fibrillation type: unspecified persistent Assessment/Plan Current Medications Generic Name Dose Route Start Last Admin Trade Name Freq PRN Reason Stop Dose Admin Acetaminophen 650 mg 03/08/20 09:37 03/08/20 10:12 Tylenol - PO 650 mg Q6H PRN Administration PAIN LEVEL 6-10 Digoxin 0.125 mg 03/06/20 10:00 03/08/20 10:11 Lanoxin - PO 0.125 mg DAILY JACIEL Administration Furosemide 40 mg 03/06/20 14:00 03/08/20 14:18 Lasix Injection - IVPUSH 40 mg BID@0600,1400 JACIEL Administration Pantoprazole Sodium 40 mg 03/07/20 10:00 03/08/20 10:12 Protonix Iv IVPUSH 40 mg DAILY [facility]EL Administration Spironolactone 25 mg 03/07/20 22:00 03/08/20 10:11 Aldactone - PO 25 mg BID JACIEL Administration Impression 1. PATRICK 2. anemia 3. chf 4. copd 5. a-fib 6. gastric cancer 7. gi bleed 8. volume overload 9. pleural effusion Plan - renal function improving - cont diuretics - monitor lytes - monitor hg - encourage po intake - GI bleed workup in progress - oncology eval Dr Donis
[2020-03-08 19:41] LABS: BASO % 0.3 % (0-2.0); EOS % 1.2 % (0-4.5); HEMATOCRIT 26.8 % (32.4-45.2); HEMOGLOBIN 8.4 GM/dL (10.7-15.3); LYMPH % 10.4 % (8-40); MCH 24.9 pg (25.7-33.7); MCHC 31.5 g/dl (32.0-36.0); MEAN PLT VOLUME 8.3 fl (7.5-11.1); MONO % 7.6 % (3.8-10.2); NEUT % 80.5 % (42.8-82.8); PLATELET COUNT 98 K/MM3 (134-434); RBC 3.38 M/mm3 (3.60-5.2); RDW 19.9 % (11.6-15.6); WHITE BLOOD COUNT 5.2 K/mm3 (4.0-10.0)
[2020-03-09] MEDS: FUROSEMIDE 40 MG/4 ML INJECTABLE VIAL IVPUSH SCH (05:17)
[2020-03-09] MEDS: ACETAMINOPHEN 325 MG TABLET (FP) PO PRN ×3 (05:18→23:01)
[2020-03-09] MEDS: PANTOPRAZOLE SODIUM 40 MG VIAL IVPUSH SCH (09:35)
[2020-03-09] MEDS: DIGOXIN 0.125 MG TABLET (FP) PO SCH (09:35)
[2020-03-09] MEDS: SPIRONOLACTONE 25 MG TABLET PO SCH ×2 (09:35→21:24)
[2020-03-09 11:53] LABS: BASO % 0.4 % (0-2.0); HEMATOCRIT 26.3 % (32.4-45.2); HEMOGLOBIN 8.1 GM/dL (10.7-15.3); LYMPH % 11.9 % (8-40); MCH 24.6 pg (25.7-33.7); MCHC 30.8 g/dl (32.0-36.0); MEAN CELL VOLUME 79.8 fl (80-96); MEAN PLT VOLUME 8.4 fl (7.5-11.1); MONO % 6.8 % (3.8-10.2); NEUT % 79.9 % (42.8-82.8); PLATELET COUNT 93 K/MM3 (134-434); RBC 3.29 M/mm3 (3.60-5.2); RDW 19.7 % (11.6-15.6); WHITE BLOOD COUNT 4.8 K/mm3 (4.0-10.0)
--- NOTE | 2020-03-09 12:19 | PN ---
Progress Note, Physician History of Present Illness: Pt seen and examined at bedside. She is awake and appears comfortable. She denies shortness of breath at rest. - Current Medication List Current Medications: Active Medications Acetaminophen (Tylenol -) 650 mg PO Q6H PRN PRN Reason: PAIN LEVEL 6-10 Last Admin: 03/09/20 11:25 Dose: 650 mg Documented by: Digoxin (Lanoxin -) 0.125 mg PO DAILY [facility] Last Admin: 03/09/20 09:35 Dose: 0.125 mg Documented by: Furosemide (Lasix Injection -) 40 mg IVPUSH BID@0600,1400 [facility] Last Admin: 03/09/20 05:17 Dose: 40 mg Documented by: Pantoprazole Sodium (Protonix Iv) 40 mg IVPUSH DAILY [facility] Last Admin: 03/09/20 09:35 Dose: 40 mg Documented by: Spironolactone (Aldactone -) 25 mg PO BID [facility] Last Admin: 03/09/20 09:35 Dose: 25 mg Documented by: - Objective Vital Signs: Vital Signs Temperature 98.1 F 03/09/20 09:00 Pulse Rate 93 H 03/09/20 09:35 Respiratory Rate 26 H 03/09/20 09:00 Blood Pressure 95/58 L 03/09/20 09:00 O2 Sat by Pulse Oximetry (%) 98 03/09/20 09:00 Constitutional: Yes: Calm Eyes: Yes: Conjunctiva Clear HENT: Yes: Atraumatic Neck: Yes: Supple Cardiovascular: Yes: S1, S2 Respiratory: Yes: CTA Bilaterally Gastrointestinal: Yes: Soft Genitourinary: Yes: Dee Present Edema: Yes Edema: LUE: 1+, RUE: 1+, LLE: Trace, RLE: Trace Neurological: Yes: Confusion Labs: CBC, BMP 03/09/20 11:10 INR, PTT INR 1.63 (0.83-1.09) H 03/05/20 14:18 Fibrinogen 252.0 mg/dL (238-498) 03/08/20 11:50 Problem List - Problems (1) PATRICK (acute kidney injury) Code(s): N17.9 - ACUTE KIDNEY FAILURE, UNSPECIFIED (2) Anemia Code(s): D64.9 - ANEMIA, UNSPECIFIED Qualifiers: Anemia type: unspecified type Qualified Code(s): D64.9 - Anemia, unspecified (3) CHF exacerbation Code(s): I50.9 - HEART FAILURE, UNSPECIFIED Qualifiers: Heart failure type: unspecified Qualified Code(s): I50.9 - Heart failure, unspecified (4) COPD (chronic obstructive pulmonary disease) Code(s): J44.9 - CHRONIC OBSTRUCTIVE PULMONARY DISEASE, UNSPECIFIED Qualifiers: COPD type: unspecified COPD Qualified Code(s): J44.9 - Chronic obstructive pulmonary disease, unspecified (5) A-fib Code(s): I48.91 - UNSPECIFIED ATRIAL FIBRILLATION Qualifiers: Atrial fibrillation type: unspecified persistent Assessment/Plan Current Medications Generic Name Dose Route Start Last Admin Trade Name Freq PRN Reason Stop Dose Admin Acetaminophen 650 mg 03/08/20 09:37 03/09/20 11:25 Tylenol - PO 650 mg Q6H PRN Administration PAIN LEVEL 6-10 Digoxin 0.125 mg 03/06/20 10:00 03/09/20 09:35 Lanoxin - PO 0.125 mg DAILY [facility] Administration Furosemide 40 mg 03/06/20 14:00 03/09/20 05:17 Lasix Injection - IVPUSH 40 mg BID@0600,1400 J[facility]EL Administration Pantoprazole Sodium 40 mg 03/07/20 10:00 03/09/20 09:35 Protonix Iv IVPUSH 40 mg DAILY [facility] Administration Spironolactone 25 mg 03/07/20 22:00 03/09/20 09:35 Aldactone - PO 25 mg BID JACIEL Administration Impression 1. PATRICK 2. anemia 3. chf 4. copd 5. a-fib 6. gastric cancer 7. gi bleed 8. volume overload 9. pleural effusion Plan - follow bmp - cont lasix - volume status improving - monitor lytes - monitor hg - encourage po intake - oncology eval Dr Donis
--- NOTE | 2020-03-09 12:21 | PN ---
Progress Note, Physician Chief Complaint: Shortness of breath and leg swelling History of Present Illness: 74 year old with a pmhx of right sided CHF and pulmonary htn, afib s/p ppm on apixaban, copd on home O2, and gastric CA s/p resection brought from home due to hypotension and sob. SBP 60 at home. +blood in stool at home. SOB worsening last few days at home. +orthopnea and edema. No chest pain. Mental status worsening Found to have drop in Hgb to 5.2 PATRICK with Cr 2.3 EKG: atrial paced, inferior and anterolateral ST abnormalities CT chest: bibasilar opacities, pleural effusions, anasarca Trops neg BNP elevated Echocardiogram 02/2019: nl lvef, mod to sev RV dil/hypokinesis, mod to sev TR, mod pulm htn. - Current Medication List Current Medications: Active Medications Acetaminophen (Tylenol -) 650 mg PO Q6H PRN PRN Reason: PAIN LEVEL 6-10 Last Admin: 03/09/20 11:25 Dose: 650 mg Documented by: Digoxin (Lanoxin -) 0.125 mg PO DAILY [facility] Last Admin: 03/09/20 09:35 Dose: 0.125 mg Documented by: Furosemide (Lasix Injection -) 40 mg IVPUSH BID@0600,1400 [facility] Last Admin: 03/09/20 05:17 Dose: 40 mg Documented by: Pantoprazole Sodium (Protonix Iv) 40 mg IVPUSH DAILY [facility] Last Admin: 03/09/20 09:35 Dose: 40 mg Documented by: Spironolactone (Aldactone -) 25 mg PO BID [facility] Last Admin: 03/09/20 09:35 Dose: 25 mg Documented by: - Objective Vital Signs: Vital Signs Temperature 98.1 F 03/09/20 09:00 Pulse Rate 93 H 03/09/20 09:35 Respiratory Rate 26 H 03/09/20 09:00 Blood Pressure 95/58 L 03/09/20 09:00 O2 Sat by Pulse Oximetry (%) 98 03/09/20 09:00 Constitutional: Yes: No Distress, Calm Eyes: Yes: WNL, Conjunctiva Clear HENT: Yes: WNL, Atraumatic Neck: Yes: WNL, Supple, Trachea Midline Cardiovascular: Yes: Regular Rate and Rhythm Respiratory: Yes: Regular, Rales, SOB Gastrointestinal: Yes: WNL, Normal Bowel Sounds, Soft ...Rectal Exam: Yes: Deferred Musculoskeletal: Yes: Back Pain Edema: LLE: Trace, RLE: Trace Peripheral Pulses: Left Femoral: 1+, Right Femoral: 1+ Neurological: Yes: WNL, Alert, Oriented Labs: CBC, BMP 03/09/20 11:10 INR, PTT INR 1.63 (0.83-1.09) H 03/05/20 14:18 Fibrinogen 252.0 mg/dL (238-498) 03/08/20 11:50 Assessment/Plan 74 year old with a pmhx of right sided CHF and pulmonary htn, afib s/p ppm on apixaban, copd on home O2, and gastric CA s/p resection brought from home due to hypotension and sob. SBP 60 at home. +blood in stool at home. SOB worsening last few days at home. +orthopnea and edema. No chest pain. Mental status worsening Found to have drop in Hgb to 5.2 PATRICK with Cr 2.3 EKG: atrial paced, inferior and anterolateral ST abnormalities CT chest: bibasilar opacities, pleural effusions, anasarca Trops neg BNP elevated Echocardiogram 02/2019: nl lvef, mod to sev RV dil/hypokinesis, mod to sev TR, mod pulm htn. The patient's fluid status is improving. The edema is minimal at this point. Symptomatically better. Continue salt and fluid restrictions. Continue diuretics as currently. Watching renal function. Keep potassium well repleted. No important events on telemetry. AV sequential pacing noted. Will follow.
[2020-03-09 12:22] LABS: ALBUMIN 1.5 g/dl (3.4-5.0); BILIRUBIN,TOTAL 0.4 mg/dL (0.2-1); CALCIUM 7.5 mg/dL (8.5-10.1); CREATININE 1.1 mg/dL (0.55-1.3); POTASSIUM 3.8 mmol/L (3.5-5.1); TOT PROT 4.8 g/dl (6.4-8.2)
--- NOTE | 2020-03-09 12:42 | PN ---
Physical Exam: SUBJECTIVE: Patient seen and examined at bedside, poor inspiratory effort OBJECTIVE: HEENT: No Jaundice, eye redness or discharge, PERRLA, EOMI. Normocephalic, atraumatic. External ears are normal and hearing is grossly intact. No nasal discharge. Neck: Supple, nontender. No palpable adenopathy or thyromegaly. No JVD Chest: Good effort. Bibasilar crackles. Clear to percussion. Heart: Regular. No S3, rub or murmur Abdomen: Not distended, tense, nontender and no HSM. No rebound or guarding. Normal bowel sounds. Ext: Anasarca. Peripheral pulses intact. Leg edema. Skin: Warm and dry. No petechiae, rash or ecchymosis. Neuro: Alert. Oriented x3. CN 2-12 grossly intact. Sensation grossly intact in all four extremities and DTR are symmetric. Psych: Appropriate mood and affect. Good insight. Laboratory Results - last 24 hr 03/05/20 03/08/20 03/08/20 13:40 07:20 11:50 WBC RBC Hgb Hct MCV MCH MCHC RDW Plt Count MPV Absolute Neuts (auto) Neutrophils % Lymphocytes % Monocytes % Eosinophils % Basophils % Nucleated RBC % Sodium Potassium Chloride Carbon Dioxide Anion Gap BUN Creatinine Est GFR (CKD-EPI)AfAm Est GFR (CKD-EPI)NonAf Random Glucose Calcium Total Bilirubin AST ALT Alkaline Phosphatase Ammonia 28.70 Total Protein Albumin Hep C Ab Diagnostic <0.1 Blood Type O POSITIVE Antibody Screen Negative Crossmatch See Detail 03/08/20 03/08/20 03/09/20 11:50 19:00 11:10 WBC 5.2 4.8 RBC 3.38 L 3.29 L Hgb 8.4 L 8.1 L Hct 26.8 L 26.3 L MCV 79.0 L 79.8 L MCH 24.9 L 24.6 L MCHC 31.5 L 30.8 L RDW 19.9 H 19.7 H Plt Count 98 L 93 L MPV 8.3 8.4 Absolute Neuts (auto) 4.2 3.9 Neutrophils % 80.5 79.9 Lymphocytes % 10.4 11.9 Monocytes % 7.6 6.8 Eosinophils % 1.2 1.0 Basophils % 0.3 0.4 Nucleated RBC % 0 0 Sodium 147 H Potassium 3.5 Chloride 108 H Carbon Dioxide 35 H Anion Gap 4 L BUN 31.6 H Creatinine 1.3 Est GFR (CKD-EPI)AfAm 47.13 Est GFR (CKD-EPI)NonAf 40.67 Random Glucose 151 H Calcium 7.6 L Total Bilirubin 0.3 AST 11 L ALT 11 L Alkaline Phosphatase 55 Ammonia Total Protein 4.6 L Albumin 1.5 L Hep C Ab Diagnostic Blood Type Antibody Screen Crossmatch 03/09/20 11:10 WBC RBC Hgb Hct MCV MCH MCHC RDW Plt Count MPV Absolute Neuts (auto) Neutrophils % Lymphocytes % Monocytes % Eosinophils % Basophils % Nucleated RBC % Sodium 147 H Potassium 3.8 Chloride 108 H Carbon Dioxide 36 H Anion Gap 4 L BUN 24.0 H Creatinine 1.1 Est GFR (CKD-EPI)AfAm 57.68 Est GFR (CKD-EPI)NonAf 49.77 Random Glucose 146 H Calcium 7.5 L Total Bilirubin 0.4 AST 14 L ALT 12 L Alkaline Phosphatase 55 Ammonia Total Protein 4.8 L Albumin 1.5 L Hep C Ab Diagnostic Blood Type Antibody Screen Crossmatch Active Medications Generic Name Dose Route Start Last Admin Trade Name Freq PRN Reason Stop Dose Admin Acetaminophen 650 mg 03/08/20 09:37 03/09/20 11:25 Tylenol - PO 650 mg Q6H PRN Administration PAIN LEVEL 6-10 Digoxin 0.125 mg 03/06/20 10:00 03/09/20 09:35 Lanoxin - PO 0.125 mg DAILY JACIEL Administration Furosemide 40 mg 03/06/20 14:00 03/09/20 05:17 Lasix Injection - IVPUSH 40 mg BID@0600,1400 JAC[facility]EL Administration Pantoprazole Sodium 40 mg 03/07/20 10:00 03/09/20 09:35 Protonix Iv IVPUSH 40 mg DAILY J[facility] Administration Spironolactone 25 mg 03/07/20 22:00 03/09/20 09:35 Aldactone - PO 25 mg BID JACIEL Administration ASSESSMENT/PLAN: 74 F Rectal bleed w/ LGIB Acute hypoxic and hypercapneic respiratory failure HTN HLD CHFE CAP PNA Afib on Eliquis (stopped) Plan: Cont. to hold AC in view of LGIB Diuresis of volume overload pRBC to keep hgb >8.0 (due to CHF history) Completed abx course COVID negative DVT ppx: SCD GI following Pulmonary/ICU following Cardiology evaluation ID following Visit type - Emergency Visit Emergency Visit: Yes ED Registration Date: 03/05/20 Care time: The patient presented to the Emergency Department on the above date and was hospitalized for further evaluation of their emergent condition. - New Patient This patient is new to me today: No - Critical Care Critical Care patient: No - Discharge Referral Referred to [facility] Med P.C.: No - Medication Review Med list reviewed for High Risk Meds patients 65 and older: Yes
[2020-03-09] MEDS: FUROSEMIDE 40 MG TABLET (FP) PO SCH (13:11)
--- NOTE | 2020-03-09 13:28 | PN ---
Progress Note (short form) - Note Progress Note: Mildly tachypneic on 4 L NC O2. No acute events overnight. Intake & Output 03/06/20 03/07/20 03/08/20 03/09/20 23:59 23:59 23:59 23:59 Intake Total 978 803 7219 240 Output Total 600 2500 1000 Balance 730 -350 -1380 -760 Weight 151 lb 151 lb 3.2 oz Last Vital Signs Temp Pulse Resp BP Pulse Ox 98.1 F 93 H 26 H 95/58 L 98 03/09/20 09:00 03/09/20 09:35 03/09/20 09:00 03/09/20 09:00 03/09/20 09:00 Active Medications Acetaminophen (Tylenol -) 650 mg PO Q6H PRN PRN Reason: PAIN LEVEL 6-10 Last Admin: 03/09/20 11:25 Dose: 650 mg Documented by: Digoxin (Lanoxin -) 0.125 mg PO DAILY [facility] Last Admin: 03/09/20 09:35 Dose: 0.125 mg Documented by: Furosemide (Lasix -) 40 mg PO BID@0600,1400 [facility] Last Admin: 03/09/20 13:11 Dose: 40 mg Documented by: Pantoprazole Sodium (Protonix Iv) 40 mg IVPUSH DAILY [facility] Last Admin: 03/09/20 09:35 Dose: 40 mg Documented by: Spironolactone (Aldactone -) 25 mg PO BID [facility] Last Admin: 03/09/20 09:35 Dose: 25 mg Documented by: Constitutional: Yes: mildly tachypneic at rest Eyes: Yes: WNL HENT: Yes: WNL Neck: Yes: WNL Cardiovascular: Yes: Pulse Irregular, S1, S2 Respiratory: Yes: Rales (BIBASILAR CRACKLES) Gastrointestinal: Yes: Normal Bowel Sounds, Soft Extremities: Yes: WNL Edema: Yes Labs: Laboratory Results - last 24 hr 03/05/20 03/08/20 03/08/20 13:40 07:20 19:00 WBC 5.2 RBC 3.38 L Hgb 8.4 L Hct 26.8 L MCV 79.0 L MCH 24.9 L MCHC 31.5 L RDW 19.9 H Plt Count 98 L MPV 8.3 Absolute Neuts (auto) 4.2 Neutrophils % 80.5 Lymphocytes % 10.4 Monocytes % 7.6 Eosinophils % 1.2 Basophils % 0.3 Nucleated RBC % 0 Sodium Potassium Chloride Carbon Dioxide Anion Gap BUN Creatinine Est GFR (CKD-EPI)AfAm Est GFR (CKD-EPI)NonAf Random Glucose Calcium Total Bilirubin AST ALT Alkaline Phosphatase Total Protein Albumin Hep C Ab Diagnostic <0.1 Blood Type O POSITIVE Antibody Screen Negative Crossmatch See Detail 03/09/20 03/09/20 11:10 11:10 WBC 4.8 RBC 3.29 L Hgb 8.1 L Hct 26.3 L MCV 79.8 L MCH 24.6 L MCHC 30.8 L RDW 19.7 H Plt Count 93 L MPV 8.4 Absolute Neuts (auto) 3.9 Neutrophils % 79.9 Lymphocytes % 11.9 Monocytes % 6.8 Eosinophils % 1.0 Basophils % 0.4 Nucleated RBC % 0 Sodium 147 H Potassium 3.8 Chloride 108 H Carbon Dioxide 36 H Anion Gap 4 L BUN 24.0 H Creatinine 1.1 Est GFR (CKD-EPI)AfAm 57.68 Est GFR (CKD-EPI)NonAf 49.77 Random Glucose 146 H Calcium 7.5 L Total Bilirubin 0.4 AST 14 L ALT 12 L Alkaline Phosphatase 55 Total Protein 4.8 L Albumin 1.5 L Hep C Ab Diagnostic Blood Type Antibody Screen Crossmatch Problem List - Problems (1) Chronic respiratory failure Code(s): J96.10 - CHRONIC RESPIRATORY FAILURE, UNSP W HYPOXIA OR HYPERCAPNIA (2) PATRICK (acute kidney injury) Code(s): N17.9 - ACUTE KIDNEY FAILURE, UNSPECIFIED (3) Anemia Code(s): D64.9 - ANEMIA, UNSPECIFIED Qualifiers: Anemia type: unspecified type Qualified Code(s): D64.9 - Anemia, unspecified (4) CHF exacerbation Code(s): I50.9 - HEART FAILURE, UNSPECIFIED Qualifiers: Heart failure type: unspecified Qualified Code(s): I50.9 - Heart failure, unspecified (5) COPD (chronic obstructive pulmonary disease) Code(s): J44.9 - CHRONIC OBSTRUCTIVE PULMONARY DISEASE, UNSPECIFIED Qualifiers: COPD type: unspecified COPD Qualified Code(s): J44.9 - Chronic obstructive pulmonary disease, unspecified (6) Chronic anticoagulation Code(s): Z79.01 - GROUP HOME (CURRENT) USE OF ANTICOAGULANTS (7) Cor pulmonale, chronic Code(s): I27.81 - COR PULMONALE (CHRONIC) (8) A-fib Code(s): I48.91 - UNSPECIFIED ATRIAL FIBRILLATION Qualifiers: Atrial fibrillation type: unspecified persistent Qualified Code(s): I48.19 - Other persistent atrial fibrillation; I48.1 - Persistent atrial fibrillation Assessment/Plan Acute on Chronic Diastolic Heart Failure Volume Overload Acute Kidney Injury improving Pulmonary HTN Chronic Hypoxic Respiratory Failure Atrial Fibrillation Severe Anemia COPD - Supplemental O2 to maintain saturation - Lasix - monitor urine output, creatinine - daily weights - ABX Per ID - rate control - monitor H/H - DVT prophylaxis Dr Acosta
--- NOTE | 2020-03-09 14:45 | PN ---
Physical Exam: SUBJECTIVE: Patient seen and examined at bedside, appears weak, cachectic, deconditioned, will need Palliative cs for GOC. OBJECTIVE: GA deconditioned, poor inspiratory effort HEENT NC/AT, JVD+, dry MM Chest poor inspiratory effort, bibasilar crackles CVS Irregularly irregular, WILLIE+ Abd Soft, NT, ND, BS+ Ext 2+ LE pitting edema b/l Laboratory Results - last 24 hr 03/05/20 03/08/20 03/08/20 13:40 07:20 11:50 WBC RBC Hgb Hct MCV MCH MCHC RDW Plt Count MPV Absolute Neuts (auto) Neutrophils % Lymphocytes % Monocytes % Eosinophils % Basophils % Nucleated RBC % Sodium Potassium Chloride Carbon Dioxide Anion Gap BUN Creatinine Est GFR (CKD-EPI)AfAm Est GFR (CKD-EPI)NonAf Random Glucose Calcium Total Bilirubin AST ALT Alkaline Phosphatase Ammonia 28.70 Total Protein Albumin Hep C Ab Diagnostic <0.1 Blood Type O POSITIVE Antibody Screen Negative Crossmatch See Detail 03/08/20 03/08/20 03/09/20 11:50 19:00 11:10 WBC 5.2 4.8 RBC 3.38 L 3.29 L Hgb 8.4 L 8.1 L Hct 26.8 L 26.3 L MCV 79.0 L 79.8 L MCH 24.9 L 24.6 L MCHC 31.5 L 30.8 L RDW 19.9 H 19.7 H Plt Count 98 L 93 L MPV 8.3 8.4 Absolute Neuts (auto) 4.2 3.9 Neutrophils % 80.5 79.9 Lymphocytes % 10.4 11.9 Monocytes % 7.6 6.8 Eosinophils % 1.2 1.0 Basophils % 0.3 0.4 Nucleated RBC % 0 0 Sodium 147 H Potassium 3.5 Chloride 108 H Carbon Dioxide 35 H Anion Gap 4 L BUN 31.6 H Creatinine 1.3 Est GFR (CKD-EPI)AfAm 47.13 Est GFR (CKD-EPI)NonAf 40.67 Random Glucose 151 H Calcium 7.6 L Total Bilirubin 0.3 AST 11 L ALT 11 L Alkaline Phosphatase 55 Ammonia Total Protein 4.6 L Albumin 1.5 L Hep C Ab Diagnostic Blood Type Antibody Screen Crossmatch 03/09/20 11:10 WBC RBC Hgb Hct MCV MCH MCHC RDW Plt Count MPV Absolute Neuts (auto) Neutrophils % Lymphocytes % Monocytes % Eosinophils % Basophils % Nucleated RBC % Sodium 147 H Potassium 3.8 Chloride 108 H Carbon Dioxide 36 H Anion Gap 4 L BUN 24.0 H Creatinine 1.1 Est GFR (CKD-EPI)AfAm 57.68 Est GFR (CKD-EPI)NonAf 49.77 Random Glucose 146 H Calcium 7.5 L Total Bilirubin 0.4 AST 14 L ALT 12 L Alkaline Phosphatase 55 Ammonia Total Protein 4.8 L Albumin 1.5 L Hep C Ab Diagnostic Blood Type Antibody Screen Crossmatch Active Medications Generic Name Dose Route Start Last Admin Trade Name Freq PRN Reason Stop Dose Admin Acetaminophen 650 mg 03/08/20 09:37 03/09/20 11:25 Tylenol - PO 650 mg Q6H PRN Administration PAIN LEVEL 6-10 Digoxin 0.125 mg 03/06/20 10:00 03/09/20 09:35 Lanoxin - PO 0.125 mg DAILY JACIEL Administration Furosemide 40 mg 03/06/20 14:00 03/09/20 05:17 Lasix Injection - IVPUSH 40 mg BID@0600,1400 JACIEL Administration Pantoprazole Sodium 40 mg 03/07/20 10:00 03/09/20 09:35 Protonix Iv IVPUSH 40 mg DAILY JACIEL Administration Spironolactone 25 mg 03/07/20 22:00 03/09/20 09:35 Aldactone - PO 25 mg BID JACIEL Administration ASSESSMENT/PLAN: 74 F Rectal bleed w/ LGIB Acute hypoxic and hypercapneic respiratory failure HTN HLD CHFE CAP PNA Afib on Eliquis (stopped) Plan: Cont. to hold AC in view of LGIB Gentle diuresis pRBC to keep hgb >8.0 (due to CHF history) Completed abx course COVID negative DVT ppx: SCD GI following Pulmonary/ICU following Cardiology evaluation ID following Discuss GOC due to deconditioned status multiple comorbid conditions Visit type - Emergency Visit Emergency Visit: Yes ED Registration Date: 03/05/20 Care time: The patient presented to the Emergency Department on the above date and was hospitalized for further evaluation of their emergent condition. - New Patient This patient is new to me today: No - Critical Care Critical Care patient: No - Discharge Referral Referred to [facility] Med P.C.: No - Medication Review Med list reviewed for High Risk Meds patients 65 and older: Yes
--- NOTE | 2020-03-09 18:51 | PN ---
Progress Note, Physician History of Present Illness: Pt is alert, responsive but weak. Afebrile. Slightly tachypneic, 98% O2 sat on NC. - Current Medication List Current Medications: Active Medications Acetaminophen (Tylenol -) 650 mg PO Q6H PRN PRN Reason: PAIN LEVEL 6-10 Last Admin: 03/09/20 11:25 Dose: 650 mg Documented by: Digoxin (Lanoxin -) 0.125 mg PO DAILY [facility] Last Admin: 03/09/20 09:35 Dose: 0.125 mg Documented by: Furosemide (Lasix -) 40 mg PO BID@0600,1400 [facility] Last Admin: 03/09/20 13:11 Dose: 40 mg Documented by: Pantoprazole Sodium (Protonix Iv) 40 mg IVPUSH DAILY [facility] Last Admin: 03/09/20 09:35 Dose: 40 mg Documented by: Spironolactone (Aldactone -) 25 mg PO BID [facility] Last Admin: 03/09/20 09:35 Dose: 25 mg Documented by: - Objective Vital Signs: Vital Signs Temperature 98.2 F 03/09/20 17:41 Pulse Rate 62 03/09/20 17:41 Respiratory Rate 20 03/09/20 17:41 Blood Pressure 102/61 03/09/20 17:41 O2 Sat by Pulse Oximetry (%) 98 03/09/20 17:41 Constitutional: Yes: No Distress, Calm Eyes: Yes: Conjunctiva Clear Cardiovascular: Yes: Regular Rate and Rhythm Respiratory: Yes: Rales (bases) Gastrointestinal: Yes: Normal Bowel Sounds, Soft Integumentary: Yes: WNL Neurological: Yes: Alert Labs: CBC, BMP 03/09/20 11:10 03/09/20 11:10 INR, PTT INR 1.63 (0.83-1.09) H 03/05/20 14:18 Fibrinogen 252.0 mg/dL (238-498) 03/08/20 11:50 Microbiology 03/05/20 13:40 Blood - Peripheral Venous Blood Culture - Preliminary NO GROWTH OBTAINED AFTER 96 HOURS, INCUBATION TO CONTINUE FOR 1 DAYS. 03/07/20 21:00 Stool Salmonella/Shigella Culture - Preliminary NO ENTERIC PATHOGENS, 24 HOURS, ON PRIMARY PLATES 03/07/20 21:00 Stool Vibrio Culture - Final NO GROWTH OF VIBRIO SPECIES OBTAINED 03/07/20 21:00 Stool Escherichia coli 0157 Culture - Final NO GROWTH OF E COLI 0157 OBTAINED 03/05/20 13:40 Blood - Peripheral Venous Blood Culture - Preliminary Staphylococcus Coagulase Neg 03/07/20 21:00 Stool Gram Stain - Final 03/07/20 21:00 Stool Clostridioides difficile Antigen - Final 03/07/20 21:00 Stool Clostridioides difficile Toxin Assay - Final 03/05/20 19:50 Urine - Urine Clean Catch Urine Culture - Final NO GROWTH OBTAINED Problem List - Problems (1) PATRICK (acute kidney injury) Code(s): N17.9 - ACUTE KIDNEY FAILURE, UNSPECIFIED (2) Anemia Code(s): D64.9 - ANEMIA, UNSPECIFIED Qualifiers: Anemia type: unspecified type Qualified Code(s): D64.9 - Anemia, un specified (3) CHF exacerbation Code(s): I50.9 - HEART FAILURE, UNSPECIFIED Qualifiers: Heart failure type: unspecified Qualified Code(s): I50.9 - Heart failure, unspecified (4) Chronic respiratory failure Code(s): J96.10 - CHRONIC RESPIRATORY FAILURE, UNSP W HYPOXIA OR HYPERCAPNIA (5) Diarrhea Code(s): R19.7 - DIARRHEA, UNSPECIFIED (6) COPD (chronic obstructive pulmonary disease) Code(s): J44.9 - CHRONIC OBSTRUCTIVE PULMONARY DISEASE, UNSPECIFIED Qualifiers: COPD type: unspecified COPD Qualified Code(s): J44.9 - Chronic obstructive pulmonary disease, unspecified (7) Pacemaker Code(s): Z95.0 - PRESENCE OF CARDIAC PACEMAKER (8) A-fib Code(s): I48.91 - UNSPECIFIED ATRIAL FIBRILLATION Qualifiers: Atrial fibrillation type: unspecified persistent Assessment/Plan Acute on chronic resp failure Acute CHF exacerbation PATRICK COPD AFIB Diarrhea/?GI bleed Anemia -- currently 98% O2 sat, afebrile, occasionally tachypneic -- monitor off antibiotics, d/c'd yesterday -- Blood culture GPC after 72 hrs - possibly contaminated, follow up repeat cultures sent -- awaiting stool culture results, hepatitis panel -- Pulmonary / GI following
[2020-03-09 21:49] LABS: BASO % 0.5 % (0-2.0); EOS % 1.2 % (0-4.5); HEMATOCRIT 28.6 % (32.4-45.2); HEMOGLOBIN 8.8 GM/dL (10.7-15.3); LYMPH % 13.6 % (8-40); MCH 24.9 pg (25.7-33.7); MCHC 30.6 g/dl (32.0-36.0); MEAN CELL VOLUME 81.4 fl (80-96); MEAN PLT VOLUME 8.5 fl (7.5-11.1); MONO % 6.1 % (3.8-10.2); NEUT % 78.6 % (42.8-82.8); PLATELET COUNT 99 K/MM3 (134-434); RBC 3.51 M/mm3 (3.60-5.2); RDW 19.9 % (11.6-15.6); WHITE BLOOD COUNT 5.8 K/mm3 (4.0-10.0)
[2020-03-10] MEDS: FUROSEMIDE 40 MG TABLET (FP) PO SCH ×2 (05:59→15:54)
[2020-03-10] MEDS: ACETAMINOPHEN 325 MG TABLET (FP) PO PRN ×2 (09:30→20:21)
[2020-03-10] MEDS: DIGOXIN 0.125 MG TABLET (FP) PO SCH (09:31)
[2020-03-10] MEDS: SPIRONOLACTONE 25 MG TABLET PO SCH ×2 (09:31→21:56)
[2020-03-10] MEDS: PANTOPRAZOLE SODIUM 40 MG VIAL IVPUSH SCH (09:31)
--- NOTE | 2020-03-10 10:54 | PN ---
Progress Note, Physician Chief Complaint: no complaints tele neg History of Present Illness: 74 year old with a pmhx of right sided CHF and pulmonary htn, afib s/p ppm on apixaban, copd on home O2, and gastric CA s/p resection brought from home due to hypotension and sob. SBP 60 at home. +blood in stool at home. SOB worsening last few days at home. +orthopnea and edema. No chest pain. Mental status worsening Found to have drop in Hgb to 5.2 PATRICK with Cr 2.3 EKG: atrial paced, inferior and anterolateral ST abnormalities CT chest: bibasilar opacities, pleural effusions, anasarca Trops neg BNP elevated Echocardiogram 02/2019: nl lvef, mod to sev RV dil/hypokinesis, mod to sev TR, mod pulm htn. - Current Medication List Current Medications: Active Medications Acetaminophen (Tylenol -) 650 mg PO Q6H PRN PRN Reason: PAIN LEVEL 6-10 Last Admin: 03/10/20 09:30 Dose: 650 mg Documented by: Digoxin (Lanoxin -) 0.125 mg PO DAILY [facility] Last Admin: 03/10/20 09:31 Dose: 0.125 mg Documented by: Furosemide (Lasix -) 40 mg PO BID@0600,1400 [facility] Last Admin: 03/10/20 05:59 Dose: 40 mg Documented by: Pantoprazole Sodium (Protonix Iv) 40 mg IVPUSH DAILY [facility] Last Admin: 03/10/20 09:31 Dose: Not Given Documented by: Spironolactone (Aldactone -) 25 mg PO BID [facility] Last Admin: 03/10/20 09:31 Dose: 25 mg Documented by: - Objective Vital Signs: Vital Signs Temperature 97.8 F 03/10/20 05:00 Pulse Rate 86 03/10/20 09:31 Respiratory Rate 20 03/10/20 05:00 Blood Pressure 104/52 L 03/10/20 05:00 O2 Sat by Pulse Oximetry (%) 98 03/10/20 05:00 Constitutional: Yes: No Distress, Calm Eyes: Yes: Conjunctiva Clear, EOM Intact HENT: Yes: Normocephalic Neck: Yes: Supple, Trachea Midline Cardiovascular: Yes: Regular Rate and Rhythm Respiratory: Yes: CTA Bilaterally Gastrointestinal: Yes: Normal Bowel Sounds, Soft Musculoskeletal: Yes: WNL Extremities: Yes: WNL Edema: Yes Edema: LLE: Trace, RLE: Trace Peripheral Pulses WNL: Yes Labs: CBC, BMP 03/09/20 21:08 03/09/20 11:10 INR, PTT INR 1.63 (0.83-1.09) H 03/05/20 14:18 Fibrinogen 252.0 mg/dL (238-498) 03/08/20 11:50 Assessment/Plan 74 year old with a pmhx of right sided CHF and pulmonary htn, afib s/p ppm on apixaban, copd on home O2, and gastric CA s/p resection brought from home due to hypotension and sob. SBP 60 at home. +blood in stool at home. SOB worsening last few days at home. +orthopnea and edema. No chest pain. Mental status worsening. Found to have drop in Hgb to 5.2 PATRICK with Cr 2.3 EKG: atrial paced, inferior and anterolateral ST abnormalities CT chest: bibasilar opacities, pleural effusions, anasarca Trops neg BNP elevated Echocardiogram 02/2019: nl lvef, mod to sev RV dil/hypokinesis, mod to sev TR, mod pulm htn. The patient's fluid status is improving. The edema is minimal at this point. Symptomatically better. Continue salt and fluid restrictions. Continue diuretics as currently. Watching renal function. Keep potassium well repleted. No important events on telemetry. AV sequential pacing noted. Will follow.
--- NOTE | 2020-03-10 11:02 | PN ---
Progress Note, Physician History of Present Illness: Pt seen and examined at bedside. She is awake and alert. She appears comfortable. - Current Medication List Current Medications: Active Medications Acetaminophen (Tylenol -) 650 mg PO Q6H PRN PRN Reason: PAIN LEVEL 6-10 Last Admin: 03/10/20 09:30 Dose: 650 mg Documented by: Digoxin (Lanoxin -) 0.125 mg PO DAILY [facility] Last Admin: 03/10/20 09:31 Dose: 0.125 mg Documented by: Furosemide (Lasix -) 40 mg PO BID@0600,1400 [facility] Last Admin: 03/10/20 05:59 Dose: 40 mg Documented by: Pantoprazole Sodium (Protonix Iv) 40 mg IVPUSH DAILY [facility] Last Admin: 03/10/20 09:31 Dose: Not Given Documented by: Spironolactone (Aldactone -) 25 mg PO BID [facility] Last Admin: 03/10/20 09:31 Dose: 25 mg Documented by: - Objective Vital Signs: Vital Signs Temperature 97.8 F 03/10/20 05:00 Pulse Rate 86 03/10/20 09:31 Respiratory Rate 20 03/10/20 05:00 Blood Pressure 104/52 L 03/10/20 05:00 O2 Sat by Pulse Oximetry (%) 98 03/10/20 05:00 Constitutional: Yes: Calm Eyes: Yes: Conjunctiva Clear HENT: Yes: Atraumatic Neck: Yes: Supple Cardiovascular: Yes: S1, S2 Respiratory: Yes: On Nasal O2 Gastrointestinal: Yes: Normal Bowel Sounds, Soft Musculoskeletal: Yes: WNL Edema: Yes Edema: LUE: 1+, RUE: 1+, LLE: Trace, RLE: Trace Neurological: Yes: Oriented Labs: CBC, BMP 03/09/20 21:08 03/09/20 11:10 INR, PTT INR 1.63 (0.83-1.09) H 03/05/20 14:18 Fibrinogen 252.0 mg/dL (238-498) 03/08/20 11:50 Problem List - Problems (1) PATRICK (acute kidney injury) Code(s): N17.9 - ACUTE KIDNEY FAILURE, UNSPECIFIED (2) Anemia Code(s): D64.9 - ANEMIA, UNSPECIFIED Qualifiers: Anemia type: unspecified type Qualified Code(s): D64.9 - Anemia, unspecified (3) CHF exacerbation Code(s): I50.9 - HEART FAILURE, UNSPECIFIED Qualifiers: Heart failure type: unspecified Qualified Code(s): I50.9 - Heart failure, unspecified (4) COPD (chronic obstructive pulmonary disease) Code(s): J44.9 - CHRONIC OBSTRUCTIVE PULMONARY DISEASE, UNSPECIFIED Qualifiers: COPD type: unspecified COPD Qualified Code(s): J44.9 - Chronic obstructive pulmonary disease, unspecified (5) A-fib Code(s): I48.91 - UNSPECIFIED ATRIAL FIBRILLATION Qualifiers: Atrial fibrillation type: unspecified persistent Assessment/Plan Current Medications Generic Name Dose Route Start Last Admin Trade Name Freq PRN Reason Stop Dose Admin Acetaminophen 650 mg 03/08/20 09:37 03/10/20 09:30 Tylenol - PO 650 mg Q6H PRN Administration PAIN LEVEL 6-10 Digoxin 0.125 mg 03/06/20 10:00 03/10/20 09:31 Lanoxin - PO 0.125 mg DAILY [facility] Administration Furosemide 40 mg 03/09/20 14:00 03/10/20 05:59 Lasix - PO 40 mg BID@0600,1400 [facility] Administration Pantoprazole Sodium 40 mg 03/07/20 10:00 03/10/20 09:31 Protonix Iv IVPUSH Not Given DAILY [facility] Spironolactone 25 mg 03/07/20 22:00 03/10/20 09:31 Aldactone - PO 25 mg BID JACIEL Administration Impression 1. PATRICK 2. anemia 3. chf 4. copd 5. a-fib 6. gastric cancer 7. gi bleed 8. volume overload 9. pleural effusion Plan - cont lasix, agree with po - volume status improving - cardio input appreciated - monitor lytes - monitor hg - encourage po intake Dr Donis
--- NOTE | 2020-03-10 13:12 | PN ---
Progress Note (short form) - Note Progress Note: PULMONARY Temporal wasting/weak, dysarthric speech / baseline vss/AFEBRILE Constitutional: Yes: mildly tachypneic at rest Eyes: Yes: WNL HENT: Yes: WNL Neck: Yes: WNL Cardiovascular: Yes: Pulse Irregular, S1, S2 Respiratory: Yes: Rales (BIBASILAR CRACKLES) Gastrointestinal: Yes: Normal Bowel Sounds, Soft Extremities: Yes: WNL Edema: Yes Labs:noted (1) Chronic respiratory failure Code(s): J96.10 - CHRONIC RESPIRATORY FAILURE, UNSP W HYPOXIA OR HYPERCAPNIA (2) PATRICK (acute kidney injury) Code(s): N17.9 - ACUTE KIDNEY FAILURE, UNSPECIFIED (3) Anemia Code(s): D64.9 - ANEMIA, UNSPECIFIED Qualifiers: Anemia type: unspecified type Qualified Code(s): D64.9 - Anemia, unspecified (4) CHF exacerbation Code(s): I50.9 - HEART FAILURE, UNSPECIFIED Qualifiers: Heart failure type: unspecified Qualified Code(s): I50.9 - Heart failure, unspecified (5) COPD (chronic obstructive pulmonary disease) Code(s): J44.9 - CHRONIC OBSTRUCTIVE PULMONARY DISEASE, UNSPECIFIED Qualifiers: COPD type: unspecified COPD Qualified Code(s): J44.9 - Chronic obstructive pulmonary disease, unspecified (6) Chronic anticoagulation Code(s): Z79.01 - [facility] (CURRENT) USE OF ANTICOAGULANTS (7) Cor pulmonale, chronic Code(s): I27.81 - COR PULMONALE (CHRONIC) (8) A-fib Code(s): I48.91 - UNSPECIFIED ATRIAL FIBRILLATION Qualifiers: Atrial fibrillation type: unspecified persistent Qualified Code(s): I48.19 - Other persistent atrial fibrillation; I48.1 - Persistent atrial fibrillation Acute on Chronic Diastolic Heart Failure Volume Overload Acute Kidney Injury improving Pulmonary HTN Chronic Hypoxic Respiratory Failure Atrial Fibrillation Severe Anemia COPD - Supplemental O2 to maintain saturation - Lasix - monitor urine output, creatinine - daily weights - ABX Per ID - rate control - monitor H/H - DVT prophylaxis Serafin RILEY MD
[2020-03-10 15:44] LABS: BF WBC & OTHER NUCLEATED CELLS 181 /mm3
[2020-03-10] MEDS: PANTOPRAZOLE 40 MG TABLET PO SCH (15:54)
[2020-03-10 17:07] LABS: TRANSGLUTAMINASE IGA < 2 U/mL (0-3); TRANSGLUTAMINASE IGG 3 U/mL (0-5)
[2020-03-10 18:07] LABS: HEP B CORE AB, TOT Negative (Negative)
[2020-03-10 18:34] LABS: BODY FLUID MACROPHAGES 38 %; BODY FLUID MESOTHELIAL 5 %; BODY FLUID MONOCYTE 3 %
--- NOTE | 2020-03-10 20:09 | PN ---
Teaching Attending Note Name of Resident: Gerald Ibrahim ATTENDING PHYSICIAN STATEMENT I saw and evaluated the patient. I reviewed the resident's note and discussed the case with the resident. I agree with the resident's findings and plan as documented. SUBJECTIVE: Patient seen and examined at bedside, still appears weak, ill- motivated, needs PT/SNF, salt/fluid restriction, VSS. OBJECTIVE: GA deconditioned, poor inspiratory effort HEENT NC/AT, JVD+, dry MM Chest poor inspiratory effort, coarse b/l BS+ CVS Irregularly irregular, WILLIE+ Abd Soft, NT, ND, BS+ Ext 2+ LE pitting edema b/l Vital Signs - 24 hr 03/09/20 03/10/20 03/10/20 21:00 01:00 05:00 Temperature 98.0 F 97.6 F 97.8 F Pulse Rate 79 82 63 Respiratory 18 18 20 Rate Blood Pressure 109/53 L 119/67 104/52 L O2 Sat by Pulse 98 97 98 Oximetry (%) 03/10/20 03/10/20 03/10/20 09:00 09:31 17:00 Temperature 98.5 F 98.3 F Pulse Rate 86 86 76 Respiratory 22 H 20 Rate Blood Pressure 107/60 109/53 L O2 Sat by Pulse 98 98 Oximetry (%) Microbiology 03/08/20 19:00 Blood - Peripheral Venous Blood Culture - Preliminary NO GROWTH OBTAINED AFTER 48 HOURS, INCUBATION TO CONTINUE FOR 3 DAYS. 03/08/20 19:15 Blood - Peripheral Venous Blood Culture - Preliminary NO GROWTH OBTAINED AFTER 48 HOURS, INCUBATION TO CONTINUE FOR 3 DAYS. 03/05/20 13:40 Blood - Peripheral Venous Blood Culture - Final NO GROWTH AFTER 5 DAYS INCUBATION 03/05/20 13:40 Blood - Peripheral Venous Blood Culture - Preliminary Staphylococcus Coagulase Neg 03/07/20 21:00 Stool Salmonella/Shigella Culture - Preliminary 03/07/20 21:00 Stool Campylobacter Culture - Final NO GROWTH OF CAMPYLOBACTER SPECIES OBTAINED 03/07/20 21:00 Stool Yersinia Culture - Final NO GROWTH OF YERSINIA SPECIES OBTAINED 03/07/20 21:00 Stool Vibrio Culture - Final NO GROWTH OF VIBRIO SPECIES OBTAINED 03/07/20 21:00 Stool Escherichia coli 0157 Culture - Final NO GROWTH OF E COLI 0157 OBTAINED 03/07/20 21:00 Stool Gram Stain - Final 03/07/20 21:00 Stool Clostridioides difficile Antigen - Final 03/07/20 21:00 Stool Clostridioides difficile Toxin Assay - Final 03/05/20 19:50 Urine - Urine Clean Catch Urine Culture - Final NO GROWTH OBTAINED Laboratory Results - last 24 hr 03/07/20 03/08/20 03/09/20 06:10 07:20 21:08 WBC 5.8 RBC 3.51 L Hgb 8.8 L Hct 28.6 L MCV 81.4 MCH 24.9 L MCHC 30.6 L RDW 19.9 H Plt Count 99 L MPV 8.5 Absolute Neuts (auto) 4.6 Neutrophils % 78.6 Lymphocytes % 13.6 Monocytes % 6.1 Eosinophils % 1.2 Basophils % 0.5 Nucleated RBC % 0 Total Protein (PEP) 4.8 L Albumin (PEP) 1.9 L Globulin 2.9 Albumin/Globulin Ratio 0.7 Beta Globulins 1.0 Tumor Marker AFP 1.8 Fluid Source Fluid WBC Fluid RBC Fluid Neutrophils Fluid Lymphocytes Pleural Monocytes Pleural Macrophages Pleural Mesothelial ALEXANDRA M-Espinoza Not observed ZARIA Screen Negative Smooth Musc &SPRAY MACHINE LOADER Intrp 22 H Tiss Transglutamin IgG 3 Tiss Transglutamin IgA < 2 Hep A IgM Ab Confirm Negative Hepatitis A Ab Total Positive H Hep Bs Antigen Negative Hep Bs Antibody Non reactive Hep B Core Total Ab Negative Hep B Core IgM Ab Negative Hepatitis Be Antibody Negative Hepatitis Be Antigen Negative 03/10/20 15:10 WBC RBC Hgb Hct MCV MCH MCHC RDW Plt Count MPV Absolute Neuts (auto) Neutrophils % Lymphocytes % Monocytes % Eosinophils % Basophils % Nucleated RBC % Total Protein (PEP) Albumin (PEP) Globulin Albumin/Globulin Ratio Beta Globulins Tumor Marker AFP Fluid Source Peritoneal Fluid WBC 181 Fluid RBC 536 Fluid Neutrophils 36 Fluid Lymphocytes 18 Pleural Monocytes 3 Pleural Macrophages 38 Pleural Mesothelial 5 ALEXANDRA M-Espinoza ZARIA Screen Smooth Musc &SPRAY MACHINE LOADER Intrp Tiss Transglutamin IgG Tiss Transglutamin IgA Hep A IgM Ab Confirm Hepatitis A Ab Total Hep Bs Antigen Hep Bs Antibody Hep B Core Total Ab Hep B Core IgM Ab Hepatitis Be Antibody Hepatitis Be Antigen Home Medications Medication Instructions Recorded Digoxin [Lanoxin -] 0.125 mg PO DAILY 01/26/19 Furosemide [Lasix] 40 mg PO BID 01/26/19 Nitroglycerin [Nitrostat] 0.4 mg SL DAILY PRN 01/26/19 Apixaban [Eliquis -] 5 mg PO BID 02/22/19 Metoprolol Succinate [Toprol Xl] 25 mg PO BID 03/05/20 Current Medications Generic Name Dose Route Start Last Admin Trade Name Freq PRN Reason Stop Dose Admin Acetaminophen 650 mg 03/10/20 16:24 Tylenol - PO Q6H PRN PAIN LEVEL 6-10 Digoxin 0.125 mg 03/11/20 10:00 Lanoxin - PO DAILY JACIEL Furosemide 40 mg 03/11/20 06:00 Lasix - PO BID@0600,1400 JACIEL Pantoprazole Sodium 40 mg 03/10/20 15:00 03/10/20 15:54 Protonix - PO 40 mg DAILY JACIEL Administration Spironolactone 25 mg 03/10/20 22:00 Aldactone - PO BID JACIEL ASSESSMENT AND PLAN: 74 F Rectal bleed w/ LGIB Gastric ca Acute hypoxic and hypercapneic respiratory failure HTN HLD CHFE CAP PNA Afib on Eliquis (stopped) Plan: Cont. to hold AC, SCD for DVT ppx Gentle diuresis, salt/fluid restriction, encourage PO intake pRBC to keep hgb >8.0 (due to CHF history) Completed abx course COVID negative GI following Pulmonary/ICU following Cardiology evaluation ID following Renal following Discuss GOC due to deconditioned status multiple comorbid conditions
[2020-03-11] MEDS: ACETAMINOPHEN 325 MG TABLET (FP) PO PRN ×3 (05:13→20:33)
[2020-03-11] MEDS: FUROSEMIDE 40 MG TABLET (FP) PO SCH (05:13)
[2020-03-11] MEDS ORDERED: SODIUM CHLORIDE 250 ML IV STA (07:01)
--- NOTE | 2020-03-11 07:13 | PN.GI ---
GI Progress Note Subjective: patient with COPD, anasarca Pulmonay HTN, crytpogenic cirrhosis was noted to have rectal bleeding a few days ago. This has resolved. She continue to feel weak and SOB - Objective Vital Signs: Vital Signs Temperature 98.7 F 03/11/20 06:43 Pulse Rate 63 03/11/20 06:43 Respiratory Rate 03/11/20 06:43 Blood Pressure 83/41 L 03/11/20 06:43 O2 Sat by Pulse Oximetry (%) 98 03/11/20 06:43 Constitutional: Other (Ashen colores) Eyes: Yes: Conjunctiva Clear HENT: Yes: Atraumatic Neck: Yes: Supple Cardiovascular: Yes: Other (irregular) Respiratory: Yes: Diminished Gastrointestinal Inspection: Yes: Ascites ...Palpate: Yes: Soft, Other (ansarca). No: Firm/Rigid, Guarding, Hepatomegaly, Mass, Pulsatile Mass, Splenomegaly Labs: CBC, BMP 03/09/20 21:08 03/09/20 11:10 INR, PTT INR 1.63 (0.83-1.09) H 03/05/20 14:18 Fibrinogen 252.0 mg/dL (238-498) 03/08/20 11:50 Problem List - Problems (1) Idiopathic cirrhosis Assessment/Plan: associated with Pulmonary HTN leading to ascitis and anasarca, SMA elevated associated with normal liver enzymes R> will need to continue to diurese await ascitic fluid results Code(s): K74.60 - UNSPECIFIED CIRRHOSIS OF LIVER (2) Rectal bleeding Assessment/Plan: GI evaluation on hold as patient is high risk to undergo any procedures Keep Hgb greater than 8 Code(s): K62.5 - HEMORRHAGE OF ANUS AND RECTUM
--- NOTE | 2020-03-11 09:32 | PN ---
Progress Note, Physician Chief Complaint: no complaints tele neg History of Present Illness: 74 year old with a pmhx of right sided CHF and pulmonary htn, afib s/p ppm on apixaban, copd on home O2, and gastric CA s/p resection brought from home due to hypotension and sob. SBP 60 at home. +blood in stool at home. SOB worsening last few days at home. +orthopnea and edema. No chest pain. Mental status worsening Found to have drop in Hgb to 5.2 PATRICK with Cr 2.3 EKG: atrial paced, inferior and anterolateral ST abnormalities CT chest: bibasilar opacities, pleural effusions, anasarca Trops neg BNP elevated Echocardiogram 02/2019: nl lvef, mod to sev RV dil/hypokinesis, mod to sev TR, mod pulm htn. - Current Medication List Current Medications: Active Medications Acetaminophen (Tylenol -) 650 mg PO Q6H PRN PRN Reason: PAIN LEVEL 6-10 Last Admin: 03/11/20 05:13 Dose: 650 mg Documented by: Digoxin (Lanoxin -) 0.125 mg PO DAILY [facility] Furosemide (Lasix -) 40 mg PO BID@0600,1400 [facility] Last Admin: 03/11/20 05:13 Dose: 40 mg Documented by: Pantoprazole Sodium (Protonix -) 40 mg PO DAILY [facility] Last Admin: 03/10/20 15:54 Dose: 40 mg Documented by: Spironolactone (Aldactone -) 25 mg PO BID [facility] Last Admin: 03/10/20 21:56 Dose: 25 mg Documented by: - Objective Vital Signs: Vital Signs Temperature 98.7 F 03/11/20 06:43 Pulse Rate 60 03/11/20 07:44 Respiratory Rate 22 H 03/11/20 07:44 Blood Pressure 106/54 L 03/11/20 07:44 O2 Sat by Pulse Oximetry (%) 98 03/11/20 06:43 Constitutional: Yes: No Distress, Calm Eyes: Yes: Conjunctiva Clear, EOM Intact HENT: Yes: Atraumatic, Normocephalic Neck: Yes: Trachea Midline Cardiovascular: Yes: Regular Rate and Rhythm, JVD Respiratory: Yes: Dullness (bilat bases) Gastrointestinal: Yes: Ascites Edema: Yes Edema: LLE: 1+, RLE: 1+ Peripheral Pulses WNL: Yes Labs: CBC, BMP 08/16/20 21:08 03/09/20 11:10 INR, PTT INR 1.63 (0.83-1.09) H 03/05/20 14:18 Fibrinogen 252.0 mg/dL (238-498) 03/08/20 11:50 Assessment/Plan 74 year old with a pmhx of right sided CHF and pulmonary htn, afib s/p ppm on apixaban, copd on home O2, and gastric CA s/p resection brought from home due to hypotension and sob. SBP 60 at home. +blood in stool at home. SOB worsening last few days at home. +orthopnea and edema. No chest pain. Mental status worsening. Found to have drop in Hgb to 5.2 PATRICK with Cr 2.3 EKG: atrial paced, inferior and anterolateral ST abnormalities CT chest: bibasilar opacities, pleural effusions, anasarca Trops neg BNP elevated Echocardiogram 02/2019: nl lvef, mod to sev RV dil/hypokinesis, mod to sev TR, mod pulm htn. The patient's fluid status is improving. The edema is minimal at this point. Symptomatically better. Continue salt and fluid restrictions. Continue diuretics as currently. Watching renal function. Keep potassium well repleted. check magnesium. Off telemetry. will follow with you.
[2020-03-11] MEDS: SPIRONOLACTONE 25 MG TABLET PO SCH ×2 (10:53→21:13)
[2020-03-11] MEDS: DIGOXIN 0.125 MG TABLET (FP) PO SCH (10:53)
[2020-03-11] MEDS: PANTOPRAZOLE 40 MG TABLET PO SCH (10:53)
--- NOTE | 2020-03-11 11:18 | PN ---
Progress Note, Physician History of Present Illness: stable no new issues generalized pain - Current Medication List Current Medications: Active Medications Acetaminophen (Tylenol -) 650 mg PO Q6H PRN PRN Reason: PAIN LEVEL 6-10 Last Admin: 03/11/20 10:54 Dose: 650 mg Documented by: Digoxin (Lanoxin -) 0.125 mg PO DAILY [facility] Last Admin: 03/11/20 10:53 Dose: 0.125 mg Documented by: Furosemide (Lasix -) 40 mg PO BID@0600,1400 [facility] Last Admin: 03/11/20 05:13 Dose: 40 mg Documented by: Pantoprazole Sodium (Protonix -) 40 mg PO DAILY [facility] Last Admin: 03/11/20 10:53 Dose: 40 mg Documented by: Spironolactone (Aldactone -) 25 mg PO BID [facility] Last Admin: 03/11/20 10:53 Dose: 25 mg Documented by: - Objective Vital Signs: Vital Signs Temperature 98.7 F 03/11/20 06:43 Pulse Rate 64 03/11/20 10:53 Respiratory Rate 22 H 03/11/20 07:44 Blood Pressure 106/54 L 03/11/20 07:44 O2 Sat by Pulse Oximetry (%) 98 03/11/20 06:43 Constitutional: Yes: No Distress, Calm Cardiovascular: Yes: S1, S2 Respiratory: Yes: Regular, CTA Bilaterally Gastrointestinal: Yes: Normal Bowel Sounds, Soft Musculoskeletal: Yes: WNL Extremities: Yes: WNL Neurological: Yes: Alert, Other Psychiatric: Yes: Other Labs: CBC, BMP 03/09/20 21:08 03/09/20 11:10 INR, PTT INR 1.63 (0.83-1.09) H 03/05/20 14:18 Fibrinogen 252.0 mg/dL (238-498) 03/08/20 11:50 Assessment/Plan Problem List - Problems (1) PATRICK (acute kidney injury) Code(s): N17.9 - ACUTE KIDNEY FAILURE, UNSPECIFIED (2) Anemia Code(s): D64.9 - ANEMIA, UNSPECIFIED Qualifiers: Anemia type: unspecified type Qualified Code(s): D64.9 - Anemia, unspecifi ed (3) CHF exacerbation Code(s): I50.9 - HEART FAILURE, UNSPECIFIED Qualifiers: Heart failure type: unspecified Qualified Code(s): I50.9 - Heart failure, unspecified (4) Chronic respiratory failure Code(s): J96.10 - CHRONIC RESPIRATORY FAILURE, UNSP W HYPOXIA OR HYPERCAPNIA (5) Diarrhea Code(s): R19.7 - DIARRHEA, UNSPECIFIED (6) COPD (chronic obstructive pulmonary disease) Code(s): J44.9 - CHRONIC OBSTRUCTIVE PULMONARY DISEASE, UNSPECIFIED Qualifiers: COPD type: unspecified COPD Qualified Code(s): J44.9 - Chronic obstructive pulmonary disease, unspecified (7) Pacemaker Code(s): Z95.0 - PRESENCE OF CARDIAC PACEMAKER (8) A-fib Code(s): I48.91 - UNSPECIFIED ATRIAL FIBRILLATION Qualifiers: Atrial fibrillation type: unspecified persistent Assessment/Plan Acute on chronic resp failure Acute CHF exacerbation PATRICK COPD AFIB Diarrhea/?GI bleed Anemia continue current mgmt supportive treatment rest as per the team
--- NOTE | 2020-03-11 11:21 | PN ---
Progress Note, Physician History of Present Illness: generalized body pain cx reports noted of tap - Current Medication List Current Medications: Active Medications Acetaminophen (Tylenol -) 650 mg PO Q6H PRN PRN Reason: PAIN LEVEL 6-10 Last Admin: 03/11/20 10:54 Dose: 650 mg Documented by: Digoxin (Lanoxin -) 0.125 mg PO DAILY [facility] Last Admin: 03/11/20 10:53 Dose: 0.125 mg Documented by: Furosemide (Lasix -) 40 mg PO BID@0600,1400 [facility] Last Admin: 03/11/20 05:13 Dose: 40 mg Documented by: Pantoprazole Sodium (Protonix -) 40 mg PO DAILY [facility] Last Admin: 03/11/20 10:53 Dose: 40 mg Documented by: Spironolactone (Aldactone -) 25 mg PO BID [facility] Last Admin: 03/11/20 10:53 Dose: 25 mg Documented by: - Objective Vital Signs: Vital Signs Temperature 98.7 F 03/11/20 06:43 Pulse Rate 64 03/11/20 10:53 Respiratory Rate 22 H 03/11/20 07:44 Blood Pressure 106/54 L 03/11/20 07:44 O2 Sat by Pulse Oximetry (%) 98 03/11/20 06:43 Constitutional: Yes: Calm Cardiovascular: Yes: S1, S2 Respiratory: Yes: Regular, CTA Bilaterally Gastrointestinal: Yes: Soft, Other Musculoskeletal: Yes: WNL Extremities: Yes: WNL Neurological: Yes: Alert Psychiatric: Yes: Alert Labs: CBC, BMP 03/09/20 21:08 03/09/20 11:10 INR, PTT INR 1.63 (0.83-1.09) H 03/05/20 14:18 Fibrinogen 252.0 mg/dL (238-498) 03/08/20 11:50 Assessment/Plan Problem List - Problems (1) PATRICK (acute kidney injury) Code(s): N17.9 - ACUTE KIDNEY FAILURE, UNSPECIFIED (2) Anemia Code(s): D64.9 - ANEMIA, UNSPECIFIED Qualifiers: Anemia type: unspecified type Qualified Code(s): D64.9 - Anemia, unspecified (3) CHF exacerbation Code(s): I50.9 - HEART FAILURE, UNSPECIFIED Qualifiers: Heart failure type: unspecified Qualified Code(s): I50.9 - Heart failure, unspecified (4) Chronic respiratory failure Code(s): J96.10 - CHRONIC RESPIRATORY FAILURE, UNSP W HYPOXIA OR HYPERCAPNIA (5) Diarrhea Code(s): R19.7 - DIARRHEA, UNSPECIFIED (6) COPD (chronic obstructive pulmonary disease) Code(s): J44.9 - CHRONIC OBSTRUCTIVE PULMONARY DISEASE, UNSPECIFIED Qualifiers: COPD type: unspecified COPD Qualified Code(s): J44.9 - Chronic obstructive pulmonary disease, unspecified (7) Pacemaker Code(s): Z95.0 - PRESENCE OF CARDIAC PACEMAKER (8) A-fib Code(s): I48.91 - UNSPECIFIED ATRIAL FIBRILLATION Qualifiers: Atrial fibrillation type: unspecified persistent Assessment/Plan Acute on chronic resp failure Acute CHF exacerbation PATRICK COPD AFIB Diarrhea/?GI bleed Anemia continue current mgmt supportive treatment rest as per the team await for finalization of the reports
[2020-03-11 11:27] VITALS: BMI 26.0
--- NOTE | 2020-03-11 12:09 | PN ---
Progress Note (short form) - Note Progress Note: NAD on NC O2. Malaise. No acute events overnight. Intake & Output 03/08/20 03/09/20 03/10/20 03/11/20 23:59 23:59 23:59 23:59 Intake Total 1120 1240 400 Output Total 2500 1425 1600 Balance -1380 -185 -1200 Weight 151 lb 3.2 oz 147 lb 3.2 oz 147 lb 9.6 oz Last Vital Signs Temp Pulse Resp BP Pulse Ox 98.7 F 64 22 H 106/54 L 98 03/11/20 06:43 03/11/20 10:53 03/11/20 07:44 03/11/20 07:44 03/11/20 06:43 Active Medications Acetaminophen (Tylenol -) 650 mg PO Q6H PRN PRN Reason: PAIN LEVEL 6-10 Last Admin: 03/11/20 10:54 Dose: 650 mg Documented by: Digoxin (Lanoxin -) 0.125 mg PO DAILY [facility] Last Admin: 03/11/20 10:53 Dose: 0.125 mg Documented by: Furosemide (Lasix -) 40 mg PO BID@0600,1400 [facility] Last Admin: 03/11/20 05:13 Dose: 40 mg Documented by: Pantoprazole Sodium (Protonix -) 40 mg PO DAILY [facility] Last Admin: 03/11/20 10:53 Dose: 40 mg Documented by: Spironolactone (Aldactone -) 25 mg PO BID [facility] Last Admin: 03/11/20 10:53 Dose: 25 mg Documented by: Constitutional: Yes: NAD on NC O2 Eyes: Yes: WNL HENT: Yes: WNL Neck: Yes: WNL Cardiovascular: Yes: Pulse Irregular, S1, S2 Respiratory: Yes: Bibasilar Rales/Rhonchi Gastrointestinal: Yes: Normal Bowel Sounds, Soft Extremities: Yes: WNL Edema: Yes Labs: Laboratory Results - last 24 hr 03/07/20 03/08/20 03/10/20 06:10 07:20 15:10 Total Protein (PEP) 4.8 L Albumin (PEP) 1.9 L Globulin 2.9 Albumin/Globulin Ratio 0.7 Beta Globulins 1.0 Fluid Source Peritoneal Fluid WBC 181 Fluid RBC 536 Fluid Neutrophils 36 Fluid Lymphocytes 18 Pleural Monocytes 3 Pleural Macrophages 38 Pleural Mesothelial 5 ALEXANDRA M-Espinoza Not observed ZARIA Screen Negative Smooth Musc &RETAIL 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 SERVICE 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 Intrp 22 H Tiss Transglutamin IgG 3 Tiss Transglutamin IgA < 2 Hep A IgM Ab Confirm Negative Hepatitis A Ab Total Positive H Hep Bs Antigen Negative Hep Bs Antibody Non reactive Hep B Core Total Ab Negative Hep B Core IgM Ab Negative Hepatitis Be Antibody Negative Hepatitis Be Antigen Negative Problem List - Problems (1) Chronic respiratory failure Code(s): J96.10 - CHRONIC RESPIRATORY FAILURE, UNSP W HYPOXIA OR HYPERCAPNIA (2) PATRICK (acute kidney injury) Code(s): N17.9 - ACUTE KIDNEY FAILURE, UNSPECIFIED (3) Anemia Code(s): D64.9 - ANEMIA, UNSPECIFIED Qualifiers: Anemia type: unspecified type Qualified Code(s): D64.9 - Anemia, unspecified (4) CHF exacerbation Code(s): I50.9 - HEART FAILURE, UNSPECIFIED Qualifiers: Heart failure type: unspecified Qualified Code(s): I50.9 - Heart failure, unspecified (5) COPD (chronic obstructive pulmonary disease) Code(s): J44.9 - CHRONIC OBSTRUCTIVE PULMONARY DISEASE, UNSPECIFIED Qualifiers: COPD type: unspecified COPD Qualified Code(s): J44.9 - Chronic obstructive pulmonary disease, unspecified (6) Chronic anticoagulation Code(s): Z79.01 - ASSISTED (CURRENT) USE OF ANTICOAGULANTS (7) Cor pulmonale, chronic Code(s): I27.81 - COR PULMONALE (CHRONIC) (8) A-fib Code(s): I48.91 - UNSPECIFIED ATRIAL FIBRILLATION Qualifiers: Atrial fibrillation type: unspecified persistent Qualified Code(s): I48.19 - Other persistent atrial fibrillation; I48.1 - Persistent atrial fibrillation Assessment/Plan Acute on Chronic Diastolic Heart Failure Volume Overload Acute Kidney Injury improving Pulmonary HTN Chronic Hypoxic Respiratory Failure Atrial Fibrillation Severe Anemia COPD - Supplemental O2 to maintain saturation - Lasix - monitor urine output, creatinine - daily weights - ABX Per ID - rate control - monitor H/H - DVT prophylaxis Dr Acosta
--- NOTE | 2020-03-11 14:34 | PN ---
Progress Note, Physician History of Present Illness: Pt seen and examined at bedside. She is awake and appears comfortable. - Current Medication List Current Medications: Active Medications Acetaminophen (Tylenol -) 650 mg PO Q6H PRN PRN Reason: PAIN LEVEL 6-10 Last Admin: 03/11/20 10:54 Dose: 650 mg Documented by: Digoxin (Lanoxin -) 0.125 mg PO DAILY [facility] Last Admin: 03/11/20 10:53 Dose: 0.125 mg Documented by: Furosemide (Lasix -) 40 mg PO BID@0600,1400 [facility] Last Admin: 03/11/20 05:13 Dose: 40 mg Documented by: Pantoprazole Sodium (Protonix -) 40 mg PO DAILY [facility] Last Admin: 03/11/20 10:53 Dose: 40 mg Documented by: Spironolactone (Aldactone -) 25 mg PO BID [facility] Last Admin: 03/11/20 10:53 Dose: 25 mg Documented by: - Objective Vital Signs: Vital Signs Temperature 98.7 F 03/11/20 06:43 Pulse Rate 64 03/11/20 10:53 Respiratory Rate 22 H 03/11/20 07:44 Blood Pressure 106/54 L 03/11/20 07:44 O2 Sat by Pulse Oximetry (%) 98 03/11/20 06:43 Constitutional: Yes: Calm Eyes: Yes: Conjunctiva Clear HENT: Yes: Atraumatic Neck: Yes: Supple Cardiovascular: Yes: S1, S2 Respiratory: Yes: CTA Bilaterally, On Nasal O2 Gastrointestinal: Yes: Normal Bowel Sounds, Soft Genitourinary: Yes: Dee Present Musculoskeletal: Yes: Muscle Weakness Edema: Yes Edema: LUE: 1+, RUE: 1+, LLE: Trace, RLE: Trace Neurological: Yes: Oriented Psychiatric: Yes: Oriented Labs: CBC, BMP 03/09/20 21:08 03/09/20 11:10 INR, PTT INR 1.63 (0.83-1.09) H 03/05/20 14:18 Fibrinogen 252.0 mg/dL (238-498) 03/08/20 11:50 Problem List - Problems (1) PATRICK (acute kidney injury) Code(s): N17.9 - ACUTE KIDNEY FAILURE, UNSPECIFIED (2) Anemia Code(s): D64.9 - ANEMIA, UNSPECIFIED Qualifiers: Anemia type: unspecified type Qualified Code(s): D64.9 - Anemia, unspecified (3) CHF exacerbation Code(s): I50.9 - HEART FAILURE, UNSPECIFIED Qualifiers: Heart failure type: unspecified Qualified Code(s): I50.9 - Heart failure, unspecified (4) COPD (chronic obstructive pulmonary disease) Code(s): J44.9 - CHRONIC OBSTRUCTIVE PULMONARY DISEASE, UNSPECIFIED Qualifiers: COPD type: unspecified COPD Qualified Code(s): J44.9 - Chronic obstructive pulmonary disease, unspecified (5) A-fib Code(s): I48.91 - UNSPECIFIED ATRIAL FIBRILLATION Qualifiers: Atrial fibrillation type: unspecified persistent Assessment/Plan Current Medications Generic Name Dose Route Start Last Admin Trade Name Freq PRN Reason Stop Dose Admin Acetaminophen 650 mg 03/10/20 16:24 03/11/20 10:54 Tylenol - PO 650 mg Q6H PRN Administration PAIN LEVEL 6-10 Digoxin 0.125 mg 03/11/20 10:00 03/11/20 10:53 Lanoxin - PO 0.125 mg DAILY JACIEL Administration Furosemide 40 mg 03/11/20 06:00 03/11/20 05:13 Lasix - PO 40 mg BID@0600,1400 JACIEL Administration Pantoprazole Sodium 40 mg 03/10/20 15:00 03/11/20 10:53 Protonix - PO 40 mg DAILY [facility]EL Administration Spironolactone 25 mg 03/10/20 22:00 03/11/20 10:53 Aldactone - PO 25 mg BID JACIEL Administration Impression 1. PATRICK 2. anemia 3. chf 4. copd 5. a-fib 6. gastric cancer 7. gi bleed 8. volume overload 9. pleural effusion Plan - cont diuretics - GI input appreciated - monitor renal function - check echo - volume status improving - cardio input appreciated - monitor lytes - monitor hg - encourage po intake Dr Donis
--- NOTE | 2020-03-11 14:53 | PN ---
Teaching Attending Note Name of Resident: Gerald Ibrahim ATTENDING PHYSICIAN STATEMENT I saw and evaluated the patient. I reviewed the resident's note and discussed the case with the resident. I agree with the resident's findings and plan as documented. SUBJECTIVE: Patient seen and examined at bedside, appears weak OBJECTIVE: Last Vital Signs Temp Pulse Resp BP Pulse Ox 98.7 F 64 22 H 106/54 L 98 03/11/20 06:43 03/11/20 10:53 03/11/20 07:44 03/11/20 07:44 03/11/20 06:43 General: Alert, oriented, deconditioned HEENT: NC/AT, PERRLA, JVD+ Lungs: poor inspiratory effort, coarse b/l BS+ CVS: Irregularly irregular, Systolic Murmur, S1S2+ Abd: Soft, NT, ND, BS+ Ext: 1+ LE pitting edema b/l CBCD WBC 5.8 K/mm3 (4.0-10.0) 03/09/20 21:08 RBC 3.51 M/mm3 (3.60-5.2) L 03/09/20 21:08 Hgb 8.8 GM/dL (10.7-15.3) L 03/09/20 21:08 Hct 28.6 % (32.4-45.2) L 03/09/20 21:08 MCV 81.4 fl (80-96) 03/09/20 21:08 MCHC 30.6 g/dl (32.0-36.0) L 03/09/20 21:08 RDW 19.9 % (11.6-15.6) H 03/09/20 21:08 Plt Count 99 K/MM3 (134-434) L 03/09/20 21:08 MPV 8.5 fl (7.5-11.1) 03/09/20 21:08 CMP Sodium 147 mmol/L (136-145) H 03/09/20 11:10 Potassium 3.8 mmol/L (3.5-5.1) 03/09/20 11:10 Chloride 108 mmol/L (98-107) H 03/09/20 11:10 Carbon Dioxide 36 mmol/L (21-32) H 03/09/20 11:10 Anion Gap 4 MMOL/L (8-16) L 03/09/20 11:10 BUN 24.0 mg/dL (7-18) H 03/09/20 11:10 Creatinine 1.1 mg/dL (0.55-1.3) 03/09/20 11:10 Random Glucose 146 mg/dL (74-106) H 03/09/20 11:10 Calcium 7.5 mg/dL (8.5-10.1) L 03/09/20 11:10 Total Bilirubin 0.4 mg/dL (0.2-1) 03/09/20 11:10 AST 14 U/L (15-37) L 03/09/20 11:10 ALT 12 U/L (13-61) L 03/09/20 11:10 Alkaline Phosphatase 55 U/L (45-117) 03/09/20 11:10 Total Protein 4.8 g/dl (6.4-8.2) L 03/09/20 11:10 Albumin 1.5 g/dl (3.4-5.0) L 03/09/20 11:10 CARDIAC ENZYMES Creatine Kinase 112 U/L (26-192) 03/06/20 05:30 Troponin I 0.04 ng/ml (0.00-0.05) 03/06/20 05:30 INR, PTT INR 1.63 (0.83-1.09) H 03/05/20 14:18 Fibrinogen 252.0 mg/dL (238-498) 03/08/20 11:50 Active Medications Acetaminophen (Tylenol -) 650 mg PO Q6H PRN PRN Reason: PAIN LEVEL 6-10 Last Admin: 03/11/20 10:54 Dose: 650 mg Documented by: Digoxin (Lanoxin -) 0.125 mg PO DAILY [facility] Last Admin: 03/11/20 10:53 Dose: 0.125 mg Documented by: Furosemide (Lasix -) 40 mg PO BID@0600,1400 [facility] Last Admin: 03/11/20 05:13 Dose: 40 mg Documented by: Pantoprazole Sodium (Protonix -) 40 mg PO DAILY [facility] Last Admin: 03/11/20 10:53 Dose: 40 mg Documented by: Spironolactone (Aldactone -) 25 mg PO BID [facility] Last Admin: 03/11/20 10:53 Dose: 25 mg Documented by: ASSESSMENT AND PLAN: 74 year old with a Mhx of right sided CHF and pulmonary htn, afib s/p ppm on apixaban, COPD on home O2, and gastric CA s/p resection brought from home due to hypotension and sob. along with blood in stool at home # Acute HFrEF COPD, Cor-pulmonale pul HTN 2019 echo Rt vent pressure 40-50, Moderate Pul HTN, EF 50-55% lasix as BP tolerates digoxin salt/fluid restriction, encourage PO intake cardiology consult repeat ECHO GI following Pulmonary/ICU following Renal following will discuss CT with radiology will need to discuss code status # LGIB Gastric ca? Cirrhosis (unknown cause) variceal bleed? will EGD once medically stable and cleared by cardiolgy trend H&H PATRICK on CKD HTN HLD CHFE CAP PNA Afib on Eliquis (stopped) DVT prophylaxis: hold AC, SCD for DVT ppx COVID negative
--- NOTE | 2020-03-11 16:00 | PN ---
Physical Exam: SUBJECTIVE: Patient seen and examined. Pt. endorses hunger and thirst this AM. OBJECTIVE: Vital Signs Period Temp Pulse Resp BP Sys/Nava Pulse Ox Last 24 Hr 98 F-98.7 F 60-76 20-22 83-121/41-60 97-98 GENERAL: The patient on room arrival was sleeping, Pt. was disoriented and confused upon wakening but reoriented somewhat with national secretary and able to answer questions. HEAD: Normal with no signs of trauma. EYES: Sclera anicteric, conjunctiva clear. ENT: Moist mucous membranes. NECK: Trachea midline, full range of motion, supple. LUNGS: Decreased breath sounds anteriorly, no crackles HEART: Regular rate and rhythm, S1, S2 with systolic murmur ABDOMEN: Soft in lower abdomen, increased firmness around epigastrium, tenderness to palpation in epigastrium, nondistended, normoactive bowel sounds EXTREMITIES: 2+ dorsal pedal pulses, warm, well-perfused, diffuse lower extremity tenderness, 4+ edema. NEUROLOGICAL: Normal speech, gait not observed. PSYCH: Normal mood, normal affect. 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 Intrp 22 H Tiss Transglutamin IgG 3 Tiss Transglutamin IgA < 2 Hep A IgM Ab Confirm Negative Hepatitis A Ab Total Positive H Hep Bs Antigen Negative Hep Bs Antibody Non reactive Hep B Core Total Ab Negative Hep B Core IgM Ab Negative Hepatitis Be Antibody Negative Hepatitis Be Antigen Negative Active Medications Generic Name Dose Route Start Last Admin Trade Name Freq PRN Reason Stop Dose Admin Acetaminophen 650 mg 03/10/20 16:24 03/11/20 10:54 Tylenol - PO 650 mg Q6H PRN Administration PAIN LEVEL 6-10 Digoxin 0.125 mg 03/11/20 10:00 03/11/20 10:53 Lanoxin - PO 0.125 mg DAILY JACIEL Administration Furosemide 40 mg 03/11/20 06:00 03/11/20 05:13 Lasix - PO 40 mg BID@0600,1400 JACIEL Administration Pantoprazole Sodium 40 mg 03/10/20 15:00 03/11/20 10:53 Protonix - PO 40 mg DAILY JACIEL Administration Spironolactone 25 mg 03/10/20 22:00 03/11/20 10:53 Aldactone - PO 25 mg BID JACIEL Administration ASSESSMENT/PLAN: Pt is a 74 y.o. M w/ PMHx. 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 Pt is being admitted for symptomatic anema/hypotension and CHF exacerbation. #Symptomatic anemia/Hypotension recent blood loss most likely cause need to r/o sepsis 2/2 to pneumonia as etiology (CXR with pulmonary vascular congestion, possible retrocardial infiltrate, bilateral pleural effusion; CT chest with bibasilar consolidation and pleural effusion) - evidence of possible pneumonia need to r/o return of prior malignancy as possible etiology H/H 5.2/18; MCV 80; RDW 21.5; FOBT + BP responded to fluids in the ED - s/p 3u pRBC, CBC Q12H, transfuse for HgB less than 8. - iron studies show normal iron stores TSAT greater than 30% - protonix Daily - hold eliquis - GI consulted to evaluate GI bleed - c/w ceftriaxone and azithromycin - ID and Pulm consults appreciated - CEA and CA19-9 ordered - Heme/Onc consulted - Lasix held for hypotension, will reassess in AM #Acute CHF exacerbation likely multifactorial (symptomatic anemia, possible pneumonia, poor diet, medication non-adherence in the past BNP 2964.8 last ECHO 1 year ago (EF 50-55%) however with severe right sided failure and severe TR. - consider careful diuresis with IV lasix 40 (hold lasix if SBP < 110); as BP permits and per day team discretion - f/u ECHO - c/w digoxin 0.125 mg; dig level 1.29, will repeat prior to discharge to ensure Pt. does not enter toxicity range (1.3+) - Cardiology consulted, appreciate clearance for EGD and colonoscopy? - strict Is/Os, daily weights--> Dee placed - CT C/A/P showed marked anasarca, b/l pleural effusions and consolidations R>L, cardiomegaly w/ minimal pericardial effusion, moderate Ascites - volume status has improved, currently holding Lasix #Ascites and hypoalbuminemia likely 2/2 cirrhosis Abd. US definitive for cirrhosis, will consult IR for paracentesis and SAAG calculation for infection vs. malignancy as Pt. has remote history of Gastric CA s/p resection in 2008 Smooth muscle antibody weakly positive, AFP, CEA and CA19-9 negative Preliminary fluid pathology results non-diagnostic for malignancy f/u ammonia for reported declining mental status Diurese with Aldactone, holding Lasix. #r/o ACS - trop neg x 2 - repeat EKG unchanged, likjely demand ischemia from anemia #PATRICK (superimposed on possible CKD?, although Cr in normal range during last visit on 06/2019) etiology unclear, however likely 2/2 sever volume overload status Pt. presented with, Cr. now improved to 1.1 (almost at baseline, was 0.5, 1 year ago) - renal US unremarkable however CT AP, showed exophytic R. cyst at 2.2 cm - urine protein/Cr ratio 0.4, slightly elevated - UPEP, SPEP reviewd, low protein consistent for cirrhosis - monitor urine output; monitor BUN/Cr, GFR; monitor lytes - Nephrology consulted - Avoid nephrotoxic agents #Hx of HTN - holding home metoprolol #Hx of COPD - currently at 4L NC #DVT PPx - Holding home eliquis; SCDs for now #FEN -F - no IVF as of now -E - monitor; replete lytes prn -N - NPO #Dispo Med/Surg Visit type - Emergency Visit Emergency Visit: Yes ED Registration Date: 03/05/20 Care time: The patient presented to the Emergency Department on the above date and was hospitalized for further evaluation of their emergent condition. - New Patient This patient is new to me today: No - Critical Care Critical Care patient: No - Discharge Referral Referred to [facility] Med P.C.: No - Medication Review Med list reviewed for High Risk Meds patients 65 and older: Yes ATTENDING PHYSICIAN STATEMENT I saw and evaluated the patient. I reviewed the resident's note and discussed the case with the resident. I agree with the resident's findings and plan as documented. SUBJECTIVE: OBJECTIVE: ASSESSMENT AND PLAN:
--- NOTE | 2020-03-11 17:21 | PATH ---
Cytology Non-Gynecological Report Patient Name: SYEDA LOONEY Med. Rec. #: [id number] /Age/Gender: 1945 (Age: 74) / F Account: [id number] Location: [facility] MED/SURG Taken: 03/10/2020 Received: 03/10/2020 Reported: 03/11/2020 Physicians: Laura Holly Specimen(s) Received A: RLQ PARACENTESIS B: RLQ PARACENTESIS Clinical History Ascites, CHF Final Diagnosis A-B. ABDOMINAL FLUID, RLQ, PARACENTESIS: SATISFACTORY FOR EVALUATION. NEGATIVE FOR MALIGNANCY. FEW MESOTHELIAL CELLS, RARE LYMPHOCYTES, AND RARE NEUTROPHILS WITH FOCAL DEGENERATIVE CHANGES PRESENT. Electronically Signed Shahida Soto M.D. Gross Description A. Approximately 30 cc of yellow fluid received fixed in 50% alcohol. One cytofunnel prepared and Pap stained. One cellblock prepared. B. Approximately 1200 cc of cloudy yellow fluid received fresh. One cytofunnel prepared and Pap stained. One cellblock prepared.
[2020-03-11] MEDS ORDERED: MIDODRINE HCL 2.5 MG TABLET PO SCH (18:00)
[2020-03-12] MEDS: ACETAMINOPHEN 325 MG TABLET (FP) PO PRN ×3 (02:19→20:50)
[2020-03-12 07:38] LABS: BASO % 0.8 % (0-2.0); HEMATOCRIT 22.3 % (32.4-45.2); LYMPH % 18.2 % (8-40); MCH 24.7 pg (25.7-33.7); MCHC 30.5 g/dl (32.0-36.0); MEAN CELL VOLUME 81.1 fl (80-96); MEAN PLT VOLUME 8.9 fl (7.5-11.1); MONO % 7.1 % (3.8-10.2); NEUT % 71.9 % (42.8-82.8); PLATELET COUNT 45 K/MM3 (134-434); RBC 2.75 M/mm3 (3.60-5.2); RDW 20.2 % (11.6-15.6); WHITE BLOOD COUNT 3.3 K/mm3 (4.0-10.0)
[2020-03-12 07:54] LABS: ALBUMIN 1.5 g/dl (3.4-5.0); BILIRUBIN,TOTAL 0.3 mg/dL (0.2-1); BLOOD UREA NITROGEN 19.9 mg/dL (7-18); CALCIUM 7.6 mg/dL (8.5-10.1); PHOSPHOROUS 2.5 mg/dL (2.5-4.9); POTASSIUM 3.8 mmol/L (3.5-5.1); TOT PROT 4.8 g/dl (6.4-8.2)
[2020-03-12 08:35] LABS: HEMOGLOBIN 6.8 GM/dL (10.7-15.3)
[2020-03-12] MEDS ORDERED: ALBUTEROL SO4 2.5/IPRATROPIUM 0.5 INH SOL 3 ML VIAL.NEB. NEB PRN ×2 (09:58→19:27)
[2020-03-12 10:00] LABS: ARTERIAL BLD GAS O2 SATURATION 97.3 mmHg (95-98); ARTERIAL BLOOD GAS BASE EXCESS 8.4 mmol/L (-2-2); ARTERIAL BLOOD GAS PO2 89.9 mmHg (80-100); ARTERIAL BLOOD GAS pH 7.482 (7.350-7.450)
--- NOTE | 2020-03-12 10:09 | PN ---
Progress Note, Physician Chief Complaint: no complaints tele neg History of Present Illness: 74 year old with a pmhx of right sided CHF and pulmonary htn, afib s/p ppm on apixaban, copd on home O2, and gastric CA s/p resection brought from home due to hypotension and sob. SBP 60 at home. +blood in stool at home. SOB worsening last few days at home. +orthopnea and edema. No chest pain. Mental status worsening Found to have drop in Hgb to 5.2 PATRICK with Cr 2.3 EKG: atrial paced, inferior and anterolateral ST abnormalities CT chest: bibasilar opacities, pleural effusions, anasarca Trops neg BNP elevated Echocardiogram 02/2019: nl lvef, mod to sev RV dil/hypokinesis, mod to sev TR, mod pulm htn. - Current Medication List Current Medications: Active Medications Acetaminophen (Tylenol -) 650 mg PO Q6H PRN PRN Reason: PAIN LEVEL 6-10 Last Admin: 03/12/20 02:19 Dose: 650 mg Documented by: Albuterol/Ipratropium (Duoneb -) 1 amp NEB Q6H PRN PRN Reason: SHORTNESS OF BREATH Digoxin (Lanoxin -) 0.125 mg PO DAILY [facility] Last Admin: 03/11/20 10:53 Dose: 0.125 mg Documented by: Furosemide (Lasix -) 40 mg PO BID@0600,1400 [facility] Last Admin: 03/11/20 05:13 Dose: 40 mg Documented by: Ceftriaxone Sodium 1 gm/ (Dextrose) 50 mls @ 200 mls/hr IVPB DAILY [facility]; Pro tocol Metronidazole (Flagyl 500mg Premixed Ivpb -) 500 mg in 100 mls @ 100 mls/hr IVPB Q8H-IV J[facility] Pantoprazole Sodium (Protonix -) 40 mg PO DAILY [facility] Last Admin: 03/11/20 10:53 Dose: 40 mg Documented by: Rifaximin (Xifaxan -) 550 mg PO BID [facility] Spironolactone (Aldactone -) 25 mg PO BID [facility] Last Admin: 03/11/20 21:13 Dose: 25 mg Documented by: - Objective Vital Signs: Vital Signs Temperature 99.1 F 03/12/20 06:00 Pulse Rate 65 03/12/20 06:00 Respiratory Rate 20 03/12/20 06:00 Blood Pressure 94/53 L 03/12/20 06:00 O2 Sat by Pulse Oximetry (%) 96 03/12/20 06:00 Constitutional: Yes: No Distress, Calm Eyes: Yes: EOM Intact HENT: Yes: Normocephalic Neck: Yes: Trachea Midline Cardiovascular: Yes: Pulse Irregular Gastrointestinal: Yes: Normal Bowel Sounds, Soft, Ascites Musculoskeletal: Yes: WNL Extremities: Yes: WNL Edema: Yes Edema: LLE: 1+, RLE: 1+ Labs: CBC, BMP 03/12/20 07:00 INR, PTT INR 1.63 (0.83-1.09) H 03/05/20 14:18 Fibrinogen 252.0 mg/dL (238-498) 03/08/20 11:50 Assessment/Plan 74 year old with a pmhx of right sided CHF and pulmonary htn, afib s/p ppm on apixaban, copd on home O2, and gastric CA s/p resection brought from home due to hypotension and sob. SBP 60 at home. +blood in stool at home. SOB worsening last few days at home. +orthopnea and edema. No chest pain. Mental status worsening. Found to have drop in Hgb to 5.2 PATRICK with Cr 2.3 EKG: atrial paced, inferior and anterolateral ST abnormalities CT chest: bibasilar opacities, pleural effusions, anasarca Trops neg BNP elevated Echocardiogram 02/2019: nl lvef, mod to sev RV dil/hypokinesis, mod to sev TR, mod pulm htn. IMP: The patient's fluid status is improving. The edema is minimal at this point. Symptomatically better. Continue salt and fluid restrictions. Continue diuretics as currently if tolerated by BP check digoxin level. echo ordered. Watching renal function. Keep potassium well repleted. check magnesium. Off telemetry. will follow with you.
--- NOTE | 2020-03-12 10:46 | PN ---
Progress Note, Physician History of Present Illness: hypoxic o2 increased h and h lower - Current Medication List Current Medications: Active Medications Acetaminophen (Tylenol -) 650 mg PO Q6H PRN PRN Reason: PAIN LEVEL 6-10 Last Admin: 03/12/20 02:19 Dose: 650 mg Documented by: Albuterol/Ipratropium (Duoneb -) 1 amp NEB Q6H PRN PRN Reason: SHORTNESS OF BREATH Digoxin (Lanoxin -) 0.125 mg PO DAILY [facility] Last Admin: 03/11/20 10:53 Dose: 0.125 mg Documented by: Furosemide (Lasix -) 40 mg PO BID@0600,1400 [facility] Last Admin: 03/11/20 05:13 Dose: 40 mg Documented by: Ceftriaxone Sodium 1 gm/ (Dextrose) 50 mls @ 200 mls/hr IVPB DAILY [facility]; Protocol Metronidazole (Flagyl 500mg Premixed Ivpb -) 500 mg in 100 mls @ 100 mls/hr IVPB Q8H-IV [facility] Pantoprazole Sodium (Protonix -) 40 mg PO DAILY [facility] Last Admin: 03/11/20 10:53 Dose: 40 mg Documented by: Rifaximin (Xifaxan -) 550 mg PO BID [facility] Spironolactone (Aldactone -) 25 mg PO BID [facility] Last Admin: 03/11/20 21:13 Dose: 25 mg Documented by: - Objective Vital Signs: Vital Signs Temperature 99.1 F 03/12/20 06:00 Pulse Rate 65 03/12/20 06:00 Respiratory Rate 20 03/12/20 06:00 Blood Pressure 94/53 L 03/12/20 06:00 O2 Sat by Pulse Oximetry (%) 96 03/12/20 06:00 Constitutional: Yes: No Distress, Calm Cardiovascular: Yes: Tachycardia, S1, S2 Respiratory: Yes: Regular, CTA Bilaterally, On Nasal O2 Musculoskeletal: Yes: WNL Extremities: Yes: WNL Edema: LUE: 2+, RUE: 2+, LLE: 2+, RLE: 2+ Neurological: Yes: Alert Psychiatric: Yes: Alert Labs: CBC, BMP 03/12/20 07:00 INR, PTT INR 1.63 (0.83-1.09) H 03/05/20 14:18 Fibrinogen 252.0 mg/dL (238-498) 03/08/20 11:50 Assessment/Plan Problem List - Problems (1) PATRICK (acute kidney injury) Code(s): N17.9 - ACUTE KIDNEY FAILURE, UNSPECIFIED (2) Anemia Code(s): D64.9 - ANEMIA, UNSPECIFIED Qualifiers: Anemia type: unspecified type Qualified Code(s): D64.9 - Anemia, unspecified (3) CHF exacerbation Code(s): I50.9 - HEART FAILURE, UNSPECIFIED Qualifiers: Heart failure type: unspecified Qualified Code(s): I50.9 - Heart failure, unspecified (4) Chronic respiratory failure Code(s): J96.10 - CHRONIC RESPIRATORY FAILURE, UNSP W HYPOXIA OR HYPERCAPNIA (5) Diarrhea Code(s): R19.7 - DIARRHEA, UNSPECIFIED (6) COPD (chronic obstructive pulmonary disease) Code(s): J44.9 - CHRONIC OBSTRUCTIVE PULMONARY DISEASE, UNSPECIFIED Qualifiers: COPD type: unspecified COPD Qualified Code(s): J44.9 - Chronic obstructive pulmonary disease, unspecified (7) Pacemaker Code(s): Z95.0 - PRESENCE OF CARDIAC PACEMAKER (8) A-fib Code(s): I48.91 - UNSPECIFIED ATRIAL FIBRILLATION Qualifiers: Atrial fibrillation type: unspecified persistent Assessment/Plan Acute on chronic resp failure Acute CHF exacerbation PATRICK COPD AFIB Diarrhea/?GI bleed Anemia plan consider txusing the patient close watch resp support rest as per the team
--- NOTE | 2020-03-12 11:02 | PN ---
Teaching Attending Note Name of Resident: Gerald Ibrahim ATTENDING PHYSICIAN STATEMENT I saw and evaluated the patient. I reviewed the resident's note and discussed the case with the resident. I agree with the resident's findings and plan as documented. SUBJECTIVE: pt seen and examined in respiratory distress, noticed lip pursing OBJECTIVE: Last Vital Signs Temp Pulse Resp BP Pulse Ox 99.1 F 65 20 94/53 L 96 03/12/20 06:00 03/12/20 06:00 03/12/20 06:00 03/12/20 06:00 03/12/20 06:00 General: Alert, oriented, deconditioned, in moderate respiratory distress HEENT: NC/AT, PERRLA, JVD+ Lungs: poor inspiratory effort, coarse b/l BS+ CVS: Irregularly irregular, Systolic Murmur, S1S2+ Abd: Soft, NT, ND, BS+ Ext: 1+ LE pitting edema b/l CBCD WBC 3.3 K/mm3 (4.0-10.0) L 03/12/20 07:00 RBC 2.75 M/mm3 (3.60-5.2) L 03/12/20 07:00 Hgb 6.8 GM/dL (10.7-15.3) L* 03/12/20 07:00 Hct 22.3 % (32.4-45.2) L D 03/12/20 07:00 MCV 81.1 fl (80-96) 03/12/20 07:00 MCHC 30.5 g/dl (32.0-36.0) L 03/12/20 07:00 RDW 20.2 % (11.6-15.6) H 03/12/20 07:00 Plt Count 45 K/MM3 (134-434) L D 03/12/20 07:00 MPV 8.9 fl (7.5-11.1) 03/12/20 07:00 CMP Sodium 145 mmol/L (136-145) 03/12/20 07:00 Potassium 3.8 mmol/L (3.5-5.1) 03/12/20 07:00 Chloride 106 mmol/L (98-107) 03/12/20 07:00 Carbon Dioxide 38 mmol/L (21-32) H 03/12/20 07:00 Anion Gap 2 MMOL/L (8-16) L 03/12/20 07:00 BUN 19.9 mg/dL (7-18) H 03/12/20 07:00 Creatinine 1.0 mg/dL (0.55-1.3) 03/12/20 07:00 Calcium 7.6 mg/dL (8.5-10.1) L 03/12/20 07:00 Total Bilirubin 0.3 mg/dL (0.2-1) 03/12/20 07:00 AST 20 U/L (15-37) 03/12/20 07:00 ALT 13 U/L (13-61) 03/12/20 07:00 Alkaline Phosphatase 57 U/L (45-117) 03/12/20 07:00 Total Protein 4.8 g/dl (6.4-8.2) L 03/12/20 07:00 Albumin 1.5 g/dl (3.4-5.0) L 03/12/20 07:00 Active Medications Acetaminophen (Tylenol -) 650 mg PO Q6H PRN PRN Reason: PAIN LEVEL 6-10 Last Admin: 03/12/20 02:19 Dose: 650 mg Documented by: Albuterol/Ipratropium (Duoneb -) 1 amp NEB Q6H PRN PRN Reason: SHORTNESS OF BREATH Digoxin (Lanoxin -) 0.125 mg PO DAILY [facility] Last Admin: 03/11/20 10:53 Dose: 0.125 mg Documented by: Furosemide (Lasix -) 40 mg PO BID@0600,1400 [facility] Last Admin: 03/11/20 05:13 Dose: 40 mg Documented by: Ceftriaxone Sodium 1 gm/ (Dextrose) 50 mls @ 200 mls/hr IVPB DAILY [facility]; Protocol Metronidazole (Flagyl 500mg Premixed Ivpb -) 500 mg in 100 mls @ 100 mls/hr IVPB Q8H-IV [facility] Pantoprazole Sodium (Protonix -) 40 mg PO DAILY [facility] Last Admin: 03/11/20 10:53 Dose: 40 mg Documented by: Rifaximin (Xifaxan -) 550 mg PO BID [facility] Spironolactone (Aldactone -) 25 mg PO BID [facility] Last Admin: 03/11/20 21:13 Dose: 25 mg Documented by: ASSESSMENT AND PLAN: 74 year old with a Mhx of right sided CHF and pulmonary htn, afib s/p ppm on apixaban, COPD on home O2, and gastric CA s/p resection brought from home due to hypotension and sob. along with blood in stool at home # Acute HFrEF COPD, Cor-pulmonale pul HTN 2019 echo Rt vent pressure 40-50, Moderate Pul HTN, EF 50-55%, new ECHO ordered lasix could not be given yesterday due to low BP digoxin salt/fluid restriction, encourage PO intake appears in more respiratory distress compared to yesterday ABG noted, tele transfer, icu EVAL cardiology consult GI following Pulmonary/ICU following Renal following Palliative care consult # LGIB Gastric ca? Cirrhosis (unknown cause) variceal bleed? not stable for EGD trend H&H, transfused to Hg>7 paracentesis has WBC of 181, RBC 536 has abdominal tenderness, ABx for SBP PATRICK on CKD HTN HLD CHFE CAP PNA Afib on Eliquis (stopped) DVT prophylaxis: hold AC, SCD for DVT ppx COVID negative
[2020-03-12] MEDS: SPIRONOLACTONE 25 MG TABLET PO SCH ×2 (11:08→22:45)
[2020-03-12] MEDS: PANTOPRAZOLE 40 MG TABLET PO SCH (11:09)
[2020-03-12] MEDS: CEFTRIAXONE 1 GM in DEXTROSE 5%-WATER - 50 ML IVPB SCH ×2 (11:09→14:13)
[2020-03-12] MEDS: DIGOXIN 0.125 MG TABLET (FP) PO SCH (11:09)
[2020-03-12 11:29] LABS: ARTERIAL BLD GAS O2 SATURATION 94.6 mmHg (95-98); ARTERIAL BLOOD GAS BASE EXCESS 15.7 mmol/L (-2-2); ARTERIAL BLOOD GAS pH 7.461 (7.350-7.450)
[2020-03-12 11:30] LABS: ALLENS TEST POSITIVE
[2020-03-12 11:33] LABS: BASO % 0.5 % (0-2.0); EOS % 1.2 % (0-4.5); HEMATOCRIT 26.3 % (32.4-45.2); HEMOGLOBIN 8.1 GM/dL (10.7-15.3); LYMPH % 17.4 % (8-40); MCH 25.3 pg (25.7-33.7); MCHC 30.9 g/dl (32.0-36.0); MEAN CELL VOLUME 81.8 fl (80-96); MEAN PLT VOLUME 8.7 fl (7.5-11.1); MONO % 5.9 % (3.8-10.2); PLATELET COUNT 88 K/MM3 (134-434); RBC 3.21 M/mm3 (3.60-5.2); WHITE BLOOD COUNT 4.2 K/mm3 (4.0-10.0)
--- NOTE | 2020-03-12 11:56 | CONSULT ---
Consultation: REQUESTING PROVIDER: Dr. Grace CONSULT REQUEST: ICU monitoring HISTORY OF PRESENT ILLNESS: 74 year old with a Mhx of right sided CHF and pulmonary htn, afib s/p ppm on apixaban, COPD on home O2, cryptogenic cirrhosis and gastric CA s/p resection brought from home due to hypotension and sob. along with blood in stool at home- we were called for ICU monitoring as patient's blood pressures were dropping and she was more dyspneic; vital signs: 5L o2 93 BP 97/53; HR 76 lab: Hgb initially 6.8 now 8.1; Cr 1.0 ABG pc02 56- patient to receive blood. echo pending REVIEW OF SYSTEMS: CONSTITUTIONAL: Absent: fever, chills, diaphoresis, generalized weakness, malaise, loss of appetite, weight change HEENT: Absent: rhinorrhea, nasal congestion, throat pain, throat swelling, difficulty swallowing, mouth swelling, ear pain, eye pain, visual changes CARDIOVASCULAR: Absent: chest pain, syncope, palpitations, irregular heart rate, lightheadedness, peripheral edema RESPIRATORY: Present: shortness of breath, Absent: cough, dyspnea with exertion, orthopnea, wheezing, stridor, hemoptysis GASTROINTESTINAL: Present: abdominal pain Absent: abdominal pain, abdominal distension, nausea, vomiting, diarrhea, constipation, melena, hematochezia GENITOURINARY: Absent: dysuria, frequency, urgency, hesitancy, hematuria, flank pain, genital pain MUSCULOSKELETAL: Absent: myalgia, arthralgia, joint swelling, back pain, neck pain SKIN: Absent: rash, itching, pallor HEMATOLOGIC/IMMUNOLOGIC: Absent: easy bleeding, easy bruising, lymphadenopathy, frequent infections ENDOCRINE: Absent: unexplained weight gain, unexplained weight loss, heat intolerance, cold intolerance NEUROLOGIC: Absent: headache, focal weakness or paresthesias, dizziness, unsteady gait, seizure, mental status changes, bladder or bowel incontinence PSYCHIATRIC: Absent: anxiety, depression, suicidal or homicidal ideation, hallucinations. PHYSICAL EXAMINATION Vital Signs - 24 hr 03/11/20 03/11/20 03/11/20 14:00 17:45 21:00 Temperature 98.2 F 98.5 F 98.8 F Pulse Rate 75 93 H 76 Respiratory 20 20 24 H Rate Blood Pressure 121/51 L 111/76 110/60 O2 Sat by Pulse 97 97 94 L Oximetry (%) 03/12/20 03/12/20 03/12/20 06:00 10:00 11:09 Temperature 99.1 F 98.6 F Pulse Rate 65 62 76 Respiratory 20 18 Rate Blood Pressure 94/53 L 96/53 L O2 Sat by Pulse 96 92 L Oximetry (%) GENERAL: Awake, alert, and fully oriented, in acute distress. EYES: PEERLA: EOMI; no scleral icterus NECK:no JVD; no lymphadenopathy LUNGS: coarse breath sounds b/l HEART: irregularly irregular, systolic murmur normal S1 and S2 , rub or gallop. ABDOMEN: Soft, epigastric tenderness; LUQ tenderness upon palpation; +BS MUSCULOSKELETAL: Normal range of motion at all joints. No bony deformities or tenderness. No CVA tenderness. EXTREMITIES: 1+ pitting edema b/l (UE and LE) NEUROLOGICAL: Cranial nerves II-XII intact. Normal speech. Normal gait. PSYCHIATRIC: Cooperative. Good eye contact. Appropriate mood and affect. SKIN: Warm, dry, normal turgor, no rashes or lesions noted. Laboratory Results - last 24 hr 03/12/20 03/12/20 03/12/20 07:00 07:00 07:00 WBC 3.3 L Corrected WBC (auto) RBC 2.75 L Hgb 6.8 L* Hct 22.3 L D MCV 81.1 MCH 24.7 L MCHC 30.5 L RDW 20.2 H Plt Count 45 L D MPV 8.9 Absolute Neuts (auto) 2.4 Neutrophils % 71.9 Lymphocytes % 18.2 D Monocytes % 7.1 Eosinophils % 2.0 Basophils % 0.8 Nucleated RBC % 0 Manual Slide Review Platelet Comment Anticoagulation Therapy Puncture Site Patient Temperature ABG pH ABG pCO2 ABG pO2 ABG HCO3 ABG O2 Sat (Measured) ABG O2 Content ABG Base Excess Malcolm Test Patient On Oxygen O2 Delivery Device Oxygen Flow Rate Vent Mode Vent Rate Mechanical Rate PEEP Pressure Support Vent Sodium 145 Potassium 3.8 Chloride 106 Carbon Dioxide 38 H Anion Gap 2 L BUN 19.9 H Creatinine 1.0 Est GFR (CKD-EPI)AfAm 64.73 Est GFR (CKD-EPI)NonAf 55.85 Random Glucose 101 Calcium 7.6 L Phosphorus 2.5 Magnesium 2.0 Total Bilirubin 0.3 AST 20 ALT 13 Alkaline Phosphatase 57 Ammonia 66.20 H Total Protein 4.8 L Albumin 1.5 L Crossmatch 03/12/20 03/12/20 03/12/20 09:30 09:30 10:05 WBC Cancelled Corrected WBC (auto) Cancelled RBC Cancelled Hgb Cancelled Hct Cancelled MCV Cancelled MCH Cancelled MCHC Cancelled RDW Cancelled Plt Count Cancelled MPV Cancelled Absolute Neuts (auto) Neutrophils % Lymphocytes % Monocytes % Eosinophils % Basophils % Nucleated RBC % Manual Slide Review Cancelled Platelet Comment Cancelled Anticoagulation Therapy No Result Required. Puncture Site No Result Required. Patient Temperature No Result Required. ABG pH 7.482 H ABG pCO2 44.70 ABG pO2 89.9 ABG HCO3 32.7 H ABG O2 Sat (Measured) 97.3 ABG O2 Content No Result Required. ABG Base Excess 8.4 H Malcolm Test No Result Required. Patient On Oxygen No Result Required. O2 Delivery Device No Result Required. Oxygen Flow Rate No Result Required. Vent Mode No Result Required. Vent Rate No Result Required. Mechanical Rate No Result Required. PEEP No Result Required. Pressure Support Vent No Result Required. Sodium Potassium Chloride Carbon Dioxide Anion Gap BUN Creatinine Est GFR (CKD-EPI)AfAm Est GFR (CKD-EPI)NonAf Random Glucose Calcium Phosphorus Magnesium Total Bilirubin AST ALT Alkaline Phosphatase Ammonia Total Protein Albumin Crossmatch See Detail 03/12/20 03/12/20 10:05 10:24 WBC 4.2 Corrected WBC (auto) RBC 3.21 L Hgb 8.1 L Hct 26.3 L D MCV 81.8 MCH 25.3 L MCHC 30.9 L RDW 20.0 H Plt Count 88 L D MPV 8.7 Absolute Neuts (auto) 3.2 Neutrophils % 75.0 Lymphocytes % 17.4 Monocytes % 5.9 Eosinophils % 1.2 Basophils % 0.5 Nucleated RBC % 0 Manual Slide Review Platelet Comment Anticoagulation Therapy No Result Required. Puncture Site Right radial Patient Temperature No Result Required. ABG pH 7.461 H ABG pCO2 58.70 H ABG pO2 71.0 L ABG HCO3 40.9 H ABG O2 Sat (Measured) 94.6 L ABG O2 Content No Result Required. ABG Base Excess 15.7 H Malcolm Test Positive Patient On Oxygen Yes O2 Delivery Device Nasal Oxygen Flow Rate 5l Vent Mode No Result Required. Vent Rate No Result Required. Mechanical Rate No Result Required. PEEP No Result Required. Pressure Support Vent No Result Required. Sodium Potassium Chloride Carbon Dioxide Anion Gap BUN Creatinine Est GFR (CKD-EPI)AfAm Est GFR (CKD-EPI)NonAf Random Glucose Calcium Phosphorus Magnesium Total Bilirubin AST ALT Alkaline Phosphatase Ammonia Total Protein Albumin Crossmatch Active Medications Generic Name Dose Route Start Last Admin Trade Name Freq PRN Reason Stop Dose Admin Acetaminophen 650 mg 03/10/20 16:24 03/12/20 11:08 Tylenol - PO 650 mg Q6H PRN Administration PAIN LEVEL 6-10 Albuterol/Ipratropium 1 amp 03/12/20 09:58 Duoneb - NEB Q6H PRN SHORTNESS OF BREATH Digoxin 0.125 mg 03/11/20 10:00 03/12/20 11:09 Lanoxin - PO 0.125 mg DAILY [facility] Administration Furosemide 40 mg 03/11/20 06:00 03/11/20 05:13 Lasix - PO 40 mg BID@0600,1400 [facility] Administration Ceftriaxone Sodium 1 gm/ 50 mls @ 200 mls/hr 03/12/20 10:15 03/12/20 11:09 Dextrose IVPB Not Given DAILY [facility] Protocol Metronidazole 500 mg in 100 mls @ 100 mls/hr 03/12/20 18:00 Flagyl 500mg Premixed Ivpb - IVPB Q8H-IV [facility] Pantoprazole Sodium 40 mg 03/10/20 15:00 03/12/20 11:09 Protonix - PO 40 mg DAILY [facility] Administration Rifaximin 550 mg 03/12/20 22:00 Xifaxan - PO BID [facility] Spironolactone 25 mg 03/10/20 22:00 03/12/20 11:08 Aldactone - PO 25 mg BID [facility] Administration ASSESSMENT/PLAN: 74 year old with a Mhx of right sided CHF and pulmonary htn, afib s/p ppm on apixaban, COPD on home O2, and gastric CA s/p resection brought from home due to hypotension and sob. #Neuro AOx3 monitor neuro status #Cardio history of CHF; pulmonary HTN; afib -hypotensive this AM likely 2/2 anemia -echo pending; last echo shows EF 50% -c/w digoxin -gentle hydration -lasix if hemodynamics permit -if no improvement in BP may need pressors -MAP >65 -monitor hemodynamics #GI history of gastric CA s/p resection; cryptogenic cirrhosis abdominal pain present this AM -patient had recent abdominal paracentesis WBC of 181, RBC 536 -ceftriaxone for possible SBP -lactulose/rifaximin -protonix -GI on board to evaluate for possible GI bleed #Heme patients Hgb was 6.8 this AM -to receive 1 unit of PRBC -no overt signs of bleeding -post transfusion CBC -transfuse if below 8 #Pulmonary history of COPD on home o2 (4L) -patient experiencing dyspnea this AM -ABG done Pc02 55.6 -patient could benefit from hi-flow or BIPAP -duonebs PRN -repeat CXR in AM -maintain o2 saturation between 88-92% #Renal Cr was 1.0 this AM -monitor electrolytes -monitor volume status' -monitor i's and o's f/e/n not on standing fluids monitor electrolytes NPO dvt ppx: SCDS in light of bleeding Dispo: We will continue to follow the patient. Thank you for this consultative opportunity. Problem List - Problems (1) Anemia Code(s): D64.9 - ANEMIA, UNSPECIFIED Qualifiers: Anemia type: unspecified type Qualified Code(s): D64.9 - Anemia, unspecified (2) CHF exacerbation Code(s): I50.9 - HEART FAILURE, UNSPECIFIED Qualifiers: Heart failure type: unspecified Qualified Code(s): I50.9 - Heart failure, unspecified (3) Cirrhosis of liver with ascites Code(s): K74.60 - UNSPECIFIED CIRRHOSIS OF LIVER; R18.8 - OTHER ASCITES (4) Microcytic anemia Code(s): D50.9 - IRON DEFICIENCY ANEMIA, UNSPECIFIED Visit type - Medication Review Med list reviewed for High Risk Meds patients 65 and older: Yes - Emergency Visit Emergency Visit: Yes ED Registration Date: 03/05/20 Care time: The patient presented to the Emergency Department on the above date and was hospitalized for further evaluation of their emergent condition. - New Patient This patient is new to me today: Yes Date on this admission: 03/12/20 - Critical Care Critical Care patient: Yes Total Critical Care Time (in minutes): 35 Critical Care Statement: The care of this patient involved high complexity decision making to prevent further life threatening deterioration of the patien t's condition and/or to evaluate & treat vital organ system(s) failure or risk of failure. ATTENDING PHYSICIAN STATEMENT I saw and evaluated the patient. I reviewed the resident's note and discussed the case with the resident. I agree with the resident's findings and plan as documented. SUBJECTIVE: OBJECTIVE: ASSESSMENT AND PLAN:
[2020-03-12 12:07] LABS: BODY FLUID ALBUMIN 0.3 g/dL (Not Estab.)
--- NOTE | 2020-03-12 12:31 | PN ---
Progress Note, Physician History of Present Illness: Pt seen and examined at bedside. She is out of bed to chair. She feels that her breathing is improving. - Current Medication List Current Medications: Active Medications Acetaminophen (Tylenol -) 650 mg PO Q6H PRN PRN Reason: PAIN LEVEL 6-10 Last Admin: 03/12/20 11:08 Dose: 650 mg Documented by: Albuterol/Ipratropium (Duoneb -) 1 amp NEB Q6H PRN PRN Reason: SHORTNESS OF BREATH Chlorhexidine Gluconate (Hibiclens For Decolonization -) 1 applic TP HS [facility] Digoxin (Lanoxin -) 0.125 mg PO DAILY [facility] Last Admin: 03/12/20 11:09 Dose: 0.125 mg Documented by: Furosemide (Lasix -) 40 mg PO BID@0600,1400 [facility] Last Admin: 03/11/20 05:13 Dose: 40 mg Documented by: Ceftriaxone Sodium 1 gm/ (Dextrose) 50 mls @ 200 mls/hr IVPB DAILY [facility]; P rotocol Last Admin: 03/12/20 11:09 Dose: Not Given Documented by: Metronidazole (Flagyl 500mg Premixed Ivpb -) 500 mg in 100 mls @ 100 mls/hr IVPB Q8H-IV [facility] Mupirocin (Bactroban Ointment (For Decolonization) -) 1 applic NS BID [facility] Stop: 03/17/20 11:59 Pantoprazole Sodium (Protonix -) 40 mg PO DAILY [facility] Last Admin: 03/12/20 11:09 Dose: 40 mg Documented by: Rifaximin (Xifaxan -) 550 mg PO BID [facility] Spironolactone (Aldactone -) 25 mg PO BID [facility] Last Admin: 03/12/20 11:08 Dose: 25 mg Documented by: - Objective Vital Signs: Vital Signs Temperature 98.6 F 03/12/20 10:00 Pulse Rate 76 03/12/20 11:09 Respiratory Rate 18 03/12/20 10:00 Blood Pressure 96/53 L 03/12/20 10:00 O2 Sat by Pulse Oximetry (%) 92 L 03/12/20 10:00 Constitutional: Yes: Calm Eyes: Yes: Conjunctiva Clear HENT: Yes: Atraumatic Neck: Yes: Supple Cardiovascular: Yes: S1, S2 Respiratory: Yes: CTA Bilaterally, On Nasal O2 Gastrointestinal: Yes: Normal Bowel Sounds, Soft Edema: Yes Edema: LUE: 1+, RUE: 1+, LLE: 1+, RLE: 1+ Neurological: Yes: Oriented Labs: CBC, BMP 03/12/20 10:05 03/12/20 07:00 INR, PTT INR 1.63 (0.83-1.09) H 03/05/20 14:18 Fibrinogen 252.0 mg/dL (238-498) 03/08/20 11:50 Problem List - Problems (1) PATRICK (acute kidney injury) Code(s): N17.9 - ACUTE KIDNEY FAILURE, UNSPECIFIED (2) Anemia Code(s): D64.9 - ANEMIA, UNSPECIFIED Qualifiers: Anemia type: unspecified type Qualified Code(s): D64.9 - Anemia, unspecified (3) CHF exacerbation Code(s): I50.9 - HEART FAILURE, UNSPECIFIED Qualifiers: Heart failure type: unspecified Qualified Code(s): I50.9 - Heart failure, unspecified (4) COPD (chronic obstructive pulmonary disease) Code(s): J44.9 - CHRONIC OBSTRUCTIVE PULMONARY DISEASE, UNSPECIFIED Qualifiers: COPD type: unspecified COPD Qualified Code(s): J44.9 - Chronic obstructive pulmonary disease, unspecified (5) A-fib Code(s): I48.91 - UNSPECIFIED ATRIAL FIBRILLATION Qualifiers: Atrial fibrillation type: unspecified persistent Assessment/Plan Current Medications Generic Name Dose Route Start Last Admin Trade Name Freq PRN Reason Stop Dose Admin Acetaminophen 650 mg 03/10/20 16:24 03/12/20 11:08 Tylenol - PO 650 mg Q6H PRN Administration PAIN LEVEL 6-10 Albuterol/Ipratropium 1 amp 03/12/20 09:58 Duoneb - NEB Q6H PRN SHORTNESS OF BREATH Chlorhexidine Gluconate 1 applic 03/12/20 22:00 Hibiclens For Decolonization - TP HS [facility] Digoxin 0.125 mg 03/11/20 10:00 03/12/20 11:09 Lanoxin - PO 0.125 mg DAILY [facility] Administration Furosemide 40 mg 03/11/20 06:00 03/11/20 05:13 Lasix - PO 40 mg BID@0600,1400 [facility] Administration Ceftriaxone Sodium 1 gm/ 50 mls @ 200 mls/hr 03/12/20 10:15 03/12/20 11:09 Dextrose IVPB Not Given DAILY [facility] Protocol Metronidazole 500 mg in 100 mls @ 100 mls/hr 03/12/20 18:00 Flagyl 500mg Premixed Ivpb - IVPB Q8H-IV [facility] Mupirocin 1 applic 03/12/20 12:00 Bactroban Ointment (For Decolonization) - NS 03/17/20 11:59 BID [facility] Pantoprazole Sodium 40 mg 03/10/20 15:00 03/12/20 11:09 Protonix - PO 40 mg DAILY [facility] Administration Rifaximin 550 mg 03/12/20 22:00 Xifaxan - PO BID [facility] Spironolactone 25 mg 03/10/20 22:00 03/12/20 11:08 Aldactone - PO 25 mg BID [facility] Administration Impression 1. PATRICK 2. anemia 3. chf 4. copd 5. a-fib 6. gastric cancer 7. gi bleed 8. volume overload 9. pleural effusion Plan - renal function stable - cont diuretics - monitor bp - follow echo - monitor lytes - monitor hg - encourage po intake Dr Donis
--- NOTE | 2020-03-12 12:50 | PN ---
Physical Exam: SUBJECTIVE: Patient seen and examined. Pt. states that her breathing has improved however Pt. is using accessory muscles and breathing through pursed lips. No evidence of overt bleeding overnight. Pt. does complain of epigastric and LUQ tenderness. 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 HEAD: Normal with no signs of trauma. EYES: Sclera anicteric, conjunctiva clear. ENT: dry mucous membranes. NECK: Trachea midline, full range of motion, supple. LUNGS: Decreased breath sounds anteriorly, no crackles HEART: Regular rate and rhythm, S1, S2 with systolic murmur ABDOMEN: Soft in lower abdomen, increased firmness around epigastrium, tenderness to palpation in epigastrium, nondistended, normoactive bowel sounds EXTREMITIES: 2+ dorsal pedal pulses, warm, well-perfused, diffuse lower extremity tenderness, 3+ edema. NEUROLOGICAL: Normal speech, gait not observed. PSYCH: Normal mood, normal affect. SKIN: Warm, dry, increased turgor, anasarca throughout body, Stage II sacral ulcers Laboratory Results - last 24 hr 03/08/20 03/10/20 03/12/20 15:50 15:10 07:00 WBC Corrected WBC (auto) RBC Hgb Hct MCV MCH MCHC RDW Plt Count MPV Absolute Neuts (auto) Neutrophils % Lymphocytes % Monocytes % Eosinophils % Basophils % Nucleated RBC % Manual Slide Review Platelet Comment Anticoagulation Therapy Puncture Site Patient Temperature ABG pH ABG pCO2 ABG pO2 ABG HCO3 ABG O2 Sat (Measured) ABG O2 Content ABG Base Excess Malcolm Test Patient On Oxygen O2 Delivery Device Oxygen Flow Rate Vent Mode Vent Rate Mechanical Rate PEEP Pressure Support Vent Sodium Potassium Chloride Carbon Dioxide Anion Gap BUN Creatinine Est GFR (CKD-EPI)AfAm Est GFR (CKD-EPI)NonAf Random Glucose Calcium Phosphorus Magnesium Total Bilirubin AST ALT Alkaline Phosphatase Ammonia Total Protein Albumin Fluid Glucose 125 Fluid Total Protein 1.0 Fluid Albumin 0.3 Body Fluid LDH Source 69 Fluid Amylase 12 Stool O & P Wet [place] Digoxin 1.54 O & P Permanent Slide Final report Blood Type Antibody Screen Crossmatch 03/12/20 03/12/20 03/12/20 07:00 07:00 07:00 WBC 3.3 L Corrected WBC (auto) RBC 2.75 L Hgb 6.8 L* Hct 22.3 L D MCV 81.1 MCH 24.7 L MCHC 30.5 L RDW 20.2 H Plt Count 45 L D MPV 8.9 Absolute Neuts (auto) 2.4 Neutrophils % 71.9 Lymphocytes % 18.2 D Monocytes % 7.1 Eosinophils % 2.0 Basophils % 0.8 Nucleated RBC % 0 Manual Slide Review Platelet Comment Anticoagulation Therapy Puncture Site Patient Temperature ABG pH ABG pCO2 ABG pO2 ABG HCO3 ABG O2 Sat (Measured) ABG O2 Content ABG Base Excess Malcolm Test Patient On Oxygen O2 Delivery Device Oxygen Flow Rate Vent Mode Vent Rate Mechanical Rate PEEP Pressure Support Vent Sodium 145 Potassium 3.8 Chloride 106 Carbon Dioxide 38 H Anion Gap 2 L BUN 19.9 H Creatinine 1.0 Est GFR (CKD-EPI)AfAm 64.73 Est GFR (CKD-EPI)NonAf 55.85 Random Glucose 101 Calcium 7.6 L Phosphorus 2.5 Magnesium 2.0 Total Bilirubin 0.3 AST 20 ALT 13 Alkaline Phosphatase 57 Ammonia 66.20 H Total Protein 4.8 L Albumin 1.5 L Fluid Glucose Fluid Total Protein Fluid Albumin Body Fluid LDH Source Fluid Amylase Stool O & P Wet [place] Digoxin O & P Permanent Slide Blood Type Antibody Screen Crossmatch 03/12/20 03/12/20 03/12/20 09:30 09:30 10:05 WBC Cancelled Corrected WBC (auto) Cancelled RBC Cancelled Hgb Cancelled Hct Cancelled MCV Cancelled MCH Cancelled MCHC Cancelled RDW Cancelled Plt Count Cancelled MPV Cancelled Absolute Neuts (auto) Neutrophils % Lymphocytes % Monocytes % Eosinophils % Basophils % Nucleated RBC % Manual Slide Review Cancelled Platelet Comment Cancelled Anticoagulation Therapy No Result Required. Puncture Site No Result Required. Patient Temperature No Result Required. ABG pH 7.482 H ABG pCO2 44.70 ABG pO2 89.9 ABG HCO3 32.7 H ABG O2 Sat (Measured) 97.3 ABG O2 Content No Result Required. ABG Base Excess 8.4 H Malcolm Test No Result Required. Patient On Oxygen No Result Required. O2 Delivery Device No Result Required. Oxygen Flow Rate No Result Required. Vent Mode No Result Required. Vent Rate No Result Required. Mechanical Rate No Result Required. PEEP No Result Required. Pressure Support Vent No Result Required. Sodium Potassium Chloride Carbon Dioxide Anion Gap BUN Creatinine Est GFR (CKD-EPI)AfAm Est GFR (CKD-EPI)NonAf Random Glucose Calcium Phosphorus Magnesium Total Bilirubin AST ALT Alkaline Phosphatase Ammonia Total Protein Albumin Fluid Glucose Fluid Total Protein Fluid Albumin Body Fluid LDH Source Fluid Amylase Stool O & P Wet [place] Digoxin O & P Permanent Slide Blood Type O POSITIVE Antibody Screen Negative Crossmatch See Detail 03/12/20 03/12/20 10:05 10:24 WBC 4.2 Corrected WBC (auto) RBC 3.21 L Hgb 8.1 L Hct 26.3 L D MCV 81.8 MCH 25.3 L MCHC 30.9 L RDW 20.0 H Plt Count 88 L D MPV 8.7 Absolute Neuts (auto) 3.2 Neutrophils % 75.0 Lymphocytes % 17.4 Monocytes % 5.9 Eosinophils % 1.2 Basophils % 0.5 Nucleated RBC % 0 Manual Slide Review Platelet Comment Anticoagulation Therapy No Result Required. Puncture Site Right radial Patient Temperature No Result Required. ABG pH 7.461 H ABG pCO2 58.70 H ABG pO2 71.0 L ABG HCO3 40.9 H ABG O2 Sat (Measured) 94.6 L ABG O2 Content No Result Required. ABG Base Excess 15.7 H Malcolm Test Positive Patient On Oxygen Yes O2 Delivery Device Nasal Oxygen Flow Rate 5l Vent Mode No Result Required. Vent Rate No Result Required. Mechanical Rate No Result Required. PEEP No Result Required. Pressure Support Vent No Result Required. Sodium Potassium Chloride Carbon Dioxide Anion Gap BUN Creatinine Est GFR (CKD-EPI)AfAm Est GFR (CKD-EPI)NonAf Random Glucose Calcium Phosphorus Magnesium Total Bilirubin AST ALT Alkaline Phosphatase Ammonia Total Protein Albumin Fluid Glucose Fluid Total Protein Fluid Albumin Body Fluid LDH Source Fluid Amylase Stool O & P Wet [place] Digoxin O & P Permanent Slide Blood Type Antibody Screen Crossmatch Active Medications Generic Name Dose Route Start Last Admin Trade Name Freq PRN Reason Stop Dose Admin Acetaminophen 650 mg 03/10/20 16:24 03/12/20 11:08 Tylenol - PO 650 mg Q6H PRN Administration PAIN LEVEL 6-10 Albuterol/Ipratropium 1 amp 03/12/20 09:58 Duoneb - NEB Q6H PRN SHORTNESS OF BREATH Chlorhexidine Gluconate 1 applic 03/12/20 22:00 Hibiclens For Decolonization - TP HS JACIEL Digoxin 0.125 mg 03/12/20 13:00 Lanoxin - PO Q48H JACIEL Furosemide 40 mg 03/11/20 06:00 03/11/20 05:13 Lasix - PO 40 mg BID@0600,1400 JACIEL Administration Ceftriaxone Sodium 1 gm/ 50 mls @ 200 mls/hr 03/12/20 10:15 03/12/20 11:09 Dextrose IVPB Not Given DAILY [facility] Protocol Metronidazole 500 mg in 100 mls @ 100 mls/hr 03/12/20 18:00 Flagyl 500mg Premixed Ivpb - IVPB Q8H-IV JACIEL Mupirocin 1 applic 03/12/20 12:00 Bactroban Ointment (For Decolonization) - NS 03/17/20 11:59 BID JACIEL Pantoprazole Sodium 40 mg 03/10/20 15:00 03/12/20 11:09 Protonix - PO 40 mg DAILY JACIEL Administration Rifaximin 550 mg 03/12/20 22:00 Xifaxan - PO BID JACIEL Spironolactone 25 mg 03/10/20 22:00 03/12/20 11:08 Aldactone - PO 25 mg BID JACIEL Administration ASSESSMENT/PLAN: Pt is a 74 y.o. M w/ PMHx. 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 Pt is being admitted for symptomatic anema/hypotension and CHF exacerbation. #Symptomatic anemia/Hypotension recent blood loss most likely cause need to r/o sepsis 2/2 to pneumonia as etiology (CXR with pulmonary vascular congestion, possible retrocardial infiltrate, bilateral pleural effusion; CT chest with bibasilar consolidation and pleural effusion) - evidence of possible pneumonia need to r/o return of prior malignancy as possible etiology H/H 5.2/18; MCV 80; RDW 21.5; FOBT + BP responded to fluids in the ED - s/p 3u pRBC, CBC Q12H, transfuse for HgB less than 8. - iron studies show normal iron stores TSAT greater than 30% - protonix Daily - hold eliquis - GI consulted to evaluate GI bleed - c/w ceftriaxone and azithromycin - ID and Pulm consults appreciated - CEA and CA19-9 ordered - Heme/Onc consulted - Lasix held for hypotension, will reassess in AM #Acute CHF exacerbation likely multifactorial (symptomatic anemia, possible pneumonia, poor diet, medication non-adherence in the past BNP 2964.8 last ECHO 1 year ago (EF 50-55%) however with severe right sided failure and severe TR. - consider careful diuresis with IV lasix 40 (hold lasix if SBP < 110); as BP permits and per day team discretion - f/u ECHO - c/w digoxin 0.125 mg; dig level 1.29, will repeat prior to discharge to ensure Pt. does not enter toxicity range (1.3+) - Cardiology consulted, appreciate clearance for EGD and colonoscopy? - strict Is/Os, daily weights--> Dee placed - CT C/A/P showed marked anasarca, b/l pleural effusions and consolidations R>L, cardiomegaly w/ minimal pericardial effusion, moderate Ascites - volume status has improved, currently holding Lasix #Ascites and hypoalbuminemia likely 2/2 cirrhosis Abd. US definitive for cirrhosis, will consult IR for paracentesis and SAAG calculation for infection vs. malignancy as Pt. has remote history of Gastric CA s/p resection in 2008 Smooth muscle antibody weakly positive, AFP, CEA and CA19-9 negative Preliminary fluid pathology results non-diagnostic for malignancy, however high suspicion for SBP. Started Pt. on Rifaximin, Ceftriaxone and Flagyl. (According to uptodate Pt.s with Cirrhosis and GIB need to be on prophylactic Abx. for SBP). Pt. received 3 days of Ceftriaxone during this admission. Ammonia increased to 66 today() from 28 on 15. Diurese with Aldactone, holding Lasix. #r/o ACS - trop neg x 2 - repeat EKG unchanged, likjely demand ischemia from anemia #PATRICK (superimposed on possible CKD?, although Cr in normal range during last visit on 06/2019) etiology unclear, however likely 2/2 sever volume overload status Pt. presented with, Cr. now improved to 1.1 (almost at baseline, was 0.5, 1 year ago) - renal US unremarkable however CT AP, showed exophytic R. cyst at 2.2 cm - urine protein/Cr ratio 0.4, slightly elevated - UPEP, SPEP reviewd, low protein consistent for cirrhosis - monitor urine output; monitor BUN/Cr, GFR; monitor lytes - Nephrology consulted - Avoid nephrotoxic agents #Hx of HTN - holding home metoprolol #Hx of COPD - increased O2 to 5L NC - Pt. uses 3L at baseline at home - ABG x2 reviewed, Hypercapnea and Hypoxia with pH of 7.4 - CT Chest as above, consider therapeutic thoracocentesis #DVT PPx - Holding home eliquis; SCDs for now #FEN -F - no IVF as of now -E - monitor; replete lytes prn -N - NPO #Dispo ICU evaluation monitor on telemetry Will need to revisit Goals of Care Visit type - Emergency Visit Emergency Visit: Yes ED Registration Date: 03/05/20 Care time: The patient presented to the Emergency Department on the above date and was hospitalized for further evaluation of their emergent condition. - New Patient This patient is new to me today: No - Critical Care Critical Care patient: No - Discharge Referral Referred to [facility] Med P.C.: No - Medication Review Med list reviewed for High Risk Meds patients 65 and older: Yes ATTENDING PHYSICIAN STATEMENT I saw and evaluated the patient. I reviewed the resident's note and discussed the case with the resident. I agree with the resident's findings and plan as documented. SUBJECTIVE: OBJECTIVE: ASSESSMENT AND PLAN:
[2020-03-12] MEDS ORDERED: DIGOXIN 0.125 MG TABLET (FP) PO SCH (13:00)
[2020-03-12] MEDS ORDERED: cefTRIAXone SODIUM 1 GM VIAL ONE (14:10)
[2020-03-12] MEDS ORDERED: DEXTROSE 5%-WATER - 50 ML IVPB ONE (14:10)
[2020-03-12] MEDS: FUROSEMIDE 40 MG/4 ML INJECTABLE VIAL IVPUSH SCH (14:14)
[2020-03-12] MEDS: FUROSEMIDE 40 MG TABLET (FP) PO SCH (14:40)
--- NOTE | 2020-03-12 14:42 | ECHO ---
Name: SYEDA LOONEY Exam:Adult Echocardiogram Study Date: 03/12/2020 11:37 AM Age: 74 yrs Reason For Study: CHF Height: 63 in Weight: 147 lb BSA: 1.7 m2 MMode/2D Measurements & Calculations IVSd: 0.94 cm Ao root diam: 2.8 cm LVIDd: 3.8 cm LA dimension: 3.5 cm LVIDs: 2.5 cm LVPWd: 1.1 cm EDV(Teich): 62.3 ml LVOT diam: 2.0 cm ESV(Teich): 22.0 ml LAV (MOD-bp): 82.0 ml Doppler Measurements & Calculations MV E max mateo: 139.0 cm/sec Ao V2 max: 195.0 cm/sec MV A max mateo: 68.8 cm/sec Ao max P.2 mmHg MV E/A: 2.0 MV dec time: 0.17 sec ROME(V,D): 2.0 cm2 LV V1 max P.5 mmHg MR max mateo: 453.5 cm/sec LV V1 max: 127.8 cm/sec MR max P.4 mmHg TR max mateo: 313.1 cm/sec PA V2 max: 185.1 cm/sec TR max P.9 mmHg PA max P.7 mmHg Med Peak E' Mateo: 9.8 cm/sec PI Vmax: 140.7 cm/sec Med E/e': 14.2 Lat Peak E' Mateo: 10.9 cm/sec Lat E/e': 12.8 Procedure A complete two-dimensional transthoracic echocardiogram was performed (2D, M-mode, Doppler and color flow Doppler). Left Ventricle The left ventricular size, thickness and function are normal. Ejection Fraction = 60%. E/A reversal c onsistent with but not diagnostic of poor LV compliance. Septal motion is consistent with conduction abnormalit y. Right Ventricle The right ventricle is moderate to severely dilated. There is a pacemaker lead in the right ventricle . The right ventricular systolic function is moderate to severely reduced. Atria The left atrial size is normal. The right atrium is severely dilated. Mitral Valve The mitral valve is normal in structure and function. There is mild mitral regurgitation. Tricuspid Valve The tricuspid valve is normal in structure and function. There is moderate to severe tricuspid regurg itation. Right ventricular systolic pressure is elevated at 60 mmhg. Assuming the RA pressure is 10 mmHg. Aortic Valve The aortic valve is normal in structure and function. Pulmonic Valve The pulmonic valve is normal in structure and function. Mild pulmonic valvular regurgitation. Great Vessels The aortic root is normal size. Pericardium/Pleura There is no pericardial effusion. There is no pleural effusion. Interpretation Summary The left ventricular size, thickness and function are normal Septal motion is consistent with conduction abnormality. Ejection Fraction = 60%. The right ventricle is moderate to severely dilated. There is a pacemaker lead in the right ventricle. The right ventricular systolic function is moderate to severely reduced. The right atrium is severely dilated. There is mild mitral regurgitation. There is moderate to severe tricuspid regurgitation. Assuming the RA pressure is 10 mmHg Mild pulmonic valvular regurgitation. Right ventricular systolic pressure is elevated at 60 mmhg. MD Arturo Jackson 03/12/2020 02:42 PM
[2020-03-12] MEDS: MUPIROCIN 2% TOPICAL OINTMENT FOR DECOLONIZATION NS SCH ×2 (15:00→22:46)
--- NOTE | 2020-03-12 15:02 | PN ---
Teaching Attending Note Name of Resident: Vani Sloan ATTENDING PHYSICIAN STATEMENT I saw and evaluated the patient. I reviewed the resident's note and discussed the case with the resident. I agree with the resident's findings and plan as documented. SUBJECTIVE: Patient seen and examined in the ICU. Transferred due to increasing WOB, worsening anemia, and inability to obtain IV access. Awake and alert. Tachypneic on 5 L NC O2. Denies CP. Did not receive Lasix or ABX as there was no IV access. Intake & Output 03/09/20 03/10/20 03/11/20 03/12/20 23:59 23:59 23:59 23:59 Intake Total 1240 400 Output Total 1425 1600 200 Balance -185 -1200 -200 Weight 151 lb 3.2 oz 147 lb 3.2 oz 147 lb 9.6 oz 147 lb 11.2 oz Last Vital Signs Temp Pulse Resp BP Pulse Ox 98.7 F 65 26 H 104/84 97 03/12/20 13:30 03/12/20 14:30 03/12/20 14:30 03/12/20 14:30 03/12/20 14:30 Active Medications Acetaminophen (Tylenol -) 650 mg PO Q6H PRN PRN Reason: PAIN LEVEL 6-10 Last Admin: 03/12/20 11:08 Dose: 650 mg Documented by: Albuterol/Ipratropium (Duoneb -) 1 amp NEB Q6H PRN PRN Reason: SHORTNESS OF BREATH Chlorhexidine Gluconate (Hibiclens For Decolonization -) 1 applic TP HS JACIEL Digoxin (Lanoxin -) 0.125 mg PO Q48H JACIEL Last Admin: 03/12/20 14:15 Dose: Not Given Documented by: Furosemide (Lasix Injection -) 40 mg IVPUSH BID@0600,1400 JACIEL Last Admin: 03/12/20 14:14 Dose: 40 mg Documented by: Ceftriaxone Sodium 1 gm/ (Dextrose) 50 mls @ 200 mls/hr IVPB DAILY JACIEL; Protocol Last Admin: 03/12/20 14:13 Dose: 200 mls/hr Documented by: Metronidazole (Flagyl 500mg Premixed Ivpb -) 500 mg in 100 mls @ 100 mls/hr IVPB Q8H-IV JACIEL Mupirocin (Bactroban Ointment (For Decolonization) -) 1 applic NS BID [facility] Stop: 03/17/20 11:59 Pantoprazole Sodium (Protonix -) 40 mg PO DAILY [facility] Last Admin: 03/12/20 11:09 Dose: 40 mg Documented by: Rifaximin (Xifaxan -) 550 mg PO BID [facility] Spironolactone (Aldactone -) 25 mg PO BID [facility] Last Admin: 03/12/20 11:08 Dose: 25 mg Documented by: GENERAL: Awake, alert, mildly tachypneic at rest EYES: PEERLA: EOMI; no scleral icterus NECK:no JVD; no lymphadenopathy LUNGS: Bilateral coarse breath sounds HEART: irregularly irregular, systolic murmur normal S1 and S2 , rub or gallop. ABDOMEN: Soft, epigastric tenderness; LUQ tenderness upon palpation; +BS MUSCULOSKELETAL: Normal range of motion at all joints. No bony deformities or tenderness. No CVA tenderness. EXTREMITIES: 1+ pitting edema b/l (UE and LE) NEUROLOGICAL: Non-focal PSYCHIATRIC: Cooperative. Good eye contact. Appropriate mood and affect. SKIN: Warm, dry, normal turgor, no rashes or lesions noted. Laboratory Results - last 24 hr 03/12/20 03/12/20 03/12/20 07:00 07:00 07:00 WBC 3.3 L Corrected WBC (auto) RBC 2.75 L Hgb 6.8 L* Hct 22.3 L D MCV 81.1 MCH 24.7 L MCHC 30.5 L RDW 20.2 H Plt Count 45 L D MPV 8.9 Absolute Neuts (auto) 2.4 Neutrophils % 71.9 Lymphocytes % 18.2 D Monocytes % 7.1 Eosinophils % 2.0 Basophils % 0.8 Nucleated RBC % 0 Manual Slide Review Platelet Comment Anticoagulation Therapy Puncture Site Patient Temperature ABG pH ABG pCO2 ABG pO2 ABG HCO3 ABG O2 Sat (Measured) ABG O2 Content ABG Base Excess Malcolm Test Patient On Oxygen O2 Delivery Device Oxygen Flow Rate Vent Mode Vent Rate Mechanical Rate PEEP Pressure Support Vent Sodium 145 Potassium 3.8 Chloride 106 Carbon Dioxide 38 H Anion Gap 2 L BUN 19.9 H Creatinine 1.0 Est GFR (CKD-EPI)AfAm 64.73 Est GFR (CKD-EPI)NonAf 55.85 Random Glucose 101 Calcium 7.6 L Phosphorus 2.5 Magnesium 2.0 Total Bilirubin 0.3 AST 20 ALT 13 Alkaline Phosphatase 57 Ammonia 66.20 H Total Protein 4.8 L Albumin 1.5 L Crossmatch 03/12/20 03/12/20 03/12/20 09:30 09:30 10:05 WBC Cancelled Corrected WBC (auto) Cancelled RBC Cancelled Hgb Cancelled Hct Cancelled MCV Cancelled MCH Cancelled MCHC Cancelled RDW Cancelled Plt Count Cancelled MPV Cancelled Absolute Neuts (auto) Neutrophils % Lymphocytes % Monocytes % Eosinophils % Basophils % Nucleated RBC % Manual Slide Review Cancelled Platelet Comment Cancelled Anticoagulation Therapy No Result Required. Puncture Site No Result Required. Patient Temperature No Result Required. ABG pH 7.482 H ABG pCO2 44.70 ABG pO2 89.9 ABG HCO3 32.7 H ABG O2 Sat (Measured) 97.3 ABG O2 Content No Result Required. ABG Base Excess 8.4 H Malcolm Test No Result Required. Patient On Oxygen No Result Required. O2 Delivery Device No Result Required. Oxygen Flow Rate No Result Required. Vent Mode No Result Required. Vent Rate No Result Required. Mechanical Rate No Result Required. PEEP No Result Required. Pressure Support Vent No Result Required. Sodium Potassium Chloride Carbon Dioxide Anion Gap BUN Creatinine Est GFR (CKD-EPI)AfAm Est GFR (CKD-EPI)NonAf Random Glucose Calcium Phosphorus Magnesium Total Bilirubin AST ALT Alkaline Phosphatase Ammonia Total Protein Albumin Crossmatch See Detail 03/12/20 03/12/20 10:05 10:24 WBC 4.2 Corrected WBC (auto) RBC 3.21 L Hgb 8.1 L Hct 26.3 L D MCV 81.8 MCH 25.3 L MCHC 30.9 L RDW 20.0 H Plt Count 88 L D MPV 8.7 Absolute Neuts (auto) 3.2 Neutrophils % 75.0 Lymphocytes % 17.4 Monocytes % 5.9 Eosinophils % 1.2 Basophils % 0.5 Nucleated RBC % 0 Manual Slide Review Platelet Comment Anticoagulation Therapy No Result Required. Puncture Site Right radial Patient Temperature No Result Required. ABG pH 7.461 H ABG pCO2 58.70 H ABG pO2 71.0 L ABG HCO3 40.9 H ABG O2 Sat (Measured) 94.6 L ABG O2 Content No Result Required. ABG Base Excess 15.7 H Malcolm Test Positive Patient On Oxygen Yes O2 Delivery Device Nasal Oxygen Flow Rate 5l Vent Mode No Result Required. Vent Rate No Result Required. Mechanical Rate No Result Required. PEEP No Result Required. Pressure Support Vent No Result Required. Sodium Potassium Chloride Carbon Dioxide Anion Gap BUN Creatinine Est GFR (CKD-EPI)AfAm Est GFR (CKD-EPI)NonAf Random Glucose Calcium Phosphorus Magnesium Total Bilirubin AST ALT Alkaline Phosphatase Ammonia Total Protein Albumin Crossmatch Problem List - Problems (1) Anemia Code(s): D64.9 - ANEMIA, UNSPECIFIED Qualifiers: Anemia type: unspecified type Qualified Code(s): D64.9 - Anemia, unspecified (2) CHF exacerbation Code(s): I50.9 - HEART FAILURE, UNSPECIFIED Qualifiers: Heart failure type: unspecified Qualified Code(s): I50.9 - Heart failure, unspecified (3) Cirrhosis of liver with ascites Code(s): K74.60 - UNSPECIFIED CIRRHOSIS OF LIVER; R18.8 - OTHER ASCITES (4) Microcytic anemia Code(s): D50.9 - IRON DEFICIENCY ANEMIA, UNSPECIFIED ASSESSMENT/PLAN: Dyspnea due to acute exacerbation of CHF Pulmonary HTN AFib S/P PPM COPD on home O2 Gastric CA s/p resection Low clinical suspicion of Sepsis (?) SBP IV access inserted IV Lasix IV ABX per ID Strict I & O Daily weights Digoxin Monitor off IVF for now BD TX PRN Monitor off systemic steroids Normal transfusion thresholds Can utilize HFOT for worsening WOB ICU monitoring Dr Acosta
[2020-03-12] MEDS ORDERED: SENNOSIDES 8.6MG TABLET (FP) PO SCH (22:00)
[2020-03-12] MEDS ORDERED: CHLORHEXIDINE GLUCONATE 4% CLEANSER FOR DECOLONIZATION TP SCH (22:00)
[2020-03-12] MEDS ORDERED: RIFAXIMIN 550 MG TABLET (UD) PO SCH (22:00)
[2020-03-12] MEDS: RIFAXIMIN 550 MG TABLET (UD) PO SCH (22:45)
[2020-03-13] MEDS: FUROSEMIDE 40 MG/4 ML INJECTABLE VIAL IVPUSH SCH ×2 (06:47→13:54)
[2020-03-13] MEDS ORDERED: cefTRIAXone SODIUM 1 GM VIAL ONE (09:47)
[2020-03-13] MEDS ORDERED: DEXTROSE 5%-WATER - 50 ML IVPB ONE (09:47)
[2020-03-13] MEDS: RIFAXIMIN 550 MG TABLET (UD) PO SCH ×2 (09:54→21:13)
[2020-03-13] MEDS: SPIRONOLACTONE 25 MG TABLET PO SCH ×2 (09:54→21:13)
[2020-03-13] MEDS: MUPIROCIN 2% TOPICAL OINTMENT FOR DECOLONIZATION NS SCH ×2 (09:55→21:13)
[2020-03-13] MEDS ORDERED: CEFTRIAXONE 1 GM in DEXTROSE 5%-WATER - 50 ML IVPB SCH (10:00)
[2020-03-13] MEDS ORDERED: PANTOPRAZOLE 40 MG TABLET PO SCH (10:00)
[2020-03-13] MEDS: ACETAMINOPHEN 325 MG TABLET (FP) PO PRN ×2 (10:04→18:26)
[2020-03-13 10:16] LABS: BASO % 0.5 % (0-2.0); EOS % 1.1 % (0-4.5); HEMATOCRIT 27.9 % (32.4-45.2); HEMOGLOBIN 8.6 GM/dL (10.7-15.3); LYMPH % 12.4 % (8-40); MCH 25.6 pg (25.7-33.7); MCHC 30.9 g/dl (32.0-36.0); MEAN CELL VOLUME 82.8 fl (80-96); MEAN PLT VOLUME 9.3 fl (7.5-11.1); MONO % 5.6 % (3.8-10.2); NEUT % 80.4 % (42.8-82.8); PLATELET COUNT 85 K/MM3 (134-434); RBC 3.36 M/mm3 (3.60-5.2); WHITE BLOOD COUNT 3.5 K/mm3 (4.0-10.0)
[2020-03-13 10:52] LABS: ANISOCYTOSIS 3+; MACROCYTOSIS 0; PLATELET ESTIMATE DECREASED
[2020-03-13 11:00] LABS: ALBUMIN 1.8 g/dl (3.4-5.0); BILIRUBIN,TOTAL 0.4 mg/dL (0.2-1); BLOOD UREA NITROGEN 19.4 mg/dL (7-18); PHOSPHOROUS 2.3 mg/dL (2.5-4.9); TOT PROT 5.6 g/dl (6.4-8.2)
[2020-03-13 11:06] LABS: CALCIUM 8.3 mg/dL (8.5-10.1); MAGNESIUM 2.1 mg/dL (1.8-2.4)
--- NOTE | 2020-03-13 11:10 | PN ---
Progress Note, Physician Chief Complaint: Transferred due to increasing WOB, worsening anemia, and inability to obtain IV access. tele neg History of Present Illness: 74 year old with a pmhx of right sided CHF and pulmonary htn, afib s/p ppm on apixaban, copd on home O2, and gastric CA s/p resection brought from home due to hypotension and sob. SBP 60 at home. +blood in stool at home. SOB worsening last few days at home. +orthopnea and edema. No chest pain. Mental status worsening Found to have drop in Hgb to 5.2 PATRICK with Cr 2.3 EKG: atrial paced, inferior and anterolateral ST abnormalities CT chest: bibasilar opacities, pleural effusions, anasarca Trops neg BNP elevated Echocardiogram 02/2019: nl lvef, mod to sev RV dil/hypokinesis, mod to sev TR, mod pulm htn. Transferred due to increasing WOB, worsening anemia, and inability to obtain IV access. - Current Medication List Current Medications: Active Medications Acetaminophen (Tylenol -) 650 mg PO Q6H PRN PRN Reason: PAIN LEVEL 6-10 Last Admin: 03/13/20 10:04 Dose: 650 mg Documented by: Albuterol/Ipratropium (Duoneb -) 1 amp NEB Q6H PRN PRN Reason: SHORTNESS OF BREATH Chlorhexidine Gluconate (Hibiclens For Decolonization -) 1 applic TP HS [facility] Last Admin: 03/12/20 22:46 Dose: 1 applic Documented by: Digoxin (Lanoxin -) 0.125 mg PO Q48H [facility] Last Admin: 03/12/20 14:15 Dose: Not Given Documented by: Furosemide (Lasix Injection -) 40 mg IVPUSH BID@0600,1400 [facility] Last Admin: 03/13/20 06:47 Dose: 40 mg Documented by: Ceftriaxone Sodium 1 gm/ (Dextrose) 50 mls @ 200 mls/hr IVPB DAILY [facility]; Protocol Last Admin: 03/13/20 09:54 Dose: 200 mls/hr Documented by: Metronidazole (Flagyl 500mg Premixed Ivpb -) 500 mg in 100 mls @ 100 mls/hr IVPB Q8H-IV [facility] Last Admin: 03/13/20 09:54 Dose: 100 mls/hr Documented by: Mupirocin (Bactroban Ointment (For Decolonization) -) 1 applic NS BID [facility] Stop: 03/17/20 11:59 Last Admin: 03/13/20 09:55 Dose: 1 applic Documented by: Pantoprazole Sodium (Protonix -) 40 mg PO DAILY [facility] Last Admin: 03/13/20 09:54 Dose: 40 mg Documented by: Rifaximin (Xifaxan -) 550 mg PO BID [facility] Last Admin: 03/13/20 09:54 Dose: 550 mg Documented by: Senna (Senna -) 1 tab PO HS [facility] Last Admin: 03/12/20 22:45 Dose: 1 tab Documented by: Spironolactone (Aldactone -) 25 mg PO BID [facility] Last Admin: 03/13/20 09:54 Dose: 25 mg Documented by: - Objective Vital Signs: Vital Signs Temperature 97.9 F 03/13/20 10:00 Pulse Rate 63 03/13/20 10:00 Respiratory Rate 21 H 03/13/20 10:00 Blood Pressure 105/63 03/13/20 10:00 O2 Sat by Pulse Oximetry (%) 95 03/13/20 10:00 Constitutional: Yes: No Distress, Calm Eyes: Yes: EOM Intact HENT: Yes: Normocephalic Neck: Yes: Trachea Midline Cardiovascular: Yes: Regular Rate and Rhythm Respiratory: Yes: CTA Bilaterally Gastrointestinal: Yes: Normal Bowel Sounds, Soft Musculoskeletal: Yes: WNL Extremities: Yes: WNL Edema: No Labs: CBC, BMP 03/13/20 10:11 03/13/20 10:11 INR, PTT INR 1.63 (0.83-1.09) H 03/05/20 14:18 Fibrinogen 252.0 mg/dL (238-498) 03/08/20 11:50 Assessment/Plan 74 year old with a pmhx of right sided CHF and pulmonary htn, afib s/p ppm on apixaban, copd on home O2, and gastric CA s/p resection brought from home due to hypotension and sob. SBP 60 at home. +blood in stool at home. SOB worsening last few days at home. +orthopnea and edema. No chest pain. Mental status worsening. Found to have drop in Hgb to 5.2 PATRICK with Cr 2.3 EKG: atrial paced, inferior and anterolateral ST abnormalities CT chest: bibasilar opacities, pleural effusions, anasarca Trops neg BNP elevated Echocardiogram 02/2019: nl lvef, mod to sev RV dil/hypokinesis, mod to sev TR, mod pulm htn. Transferred due to increasing WOB, worsening anemia, and inability to obtain IV access. echo 03/12/20 normal EF, RV hypokinesis, m-s TR PAP 60 IMP: -The edema is minimal at this point. -Continue salt and fluid restrictions. -Continue diuretics as currently if tolerated by BP -echo shows RVHK, consider PE workup. -Watching renal function. -Keep potassium well repleted. check magnesium. will follow with you.
--- NOTE | 2020-03-13 12:50 | PN ---
Progress Note (short form) - Note Progress Note: Pt states her breathing is improved today. pt wants to go home. pt unhappy to be here and does not want us to continuously try to get blood. CBC, BMP 03/13/20 10:11 03/13/20 10:11 PE AOx3, NAD B/l crackles, worse on R +S1S2, + systolic murmur b/l UE and LE edema 74 yo F with PMH of HFpEF (EF 60%), Afib (s/p pacemaker; on eliquis), COPD (on 3L supplemental O2 at home), pulmnary hypertension, and gastric bypass with intestinal resection for resection of malignant tumor admitted to hospital for hypotension and worsening respiratory distress. while in the hospital,pt was found to have symptomatic anemia likely from recent blood loss, + FOBT. pt is s/p 3u pRBC. with protonix Daily and eliquis on hold. Pt also noted to be in acute HF exacerbation, ECHO reviewed. Cardio following. pt s/p paracentesis for ascites. pt on rifaximin, ceftriaxone, flagyl. In ICU , pt monitored, peripheral lines placed as pt refused central line. pt is stable for transfer to [facility]
--- NOTE | 2020-03-13 13:46 | PN ---
Physical Exam: SUBJECTIVE: Patient seen and examined, looks clinically better compared to yesterday OBJECTIVE: Vital Signs Period Temp Pulse Resp BP Sys/Nava Pulse Ox Last 24 Hr 97.9 F-98.7 F 63-78 17-26 92-111/48-84 95-100 General: Alert, oriented, deconditioned, in moderate respiratory distress HEENT: NC/AT, PERRLA, JVD+ Lungs: poor inspiratory effort, coarse b/l BS+ CVS: Irregularly irregular, Systolic Murmur, S1S2+ Abd: Soft, NT, ND, BS+ Ext: 1+ LE pitting edema b/l Laboratory Results - last 24 hr 03/10/20 03/13/20 03/13/20 15:10 10:11 10:11 WBC 3.5 L RBC 3.36 L Hgb 8.6 L Hct 27.9 L MCV 82.8 MCH 25.6 L MCHC 30.9 L RDW 22.0 H Plt Count 85 L MPV 9.3 Absolute Neuts (auto) 2.8 Neutrophils % 80.4 Lymphocytes % 12.4 D Monocytes % 5.6 Eosinophils % 1.1 Basophils % 0.5 Nucleated RBC % 0 Hypochromia 0 Platelet Estimate Decreased Polychromasia 2+ Poikilocytosis 1+ Anisocytosis 3+ Microcytosis 3+ Macrocytosis 0 Stomatocytes 1+ Sodium 145 Potassium 4.0 Chloride 103 Carbon Dioxide 39 H Anion Gap 3 L BUN 19.4 H Creatinine 1.0 Est GFR (CKD-EPI)AfAm 64.73 Est GFR (CKD-EPI)NonAf 55.85 Random Glucose 154 H Calcium 8.3 L Phosphorus 2.3 L Magnesium 2.1 Total Bilirubin 0.4 AST 29 ALT 16 Alkaline Phosphatase 63 Total Protein 5.6 L Albumin 1.8 L POC Fluid pH 7.3 Active Medications Generic Name Dose Route Start Last Admin Trade Name Freq PRN Reason Stop Dose Admin Acetaminophen 650 mg 03/12/20 19:27 03/13/20 10:04 Tylenol - PO 650 mg Q6H PRN Administration PAIN LEVEL 6-10 Albuterol/Ipratropium 1 amp 03/12/20 19:27 Duoneb - NEB Q6H PRN SHORTNESS OF BREATH Chlorhexidine Gluconate 1 applic 03/12/20 22:00 03/12/20 22:46 Hibiclens For Decolonization - TP 1 applic HS [facility]EL Administration Digoxin 0.125 mg 03/12/20 13:00 03/12/20 14:15 Lanoxin - PO Not Given Q48H [facility] Furosemide 40 mg 03/12/20 14:00 03/13/20 06:47 Lasix Injection - IVPUSH 40 mg BID@0600,1400 [facility] Administration Ceftriaxone Sodium 1 gm/ 50 mls @ 200 mls/hr 03/13/20 10:00 03/13/20 09:54 Dextrose IVPB 200 mls/hr DAILY [facility] Administration Protocol Metronidazole 500 mg in 100 mls @ 100 mls/hr 03/13/20 02:00 03/13/20 09:54 Flagyl 500mg Premixed Ivpb - IVPB 100 mls/hr Q8H-IV [facility] Administration Mupirocin 1 applic 03/12/20 12:00 03/13/20 09:55 Bactroban Ointment (For Decolonization) - NS 03/17/20 11:59 1 applic BID [facility] Administration Pantoprazole Sodium 40 mg 03/13/20 10:00 03/13/20 09:54 Protonix - PO 40 mg DAILY [facility] Administration Rifaximin 550 mg 03/12/20 22:00 03/13/20 09:54 Xifaxan - PO 550 mg BID [facility] Administration Senna 1 tab 03/12/20 22:00 03/12/20 22:45 Senna - PO 1 tab HS [facility] Administration Spironolactone 25 mg 03/12/20 22:00 03/13/20 09:54 Aldactone - PO 25 mg BID [facility]EL Administration ASSESSMENT/PLAN: 74 year old with a Mhx of right sided CHF and pulmonary htn, afib s/p ppm on apixaban, COPD on home O2, and gastric CA s/p resection brought from home due to hypotension and sob. along with blood in stool at home # Acute HFrEF COPD, Cor-pulmonale pul HTN 2019 echo Rt vent pressure 40-50, Moderate Pul HTN, EF 50-55%, new ECHO ordered lasix as BP tolerates digoxin salt/fluid restriction, encourage PO intake family refusing central line ICU help appreciated cardiology consult GI following Pulmonary following Renal following Palliative care consult # LGIB Gastric ca? Cirrhosis (unknown cause) variceal bleed? not stable for EGD trend H&H, transfused to Hg>7 paracentesis has WBC of 181, neutrophil 36%, RBC 536 SAAG 1.2, goes with cirrhosis/portal HTN abdominal tenderness? ABx for SBP # Hepatic Encephalopathy c/w rifaximin PATRICK on CKD HTN HLD CHFE CAP PNA Afib on Eliquis (stopped) DVT prophylaxis: hold AC, SCD for DVT ppx COVID negative Visit type - Emergency Visit Emergency Visit: Yes ED Registration Date: 03/05/20 Care time: The patient presented to the Emergency Department on the above date and was hospitalized for further evaluation of their emergent condition. - New Patient This patient is new to me today: No - Critical Care Critical Care patient: No - Discharge Referral Referred to [facility] Med P.C[facility] No - Medication Review Med list reviewed for High Risk Meds patients 65 and older: Yes (reviewed)
--- NOTE | 2020-03-13 14:57 | EKG ---
Test Reason : Blood Pressure : / mmHG Vent. Rate : 077 BPM Atrial Rate : 077 BPM P-R Int : 000 ms QRS Dur : 122 ms QT Int : 330 ms P-R-T Axes : 000 074 -86 degrees QTc Int : 373 ms ATRIAL FIBRILLATION WITH OCCASIONAL ventricular-paced complexes RIGHT BUNDLE BRANCH BLOCK T WAVE ABNORMALITY, CONSIDER INFERIOR ISCHEMIA ABNORMAL ECG WHEN COMPARED WITH ECG OF 06-MAR-2020 03:06, ELECTRONIC VENTRICULAR PACEMAKER HAS REPLACED ELECTRONIC ATRIAL PACEMAKER Confirmed by ANDI ARIAS MD ([id number]) on 03/13/2020 2:57:32 PM Referred By: Confirmed By:ANDI ARIAS MD
--- NOTE | 2020-03-13 15:50 | PN ---
Progress Note (short form) - Note Progress Note: pt was downgraded from ICU, seen and evaluated in AM. Pt is accepted for telemetry. ICU care appreciated Visit type - Emergency Visit Emergency Visit: Yes ED Registration Date: 03/05/20 Care time: The patient presented to the Emergency Department on the above date and was hospitalized for further evaluation of their emergent condition. - New Patient This patient is new to me today: No - Critical Care Critical Care patient: No - Discharge Referral Referred to [facility] Med P.C.: No - Medication Review Med list reviewed for High Risk Meds patients 65 and older: Yes (reviewed)
--- NOTE | 2020-03-13 16:04 | PN ---
Teaching Attending Note Name of Resident: Carmen Ortiz ATTENDING PHYSICIAN STATEMENT I saw and evaluated the patient. I reviewed the resident's note and discussed the case with the resident. I agree with the resident's findings and plan as documented. SUBJECTIVE: Patient seen and examined in the ICU. Awake and alert. Moaning and crying. Asking to go home. Labs could not be drawn. SOB a little better. Denies CP. Intake & Output 03/10/20 03/11/20 03/12/20 03/13/20 23:59 23:59 23:59 23:59 Intake Total 400 350 180 Output Total 1600 600 750 Balance -1200 -250 -570 Weight 147 lb 3.2 oz 147 lb 9.6 oz 147 lb 11.2 oz 148 lb 15.04 oz Last Vital Signs Temp Pulse Resp BP Pulse Ox 98.2 F 66 20 94/57 L 99 03/13/20 14:00 03/13/20 14:00 03/13/20 14:00 03/13/20 14:00 03/13/20 14:00 Active Medications Acetaminophen (Tylenol -) 650 mg PO Q6H PRN PRN Reason: PAIN LEVEL 6-10 Last Admin: 03/13/20 10:04 Dose: 650 mg Documented by: Albuterol/Ipratropium (Duoneb -) 1 amp NEB Q6H PRN PRN Reason: SHORTNESS OF BREATH Chlorhexidine Gluconate (Hibiclens For Decolonization -) 1 applic TP HS [facility] Last Admin: 03/12/20 22:46 Dose: 1 applic Documented by: Digoxin (Lanoxin -) 0.125 mg PO Q48H [facility] Last Admin: 03/12/20 14:15 Dose: Not Given Documented by: Furosemide (Lasix Injection -) 40 mg IVPUSH BID@0600,1400 [facility] Last Admin: 03/13/20 13:54 Dose: 40 mg Documented by: Ceftriaxone Sodium 1 gm/ (Dextrose) 50 mls @ 200 mls/hr IVPB DAILY [facility]; Protocol Last Admin: 03/13/20 09:54 Dose: 200 mls/hr Documented by: Metronidazole (Flagyl 500mg Premixed Ivpb -) 500 mg in 100 mls @ 100 mls/hr IVPB Q8H-IV [facility] Last Admin: 03/13/20 09:54 Dose: 100 mls/hr Documented by: Mupirocin (Bactroban Ointment (For Decolonization) -) 1 applic NS BID [facility] Stop: 03/17/20 11:59 Last Admin: 03/13/20 09:55 Dose: 1 applic Documented by: Pantoprazole Sodium (Protonix -) 40 mg PO DAILY [facility] Last Admin: 03/13/20 09:54 Dose: 40 mg Documented by: Rifaximin (Xifaxan -) 550 mg PO BID [facility] Last Admin: 03/13/20 09:54 Dose: 550 mg Documented by: Senna (Senna -) 1 tab PO HS [facility] Last Admin: 03/12/20 22:45 Dose: 1 tab Documented by: Spironolactone (Aldactone -) 25 mg PO BID [facility] Last Admin: 03/13/20 09:54 Dose: 25 mg Documented by: GENERAL: Awake, alert, mildly tachypneic at rest EYES: PEERLA: EOMI; no scleral icterus NECK:no JVD; no lymphadenopathy LUNGS: Bilateral coarse breath sounds HEART: irregularly irregular, systolic murmur normal S1 and S2 , rub or gallop. ABDOMEN: Soft, epigastric tenderness; LUQ tenderness upon palpation; +BS MUSCULOSKELETAL: Normal range of motion at all joints. No bony deformities or tenderness. No CVA tenderness. EXTREMITIES: 1+ pitting edema b/l (UE and LE) NEUROLOGICAL: Non-focal PSYCHIATRIC: Cooperative. SKIN: Warm, dry, normal turgor, no rashes or lesions noted. Laboratory Results - last 24 hr 03/13/20 03/13/20 10:11 10:11 WBC 3.5 L RBC 3.36 L Hgb 8.6 L Hct 27.9 L MCV 82.8 MCH 25.6 L MCHC 30.9 L RDW 22.0 H Plt Count 85 L MPV 9.3 Absolute Neuts (auto) 2.8 Neutrophils % 80.4 Lymphocytes % 12.4 D Monocytes % 5.6 Eosinophils % 1.1 Basophils % 0.5 Nucleated RBC % 0 Hypochromia 0 Platelet Estimate Decreased Polychromasia 2+ Poikilocytosis 1+ Anisocytosis 3+ Microcytosis 3+ Macrocytosis 0 Stomatocytes 1+ Sodium 145 Potassium 4.0 Chloride 103 Carbon Dioxide 39 H Anion Gap 3 L BUN 19.4 H Creatinine 1.0 Est GFR (CKD-EPI)AfAm 64.73 Est GFR (CKD-EPI)NonAf 55.85 Random Glucose 154 H Calcium 8.3 L Phosphorus 2.3 L Magnesium 2.1 Total Bilirubin 0.4 AST 29 ALT 16 Alkaline Phosphatase 63 Total Protein 5.6 L Albumin 1.8 L Problem List - Problems (1) Anemia Code(s): D64.9 - ANEMIA, UNSPECIFIED Qualifiers: Anemia type: unspecified type Qualified Code(s): D64.9 - Anemia, unspecified (2) CHF exacerbation Code(s): I50.9 - HEART FAILURE, UNSPECIFIED Qualifiers: Heart failure type: unspecified Qualified Code(s): I50.9 - Heart failure, unspecified (3) Cirrhosis of liver with ascites Code(s): K74.60 - UNSPECIFIED CIRRHOSIS OF LIVER; R18.8 - OTHER ASCITES (4) Microcytic anemia Code(s): D50.9 - IRON DEFICIENCY ANEMIA, UNSPECIFIED ASSESSMENT/PLAN: Dyspnea due to acute exacerbation of CHF Pulmonary HTN AFib S/P PPM COPD on home O2 Gastric CA s/p resection Low clinical suspicion of Sepsis (?) SBP IV Lasix IV ABX per ID Strict I & O Daily weights Digoxin BD TX PRN Monitor off systemic steroids Normal transfusion thresholds Need to clarify GOC as the patient and family have been refusing interventions and she wants to go home 4W/4S monitoring Dr Acosta
[2020-03-13] MEDS ORDERED: NAPH,MB-DB/K PH,MBDB POWDER PACKET PO ONE (16:54)
--- NOTE | 2020-03-13 16:57 | PN ---
Progress Note, Physician History of Present Illness: Pt seen and examined at bedside. She is awake and alert. She is asking to go home. - Current Medication List Current Medications: Active Medications Acetaminophen (Tylenol -) 650 mg PO Q6H PRN PRN Reason: PAIN LEVEL 6-10 Last Admin: 03/13/20 10:04 Dose: 650 mg Documented by: Albuterol/Ipratropium (Duoneb -) 1 amp NEB Q6H PRN PRN Reason: SHORTNESS OF BREATH Chlorhexidine Gluconate (Hibiclens For Decolonization -) 1 applic TP HS [facility] Last Admin: 03/12/20 22:46 Dose: 1 applic Documented by: Digoxin (Lanoxin -) 0.125 mg PO Q48H [facility] Last Admin: 03/12/20 14:15 Dose: Not Given Documented by: Furosemide (Lasix Injection -) 40 mg IVPUSH BID@0600,1400 [facility] Last Admin: 03/13/20 13:54 Dose: 40 mg Documented by: Ceftriaxone Sodium 1 gm/ (Dextrose) 50 mls @ 200 mls/hr IVPB DAILY [facility]; Protocol Last Admin: 03/13/20 09:54 Dose: 200 mls/hr Documented by: Metronidazole (Flagyl 500mg Premixed Ivpb -) 500 mg in 100 mls @ 100 mls/hr IVPB Q8H-IV [facility] Last Admin: 03/13/20 09:54 Dose: 100 mls/hr Documented by: Mupirocin (Bactroban Ointment (For Decolonization) -) 1 applic NS BID [facility] Stop: 03/17/20 11:59 Last Admin: 03/13/20 09:55 Dose: 1 applic Documented by: Pantoprazole Sodium (Protonix -) 40 mg PO DAILY [facility] Last Admin: 03/13/20 09:54 Dose: 40 mg Documented by: Potassium Phos/Sodium Phos (Phos-Nak Packet -) 1 packet PO ONCE ONE Stop: 03/13/20 16:55 Rifaximin (Xifaxan -) 550 mg PO BID [facility] Last Admin: 03/13/20 09:54 Dose: 550 mg Documented by: Senna (Senna -) 1 tab PO [facility] Last Admin: 03/12/20 22:45 Dose: 1 tab Documented by: Spironolactone (Aldactone -) 25 mg PO BID [facility] Last Admin: 03/13/20 09:54 Dose: 25 mg Documented by: - Objective Vital Signs: Vital Signs Temperature 98.2 F 03/13/20 14:00 Pulse Rate 66 03/13/20 14:00 Respiratory Rate 20 03/13/20 14:00 Blood Pressure 94/57 L 03/13/20 14:00 O2 Sat by Pulse Oximetry (%) 99 03/13/20 14:00 Constitutional: Yes: Calm Eyes: Yes: Conjunctiva Clear HENT: Yes: Atraumatic Neck: Yes: Supple Cardiovascular: Yes: S1, S2 Respiratory: Yes: On Nasal O2 Gastrointestinal: Yes: Soft Genitourinary: Yes: Dee Present Musculoskeletal: Yes: Muscle Weakness Edema: Yes Edema: LUE: 2+, RUE: 2+ Neurological: Yes: Confusion Labs: CBC, BMP 03/13/20 10:11 03/13/20 10:11 INR, PTT INR 1.63 (0.83-1.09) H 03/05/20 14:18 Fibrinogen 252.0 mg/dL (238-498) 03/08/20 11:50 Problem List - Problems (1) PATRICK (acute kidney injury) Code(s): N17.9 - ACUTE KIDNEY FAILURE, UNSPECIFIED (2) Anemia Code(s): D64.9 - ANEMIA, UNSPECIFIED Qualifiers: Anemia type: unspecified type Qualified Code(s): D64.9 - Anemia, unspecified (3) CHF exacerbation Code(s): I50.9 - HEART FAILURE, UNSPECIFIED Qualifiers: Heart failure type: unspecified Qualified Code(s): I50.9 - Heart failure, unspecified (4) COPD (chronic obstructive pulmonary disease) Code(s): J44.9 - CHRONIC OBSTRUCTIVE PULMONARY DISEASE, UNSPECIFIED Qualifiers: COPD type: unspecified COPD Qualified Code(s): J44.9 - Chronic obstructive pulmonary disease, unspecified (5) A-fib Code(s): I48.91 - UNSPECIFIED ATRIAL FIBRILLATION Qualifiers: Atrial fibrillation type: unspecified persistent Assessment/Plan Current Medications Generic Name Dose Route Start Last Admin Trade Name Freq PRN Reason Stop Dose Admin Acetaminophen 650 mg 03/12/20 19:27 03/13/20 10:04 Tylenol - PO 650 mg Q6H PRN Administration PAIN LEVEL 6-10 Albuterol/Ipratropium 1 amp 03/12/20 19:27 Duoneb - NEB Q6H PRN SHORTNESS OF BREATH Chlorhexidine Gluconate 1 applic 03/12/20 22:00 03/12/20 22:46 Hibiclens For Decolonization - TP 1 applic HS JACIEL Administration Digoxin 0.125 mg 03/12/20 13:00 03/12/20 14:15 Lanoxin - PO Not Given Q48H [facility] Furosemide 40 mg 03/12/20 14:00 03/13/20 13:54 Lasix Injection - IVPUSH 40 mg BID@0600,1400 [facility] Administration Ceftriaxone Sodium 1 gm/ 50 mls @ 200 mls/hr 03/13/20 10:00 03/13/20 09:54 Dextrose IVPB 200 mls/hr DAILY [facility] Administration Protocol Metronidazole 500 mg in 100 mls @ 100 mls/hr 03/13/20 02:00 03/13/20 09:54 Flagyl 500mg Premixed Ivpb - IVPB 100 mls/hr Q8H-IV [facility]EL Administration Mupirocin 1 applic 03/12/20 12:00 03/13/20 09:55 Bactroban Ointment (For Decolonization) - NS 03/17/20 11:59 1 applic BID [facility] Administration Pantoprazole Sodium 40 mg 03/13/20 10:00 03/13/20 09:54 Protonix - PO 40 mg DAILY [facility] Administration Potassium Phos/Sodium Phos 1 packet 03/13/20 16:54 Phos-Nak Packet - PO 03/13/20 16:55 ONCE ONE Rifaximin 550 mg 03/12/20 22:00 03/13/20 09:54 Xifaxan - PO 550 mg BID [facility]EL Administration Senna 1 tab 03/12/20 22:00 03/12/20 22:45 Senna - PO 1 tab HS [facility]EL Administration Spironolactone 25 mg 03/12/20 22:00 03/13/20 09:54 Aldactone - PO 25 mg BID [facility]EL Administration Impression 1. PATRICK 2. anemia 3. chf with right heart failure and elevated pulm pressures 4. copd 5. a-fib 6. gastric cancer 7. gi bleed 8. volume overload 9. pleural effusion Plan - cont diuretics - monitor renal function - monitor bp - echo reviewed - discussed with icu team - monitor hg - encourage po intake Dr Donis
--- NOTE | 2020-03-13 17:14 | PN.GI ---
GI Progress Note Subjective: still with SOB and anasarca. She denies abdominal pain , nausea and vomiting - Objective Vital Signs: Vital Signs Temperature 98.2 F 03/13/20 14:00 Pulse Rate 66 03/13/20 14:00 Respiratory Rate 03/13/20 14:00 Blood Pressure 94/57 L 03/13/20 14:00 O2 Sat by Pulse Oximetry (%) 99 03/13/20 14:00 Constitutional: No Distress Eyes: Yes: Conjunctiva Clear HENT: Yes: Atraumatic Neck: Yes: Trachea Midline Cardiovascular: Yes: Regular Rate and Rhythm Respiratory: Yes: Diminished Gastrointestinal Inspection: Yes: Ascites ...Palpate: Yes: Soft. No: Firm/Rigid, Guarding, Hepatomegaly, Mass, Pulsatile Mass, Splenomegaly, Tenderness Labs: CBC, BMP 03/13/20 10:11 03/13/20 10:11 INR, PTT INR 1.63 (0.83-1.09) H 03/05/20 14:18 Fibrinogen 252.0 mg/dL (238-498) 03/08/20 11:50 Problem List - Problems (1) Idiopathic cirrhosis Code(s): K74.60 - UNSPECIFIED CIRRHOSIS OF LIVER (2) Rectal bleeding Assessment/Plan: resolved Code(s): K62.5 - HEMORRHAGE OF ANUS AND RECTUM (3) Hepatic encephalopathy Assessment/Plan: mild R> continue Xifaxan 550mg bid Code(s): K72.90 - HEPATIC FAILURE, UNSPECIFIED WITHOUT COMA
[2020-03-13] MEDS ORDERED: ALBUTEROL SO4 2.5/IPRATROPIUM 0.5 INH SOL 3 ML VIAL.NEB. NEB PRN (18:11)
[2020-03-13 21:07] LABS: HEP B CORE AB, TOT Negative (Negative)
[2020-03-13] MEDS: SENNOSIDES 8.6MG TABLET (FP) PO SCH (21:13)
[2020-03-13] MEDS: CHLORHEXIDINE GLUCONATE 4% CLEANSER FOR DECOLONIZATION TP SCH (21:13)
[2020-03-14] MEDS: FUROSEMIDE 40 MG/4 ML INJECTABLE VIAL IVPUSH SCH ×2 (06:39→14:29)
[2020-03-14] MEDS ORDERED: cefTRIAXone SODIUM 1 GM VIAL ONE (08:12)
[2020-03-14] MEDS ORDERED: DEXTROSE 5%-WATER - 50 ML IVPB ONE (08:12)
[2020-03-14 08:22] LABS: ALBUMIN 1.7 g/dl (3.4-5.0); BILIRUBIN,TOTAL 0.6 mg/dL (0.2-1); BLOOD UREA NITROGEN 17.3 mg/dL (7-18); CALCIUM 7.7 mg/dL (8.5-10.1); CREATININE 0.9 mg/dL (0.55-1.3); POTASSIUM 3.6 mmol/L (3.5-5.1); TOT PROT 5.1 g/dl (6.4-8.2)
[2020-03-14] MEDS: RIFAXIMIN 550 MG TABLET (UD) PO SCH ×2 (09:08→22:12)
[2020-03-14] MEDS: SPIRONOLACTONE 25 MG TABLET PO SCH ×2 (09:08→22:11)
[2020-03-14] MEDS: PANTOPRAZOLE 40 MG TABLET PO SCH (09:08)
[2020-03-14] MEDS ORDERED: CEFTRIAXONE 1 GM in DEXTROSE 5%-WATER - 50 ML IVPB SCH (10:00)
--- NOTE | 2020-03-14 10:51 | PN ---
Progress Note, Physician Chief Complaint: Now on tele. tele neg History of Present Illness: 74 year old with a pmhx of right sided CHF and pulmonary htn, afib s/p ppm on apixaban, copd on home O2, and gastric CA s/p resection brought from home due to hypotension and sob. SBP 60 at home. +blood in stool at home. SOB worsening last few days at home. +orthopnea and edema. No chest pain. Mental status worsening Found to have drop in Hgb to 5.2 PATRICK with Cr 2.3 EKG: atrial paced, inferior and anterolateral ST abnormalities CT chest: bibasilar opacities, pleural effusions, anasarca Trops neg BNP elevated Echocardiogram 02/2019: nl lvef, mod to sev RV dil/hypokinesis, mod to sev TR, mod pulm htn. Transferred due to increasing WOB, worsening anemia, and inability to obtain IV access. - Current Medication List Current Medications: Active Medications Acetaminophen (Tylenol -) 650 mg PO Q6H PRN PRN Reason: PAIN LEVEL 6-10 Last Admin: 03/13/20 18:26 Dose: 650 mg Documented by: Albuterol/Ipratropium (Duoneb -) 1 amp NEB Q6H PRN PRN Reason: SHORTNESS OF BREATH Chlorhexidine Gluconate (Hibiclens For Decolonization -) 1 applic TP HS [facility] Last Admin: 03/13/20 21:13 Dose: 1 applic Documented by: Digoxin (Lanoxin -) 0.125 mg PO Q48H [facility] Furosemide (Lasix Injection -) 40 mg IVPUSH BID@0600,1400 [facility] Last Admin: 03/14/20 06:39 Dose: 40 mg Documented by: Ceftriaxone Sodium 1 gm/ (Dextrose) 50 mls @ 200 mls/hr IVPB DAILY [facility]; Protocol Last Admin: 03/14/20 09:08 Dose: 200 mls/hr Documented by: Metronidazole (Flagyl 500mg Premixed Ivpb -) 500 mg in 100 mls @ 100 mls/hr IVPB Q8H-IV [facility] Last Admin: 03/14/20 01:07 Dose: 100 mls/hr Documented by: Mupirocin (Bactroban Ointment (For Decolonization) -) 1 applic NS BID [facility] Stop: 03/17/20 11:59 Last Admin: 03/13/20 21:13 Dose: Not Given Documented by: Pantoprazole Sodium (Protonix -) 40 mg PO DAILY [facility] Last Admin: 03/14/20 09:08 Dose: 40 mg Documented by: Rifaximin (Xifaxan -) 550 mg PO BID [facility] Last Admin: 03/14/20 09:08 Dose: 550 mg Documented by: Senna (Senna -) 1 tab PO HS [facility] Last Admin: 03/13/20 21:13 Dose: 1 tab Documented by: Spironolactone (Aldactone -) 25 mg PO BID [facility] Last Admin: 03/14/20 09:08 Dose: 25 mg Documented by: - Objective Vital Signs: Vital Signs Temperature 98.2 F 03/14/20 06:31 Pulse Rate 79 03/14/20 06:31 Respiratory Rate 20 03/14/20 06:31 Blood Pressure 111/58 L 03/14/20 06:31 O2 Sat by Pulse Oximetry (%) 99 03/14/20 06:31 Constitutional: Yes: No Distress, Calm Eyes: Yes: EOM Intact HENT: Yes: Normocephalic Neck: Yes: Trachea Midline Cardiovascular: Yes: Pulse Irregular Respiratory: Yes: Rales, Rhonchi Gastrointestinal: Yes: Abdomen, Obese, Ascites Extremities: Yes: WNL Edema: Yes Edema: LLE: 2+, RLE: 2+ Labs: CBC, BMP 03/13/20 10:11 03/14/20 07:01 INR, PTT INR 1.63 (0.83-1.09) H 03/05/20 14:18 Fibrinogen 252.0 mg/dL (238-498) 03/08/20 11:50 Assessment/Plan 74 year old with a pmhx of right sided CHF and pulmonary htn, afib s/p ppm on apixaban, copd on home O2, and gastric CA s/p resection brought from home due to hypotension and sob. SBP 60 at home. +blood in stool at home. SOB worsening last few days at home. +orthopnea and edema. No chest pain. Mental status worsening. Found to have drop in Hgb to 5.2 PATRICK with Cr 2.3 EKG: atrial paced, inferior and anterolateral ST abnormalities CT chest: bibasilar opacities, pleural effusions, anasarca Trops neg BNP elevated Echocardiogram 02/2019: nl lvef, mod to sev RV dil/hypokinesis, mod to sev TR, mod pulm htn. Transferred due to increasing WOB, worsening anemia, and inability to obtain IV access. echo 03/12/20 normal EF, RV hypokinesis, m-s TR PAP 60 IMP: -The edema is minimal at this point. -Continue salt and fluid restrictions. -Continue diuretics as currently if tolerated by BP -echo shows RVHK, consider PE workup. -Watching renal function. -Keep potassium well repleted. check magnesium. will follow with you.
[2020-03-14] MEDS: MUPIROCIN 2% TOPICAL OINTMENT FOR DECOLONIZATION NS SCH ×2 (11:53→22:13)
[2020-03-14 12:04] LABS: BASO % 0.5 % (0-2.0); EOS % 1.2 % (0-4.5); HEMATOCRIT 25.8 % (32.4-45.2); LYMPH % 12.7 % (8-40); MCH 25.6 pg (25.7-33.7); MEAN CELL VOLUME 82.5 fl (80-96); MONO % 7.6 % (3.8-10.2); PLATELET COUNT 80 K/MM3 (134-434); RBC 3.12 M/mm3 (3.60-5.2); RDW 22.8 % (11.6-15.6)
--- NOTE | 2020-03-14 13:25 | PN ---
Progress Note (short form) - Note Progress Note: Awake and alert. Was moaning and crying. Asking to go home. Reports SOB is a little better. Denies CP. Intake & Output 03/11/20 03/12/20 03/13/20 03/14/20 23:59 23:59 23:59 23:59 Intake Total 350 580 360 Output Total 600 1450 1450 Balance -250 -870 -1090 Weight 147 lb 9.6 oz 147 lb 11.2 oz 148 lb 15.04 oz 143 lb 9.6 oz Last Vital Signs Temp Pulse Resp BP Pulse Ox 98.5 F 82 20 113/59 L 99 03/14/20 10:00 03/14/20 10:00 03/14/20 10:00 03/14/20 10:00 03/14/20 10:00 Active Medications Acetaminophen (Tylenol -) 650 mg PO Q6H PRN PRN Reason: PAIN LEVEL 6-10 Last Admin: 03/13/20 18:26 Dose: 650 mg Documented by: Albuterol/Ipratropium (Duoneb -) 1 amp NEB Q6H PRN PRN Reason: SHORTNESS OF BREATH Chlorhexidine Gluconate (Hibiclens For Decolonization -) 1 applic TP HS [facility] Last Admin: 03/13/20 21:13 Dose: 1 applic Documented by: Digoxin (Lanoxin -) 0.125 mg PO Q48H [facility] Furosemide (Lasix Injection -) 40 mg IVPUSH BID@0600,1400 [facility] Last Admin: 03/14/20 06:39 Dose: 40 mg Documented by: Ceftriaxone Sodium 1 gm/ (Dextrose) 50 mls @ 200 mls/hr IVPB DAILY [facility]; Protocol Last Admin: 03/14/20 09:08 Dose: 200 mls/hr Documented by: Metronidazole (Flagyl 500mg Premixed Ivpb -) 500 mg in 100 mls @ 100 mls/hr IVPB Q8H-IV [facility] Last Admin: 03/14/20 10:53 Dose: 100 mls/hr Documented by: Mupirocin (Bactroban Ointment (For Decolonization) -) 1 applic NS BID [facility] Stop: 03/17/20 11:59 Last Admin: 03/14/20 11:53 Dose: Not Given Documented by: Pantoprazole Sodium (Protonix -) 40 mg PO DAILY [facility] Last Admin: 03/14/20 09:08 Dose: 40 mg Documented by: Rifaximin (Xifaxan -) 550 mg PO BID [facility] Last Admin: 03/14/20 09:08 Dose: 550 mg Documented by: Senannalise (Senna -) 1 tab PO HS [facility] Last Admin: 03/13/20 21:13 Dose: 1 tab Documented by: Spironolactone (Aldactone -) 25 mg PO BID [facility] Last Admin: 03/14/20 09:08 Dose: 25 mg Documented by: GENERAL: Awake, alert, NAD EYES: PEERLA: EOMI; no scleral icterus NECK:no JVD; no lymphadenopathy LUNGS: Bilateral coarse breath sounds HEART: irregularly irregular, systolic murmur normal S1 and S2 , rub or gallop. ABDOMEN: Soft, epigastric tenderness; LUQ tenderness upon palpation; +BS MUSCULOSKELETAL: Normal range of motion at all joints. No bony deformities or tenderness. No CVA tenderness. EXTREMITIES: 1+ pitting edema b/l (UE and LE) NEUROLOGICAL: Non-focal PSYCHIATRIC: Cooperative. SKIN: Warm, dry, normal turgor, no rashes or lesions noted. Laboratory Results - last 24 hr 03/10/20 03/12/20 03/12/20 15:10 10:05 10:05 WBC RBC Hgb Hct MCV MCH MCHC RDW Plt Count MPV Absolute Neuts (auto) Neutrophils % Lymphocytes % Monocytes % Eosinophils % Basophils % Nucleated RBC % Sodium Potassium Chloride Carbon Dioxide Anion Gap BUN Creatinine Est GFR (CKD-EPI)AfAm Est GFR (CKD-EPI)NonAf Random Glucose Calcium Total Bilirubin AST ALT Alkaline Phosphatase Total Protein Albumin POC Fluid pH 7.3 Fluid Glucose 125 Fluid Total Protein 1.0 Fluid Albumin 0.3 Body Fluid LDH Source 69 Fluid Amylase 12 Hep Bs Antigen Negative Hep Bs Antibody Non reactive Hep B Core Total Ab Negative Hep B Core IgM Ab Negative Hepatitis Be Antibody Negative Hepatitis Be Antigen Negative Blood Type O POSITIVE Antibody Screen Negative Crossmatch See Detail 03/14/20 03/14/20 07:01 11:05 WBC 4.0 RBC 3.12 L Hgb 8.0 L Hct 25.8 L MCV 82.5 MCH 25.6 L MCHC 31.0 L RDW 22.8 H Plt Count 80 L MPV 9.0 Absolute Neuts (auto) 3.1 Neutrophils % 78.0 Lymphocytes % 12.7 Monocytes % 7.6 Eosinophils % 1.2 Basophils % 0.5 Nucleated RBC % 0 Sodium 145 Potassium 3.6 Chloride 104 Carbon Dioxide 35 H Anion Gap 5 L BUN 17.3 Creatinine 0.9 Est GFR (CKD-EPI)AfAm 73.52 Est GFR (CKD-EPI)NonAf 63.43 Random Glucose 123 H Calcium 7.7 L Total Bilirubin 0.6 AST 22 ALT 15 Alkaline Phosphatase 64 Total Protein 5.1 L Albumin 1.7 L POC Fluid pH Fluid Glucose Fluid Total Protein Fluid Albumin Body Fluid LDH Source Fluid Amylase Hep Bs Antigen Hep Bs Antibody Hep B Core Total Ab Hep B Core IgM Ab Hepatitis Be Antibody Hepatitis Be Antigen Blood Type Antibody Screen Crossmatch Problem List - Problems (1) Anemia Code(s): D64.9 - ANEMIA, UNSPECIFIED Qualifiers: Anemia type: unspecified type Qualified Code(s): D64.9 - Anemia, unspecified (2) CHF exacerbation Code(s): I50.9 - HEART FAILURE, UNSPECIFIED Qualifiers: Heart failure type: unspecified Qualified Code(s): I50.9 - Heart failure, unspecified (3) Cirrhosis of liver with ascites Code(s): K74.60 - UNSPECIFIED CIRRHOSIS OF LIVER; R18.8 - OTHER ASCITES (4) Microcytic anemia Code(s): D50.9 - IRON DEFICIENCY ANEMIA, UNSPECIFIED ASSESSMENT/PLAN: Dyspnea due to acute exacerbation of CHF Pulmonary HTN AFib S/P PPM COPD on home O2 Gastric CA s/p resection Low clinical suspicion of Sepsis Low clinical suspicion of VTE (?) SBP IV Lasix Strict I & O Daily weights Digoxin BD TX PRN Monitor off systemic steroids Normal transfusion thresholds Need to clarify GOC as the patient and family have been refusing interventions and she wants to go home Would not pursue a VTE workup at this point Dr Acosta
[2020-03-14] MEDS: DIGOXIN 0.125 MG TABLET (FP) PO SCH (13:28)
--- NOTE | 2020-03-14 13:48 | PN ---
Progress Note, Physician History of Present Illness: no new issues c/o of pain everywhere - Current Medication List Current Medications: Active Medications Acetaminophen (Tylenol -) 650 mg PO Q6H PRN PRN Reason: PAIN LEVEL 6-10 Last Admin: 03/13/20 18:26 Dose: 650 mg Documented by: Albuterol/Ipratropium (Duoneb -) 1 amp NEB Q6H PRN PRN Reason: SHORTNESS OF BREATH Chlorhexidine Gluconate (Hibiclens For Decolonization -) 1 applic TP HS [facility] Last Admin: 03/13/20 21:13 Dose: 1 applic Documented by: Digoxin (Lanoxin -) 0.125 mg PO Q48H [facility] Furosemide (Lasix Injection -) 40 mg IVPUSH BID@0600,1400 [facility] Last Admin: 03/14/20 06:39 Dose: 40 mg Documented by: Ceftriaxone Sodium 1 gm/ (Dextrose) 50 mls @ 200 mls/hr IVPB DAILY [facility]; Protocol Last Admin: 03/14/20 09:08 Dose: 200 mls/hr Documented by: Metronidazole (Flagyl 500mg Premixed Ivpb -) 500 mg in 100 mls @ 100 mls/hr IVPB Q8H-IV [facility] Last Admin: 03/14/20 10:53 Dose: 100 mls/hr Documented by: Mupirocin (Bactroban Ointment (For Decolonization) -) 1 applic NS BID [facility] Stop: 03/17/20 11:59 Last Admin: 03/14/20 11:53 Dose: Not Given Documented by: Pantoprazole Sodium (Protonix -) 40 mg PO DAILY [facility] Last Admin: 03/14/20 09:08 Dose: 40 mg Documented by: Rifaximin (Xifaxan -) 550 mg PO BID [facility] Last Admin: 03/14/20 09:08 Dose: 550 mg Documented by: Senna (Senna -) 1 tab PO [facility] Last Admin: 03/13/20 21:13 Dose: 1 tab Documented by: Spironolactone (Aldactone -) 25 mg PO BID [facility] Last Admin: 03/14/20 09:08 Dose: 25 mg Documented by: - Objective Vital Signs: Vital Signs Temperature 98.5 F 03/14/20 10:00 Pulse Rate 82 03/14/20 10:00 Respiratory Rate 20 03/14/20 10:00 Blood Pressure 113/59 L 03/14/20 10:00 O2 Sat by Pulse Oximetry (%) 99 03/14/20 10:00 Constitutional: Yes: Mild Distress Cardiovascular: Yes: S1, S2 Respiratory: Yes: Regular, CTA Bilaterally Musculoskeletal: Yes: WNL Extremities: Yes: WNL Neurological: Yes: Alert, Oriented Labs: CBC, BMP 03/14/20 11:05 03/14/20 07:01 INR, PTT INR 1.63 (0.83-1.09) H 03/05/20 14:18 Fibrinogen 252.0 mg/dL (238-498) 03/08/20 11:50 Assessment/Plan Problem List - Problems (1) PATRICK (acute kidney injury) Code(s): N17.9 - ACUTE KIDNEY FAILURE, UNSPECIFIED (2) Anemia Code(s): D64.9 - ANEMIA, UNSPECIFIED Qualifiers: Anemia type: unspecified type Qualified Code(s): D64.9 - Anemia, unspecifi ed (3) CHF exacerbation Code(s): I50.9 - HEART FAILURE, UNSPECIFIED Qualifiers: Heart failure type: unspecified Qualified Code(s): I50.9 - Heart failure, unspecified (4) Chronic respiratory failure Code(s): J96.10 - CHRONIC RESPIRATORY FAILURE, UNSP W HYPOXIA OR HYPERCAPNIA (5) Diarrhea Code(s): R19.7 - DIARRHEA, UNSPECIFIED (6) COPD (chronic obstructive pulmonary disease) Code(s): J44.9 - CHRONIC OBSTRUCTIVE PULMONARY DISEASE, UNSPECIFIED Qualifiers: COPD type: unspecified COPD Qualified Code(s): J44.9 - Chronic obstructive pulmonary disease, unspecified (7) Pacemaker Code(s): Z95.0 - PRESENCE OF CARDIAC PACEMAKER (8) A-fib Code(s): I48.91 - UNSPECIFIED ATRIAL FIBRILLATION Qualifiers: Atrial fibrillation type: unspecified persistent Assessment/Plan Acute on chronic resp failure Acute CHF exacerbation PATRICK COPD AFIB Diarrhea/?GI bleed Anemia plan continue to monitor monitor for bleeding close watch resp support rest as per the team cc 38 min
--- NOTE | 2020-03-14 13:53 | PN ---
Teaching Attending Note Name of Resident: Naila Carpenter ATTENDING PHYSICIAN STATEMENT I saw and evaluated the patient. I reviewed the resident's note and discussed the case with the resident. I agree with the resident's findings and plan as documented. SUBJECTIVE: pt seen and examined OBJECTIVE: Last Vital Signs Temp Pulse Resp BP Pulse Ox 98.5 F 82 20 113/59 L 99 03/14/20 10:00 03/14/20 10:00 03/14/20 10:00 03/14/20 10:00 03/14/20 10:00 General: Alert, oriented, deconditioned, in moderate respiratory distress HEENT: NC/AT, PERRLA, JVD+ Lungs: poor inspiratory effort, coarse b/l BS+ CVS: Irregularly irregular, Systolic Murmur, S1S2+ Abd: Soft, NT, ND, BS+ Ext: 1+ LE pitting edema b/l CBCD WBC 4.0 K/mm3 (4.0-10.0) 03/14/20 11:05 RBC 3.12 M/mm3 (3.60-5.2) L 03/14/20 11:05 Hgb 8.0 GM/dL (10.7-15.3) L 03/14/20 11:05 Hct 25.8 % (32.4-45.2) L 03/14/20 11:05 MCV 82.5 fl (80-96) 03/14/20 11:05 MCHC 31.0 g/dl (32.0-36.0) L 03/14/20 11:05 RDW 22.8 % (11.6-15.6) H 03/14/20 11:05 Plt Count 80 K/MM3 (134-434) L 03/14/20 11:05 MPV 9.0 fl (7.5-11.1) 03/14/20 11:05 CMP Sodium 145 mmol/L (136-145) 03/14/20 07:01 Potassium 3.6 mmol/L (3.5-5.1) 03/14/20 07:01 Chloride 104 mmol/L (98-107) 03/14/20 07:01 Carbon Dioxide 35 mmol/L (21-32) H 03/14/20 07:01 Anion Gap 5 MMOL/L (8-16) L 03/14/20 07:01 BUN 17.3 mg/dL (7-18) 03/14/20 07:01 Creatinine 0.9 mg/dL (0.55-1.3) 03/14/20 07:01 Calcium 7.7 mg/dL (8.5-10.1) L 03/14/20 07:01 Total Bilirubin 0.6 mg/dL (0.2-1) 03/14/20 07:01 AST 22 U/L (15-37) 03/14/20 07:01 ALT 15 U/L (13-61) 03/14/20 07:01 Alkaline Phosphatase 64 U/L (45-117) 03/14/20 07:01 Total Protein 5.1 g/dl (6.4-8.2) L 03/14/20 07:01 Albumin 1.7 g/dl (3.4-5.0) L 03/14/20 07:01 Active Medications Acetaminophen (Tylenol -) 650 mg PO Q6H PRN PRN Reason: PAIN LEVEL 6-10 Last Admin: 03/13/20 18:26 Dose: 650 mg Documented by: Albuterol/Ipratropium (Duoneb -) 1 amp NEB Q6H PRN PRN Reason: SHORTNESS OF BREATH Chlorhexidine Gluconate (Hibiclens For Decolonization -) 1 applic TP HS [facility] Last Admin: 03/13/20 21:13 Dose: 1 applic Documented by: Digoxin (Lanoxin -) 0.125 mg PO Q48H [facility] Furosemide (Lasix Injection -) 40 mg IVPUSH BID@0600,1400 [facility] Last Admin: 03/14/20 06:39 Dose: 40 mg Documented by: Ceftriaxone Sodium 1 gm/ (Dextrose) 50 mls @ 200 mls/hr IVPB DAILY [facility]; Protocol Last Admin: 03/14/20 09:08 Dose: 200 mls/hr Documented by: Metronidazole (Flagyl 500mg Premixed Ivpb -) 500 mg in 100 mls @ 100 mls/hr IVPB Q8H-IV [facility] Last Admin: 03/14/20 10:53 Dose: 100 mls/hr Documented by: Mupirocin (Bactroban Ointment (For Decolonization) -) 1 applic NS BID [facility] Stop: 03/17/20 11:59 Last Admin: 03/14/20 11:53 Dose: Not Given Documented by: Pantoprazole Sodium (Protonix -) 40 mg PO DAILY [facility] Last Admin: 03/14/20 09:08 Dose: 40 mg Documented by: Rifaximin (Xifaxan -) 550 mg PO BID [facility] Last Admin: 03/14/20 09:08 Dose: 550 mg Documented by: Senna (Senna -) 1 tab PO HS [facility] Last Admin: 03/13/20 21:13 Dose: 1 tab Documented by: Spironolactone (Aldactone -) 25 mg PO BID [facility] Last Admin: 03/14/20 09:08 Dose: 25 mg Documented by: ASSESSMENT AND PLAN: 74 year old with a Mhx of right sided CHF and pulmonary htn, afib s/p ppm on apixaban, COPD on home O2, and gastric CA s/p resection brought from home due to hypotension and sob. along with blood in stool at home # Acute HFrEF COPD, Cor-pulmonale pul HTN echo increased Rt vent pressure, Moderate Pul HTN, EF 50-55% lasix as BP tolerates digoxin salt/fluid restriction, encourage PO intake family refusing central line cardiology consult GI following Pulmonary following Renal following Palliative care consult # LGIB undetermined etiology not stable for EGD stable H&H SAAG 1.2, goes with cirrhosis/portal HTN D/C ABx for SBP # Hepatic Encephalopathy c/w rifaximin Will obtain US for lt arm swelling PATRICK on CKD HTN HLD CHFE CAP PNA Afib on Eliquis (stopped) DVT prophylaxis: hold AC, SCD for DVT ppx need to discuss goals of care with family.
--- NOTE | 2020-03-14 14:12 | PN ---
Progress Note, Physician History of Present Illness: no new issues feels a bit sob - Current Medication List Current Medications: Active Medications Acetaminophen (Tylenol -) 650 mg PO Q6H PRN PRN Reason: PAIN LEVEL 6-10 Last Admin: 03/13/20 18:26 Dose: 650 mg Documented by: Albuterol/Ipratropium (Duoneb -) 1 amp NEB Q6H PRN PRN Reason: SHORTNESS OF BREATH Chlorhexidine Gluconate (Hibiclens For Decolonization -) 1 applic TP [facility] Last Admin: 03/13/20 21:13 Dose: 1 applic Documented by: Digoxin (Lanoxin -) 0.125 mg PO Q48H [facility] Furosemide (Lasix Injection -) 40 mg IVPUSH BID@0600,1400 [facility] Last Admin: 03/14/20 06:39 Dose: 40 mg Documented by: Mupirocin (Bactroban Ointment (For Decolonization) -) 1 applic NS BID [facility] Stop: 03/17/20 11:59 Last Admin: 03/14/20 11:53 Dose: Not Given Documented by: Pantoprazole Sodium (Protonix -) 40 mg PO DAILY [facility] Last Admin: 03/14/20 09:08 Dose: 40 mg Documented by: Rifaximin (Xifaxan -) 550 mg PO BID [facility] Last Admin: 03/14/20 09:08 Dose: 550 mg Documented by: Senna (Senna -) 1 tab PO [facility] Last Admin: 03/13/20 21:13 Dose: 1 tab Documented by: Spironolactone (Aldactone -) 25 mg PO BID [facility] Last Admin: 03/14/20 09:08 Dose: 25 mg Documented by: - Objective Vital Signs: Vital Signs Temperature 98.5 F 03/14/20 10:00 Pulse Rate 82 03/14/20 10:00 Respiratory Rate 20 03/14/20 10:00 Blood Pressure 113/59 L 03/14/20 10:00 O2 Sat by Pulse Oximetry (%) 99 03/14/20 10:00 Constitutional: Yes: No Distress, Calm Cardiovascular: Yes: S1, S2 Respiratory: Yes: Regular, CTA Bilaterally Gastrointestinal: Yes: Normal Bowel Sounds, Soft Musculoskeletal: Yes: WNL Extremities: Yes: WNL Labs: CBC, BMP 03/14/20 11:05 03/14/20 07:01 INR, PTT INR 1.63 (0.83-1.09) H 03/05/20 14:18 Fibrinogen 252.0 mg/dL (238-498) 03/08/20 11:50 Assessment/Plan Problem List - Problems (1) PATRICK (acute kidney injury) Code(s): N17.9 - ACUTE KIDNEY FAILURE, UNSPECIFIED (2) Anemia Code(s): D64.9 - ANEMIA, UNSPECIFIED Qualifiers: Anemia type: unspecified type Qualified Code(s): D64.9 - Anemia, unspecified (3) CHF exacerbation Code(s): I50.9 - HEART FAILURE, UNSPECIFIED Qualifiers: Heart failure type: unspecified Qualified Code(s): I50.9 - Heart failure, unspecified (4) Chronic respiratory failure Code(s): J96.10 - CHRONIC RESPIRATORY FAILURE, UNSP W HYPOXIA OR HYPERCAPNIA (5) Diarrhea Code(s): R19.7 - DIARRHEA, UNSPECIFIED (6) COPD (chronic obstructive pulmonary disease) Code(s): J44.9 - CHRONIC OBSTRUCTIVE PULMONARY DISEASE, UNSPECIFIED Qualifiers: COPD type: unspecified COPD Qualified Code(s): J44.9 - Chronic obstructive pulmonary disease, unspecified (7) Pacemaker Code(s): Z95.0 - PRESENCE OF CARDIAC PACEMAKER (8) A-fib Code(s): I48.91 - UNSPECIFIED ATRIAL FIBRILLATION Qualifiers: Atrial fibrillation type: unspecified persistent Assessment/Plan Acute on chronic resp failure Acute CHF exacerbation PATRICK COPD AFIB Diarrhea/?GI bleed Anemia plan continue to monitor monitor for bleeding close watch resp support rest as per the team
--- NOTE | 2020-03-14 15:58 | PN ---
Physical Exam: SUBJECTIVE: Patient seen and examined this AM. Feels better OBJECTIVE: Vital Signs Period Temp Pulse Resp BP Sys/Nava Pulse Ox Last 24 Hr 98.2 F-98.5 F 64-82 20-20 96-113/51-63 97-100 GENERAL: A&Ox3, NAD HEAD: NCAT EYES: PERRL, EOMI LUNGS: Diminished breath sounds at the bases, Poor effort HEART: Irregular S1 S2 ABDOMEN: Soft, nontender, nondistended, + bowel sounds, no guarding, no rebound EXTREMITIES: 1+ pitting edema NEUROLOGICAL: Awake, Alert SKIN: Warm, Dry Laboratory Last Values WBC 4.0 K/mm3 (4.0-10.0) 03/14/20 11:05 Corrected WBC (auto) Cancelled 03/12/20 09:30 RBC 3.12 M/mm3 (3.60-5.2) L 03/14/20 11:05 Hgb 8.0 GM/dL (10.7-15.3) L 03/14/20 11:05 Hct 25.8 % (32.4-45.2) L 03/14/20 11:05 MCV 82.5 fl (80-96) 03/14/20 11:05 MCH 25.6 pg (25.7-33.7) L 03/14/20 11:05 MCHC 31.0 g/dl (32.0-36.0) L 03/14/20 11:05 RDW 22.8 % (11.6-15.6) H 03/14/20 11:05 Plt Count 80 K/MM3 (134-434) L 03/14/20 11:05 MPV 9.0 fl (7.5-11.1) 03/14/20 11:05 Absolute Neuts (auto) 3.1 K/mm3 (1.5-8.0) 03/14/20 11:05 Neutrophils % 78.0 % (42.8-82.8) 03/14/20 11:05 Lymphocytes % 12.7 % (8-40) 03/14/20 11:05 Monocytes % 7.6 % (3.8-10.2) 03/14/20 11:05 Eosinophils % 1.2 % (0-4.5) 03/14/20 11:05 Basophils % 0.5 % (0-2.0) 03/14/20 11:05 Nucleated RBC % 0 % (0-0) 03/14/20 11:05 Manual Slide Review Cancelled 03/12/20 09:30 Hypochromia 0 03/13/20 10:11 Platelet Estimate Decreased 03/13/20 10:11 Platelet Comment Cancelled 03/12/20 09:30 Polychromasia 2+ 03/13/20 10:11 Poikilocytosis 1+ 03/13/20 10:11 Anisocytosis 3+ 03/13/20 10:11 Microcytosis 3+ 03/13/20 10:11 Macrocytosis 0 03/13/20 10:11 Target Cells 1+ 03/05/20 13:40 Stomatocytes 1+ 03/13/20 10:11 Retic Count 2.75 % (0.5-1.5) H D 03/06/20 04:55 PT with INR 19.30 SEC (9.7-13.0) H 03/05/20 14:18 INR 1.63 (0.83-1.09) H 03/05/20 14:18 PTT (Actin FS) 30.0 SECONDS (25.2-36.5) 03/05/20 14:18 Fibrinogen 252.0 mg/dL (238-498) 03/08/20 11:50 Anticoagulation Therapy No Result Required. 03/12/20 10:24 Puncture Site Right radial 03/12/20 10:24 Patient Temperature No Result Required. 03/12/20 10:24 ABG pH 7.461 (7.350-7.450) H 03/12/20 10:24 ABG pCO2 58.70 mmHg (35-45) H 03/12/20 10:24 ABG pO2 71.0 mmHg (80-100) L 03/12/20 10:24 ABG HCO3 40.9 mmol/L (22-27) H 03/12/20 10:24 ABG O2 Sat (Measured) 94.6 mmHg (95-98) L 03/12/20 10:24 ABG O2 Content No Result Required. 03/12/20 10:24 ABG Base Excess 15.7 mmol/L (-2-2) H 03/12/20 10:24 Malcolm Test Positive 03/12/20 10:24 VBG pH 7.309 (7.310-7.410) L 03/05/20 14:10 POC VBG pCO2 60.5 mmHg (38-52) H 03/05/20 14:10 POC VBG pO2 31.0 mmHg (28-48) 03/05/20 14:10 VBG HCO3 29.7 mmol/L (23-29) H 03/05/20 14:10 VBG O2 Sat (Linn) 52.1 % (70-80) L 03/05/20 14:10 VBG Base Excess 3.2 mmol/L (-2-2) H 03/05/20 14:10 Patient On Oxygen Yes 03/12/20 10:24 O2 Delivery Device Nasal 03/12/20 10:24 Oxygen Flow Rate 5l 03/12/20 10:24 Vent Mode No Result Required. 03/12/20 10:24 Vent Rate No Result Required. 03/12/20 10:24 Mechanical Rate No Result Required. 03/12/20 10:24 PEEP No Result Required. 03/12/20 10:24 Pressure Support Vent No Result Required. 03/12/20 10:24 Sodium 145 mmol/L (136-145) 03/14/20 07:01 Potassium 3.6 mmol/L (3.5-5.1) 03/14/20 07:01 Chloride 104 mmol/L (98-107) 03/14/20 07:01 Carbon Dioxide 35 mmol/L (21-32) H 03/14/20 07:01 Anion Gap 5 MMOL/L (8-16) L 03/14/20 07:01 BUN 17.3 mg/dL (7-18) 03/14/20 07:01 Creatinine 0.9 mg/dL (0.55-1.3) 03/14/20 07:01 Est GFR (CKD-EPI)AfAm 73.52 03/14/20 07:01 Est GFR (CKD-EPI)NonAf 63.43 03/14/20 07:01 Random Glucose 123 mg/dL (74-106) H 03/14/20 07:01 Hemoglobin A1c % < 3.5 % (4.2-6.3) L 03/06/20 04:55 Lactic Acid 2.0 mmol/L (0.4-2.0) 03/05/20 14:18 Calcium 7.7 mg/dL (8.5-10.1) L 03/14/20 07:01 Phosphorus 2.3 mg/dL (2.5-4.9) L 03/13/20 10:11 Magnesium 2.1 mg/dL (1.8-2.4) 03/13/20 10:11 Iron 103 ug/dL (50-175) 03/06/20 05:30 TIBC 242 ug/dL (250-450) L 03/06/20 05:30 Iron Saturation 42 % (17.5-39) H 03/06/20 05:30 Unsaturated IBC 139 ug/dL (200-275) L 03/06/20 05:30 Ferritin 8.6 ng/ml (8-388) 03/06/20 05:30 Total Bilirubin 0.6 mg/dL (0.2-1) 03/14/20 07:01 AST 22 U/L (15-37) 03/14/20 07:01 ALT 15 U/L (13-61) 03/14/20 07:01 Alkaline Phosphatase 64 U/L (45-117) 03/14/20 07:01 Ammonia 66.20 umol/L (11-32) H 03/12/20 07:00 LD Total 293 U/L (84-246) H 03/06/20 05:30 Creatine Kinase 112 U/L (26-192) 03/06/20 05:30 Troponin I 0.04 ng/ml (0.00-0.05) 03/06/20 05:30 B-Natriuretic Peptide 2969.8 pg/ml (5-125) H 03/05/20 13:40 Total Protein 5.1 g/dl (6.4-8.2) L 03/14/20 07:01 Total Protein (PEP) 4.8 g/dL (6.0-8.5) L 03/07/20 06:10 Albumin 1.7 g/dl (3.4-5.0) L 03/14/20 07:01 Albumin (PEP) 1.9 gm/dl (2.9-4.4) L 03/07/20 06:10 Globulin 2.9 g/dL (2.2-3.9) 03/07/20 06:10 Albumin/Globulin Ratio 0.7 (0.7-1.7) 03/07/20 06:10 Beta Globulins 1.0 gm/dL (0.7-1.3) 03/07/20 06:10 Triglycerides 60 mg/dL (0-150) 03/06/20 05:30 Cholesterol 54 mg/dL (50-200) 03/06/20 05:30 Total LDL Cholesterol 24 mg/dL (5-100) 03/06/20 05:30 HDL Cholesterol 27 mg/dL (40-60) L 03/06/20 05:30 Tumor Marker AFP 1.8 ng/ml (0.0-8.3) 03/08/20 07:20 Carcinoembryonic Ag 3.2 ng/mL (0.0-4.7) 03/06/20 04:55 CA 19-9 Antigen 25 U/mL (0-35) 03/06/20 04:55 TSH 4.93 uIU/ml (0.358-3.74) H 03/06/20 05:30 Free T4 0.88 ng/dl (0.76-1.46) 03/06/20 05:30 Urine Color Yellow 03/05/20 19:50 Urine Appearance Clear 03/05/20 19:50 Urine pH 5.0 (5.0-8.0) 03/05/20 19:50 Ur Specific Wesley 1.011 (1.010-1.035) 03/05/20 19:50 Urine Protein Negative (NEGATIVE) 03/05/20 19:50 Urine Glucose (UA) Negative (NEGATIVE) 03/05/20 19:50 Urine Ketones Negative (NEGATIVE) 03/05/20 19:50 Urine Blood Negative (NEGATIVE) 03/05/20 19:50 Urine Nitrite Negative (NEGATIVE) 03/05/20 19:50 Urine Bilirubin Negative (NEGATIVE) 03/05/20 19:50 Urine Urobilinogen 0.2 mg/dL (0.2-1.0) 03/05/20 19:50 Ur Leukocyte Esterase Negative (NEGATIVE) 03/05/20 19:50 Ur Random Creatinine 73.0 mg/dL (30-150) 03/05/20 02:39 U Random Total Protein 26.0 mg/dL (0-11.9) H 03/05/20 02:39 Protein/Creatinin Ratio 0.4 mg/dL 03/05/20 02:39 Fluid Source Peritoneal 03/10/20 15:10 POC Fluid pH 7.3 (Not Estab.) 03/10/20 15:10 Fluid WBC 181 /mm3 03/10/20 15:10 Fluid RBC 536 /mm3 03/10/20 15:10 Fluid Neutrophils 36 % 03/10/20 15:10 Fluid Lymphocytes 18 % 03/10/20 15:10 Fluid Glucose 125 mg/dL (.) 03/10/20 15:10 Fluid Total Protein 1.0 g/dL (.) 03/10/20 15:10 Fluid Albumin 0.3 g/dL (Not Estab.) 03/10/20 15:10 Body Fluid LDH Source 69 IU/L (.) 03/10/20 15:10 Fluid Amylase 12 U/L (.) 03/10/20 15:10 Pleural Monocytes 3 % 03/10/20 15:10 Pleural Macrophages 38 % 03/10/20 15:10 Pleural Mesothelial 5 % 03/10/20 15:10 Stool Occult Blood Positive (NEGATIVE) 03/05/20 15:05 Stool O & P Wet Mount (.) 03/08/20 15:50 Digoxin 1.54 ng/ml (0.8-2.0) 03/12/20 07:00 ALEXANDRA M-Espinoza Not observed g/dL (Not Observed) 03/07/20 06:10 ZARIA Screen Negative (.) 03/08/20 07:20 Smooth Musc [employer] Intrp 22 Units (0-19) H 03/08/20 07:20 Tiss Transglutamin IgG 3 U/mL (0-5) 03/08/20 07:20 Tiss Transglutamin IgA < 2 U/mL (0-3) 03/08/20 07:20 COVID-19 (JABARI) Not detected (Not Detected) 03/05/20 13:44 Hep A IgM Ab Confirm Negative (Negative) 03/08/20 07:20 Hepatitis A Ab Total Positive (Negative) H 03/08/20 07:20 Hep Bs Antigen Negative (Negative) 03/12/20 10:05 Hep Bs Antibody Non reactive (.) 03/12/20 10:05 Hep B Core Total Ab Negative (Negative) 03/12/20 10:05 Hep B Core IgM Ab Negative (Negative) 03/12/20 10:05 Hepatitis Be Antibody Negative (Negative) 03/12/20 10:05 Hepatitis Be Antigen Negative (Negative) 03/12/20 10:05 Hep C Ab Diagnostic <0.1 s/co ratio (0.0-0.9) 03/08/20 07:20 O & P Permanent Slide Final report (.) 03/08/20 15:50 Blood Type O POSITIVE 03/12/20 10:05 Antibody Screen Negative 03/12/20 10:05 Crossmatch See Detail 03/12/20 10:05 Microbiology 03/08/20 19:00 Blood - Peripheral Venous Blood Culture - Final NO GROWTH AFTER 5 DAYS INCUBATION 03/08/20 19:15 Blood - Peripheral Venous Blood Culture - Final NO GROWTH AFTER 5 DAYS INCUBATION 03/10/20 15:10 Ascites AFB Smear Concentration - Preliminary 03/10/20 15:10 Ascites Mycobacterial Culture - Preliminary 03/10/20 15:10 Ascites Gram Stain - Final 03/10/20 15:10 Ascites Body Fluid Culture - Final NO GROWTH OF AEROBIC ORGANISMS AFTER 48 HOURS INCUBATION 03/10/20 15:10 Ascites Anaerobic Culture - Final NO ANAEROBES WERE ISOLATED 03/10/20 15:10 Ascites ANTONIO Preparation - Preliminary 03/10/20 15:10 Ascites Fungal Culture - Preliminary 03/07/20 21:00 Stool Salmonella/Shigella Culture - Final NO GROWTH OF SALMONELLA OR SHIGELLA SPECIES OBTAINED 03/07/20 21:00 Stool Campylobacter Culture - Final NO GROWTH OF CAMPYLOBACTER SPECIES OBTAINED 03/07/20 21:00 Stool Yersinia Culture - Final NO GROWTH OF YERSINIA SPECIES OBTAINED 03/07/20 21:00 Stool Vibrio Culture - Final NO GROWTH OF VIBRIO SPECIES OBTAINED 03/07/20 21:00 Stool Escherichia coli 0157 Culture - Final NO GROWTH OF E COLI 0157 OBTAINED 03/05/20 13:40 Blood - Peripheral Venous Blood Culture - Final Staph Hominis Sub Sp Hominis 03/05/20 13:40 Blood - Peripheral Venous Blood Culture - Final NO GROWTH AFTER 5 DAYS INCUBATION 03/07/20 21:00 Stool Gram Stain - Final 03/07/20 21:00 Stool Clostridioides difficile Antigen - Final 03/07/20 21:00 Stool Clostridioides difficile Toxin Assay - Final 03/05/20 19:50 Urine - Urine Clean Catch Urine Culture - Final NO GROWTH OBTAINED Active Medications Acetaminophen (Tylenol -) 650 mg PO Q6H PRN PRN Reason: PAIN LEVEL 6-10 Last Admin: 03/13/20 18:26 Dose: 650 mg Documented by: Albuterol/Ipratropium (Duoneb -) 1 amp NEB Q6H PRN PRN Reason: SHORTNESS OF BREATH Chlorhexidine Gluconate (Hibiclens For Decolonization -) 1 applic TP HS [facility] Last Admin: 03/13/20 21:13 Dose: 1 applic Documented by: Digoxin (Lanoxin -) 0.125 mg PO Q48H [facility] Last Admin: 03/14/20 13:28 Dose: 0.125 mg Documented by: Furosemide (Lasix Injection -) 40 mg IVPUSH BID@0600,1400 [facility] Last Admin: 03/14/20 14:29 Dose: 40 mg Documented by: Mupirocin (Bactroban Ointment (For Decolonization) -) 1 applic NS BID [facility] Stop: 03/17/20 11:59 Last Admin: 03/14/20 11:53 Dose: Not Given Documented by: Pantoprazole Sodium (Protonix -) 40 mg PO DAILY [facility] Last Admin: 03/14/20 09:08 Dose: 40 mg Documented by: Rifaximin (Xifaxan -) 550 mg PO BID [facility] Last Admin: 03/14/20 09:08 Dose: 550 mg Documented by: Senna (Senna -) 1 tab PO [facility] Last Admin: 03/13/20 21:13 Dose: 1 tab Documented by: Spironolactone (Aldactone -) 25 mg PO BID [facility] Last Admin: 03/14/20 09:08 Dose: 25 mg Documented by: ASSESSMENT/PLAN: 74 y/o M PMHx HFpEF (EF 50-55% 1 year ago), Afib (s/p pacemaker on eliquis), COPD (on 3L O2 at home), pulmonary hypertension, and 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 #Symptomatic anemia -Etiology to be determined however in the setting of recent LGIB now s/p 3u pRBC -Transfuse for HgB < 8.0 -Protonix Daily -hold DOAC -GI consulted, appreciate rec's, Not stable for EGD -ID, Pulm, Heme/Onc consulted, Apreciate rec's #Acute CHF exacerbation -likely multifactorial (symptomatic anemia, medication non-adherence) -ECHO reveals EF 50-55%, Pulm HTN -Diuresis via IV lasix 40 as hemodynamics permit -Digoxin -Cardiology consulted, appreciate rec's -strict Is/Os, daily weights #Ascites and hypoalbuminemia -In the setting of Cirrhosis, SAAG calculation also 1.2, additional Concerns arise for hepatic encephalopathy -Smooth muscle Ab, AFP, CEA and CA19-9 results noted -Fluid pathology results non-diagnostic for malignancy -Continue Rifaximin -IV Diuresis #PATRICK on CKD -monitor urine output, Cr -Nephrology consulted, Appreciate Rec's -Avoid nephrotoxic agents #Hx of HTN -hold home dose metoprolol #Hx of COPD -Supplemental O2 to maintain SpO2 88-92% -Resume home dose Bronchodilators #FEN -No standing fluids -Replete lytes prn -NPO #PPx -DVT: SCDs -GI: PPI Dispo: Monitor on Tele, Will need to revisit Goals of Care Visit type - Emergency Visit Emergency Visit: Yes ED Registration Date: 03/05/20 Care time: The patient presented to the Emergency Department on the above date and was hospitalized for further evaluation of their emergent condition. - New Patient This patient is new to me today: Yes Date on this admission: 03/14/20 - Critical Care Critical Care patient: No - Discharge Referral Referred to [facility] Med P.C.: No - Medication Review Med list reviewed for High Risk Meds patients 65 and older: Yes ATTENDING PHYSICIAN STATEMENT I saw and evaluated the patient. I reviewed the resident's note and discussed the case with the resident. I agree with the resident's findings and plan as documented. SUBJECTIVE: OBJECTIVE: ASSESSMENT AND PLAN:
--- NOTE | 2020-03-14 16:54 | PN ---
Progress Note, Physician History of Present Illness: Pt seen and examine at bedside. She is awake and appears comfortable. She is asking to go home. - Current Medication List Current Medications: Active Medications Acetaminophen (Tylenol -) 650 mg PO Q6H PRN PRN Reason: PAIN LEVEL 6-10 Last Admin: 03/13/20 18:26 Dose: 650 mg Documented by: Albuterol/Ipratropium (Duoneb -) 1 amp NEB Q6H PRN PRN Reason: SHORTNESS OF BREATH Chlorhexidine Gluconate (Hibiclens For Decolonization -) 1 applic TP [facility] Last Admin: 03/13/20 21:13 Dose: 1 applic Documented by: Digoxin (Lanoxin -) 0.125 mg PO Q48H [facility] Last Admin: 03/14/20 13:28 Dose: 0.125 mg Documented by: Furosemide (Lasix Injection -) 40 mg IVPUSH BID@0600,1400 [facility] Last Admin: 03/14/20 14:29 Dose: 40 mg Documented by: Mupirocin (Bactroban Ointment (For Decolonization) -) 1 applic NS BID [facility] Stop: 03/17/20 11:59 Last Admin: 03/14/20 11:53 Dose: Not Given Documented by: Pantoprazole Sodium (Protonix -) 40 mg PO DAILY [facility] Last Admin: 03/14/20 09:08 Dose: 40 mg Documented by: Rifaximin (Xifaxan -) 550 mg PO BID [facility] Last Admin: 03/14/20 09:08 Dose: 550 mg Documented by: Senna (Senna -) 1 tab PO [facility] Last Admin: 03/13/20 21:13 Dose: 1 tab Documented by: Spironolactone (Aldactone -) 25 mg PO BID [facility] Last Admin: 03/14/20 09:08 Dose: 25 mg Documented by: - Objective Vital Signs: Vital Signs Temperature 98.5 F 03/14/20 10:00 Pulse Rate 74 03/14/20 13:28 Respiratory Rate 20 03/14/20 10:00 Blood Pressure 113/59 L 03/14/20 10:00 O2 Sat by Pulse Oximetry (%) 99 03/14/20 10:00 Constitutional: Yes: Calm Eyes: Yes: Conjunctiva Clear HENT: Yes: Atraumatic Neck: Yes: Supple Cardiovascular: Yes: S1, S2 Respiratory: Yes: On Nasal O2 Gastrointestinal: Yes: Normal Bowel Sounds, Soft Genitourinary: Yes: Incontinence Edema: Yes Edema: LUE: 1+, RUE: 1+, LLE: Trace, RLE: Trace Neurological: Yes: Oriented Labs: CBC, BMP 03/14/20 11:05 03/14/20 07:01 INR, PTT INR 1.63 (0.83-1.09) H 03/05/20 14:18 Fibrinogen 252.0 mg/dL (238-498) 03/08/20 11:50 Problem List - Problems (1) PATRICK (acute kidney injury) Code(s): N17.9 - ACUTE KIDNEY FAILURE, UNSPECIFIED (2) Anemia Code(s): D64.9 - ANEMIA, UNSPECIFIED Qualifiers: Anemia type: unspecified type Qualified Code(s): D64.9 - Anemia, unspecified (3) CHF exacerbation Code(s): I50.9 - HEART FAILURE, UNSPECIFIED Qualifiers: Heart failure type: unspecified Qualified Code(s): I50.9 - Heart failure, unspecified (4) COPD (chronic obstructive pulmonary disease) Code(s): J44.9 - CHRONIC OBSTRUCTIVE PULMONARY DISEASE, UNSPECIFIED Qualifiers: COPD type: unspecified COPD Qualified Code(s): J44.9 - Chronic obstructive pulmonary disease, unspecified (5) A-fib Code(s): I48.91 - UNSPECIFIED ATRIAL FIBRILLATION Qualifiers: Atrial fibrillation type: unspecified persistent Assessment/Plan Current Medications Generic Name Dose Route Start Last Admin Trade Name Freq PRN Reason Stop Dose Admin Acetaminophen 650 mg 03/13/20 18:11 03/13/20 18:26 Tylenol - PO 650 mg Q6H PRN Administration PAIN LEVEL 6-10 Albuterol/Ipratropium 1 amp 03/13/20 18:11 Duoneb - NEB Q6H PRN SHORTNESS OF BREATH Chlorhexidine Gluconate 1 applic 03/13/20 22:00 03/13/20 21:13 Hibiclens For Decolonization - TP 1 applic HS JACIEL Administration Digoxin 0.125 mg 03/14/20 13:00 03/14/20 13:28 Lanoxin - PO 0.125 mg Q48H JACIEL Administration Furosemide 40 mg 03/14/20 06:00 03/14/20 14:29 Lasix Injection - IVPUSH 40 mg BID@0600,1400 JACIEL Administration Mupirocin 1 applic 03/13/20 22:00 03/14/20 11:53 Bactroban Ointment (For Decolonization) - NS 03/17/20 11:59 Not Given BID JACIEL Pantoprazole Sodium 40 mg 03/14/20 10:00 03/14/20 09:08 Protonix - PO 40 mg DAILY JACIEL Administration Rifaximin 550 mg 03/13/20 22:00 03/14/20 09:08 Xifaxan - PO 550 mg BID JAICEL Administration Senna 1 tab 03/13/20 22:00 03/13/20 21:13 Senna - PO 1 tab HS JACIEL Administration Spironolactone 25 mg 03/13/20 22:00 03/14/20 09:08 Aldactone - PO 25 mg BID JACIEL Administration Impression 1. PATRICK 2. anemia 3. chf with right heart failure and elevated pulm pressures 4. copd 5. a-fib 6. gastric cancer 7. gi bleed 8. volume overload 9. pleural effusion Plan - cont lasix and aldactone - monitor lytes - monitor volume status - cardio follow up - discussed with icu team - monitor hg Dr Donis
[2020-03-14] MEDS: SENNOSIDES 8.6MG TABLET (FP) PO SCH (22:12)
[2020-03-14] MEDS: CHLORHEXIDINE GLUCONATE 4% CLEANSER FOR DECOLONIZATION TP SCH (22:13)
[2020-03-15] MEDS: ACETAMINOPHEN 325 MG TABLET (FP) PO PRN (06:01)
[2020-03-15] MEDS: FUROSEMIDE 40 MG/4 ML INJECTABLE VIAL IVPUSH SCH ×3 (06:01→13:31)
[2020-03-15] MEDS: RIFAXIMIN 550 MG TABLET (UD) PO SCH ×2 (09:17→21:05)
[2020-03-15] MEDS: SPIRONOLACTONE 25 MG TABLET PO SCH ×2 (09:17→21:04)
[2020-03-15] MEDS: MUPIROCIN 2% TOPICAL OINTMENT FOR DECOLONIZATION NS SCH ×2 (09:17→21:06)
[2020-03-15] MEDS: PANTOPRAZOLE 40 MG TABLET PO SCH (09:17)
[2020-03-15 10:25] LABS: BASO % 0.8 % (0-2.0); EOS % 0.6 % (0-4.5); HEMATOCRIT 26.3 % (32.4-45.2); HEMOGLOBIN 8.1 GM/dL (10.7-15.3); LYMPH % 13.4 % (8-40); MCH 25.9 pg (25.7-33.7); MEAN CELL VOLUME 83.7 fl (80-96); MONO % 8.1 % (3.8-10.2); NEUT % 77.1 % (42.8-82.8); PLATELET COUNT 93 K/MM3 (134-434); RBC 3.14 M/mm3 (3.60-5.2); RDW 24.2 % (11.6-15.6); WHITE BLOOD COUNT 3.4 K/mm3 (4.0-10.0)
[2020-03-15 10:44] LABS: ALBUMIN 1.7 g/dl (3.4-5.0); BILIRUBIN,TOTAL 0.4 mg/dL (0.2-1); BLOOD UREA NITROGEN 15.1 mg/dL (7-18); CALCIUM 7.7 mg/dL (8.5-10.1); CREATININE 0.9 mg/dL (0.55-1.3); PHOSPHOROUS 2.1 mg/dL (2.5-4.9); POTASSIUM 3.2 mmol/L (3.5-5.1); TOT PROT 5.1 g/dl (6.4-8.2)
--- NOTE | 2020-03-15 13:51 | PN ---
Progress Note, Physician History of Present Illness: no overnight events. no new complaints. - Current Medication List Current Medications: Active Medications Acetaminophen (Tylenol -) 650 mg PO Q6H PRN PRN Reason: PAIN LEVEL 6-10 Last Admin: 03/15/20 06:01 Dose: 650 mg Documented by: Albuterol/Ipratropium (Duoneb -) 1 amp NEB Q6H PRN PRN Reason: SHORTNESS OF BREATH Chlorhexidine Gluconate (Hibiclens For Decolonization -) 1 applic TP [facility] Last Admin: 03/14/20 22:13 Dose: 1 applic Documented by: Digoxin (Lanoxin -) 0.125 mg PO Q48H [facility] Last Admin: 03/14/20 13:28 Dose: 0.125 mg Documented by: Furosemide (Lasix Injection -) 40 mg IVPUSH BID@0600,1400 [facility] Last Admin: 03/15/20 13:31 Dose: 40 mg Documented by: Mupirocin (Bactroban Ointment (For Decolonization) -) 1 applic NS BID [facility] Stop: 03/17/20 11:59 Last Admin: 03/15/20 09:17 Dose: Not Given Documented by: Pantoprazole Sodium (Protonix -) 40 mg PO DAILY [facility] Last Admin: 03/15/20 09:17 Dose: 40 mg Documented by: Rifaximin (Xifaxan -) 550 mg PO BID [facility] Last Admin: 03/15/20 09:17 Dose: 550 mg Documented by: Senna (Senna -) 1 tab PO [facility] Last Admin: 03/14/20 22:12 Dose: 1 tab Documented by: Spironolactone (Aldactone -) 25 mg PO BID [facility] Last Admin: 03/15/20 09:17 Dose: 25 mg Documented by: - Objective Vital Signs: Vital Signs Temperature 98.2 F 03/15/20 13:33 Pulse Rate 60 03/15/20 13:33 Respiratory Rate 20 03/15/20 13:33 Blood Pressure 115/56 L 03/15/20 13:33 O2 Sat by Pulse Oximetry (%) 95 03/15/20 13:33 Constitutional: Yes: No Distress, Calm Eyes: Yes: Conjunctiva Clear Neck: Yes: Supple, Trachea Midline Cardiovascular: Yes: Regular Rate and Rhythm, S1, S2. No: Bradycardia, Tachycardia, Pulse Irregular, Bruit, JVD, Gallop, Murmur, Rub, S3, S4, Varicosities Respiratory: Yes: Regular, Diminished Gastrointestinal: Yes: Normal Bowel Sounds, Soft. No: Distention, Tenderness Extremities: Yes: WNL Edema: No Peripheral Pulses WNL: Yes Peripheral Pulses: Left Doralis Pedis: 2+, Right Dorsalis Pedis: 2+ Neurological: Yes: Alert Psychiatric: Yes: Alert Labs: CBC, BMP 03/15/20 10:00 03/15/20 10:00 INR, PTT INR 1.63 (0.83-1.09) H 03/05/20 14:18 Fibrinogen 252.0 mg/dL (238-498) 03/08/20 11:50 - ....Imaging Chest X-ray: Report Reviewed, Image Reviewed EKG: Report Reviewed, Image Reviewed Other: Report Reviewed, Image Reviewed (tele-no sig arrhythmias) Assessment/Plan 74 year old with a pmhx of right sided CHF and pulmonary htn, afib s/p ppm on apixaban, copd on home O2, and gastric CA s/p resection brought from home due to hypotension and sob. SBP 60 at home. +blood in stool at home. SOB worsening last few days at home. +orthopnea and edema. No chest pain. Mental status worsening. Found to have drop in Hgb to 5.2 PATRICK with Cr 2.3 EKG: atrial paced, inferior and anterolateral ST abnormalities CT chest: bibasilar opacities, pleural effusions, anasarca Trops neg BNP elevated Echocardiogram 02/2019: nl lvef, mod to sev RV dil/hypokinesis, mod to sev TR, mod pulm htn. Transferred due to increasing WOB, worsening anemia, and inability to obtain IV access. echo 03/12/20 normal EF, RV hypokinesis, m-s TR PAP 60 IMP: -volume status improving -Continue salt and fluid restrictions. -Continue diuretics as long as BP tolerates, transition to po when possible -echo shows RVHK, consider PE workup. -monitor I/Os, daily weights, bun/creat, electrolytes and replete as needed.
--- NOTE | 2020-03-15 14:07 | PN ---
Progress Note, Physician - Current Medication List Current Medications: Active Medications Acetaminophen (Tylenol -) 650 mg PO Q6H PRN PRN Reason: PAIN LEVEL 6-10 Last Admin: 03/15/20 06:01 Dose: 650 mg Documented by: Albuterol/Ipratropium (Duoneb -) 1 amp NEB Q6H PRN PRN Reason: SHORTNESS OF BREATH Chlorhexidine Gluconate (Hibiclens For Decolonization -) 1 applic TP HS [facility] Last Admin: 03/14/20 22:13 Dose: 1 applic Documented by: Digoxin (Lanoxin -) 0.125 mg PO Q48H [facility] Last Admin: 03/14/20 13:28 Dose: 0.125 mg Documented by: Furosemide (Lasix Injection -) 40 mg IVPUSH BID@0600,1400 [facility] Last Admin: 03/15/20 13:31 Dose: 40 mg Documented by: Mupirocin (Bactroban Ointment (For Decolonization) -) 1 applic NS BID [facility], 1928–1983 Stop: 03/17/20 11:59 Last Admin: 03/15/20 09:17 Dose: Not Given Documented by: Pantoprazole Sodium (Protonix -) 40 mg PO DAILY [facility], [facility]1983 Last Admin: 03/15/20 09:17 Dose: 40 mg Documented by: Rifaximin (Xifaxan -) 550 mg PO BID [facility]1983 Last Admin: 03/15/20 09:17 Dose: 550 mg Documented by: Senna (Senna -) 1 tab PO [facility] Last Admin: 03/14/20 22:12 Dose: 1 tab Documented by: Spironolactone (Aldactone -) 25 mg PO BID [facility], [facility]1983 Last Admin: 03/15/20 09:17 Dose: 25 mg Documented by: - Objective Vital Signs: Vital Signs Temperature 98.2 F 03/15/20 13:33 Pulse Rate 60 03/15/20 13:33 Respiratory Rate 20 03/15/20 13:33 Blood Pressure 115/56 L 03/15/20 13:33 O2 Sat by Pulse Oximetry (%) 95 03/15/20 13:33 Labs: CBC, BMP 03/15/20 10:00 03/15/20 10:00 INR, PTT INR 1.63 (0.83-1.09) H 03/05/20 14:18 Fibrinogen 252.0 mg/dL (238-498) 03/08/20 11:50
[2020-03-15] MEDS ORDERED: POTASSIUM CHLORIDE TABS 20 MEQ TABLET.ER (FP) PO ONE (14:19)
--- NOTE | 2020-03-15 14:42 | PN ---
Physical Exam: SUBJECTIVE: Patient seen and examined OBJECTIVE: Vital Signs Period Temp Pulse Resp BP Sys/Nava Pulse Ox Last 24 Hr 98.2 F-99.1 F 60-82 20-34 103-117/52-98 92-99 General: Alert, oriented, deconditioned, in moderate respiratory distress HEENT: NC/AT, PERRLA, JVD+ Lungs: poor inspiratory effort, coarse b/l BS+ CVS: Irregularly irregular, Systolic Murmur, S1S2+ Abd: Soft, NT, ND, BS+ Ext: 1+ LE pitting edema b/l Laboratory Results - last 24 hr 03/15/20 03/15/20 10:00 10:00 WBC 3.4 L RBC 3.14 L Hgb 8.1 L Hct 26.3 L MCV 83.7 MCH 25.9 MCHC 31.0 L RDW 24.2 H Plt Count 93 L MPV 9.0 Absolute Neuts (auto) 2.6 Neutrophils % 77.1 Lymphocytes % 13.4 Monocytes % 8.1 Eosinophils % 0.6 Basophils % 0.8 Nucleated RBC % 0 Sodium 143 Potassium 3.2 L Chloride 100 Carbon Dioxide 41 H Anion Gap 2 L BUN 15.1 Creatinine 0.9 Est GFR (CKD-EPI)AfAm 73.52 Est GFR (CKD-EPI)NonAf 63.43 Random Glucose 190 H Calcium 7.7 L Phosphorus 2.1 L Magnesium 2.0 Total Bilirubin 0.4 AST 20 ALT 14 Alkaline Phosphatase 68 Total Protein 5.1 L Albumin 1.7 L Active Medications Generic Name Dose Route Start Last Admin Trade Name Freq PRN Reason Stop Dose Admin Acetaminophen 650 mg 03/13/20 18:11 03/15/20 06:01 Tylenol - PO 650 mg Q6H PRN Administration PAIN LEVEL 6-10 Albuterol/Ipratropium 1 amp 03/13/20 18:11 Duoneb - NEB Q6H PRN SHORTNESS OF BREATH Chlorhexidine Gluconate 1 applic 03/13/20 22:00 03/14/20 22:13 Hibiclens For Decolonization - TP 1 applic HS JACIEL Administration Digoxin 0.125 mg 03/14/20 13:00 03/14/20 13:28 Lanoxin - PO 0.125 mg Q48H JACIEL Administration Furosemide 40 mg 03/14/20 06:00 03/15/20 13:31 Lasix Injection - IVPUSH 40 mg BID@0600,1400 JACIEL Administration Mupirocin 1 applic 03/13/20 22:00 03/15/20 09:17 Bactroban Ointment (For Decolonization) - NS 03/17/20 11:59 Not Given BID JACIEL Pantoprazole Sodium 40 mg 03/14/20 10:00 03/15/20 09:17 Protonix - PO 40 mg DAILY JACIEL Administration Rifaximin 550 mg 03/13/20 22:00 03/15/20 09:17 Xifaxan - PO 550 mg BID JACIEL Administration Senna 1 tab 03/13/20 22:00 03/14/20 22:12 Senna - PO 1 tab HS JACIEL Administration Spironolactone 25 mg 03/13/20 22:00 03/15/20 09:17 Aldactone - PO 25 mg BID JACIEL Administration ASSESSMENT/PLAN: 74 year old with a Mhx of right sided CHF and pulmonary htn, afib s/p ppm on apixaban, COPD on home O2, and gastric CA s/p resection brought from home due to hypotension and sob. along with blood in stool at home # Acute HFrEF COPD, Cor-pulmonale pul HTN echo increased Rt vent pressure, Moderate Pul HTN, EF 50-55% lasix as BP tolerates digoxin salt/fluid restriction, encourage PO intake cardiology consult GI following Pulmonary following Renal following Palliative care consult # LGIB undetermined etiology not stable for EGD stable H&H # Hepatic Encephalopathy c/w rifaximin PATRICK on CKD HTN HLD CHFE CAP PNA Afib on Eliquis (stopped) DVT prophylaxis: hold AC, SCD for DVT ppx spoke with Son, who wants his mother to go home at this time but would like to have the necessary support to take care of her. Her condition, need for further workup and possible complications discussed in length, his questions were answered apparently to his satisfaction. He verbalized agreement with plans. Visit type - Emergency Visit Emergency Visit: Yes ED Registration Date: 03/05/20 Care time: The patient presented to the Emergency Department on the above date and was hospitalized for further evaluation of their emergent condition. - New Patient This patient is new to me today: No - Critical Care Critical Care patient: No - Discharge Referral Referred to [facility] Med P.C.: No - Medication Review Med list reviewed for High Risk Meds patients 65 and older: Yes (yes)
--- NOTE | 2020-03-15 15:17 | PN ---
Progress Note (short form) - Note Progress Note: Problems 1. PATRICK 2. anemia 3. chf with right heart failure and elevated pulm pressures 4. copd 5. a-fib 6. gastric cancer 7. gi bleed 8. volume overload 9. pleural effusion Active Medications Acetaminophen (Tylenol -) 650 mg PO Q6H PRN PRN Reason: PAIN LEVEL 6-10 Last Admin: 03/15/20 06:01 Dose: 650 mg Documented by: Albuterol/Ipratropium (Duoneb -) 1 amp NEB Q6H PRN PRN Reason: SHORTNESS OF BREATH Chlorhexidine Gluconate (Hibiclens For Decolonization -) 1 applic TP [facility] Last Admin: 03/14/20 22:13 Dose: 1 applic Documented by: Digoxin (Lanoxin -) 0.125 mg PO Q48H [facility] Last Admin: 03/14/20 13:28 Dose: 0.125 mg Documented by: Furosemide (Lasix Injection -) 40 mg IVPUSH BID@0600,1400 [facility] Last Admin: 03/15/20 13:31 Dose: 40 mg Documented by: Mupirocin (Bactroban Ointment (For Decolonization) -) 1 applic NS BID [facility] Stop: 03/17/20 11:59 Last Admin: 03/15/20 09:17 Dose: Not Given Documented by: Pantoprazole Sodium (Protonix -) 40 mg PO DAILY [facility] Last Admin: 03/15/20 09:17 Dose: 40 mg Documented by: Rifaximin (Xifaxan -) 550 mg PO BID [facility] Last Admin: 03/15/20 09:17 Dose: 550 mg Documented by: Senna (Senna -) 1 tab PO [facility] Last Admin: 03/14/20 22:12 Dose: 1 tab Documented by: Spironolactone (Aldactone -) 25 mg PO BID [facility] Last Admin: 03/15/20 09:17 Dose: 25 mg Documented by: Last Vital Signs Temp Pulse Resp BP Pulse Ox 98.2 F 60 20 115/56 L 95 03/15/20 13:33 03/15/20 13:33 03/15/20 13:33 03/15/20 13:33 03/15/20 13:33 CBC, BMP 03/15/20 10:00 03/15/20 10:00 IMP- Hypokalemia s/p PATRICK ANEMIA Plan - cont lasix and aldactone - monitor lytes - monitor volume status - cardio follow up - discussed with icu team - monitor hg
[2020-03-15] MEDS: CHLORHEXIDINE GLUCONATE 4% CLEANSER FOR DECOLONIZATION TP SCH (21:05)
[2020-03-15] MEDS: SENNOSIDES 8.6MG TABLET (FP) PO SCH (21:05)
[2020-03-16] MEDS: FUROSEMIDE 40 MG/4 ML INJECTABLE VIAL IVPUSH SCH ×2 (06:22→13:45)
[2020-03-16 06:42] LABS: BASO % 0.8 % (0-2.0); EOS % 2.3 % (0-4.5); HEMOGLOBIN 7.8 GM/dL (10.7-15.3); LYMPH % 17.9 % (8-40); MCH 25.6 pg (25.7-33.7); MEAN CELL VOLUME 82.5 fl (80-96); MEAN PLT VOLUME 8.9 fl (7.5-11.1); MONO % 8.5 % (3.8-10.2); NEUT % 70.5 % (42.8-82.8); PLATELET COUNT 101 K/MM3 (134-434); RBC 3.03 M/mm3 (3.60-5.2); RDW 24.9 % (11.6-15.6); WHITE BLOOD COUNT 3.2 K/mm3 (4.0-10.0)
[2020-03-16 07:09] LABS: ALBUMIN 1.6 g/dl (3.4-5.0); BILIRUBIN,TOTAL 0.6 mg/dL (0.2-1); BLOOD UREA NITROGEN 15.5 mg/dL (7-18); CALCIUM 7.6 mg/dL (8.5-10.1); CREATININE 0.9 mg/dL (0.55-1.3); POTASSIUM 3.8 mmol/L (3.5-5.1); TOT PROT 4.9 g/dl (6.4-8.2)
[2020-03-16] MEDS: MUPIROCIN 2% TOPICAL OINTMENT FOR DECOLONIZATION NS SCH ×2 (10:21→21:07)
[2020-03-16] MEDS: RIFAXIMIN 550 MG TABLET (UD) PO SCH ×2 (10:21→21:06)
[2020-03-16] MEDS: SPIRONOLACTONE 25 MG TABLET PO SCH ×2 (10:21→21:06)
[2020-03-16] MEDS: PANTOPRAZOLE 40 MG TABLET PO SCH (10:21)
--- NOTE | 2020-03-16 11:44 | PN ---
Physical Exam: SUBJECTIVE: Patient seen and examined OBJECTIVE: Vital Signs Period Temp Pulse Resp BP Sys/Nava Pulse Ox Last 24 Hr 98.2 F-99.0 F 60-89 18-22 91-115/51-71 95-100 General: Alert, oriented, deconditioned, in moderate respiratory distress HEENT: NC/AT, PERRLA, JVD+ Lungs: poor inspiratory effort, coarse b/l BS+ CVS: Irregularly irregular, Systolic Murmur, S1S2+ Abd: Soft, NT, ND, BS+ Ext: 1+ LE pitting edema b/l Laboratory Results - last 24 hr 03/12/20 03/16/20 03/16/20 10:05 05:30 05:30 WBC 3.2 L RBC 3.03 L Hgb 7.8 L Hct 25.0 L MCV 82.5 MCH 25.6 L MCHC 31.0 L RDW 24.9 H Plt Count 101 L MPV 8.9 Absolute Neuts (auto) 2.3 Neutrophils % 70.5 Lymphocytes % 17.9 D Monocytes % 8.5 Eosinophils % 2.3 D Basophils % 0.8 Nucleated RBC % 0 Sodium 146 H Potassium 3.8 Chloride 105 Carbon Dioxide 38 H Anion Gap 3 L BUN 15.5 Creatinine 0.9 Est GFR (CKD-EPI)AfAm 73.52 Est GFR (CKD-EPI)NonAf 63.43 Random Glucose 114 H Calcium 7.6 L Total Bilirubin 0.6 AST 25 ALT 16 Alkaline Phosphatase 63 Total Protein 4.9 L Albumin 1.6 L Crossmatch See Detail Active Medications Generic Name Dose Route Start Last Admin Trade Name Freq PRN Reason Stop Dose Admin Acetaminophen 650 mg 03/13/20 18:11 03/15/20 06:01 Tylenol - PO 650 mg Q6H PRN Administration PAIN LEVEL 6-10 Albuterol/Ipratropium 1 amp 03/13/20 18:11 Duoneb - NEB Q6H PRN SHORTNESS OF BREATH Chlorhexidine Gluconate 1 applic 03/13/20 22:00 03/15/20 21:05 Hibiclens For Decolonization - TP 1 applic HS JACIEL Administration Digoxin 0.125 mg 03/14/20 13:00 03/14/20 13:28 Lanoxin - PO 0.125 mg Q48H JACIEL Administration Furosemide 40 mg 03/14/20 06:00 03/16/20 06:22 Lasix Injection - IVPUSH 40 mg BID@0600,1400 JACILE Administration Mupirocin 1 applic 03/13/20 22:00 03/16/20 10:21 Bactroban Ointment (For Decolonization) - NS 03/17/20 11:59 1 applic BID JACIEL Administration Pantoprazole Sodium 40 mg 03/14/20 10:00 03/16/20 10:21 Protonix - PO 40 mg DAILY JACIEL Administration Rifaximin 550 mg 03/13/20 22:00 03/16/20 10:21 Xifaxan - PO 550 mg BID JACIEL Administration Senna 1 tab 03/13/20 22:00 03/15/20 21:05 Senna - PO 1 tab HS JACIEL Administration Spironolactone 25 mg 03/13/20 22:00 03/16/20 10:21 Aldactone - PO 25 mg BID JACIEL Administration ASSESSMENT/PLAN: 74 year old with a Mhx of right sided CHF and pulmonary htn, afib s/p ppm on apixaban, COPD on home O2, and gastric CA s/p resection brought from home due to hypotension and sob. along with blood in stool at home # Acute HFrEF COPD, Cor-pulmonale pul HTN echo increased Rt vent pressure, Moderate Pul HTN, EF 50-55% lasix as BP tolerates digoxin salt/fluid restriction, encourage PO intake cardiology consult GI following Pulmonary following Renal following Palliative care consult # LGIB undetermined etiology not stable for EGD stable H&H # Hepatic Encephalopathy c/w rifaximin PATRICK on CKD HTN HLD CHFE CAP PNA Afib on Eliquis (stopped) DVT prophylaxis: hold AC, SCD for DVT ppx spoke with Son, who wants his mother to go home at this time but would like to have the necessary support to take care of her. Her condition, need for further workup and possible complications discussed in length, his questions were answered apparently to his satisfaction. He verbalized agreement with plans. Visit type - Emergency Visit Emergency Visit: Yes ED Registration Date: 03/05/20 Care time: The patient presented to the Emergency Department on the above date and was hospitalized for further evaluation of their emergent condition. - New Patient This patient is new to me today: No - Critical Care Critical Care patient: No - Discharge Referral Referred to [facility] Med P.C.: No - Medication Review Med list reviewed for High Risk Meds patients 65 and older: Yes (reviewed)
--- NOTE | 2020-03-16 13:06 | PN ---
Progress Note, Physician - Current Medication List Current Medications: Active Medications Acetaminophen (Tylenol -) 650 mg PO Q6H PRN PRN Reason: PAIN LEVEL 6-10 Last Admin: 03/15/20 06:01 Dose: 650 mg Documented by: Albuterol/Ipratropium (Duoneb -) 1 amp NEB Q6H PRN PRN Reason: SHORTNESS OF BREATH Chlorhexidine Gluconate (Hibiclens For Decolonization -) 1 applic TP HS [facility] Last Admin: 03/15/20 21:05 Dose: 1 applic Documented by: Digoxin (Lanoxin -) 0.125 mg PO Q48H [facility] Last Admin: 03/14/20 13:28 Dose: 0.125 mg Documented by: Furosemide (Lasix Injection -) 40 mg IVPUSH BID@0600,1400 [facility] Last Admin: 03/16/20 06:22 Dose: 40 mg Documented by: Mupirocin (Bactroban Ointment (For Decolonization) -) 1 applic NS BID [facility] Stop: 03/17/20 11:59 Last Admin: 03/16/20 10:21 Dose: 1 applic Documented by: Pantoprazole Sodium (Protonix -) 40 mg PO DAILY [facility] Last Admin: 03/16/20 10:21 Dose: 40 mg Documented by: Rifaximin (Xifaxan -) 550 mg PO BID [facility] Last Admin: 03/16/20 10:21 Dose: 550 mg Documented by: Senna (Senna -) 1 tab PO [facility] Last Admin: 03/15/20 21:05 Dose: 1 tab Documented by: Spironolactone (Aldactone -) 25 mg PO BID [facility] Last Admin: 03/16/20 10:21 Dose: 25 mg Documented by: - Objective Vital Signs: Vital Signs Temperature 99.0 F 03/16/20 06:00 Pulse Rate 77 03/16/20 12:00 Respiratory Rate 24 H 03/16/20 12:00 Blood Pressure 92/62 03/16/20 12:00 O2 Sat by Pulse Oximetry (%) 99 03/16/20 12:00 Labs: CBC, BMP 03/16/20 05:30 03/16/20 05:30 INR, PTT INR 1.63 (0.83-1.09) H 03/05/20 14:18 Fibrinogen 252.0 mg/dL (238-498) 03/08/20 11:50
[2020-03-16] MEDS: DIGOXIN 0.125 MG TABLET (FP) PO SCH (13:45)
--- NOTE | 2020-03-16 15:10 | PN ---
Progress Note, Physician History of Present Illness: no overnight events. no new complaints. - Current Medication List Current Medications: Active Medications Acetaminophen (Tylenol -) 650 mg PO Q6H PRN PRN Reason: PAIN LEVEL 6-10 Last Admin: 03/15/20 06:01 Dose: 650 mg Documented by: Albuterol/Ipratropium (Duoneb -) 1 amp NEB Q6H PRN PRN Reason: SHORTNESS OF BREATH Chlorhexidine Gluconate (Hibiclens For Decolonization -) 1 applic TP [facility] Last Admin: 03/15/20 21:05 Dose: 1 applic Documented by: Digoxin (Lanoxin -) 0.125 mg PO Q48H [facility] Last Admin: 03/16/20 13:45 Dose: 0.125 mg Documented by: Furosemide (Lasix Injection -) 40 mg IVPUSH BID@0600,1400 [facility] Last Admin: 03/16/20 13:45 Dose: 40 mg Documented by: Mupirocin (Bactroban Ointment (For Decolonization) -) 1 applic NS BID [facility] Stop: 03/17/20 11:59 Last Admin: 03/16/20 10:21 Dose: 1 applic Documented by: Pantoprazole Sodium (Protonix -) 40 mg PO DAILY [facility] Last Admin: 03/16/20 10:21 Dose: 40 mg Documented by: Rifaximin (Xifaxan -) 550 mg PO BID [facility] Last Admin: 03/16/20 10:21 Dose: 550 mg Documented by: Senna (Senna -) 1 tab PO [facility] Last Admin: 03/15/20 21:05 Dose: 1 tab Documented by: Spironolactone (Aldactone -) 25 mg PO BID [facility] Last Admin: 03/16/20 10:21 Dose: 25 mg Documented by: - Objective Vital Signs: Vital Signs Temperature 99.0 F 03/16/20 06:00 Pulse Rate 77 03/16/20 13:45 Respiratory Rate 24 H 03/16/20 12:00 Blood Pressure 92/62 03/16/20 12:00 O2 Sat by Pulse Oximetry (%) 99 03/16/20 12:00 Constitutional: Yes: No Distress, Calm Eyes: Yes: Conjunctiva Clear, EOM Intact HENT: Yes: Atraumatic, Normocephalic Neck: Yes: Supple, Trachea Midline Cardiovascular: Yes: Pulse Irregular, S1, S2. No: Regular Rate and Rhythm, Bradycardia, Tachycardia, Bruit, JVD, Gallop, Murmur, Rub, S3, S4, Varicosities Respiratory: Yes: Regular Edema: No Peripheral Pulses WNL: No Neurological: Yes: Alert Psychiatric: Yes: Alert Labs: CBC, BMP 03/16/20 05:30 03/16/20 05:30 INR, PTT INR 1.63 (0.83-1.09) H 03/05/20 14:18 Fibrinogen 252.0 mg/dL (238-498) 03/08/20 11:50 - ....Imaging Chest X-ray: Report Reviewed, Image Reviewed EKG: Report Reviewed, Image Reviewed Other: Report Reviewed, Image Reviewed (tele-AV paced, pvcs) Assessment/Plan 74 year old with a pmhx of right sided CHF and pulmonary htn, afib s/p ppm on apixaban, copd on home O2, and gastric CA s/p resection brought from home due to hypotension and sob. SBP 60 at home. +blood in stool at home. SOB worsening last few days at home. +orthopnea and edema. No chest pain. Mental status worsening. Found to have drop in Hgb to 5.2 PATRICK with Cr 2.3 EKG: atrial paced, inferior and anterolateral ST abnormalities CT chest: bibasilar opacities, pleural effusions, anasarca Trops neg BNP elevated Echocardiogram 02/2019: nl lvef, mod to sev RV dil/hypokinesis, mod to sev TR, mod pulm htn. Transferred due to increasing WOB, worsening anemia, and inability to obtain IV access. echo 03/12/20 normal EF, RV hypokinesis, m-s TR PAP 60 IMP: RH failure, Pulm HTN, AFib on apixaban, PPM, sob, hypotension -Continue salt and fluid restrictions. -Continue diuretics as long as BP tolerates, transition to po when possible -echo shows RVHK, severe pulm htn, nl LVEF -monitor I/Os, daily weights, bun/creat, electrolytes and replete as needed.
--- NOTE | 2020-03-16 17:21 | PN ---
Progress Note (short form) - Note Progress Note: Problems 1. PATRICK 2. anemia 3. chf with right heart failure and elevated pulm pressures 4. copd 5. a-fib 6. gastric cancer 7. gi bleed 8. volume overload 9. pleural effusion Active Medications Acetaminophen (Tylenol -) 650 mg PO Q6H PRN PRN Reason: PAIN LEVEL 6-10 Last Admin: 03/15/20 06:01 Dose: 650 mg Documented by: Albuterol/Ipratropium (Duoneb -) 1 amp NEB Q6H PRN PRN Reason: SHORTNESS OF BREATH Chlorhexidine Gluconate (Hibiclens For Decolonization -) 1 applic TP [facility] Last Admin: 03/15/20 21:05 Dose: 1 applic Documented by: Digoxin (Lanoxin -) 0.125 mg PO Q48H [facility] Last Admin: 03/16/20 13:45 Dose: 0.125 mg Documented by: Furosemide (Lasix Injection -) 40 mg IVPUSH BID@0600,1400 [facility] Last Admin: 03/16/20 13:45 Dose: 40 mg Documented by: Mupirocin (Bactroban Ointment (For Decolonization) -) 1 applic NS BID [facility] Stop: 03/17/20 11:59 Last Admin: 03/16/20 10:21 Dose: 1 applic Documented by: Pantoprazole Sodium (Protonix -) 40 mg PO DAILY [facility] Last Admin: 03/16/20 10:21 Dose: 40 mg Documented by: Rifaximin (Xifaxan -) 550 mg PO BID [facility] Last Admin: 03/16/20 10:21 Dose: 550 mg Documented by: Senna (Senna -) 1 tab PO [facility] Last Admin: 03/15/20 21:05 Dose: 1 tab Documented by: Spironolactone (Aldactone -) 25 mg PO BID [facility] Last Admin: 03/16/20 10:21 Dose: 25 mg Documented by: Last Vital Signs Temp Pulse Resp BP Pulse Ox 98.8 F 86 29 H 99/48 L 93 L 03/16/20 16:00 03/16/20 16:00 03/16/20 16:00 03/16/20 16:00 03/16/20 16:00 CBC, BMP 03/16/20 05:30 03/16/20 05:30 CBC, BMP 03/15/20 10:00 03/15/20 10:00 IMP- Hypokalemia s/p PATRICK ANEMIA Plan - cont lasix and aldactone - monitor lytes - monitor volume status - cardio follow up - discussed with icu team - monitor hg
[2020-03-16] MEDS: CHLORHEXIDINE GLUCONATE 4% CLEANSER FOR DECOLONIZATION TP SCH (21:07)
[2020-03-16] MEDS: SENNOSIDES 8.6MG TABLET (FP) PO SCH (21:07)
[2020-03-17] MEDS: FUROSEMIDE 40 MG/4 ML INJECTABLE VIAL IVPUSH SCH (06:30)
[2020-03-17 07:18] LABS: HEMATOCRIT 25.2 % (32.4-45.2); HEMOGLOBIN 7.7 GM/dL (10.7-15.3); MCH 25.4 pg (25.7-33.7); MCHC 30.6 g/dl (32.0-36.0); MEAN CELL VOLUME 83.2 fl (80-96); MEAN PLT VOLUME 8.8 fl (7.5-11.1); PLATELET COUNT 115 K/MM3 (134-434); RBC 3.03 M/mm3 (3.60-5.2); RDW 25.3 % (11.6-15.6); WHITE BLOOD COUNT 3.5 K/mm3 (4.0-10.0)
[2020-03-17 07:22] VITALS: BP 102/74
[2020-03-17 07:45] LABS: ALBUMIN 1.7 g/dl (3.4-5.0); BILIRUBIN,TOTAL 0.4 mg/dL (0.2-1); BLOOD UREA NITROGEN 15.4 mg/dL (7-18); CALCIUM 7.7 mg/dL (8.5-10.1); CREATININE 0.8 mg/dL (0.55-1.3); POTASSIUM 3.7 mmol/L (3.5-5.1); TOT PROT 5.2 g/dl (6.4-8.2)
[2020-03-17 08:04] VITALS: TEMP 98.8
[2020-03-17] MEDS: RIFAXIMIN 550 MG TABLET (UD) PO SCH (09:06)
[2020-03-17] MEDS: SPIRONOLACTONE 25 MG TABLET PO SCH (09:06)
[2020-03-17] MEDS: PANTOPRAZOLE 40 MG TABLET PO SCH (09:06)
[2020-03-17] MEDS: MUPIROCIN 2% TOPICAL OINTMENT FOR DECOLONIZATION NS SCH (09:06)
--- NOTE | 2020-03-17 10:34 | PN ---
Teaching Attending Note Name of Resident: Shavon Richmond ATTENDING PHYSICIAN STATEMENT I saw and evaluated the patient. I reviewed the resident's note and discussed the case with the resident. I agree with the resident's findings and plan as documented. SUBJECTIVE: pt seen and examined, crying to go home OBJECTIVE: Last Vital Signs Temp Pulse Resp BP Pulse Ox 98.8 F 62 20 102/74 100 03/17/20 07:39 03/17/20 06:21 03/17/20 06:21 03/17/20 06:21 03/17/20 07:39 General: Alert, oriented, deconditioned, in moderate respiratory distress HEENT: NC/AT, PERRLA, JVD+ Lungs: poor inspiratory effort, coarse b/l BS+ CVS: Irregularly irregular, Systolic Murmur, S1S2+ Abd: Soft, NT, ND, BS+ Ext: 1+ LE pitting edema b/l CBCD WBC 3.5 K/mm3 (4.0-10.0) L 03/17/20 06:00 RBC 3.03 M/mm3 (3.60-5.2) L 03/17/20 06:00 Hgb 7.7 GM/dL (10.7-15.3) L 03/17/20 06:00 Hct 25.2 % (32.4-45.2) L 03/17/20 06:00 MCV 83.2 fl (80-96) 03/17/20 06:00 MCHC 30.6 g/dl (32.0-36.0) L 03/17/20 06:00 RDW 25.3 % (11.6-15.6) H 03/17/20 06:00 Plt Count 115 K/MM3 (134-434) L 03/17/20 06:00 MPV 8.8 fl (7.5-11.1) 03/17/20 06:00 CMP Sodium 143 mmol/L (136-145) 03/17/20 06:00 Potassium 3.7 mmol/L (3.5-5.1) 03/17/20 06:00 Chloride 101 mmol/L (98-107) 03/17/20 06:00 Carbon Dioxide 39 mmol/L (21-32) H 03/17/20 06:00 Anion Gap 3 MMOL/L (8-16) L 03/17/20 06:00 BUN 15.4 mg/dL (7-18) 03/17/20 06:00 Creatinine 0.8 mg/dL (0.55-1.3) 03/17/20 06:00 Calcium 7.7 mg/dL (8.5-10.1) L 03/17/20 06:00 Total Bilirubin 0.4 mg/dL (0.2-1) 03/17/20 06:00 AST 21 U/L (15-37) 03/17/20 06:00 ALT 16 U/L (13-61) 03/17/20 06:00 Alkaline Phosphatase 73 U/L (45-117) 03/17/20 06:00 Total Protein 5.2 g/dl (6.4-8.2) L 03/17/20 06:00 Albumin 1.7 g/dl (3.4-5.0) L 03/17/20 06:00 Active Medications Acetaminophen (Tylenol -) 650 mg PO Q6H PRN PRN Reason: PAIN LEVEL 6-10 Last Admin: 03/15/20 06:01 Dose: 650 mg Documented by: Albuterol/Ipratropium (Duoneb -) 1 amp NEB Q6H PRN PRN Reason: SHORTNESS OF BREATH Chlorhexidine Gluconate (Hibiclens For Decolonization -) 1 applic TP [facility] Last Admin: 03/16/20 21:07 Dose: 1 applic Documented by: Digoxin (Lanoxin -) 0.125 mg PO Q48H [facility] Last Admin: 03/16/20 13:45 Dose: 0.125 mg Documented by: Furosemide (Lasix -) 40 mg PO BID@0600,1400 [facility] Mupirocin (Bactroban Ointment (For Decolonization) -) 1 applic NS BID [facility] Stop: 03/17/20 11:59 Last Admin: 03/17/20 09:06 Dose: 1 applic Documented by: Pantoprazole Sodium (Protonix -) 40 mg PO DAILY [facility] Last Admin: 03/17/20 09:06 Dose: 40 mg Documented by: Rifaximin (Xifaxan -) 550 mg PO BID [facility] Last Admin: 03/17/20 09:06 Dose: 550 mg Documented by: Senna (Senna -) 1 tab PO [facility] Last Admin: 03/16/20 21:07 Dose: Not Given Documented by: Spironolactone (Aldactone -) 25 mg PO BID [facility] Last Admin: 03/17/20 09:06 Dose: 25 mg Documented by: ASSESSMENT AND PLAN: 74 year old with a Mhx of right sided CHF and pulmonary htn, afib s/p ppm on apixaban, COPD on home O2, and gastric CA s/p resection brought from home due to hypotension and sob. along with blood in stool at home # Acute HFrEF COPD, pul HTN, Cor-pulmonale echo increased Rt vent pressure, Moderate Pul HTN, EF 50-55% PO lasix, digoxin salt/fluid restriction, encourage PO intake cardiology following GI following Pulmonary following Renal following Palliative care consult # LGIB undetermined etiology not stable for EGD stable H&H Hepatic Encephalopathy PATRICK on CKD HTN HLD CHFE CAP PNA Afib on Eliquis (stopped) DVT prophylaxis: hold AC, SCD for DVT ppx Plan: spoke with Son, who wants his mother to go home at this time but would like to have the necessary support to take care of her. He understands that her H&H is low but stable, that she might have another episode of GI bleed. Her condition, need for further workup and possible complications discussed in length, his questions were answered apparently to his satisfaction. He verbalized agreement with plans. Discussed with [facility] for home O2, VNS.
--- NOTE | 2020-03-17 12:14 | PN ---
Progress Note, Physician Chief Complaint: CHF History of Present Illness: This is a 74 year old male with a PMH of right sided CHF and pulmonary HTN, AFIB (on apixaban), COPD (on home O2) and gastric CA S/P resection. He presented with hypotension and SOB. His SBP at home was noted to be 60 mmHg. He was noted to have orthopnea, edema, and worsening mental status. Found to have drop in Hgb to 5.2 PATRICK with Cr 2.3 EKG: atrial paced, inferior and anterolateral ST abnormalities CT chest: bibasilar opacities, pleural effusions, anasarca Trops neg BNP elevated Echo 03/12/20 normal EF, RV hypokinesis, m-s TR PAP 60 - Current Medication List Current Medications: Active Medications Acetaminophen (Tylenol -) 650 mg PO Q6H PRN PRN Reason: PAIN LEVEL 6-10 Last Admin: 03/15/20 06:01 Dose: 650 mg Documented by: Albuterol/Ipratropium (Duoneb -) 1 amp NEB Q6H PRN PRN Reason: SHORTNESS OF BREATH Chlorhexidine Gluconate (Hibiclens For Decolonization -) 1 applic TP HS [facility] Last Admin: 03/16/20 21:07 Dose: 1 applic Documented by: Digoxin (Lanoxin -) 0.125 mg PO Q48H [facility] Last Admin: 03/16/20 13:45 Dose: 0.125 mg Documented by: Furosemide (Lasix -) 40 mg PO BID@0600,1400 [facility] Pantoprazole Sodium (Protonix -) 40 mg PO DAILY [facility] Last Admin: 03/17/20 09:06 Dose: 40 mg Documented by: Rifaximin (Xifaxan -) 550 mg PO BID [facility] Last Admin: 03/17/20 09:06 Dose: 550 mg Documented by: Senna (Senna -) 1 tab PO HS [facility] Last Admin: 03/16/20 21:07 Dose: Not Given Documented by: Spironolactone (Aldactone -) 25 mg PO BID [facility] Last Admin: 03/17/20 09:06 Dose: 25 mg Documented by: - Objective Vital Signs: Vital Signs Temperature 98.8 F 03/17/20 07:39 Pulse Rate 62 03/17/20 06:21 Respiratory Rate 20 03/17/20 06:21 Blood Pressure 102/74 03/17/20 06:21 O2 Sat by Pulse Oximetry (%) 100 03/17/20 07:39 Constitutional: Yes: No Distress Neck: Yes: WNL Cardiovascular: Yes: JVD Respiratory: Yes: Dullness (Coarse BS bilat) Gastrointestinal: Yes: Soft Edema: Yes Edema: LLE: 1+, RLE: 1+ Neurological: Yes: Alert, Oriented Labs: CBC, BMP 03/17/20 06:00 03/17/20 06:00 INR, PTT INR 1.63 (0.83-1.09) H 03/05/20 14:18 Fibrinogen 252.0 mg/dL (238-498) 03/08/20 11:50 Assessment/Plan CHF Acute on chronic diastolic CHF Now on PO diuretics Continue Lasix 40 mg PO BID Aldactone 25 mg PO BID AFIB Rate control with Digoxin 0.125 mg po Q48h Currently well rate controlled Apixaban on hold Discharge planning is in progress
[2020-03-17] MEDS ORDERED: FUROSEMIDE 40 MG TABLET (FP) PO SCH (14:00)
--- NOTE | 2020-03-17 14:03 | PN ---
Progress Note, Physician History of Present Illness: stable no new issues - Current Medication List Current Medications: Active Medications Acetaminophen (Tylenol -) 650 mg PO Q6H PRN PRN Reason: PAIN LEVEL 6-10 Last Admin: 03/15/20 06:01 Dose: 650 mg Documented by: Albuterol/Ipratropium (Duoneb -) 1 amp NEB Q6H PRN PRN Reason: SHORTNESS OF BREATH Chlorhexidine Gluconate (Hibiclens For Decolonization -) 1 applic TP [facility] Last Admin: 03/16/20 21:07 Dose: 1 applic Documented by: Digoxin (Lanoxin -) 0.125 mg PO Q48H [facility] Last Admin: 03/16/20 13:45 Dose: 0.125 mg Documented by: Furosemide (Lasix -) 40 mg PO BID@0600,1400 [facility] Last Admin: 03/17/20 13:08 Dose: 40 mg Documented by: Pantoprazole Sodium (Protonix -) 40 mg PO DAILY [facility] Last Admin: 03/17/20 09:06 Dose: 40 mg Documented by: Rifaximin (Xifaxan -) 550 mg PO BID [facility] Last Admin: 03/17/20 09:06 Dose: 550 mg Documented by: Senna (Senna -) 1 tab PO [facility] Last Admin: 03/16/20 21:07 Dose: Not Given Documented by: Spironolactone (Aldactone -) 25 mg PO BID [facility] Last Admin: 03/17/20 09:06 Dose: 25 mg Documented by: - Objective Vital Signs: Vital Signs Temperature 98.8 F 03/17/20 07:39 Pulse Rate 62 03/17/20 06:21 Respiratory Rate 20 03/17/20 06:21 Blood Pressure 102/74 03/17/20 06:21 O2 Sat by Pulse Oximetry (%) 100 03/17/20 07:39 Constitutional: Yes: No Distress, Calm Cardiovascular: Yes: S1, S2 Respiratory: Yes: Regular, CTA Bilaterally Gastrointestinal: Yes: Normal Bowel Sounds, Soft Musculoskeletal: Yes: WNL Extremities: Yes: WNL Neurological: Yes: Alert, Oriented Psychiatric: Yes: Alert, Oriented Labs: CBC, BMP 03/17/20 06:00 03/17/20 06:00 INR, PTT INR 1.63 (0.83-1.09) H 03/05/20 14:18 Fibrinogen 252.0 mg/dL (238-498) 03/08/20 11:50 Assessment/Plan Problem List - Problems (1) PATRICK (acute kidney injury) Code(s): N17.9 - ACUTE KIDNEY FAILURE, UNSPECIFIED (2) Anemia Code(s): D64.9 - ANEMIA, UNSPECIFIED Qualifiers: Anemia type: unspecified type Qualified Code(s): D64.9 - Anemia, unspecified (3) CHF exacerbation Code(s): I50.9 - HEART FAILURE, UNSPECIFIED Qualifiers: Heart failure type: unspecified Qualified Code(s): I50.9 - Heart failure, unspecified (4) Chronic respiratory failure Code(s): J96.10 - CHRONIC RESPIRATORY FAILURE, UNSP W HYPOXIA OR HYPERCAPNIA (5) Diarrhea Code(s): R19.7 - DIARRHEA, UNSPECIFIED (6) COPD (chronic obstructive pulmonary disease) Code(s): J44.9 - CHRONIC OBSTRUCTIVE PULMONARY DISEASE, UNSPECIFIED Qualifiers: COPD type: unspecified COPD Qualified Code(s): J44.9 - Chronic obstructive pulmonary disease, unspecified (7) Pacemaker Code(s): Z95.0 - PRESENCE OF CARDIAC PACEMAKER (8) A-fib Code(s): I48.91 - UNSPECIFIED ATRIAL FIBRILLATION Qualifiers: Atrial fibrillation type: unspecified persistent Assessment/Plan Acute on chronic resp failure Acute CHF exacerbation PATRICK COPD AFIB Diarrhea/?GI bleed Anemia plan continue to monitor rest as per the team
--- NOTE | 2020-03-17 14:58 | DS ---
Physical Exam: SUBJECTIVE: Patient seen and examined at bedside. No acute events overnight. OBJECTIVE: Vital Signs Period Temp Pulse Resp BP Sys/Nava Pulse Ox Last 24 Hr 97.6 F-98.8 F 62-88 20-29 99-114/48-82 93-100 PHYSICAL EXAM GENERAL: A&Ox3, NAD HEAD: NCAT EYES: PERRL, EOMI LUNGS: Diminished breath sounds at the bases, Poor effort HEART: Irregular S1 S2 ABDOMEN: Soft, nontender, nondistended, + bowel sounds, no guarding, no rebound EXTREMITIES: 1+ pitting edema NEUROLOGICAL: Awake, Alert SKIN: Warm, Dry LABS Laboratory Results - last 24 hr 03/12/20 03/17/20 03/17/20 10:05 06:00 06:00 WBC 3.5 L RBC 3.03 L Hgb 7.7 L Hct 25.2 L MCV 83.2 MCH 25.4 L MCHC 30.6 L RDW 25.3 H Plt Count 115 L MPV 8.8 Sodium 143 Potassium 3.7 Chloride 101 Carbon Dioxide 39 H Anion Gap 3 L BUN 15.4 Creatinine 0.8 Est GFR (CKD-EPI)AfAm 84.77 Est GFR (CKD-EPI)NonAf 73.14 Random Glucose 114 H Calcium 7.7 L Total Bilirubin 0.4 AST 21 ALT 16 Alkaline Phosphatase 73 Total Protein 5.2 L Albumin 1.7 L Crossmatch See Detail HOSPITAL COURSE: Date of Admission:03/05/20 74 y/o M PMHx HFpEF (EF 50-55% 1 year ago), Afib (s/p pacemaker on eliquis), COPD (on 3L O2 at home), pulmonary hypertension, and 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 Initial labs showed Hgb of 5.8 after which she was transfused 3U pRBCs. H/H improved with transfusion and remained stable throughout hospital admission. Pt was evaluated by GI for complaints of GI bleed. Per GI eval, recommendation for EGD/colonoscopy was made for further eval. After discussions with pt and pt's son, however, it was decided to defer such procedures on a later when pt is more stable. Her hospital stay was further complicated by presence of ascites. A paracentesis was performed with results non-diagnostic for malignancy. Ammonia level was elevated after which pt was started on rifaximin. CT chest showed bibasilar consolidation and pleural effusion with evid of possible pna. She was evaluated by ID and started on IV Ceftriaxone and Azithromycin. Pt was seen by cardio and nephro and given IV diuretics for treatment of CHF exacerbation. Additionally, she was seen by onc in setting of GI bleed w/ hx of gastric cancer currently on Eliquis. Recommendation was made by onc to proceed with EGD/colonoscopy if pt's family was amenable for further work up. Throughout her hospital stay, her symptoms improved. Medical workup of admission was discussed in detail with pt's son who was in agreement and verbalized understanding. Pt was discharged home in stable condition with recommendation to stop taking Eliquis and to take a decreased dose of Digoxin. She was also advised to take Lactulose. Follow up instructions were given to patient to see her PCP, nephro, cardio, onc, GI, and pulm after discharge. Date of Discharge: 03/17/20 Minutes to complete discharge: 36 Discharge Summary Problems reviewed: Yes Reason For Visit: ACUTE KIDNEY INJURY,ANEMIA Current Active Problems PATRICK (acute kidney injury) (Acute) Anemia (Acute) CHF exacerbation (Acute) Chronic respiratory failure (Acute) Cirrhosis of liver with ascites (Acute) Diarrhea (Acute) Hepatic encephalopathy (Acute) Idiopathic cirrhosis (Acute) Microcytic anemia (Acute) Rectal bleeding (Acute) Thrombocytopenia (Acute) Condition: Stable - Instructions Diet, Activity, Other Instructions: You were seen in the hospital for complaints of low blood pressure, shortness of breath and bloody stool. Labs showed you had a hemoglobin of 5.2. As a result, you were given a blood transfusion to increase these levels. During your stay, you were found to have an acute congestive heart failure exacerbation. You were given IV diuretics to help with this acute condition. Additionally, you were seen by the fire eater with recommendation to continue taking this medication. Given your history of bloody stool, you were evaluated by the GI doctor. You were recommended to eventually undergo an endoscopy and colonoscopy when you are more stable. Your hospital stay was further complicated by altered mental status. You were found to have fluid in your abdomen that was further evaluated for concern of liver-related causes that would affect your mentation. You were started on a medication (Rifaximin) to help with this condition. Medications We have made the following changes to your medication regimen: Please STOP taking Eliquis for now to avoid any further GI bleed. Please STOP taking Digoxin 0.125 daily. Instead, you can START taking this medication once every OTHER day. Please START taking Aldactone 25 mg twice a day by mouth. Please START taking Lasix 40 mg twice a day by mouth. Please START taking Protonix 40 mg once a day by mouth. Please START taking Lactulose 20 mg / 30mL solution once a day by mouth. You may continue taking the rest of your home meds as prescribed. Follow Up Please follow up with your primary care physician within 1 week. You will need repeat blood work to check your digoxin levels. We have reduced your current dosage for now. Please follow up with your GI doctor, Dr. Baig, within 1 week. You will eventually need an endoscopy/colonoscopy when you are more stable. Please follow up with your fire eater (heart doctor), Dr. Jackson within 1 week. Please follow up with your mechanical integrity engineer (kidney doctor), Dr. Donis within 1 week. Please follow up with your health insurance adjuster (lung doctor), Dr. Joseph within 1 week. Referrals: Arturo Jackson MD [Staff Physician] - John Baig DO [Staff Physician] - Denzel Richey MD [Primary Care Provider] - Myranda Donis MD [Staff Physician] - Disposition: HOME - Home Medications Comprehensive Discharge Medication List: Ambulatory Orders Furosemide [Lasix] 40 mg PO BID 01/26/19 Nitroglycerin [Nitrostat] 0.4 mg SL DAILY PRN 01/26/19 Metoprolol Succinate [Toprol Xl] 25 mg PO BID 03/05/20 Digoxin [Lanoxin -] 0.125 mg PO Q48H #30 tablet 03/17/20 Furosemide [Lasix -] 40 mg PO BID@0600,1400 #60 tablet 03/17/20 Lactulose 20 gm PO DAILY #1 bottle 03/17/20 Pantoprazole Sodium [Protonix -] 40 mg PO DAILY #30 tablet.ec 03/17/20 Spironolactone [Aldactone -] 25 mg PO BID #60 tablet 03/17/20 This patient is new to me today: Yes Date on this admission: 03/17/20 Emergency Visit: Yes ED Registration Date: 03/05/20 Care time: The patient presented to the Emergency Department on the above date and was hospitalized for further evaluation of their emergent condition. Critical Care patient: No - Discharge Referral Referred to [facility] Med [facility].C[facility] No Physician Referral: Torin Baig DO (GI) ATTENDING PHYSICIAN STATEMENT I saw and evaluated the patient. I reviewed the resident's note and discussed the case with the resident. I agree with the resident's findings and plan as documented. SUBJECTIVE: OBJECTIVE: ASSESSMENT AND PLAN:
[2020-03-17 15:27] VITALS: PULSE 85
--- NOTE | 2020-03-17 17:26 | PN ---
Progress Note, Physician History of Present Illness: Pt seen and examined at bedside. She is awake and appears comfortable. SHe is eager to go home. - Objective Vital Signs: Vital Signs Temperature 98.8 F 03/17/20 07:39 Pulse Rate 85 03/17/20 12:40 Respiratory Rate 20 03/17/20 06:21 Blood Pressure 102/74 03/17/20 06:21 O2 Sat by Pulse Oximetry (%) 95 03/17/20 12:40 Constitutional: Yes: Calm Eyes: Yes: Conjunctiva Clear HENT: Yes: Atraumatic Neck: Yes: Supple Cardiovascular: Yes: S1, S2 Respiratory: Yes: CTA Bilaterally Gastrointestinal: Yes: Soft Genitourinary: Yes: Incontinence Edema: Yes Edema: LUE: 1+, RUE: 1+, LLE: 1+, RLE: 1+ Neurological: Yes: Oriented Labs: CBC, BMP 03/17/20 06:00 03/17/20 06:00 INR, PTT INR 1.63 (0.83-1.09) H 03/05/20 14:18 Fibrinogen 252.0 mg/dL (238-498) 03/08/20 11:50 Problem List - Problems (1) PATRICK (acute kidney injury) Code(s): N17.9 - ACUTE KIDNEY FAILURE, UNSPECIFIED (2) Anemia Code(s): D64.9 - ANEMIA, UNSPECIFIED Qualifiers: Anemia type: unspecified type Qualified Code(s): D64.9 - Anemia, unspecified (3) CHF exacerbation Code(s): I50.9 - HEART FAILURE, UNSPECIFIED Qualifiers: Heart failure type: unspecified Qualified Code(s): I50.9 - Heart failure, unspecified (4) COPD (chronic obstructive pulmonary disease) Code(s): J44.9 - CHRONIC OBSTRUCTIVE PULMONARY DISEASE, UNSPECIFIED Qualifiers: COPD type: unspecified COPD Qualified Code(s): J44.9 - Chronic obstructive pulmonary disease, unspecified (5) A-fib Code(s): I48.91 - UNSPECIFIED ATRIAL FIBRILLATION Qualifiers: Atrial fibrillation type: unspecified persistent Assessment/Plan Impression 1. PATRICK 2. anemia 3. chf with right heart failure and elevated pulm pressures 4. copd 5. a-fib 6. gastric cancer 7. gi bleed 8. volume overload 9. pleural effusion Plan - cont lasix - will need outpt follow up - son will monitor her status at home and bring her back if she deteriorates - hg had stabilized Dr Donis
== END 2020-03-17 16:30 | disposition home or self-care (01) | DRG 253 ==
LOC: JER 13:09 → JERBED 19:08 → J4W 03-06 11:39 → J8W 03-10 14:12 → JICU 03-12 13:40
PROVIDERS: ADMIT Internal Medicine; ATTEND Student in an Organized Health Care Education/Training Program
PROC: 30233N1 Transfusion of Nonautologous Red Blood Cells into Peripheral Vein, Percutaneous Approach (ICD-10-PCS; principal; 2020-03-05)
PROC: 0W9G30Z Drainage of Peritoneal Cavity with Drainage Device, Percutaneous Approach (ICD-10-PCS; 2020-03-10)
DX: K92.2 Gastrointestinal hemorrhage, unspecified (principal); I95.9 Hypotension, unspecified; E78.5 Hyperlipidemia, unspecified; J44.1 Chronic obstructive pulmonary disease with (acute) exacerbation; I51.7 Cardiomegaly; K57.90 Diverticulosis of intestine, part unspecified, without perforation or abscess without bleeding; E88.09 Other disorders of plasma-protein metabolism, not elsewhere classified; D62 Acute posthemorrhagic anemia; I48.19 Other persistent atrial fibrillation; I27.81 Cor pulmonale (chronic); K72.90 Hepatic failure, unspecified without coma; D69.6 Thrombocytopenia, unspecified; R18.8 Other ascites; I11.0 Hypertensive heart disease with heart failure; I50.33 Acute on chronic diastolic (congestive) heart failure; N17.9 Acute kidney failure, unspecified; E46 Unspecified protein-calorie malnutrition; J18.9 Pneumonia, unspecified organism; J96.21 Acute and chronic respiratory failure with hypoxia; J96.22 Acute and chronic respiratory failure with hypercapnia; E87.70 Fluid overload, unspecified; J90 Pleural effusion, not elsewhere classified; E87.6 Hypokalemia; R19.7 Diarrhea, unspecified; Z95.0 Presence of cardiac pacemaker; K21.9 Gastro-esophageal reflux disease without esophagitis
CPT/HCPCS: 36415; 36430; 36600; 71045-TC-FY; 71250-TC; 74176-TC; 76705-TC; 76775-TC; 76942-TC; 80048; 80053; 80061; 80162; 81003; 82042; 82105; 82140; 82150; 82272; 82378; 82465; 82550; 82565; 82728; 82803; 82945; 83036; 83516; 83540; 83550; 83605; 83615; 83721; 83735; 83880; 83986; 84100; 84155; 84156; 84157; 84165; 84439; 84443; 84484; 85025; 85027; 85045; 85384; 85610; 85730; 86038; 86301; 86704; 86705; 86706; 86707; 86708; 86709; 86803; 86850; 86900; 86901; 86922; 87040; 87045; 87046; 87070; 87075; 87086; 87102; 87116; 87177; 87186; 87205; 87206; 87209; 87210; 87324; 87340; 87449; 88108; 88305-TC; 93005; 93010; 93306-TC; 93971; 94761; 97116-GP; 97162-GP; 99285-25; J0131; P9058; U0003